=== PATIENT | male | born 1940 | race Caucasian/White ===

== ENCOUNTER 2020-07-27 09:06 | Outpatient (REF) | payer MEDICARE, OTHER, SELFPAY ==
[2020-07-27 10:44] LABS: Valproate 21.5 mcg/mL (50.0-100.0)
[2020-07-27 11:06] LABS: Vitamin B12 488 pg/mL (200-900)
[2020-07-27 11:09] LABS: Creatinine Urine 95.11 mg/dL; Microalbum/Creatinine Ratio Ur 47.3 ug/mg cr
[2020-07-27 11:12] LABS: Estimated Average Glucose 123 mg/dL; Hemoglobin A1c % 5.9 %
[2020-07-27 11:13] LABS: Alanine Aminotransferase 15 U/L (0-40); Albumin Level 4.2 g/dL (3.5-5.0); Alkaline Phosphatase 82 U/L (39-117); Anion Gap 11 (12-20); Aspartate Amino Transferase 21 U/L (5-37); Bilirubin Total 0.4 mg/dL (0.0-1.0); Blood Urea Nitrogen 28 mg/dL (9-16); Calcium 9.8 mg/dL (8.4-10.2); Carbon Dioxide 32 mmol/L (22-29); Chloride 105 mmol/L (96-108); Cholesterol 149 mg/dL; Estimated Glomerular Filt Rate 53; Glucose Fasting 89 mg/dL (60-99); HDL Cholesterol 36 mg/dL; LDL Cholesterol Calculated 91 mg/dl; Sodium 143 mmol/L (135-145); Total Protein 7.2 g/dL (6.5-8.0); Triglycerides 111 mg/dL
[2020-07-27 11:37] LABS: Thyroid Stimulating Hormone 0.53 uIU/mL (0.32-4.0)
== END 2020-07-27 09:07 | disposition home or self-care (01) ==
LOC: HO.LAB 09:06
PROVIDERS: PCP Internal Medicine; Visit Provider Internal Medicine
DX: E11.22 Type 2 diabetes mellitus with diabetic chronic kidney disease (principal); N18.9 Chronic kidney disease, unspecified; E78.2 Mixed hyperlipidemia; F03.91 Unspecified dementia, unspecified severity, with behavioral disturbance; R80.9 Proteinuria, unspecified; Z00.01 Encounter for general adult medical examination with abnormal findings
CPT/HCPCS: 80053; 80061; 80164; 82043; 82607; 83036; 84443

== ENCOUNTER 2020-08-02 20:06 | Emergency (ER) | payer MEDICARE, OTHER, SELFPAY ==
[2020-08-02 20:15] VITALS: BP 131/61; PULSE 69; RESP 18; TEMP 37.4; BMI 27.6
[2020-08-02 20:23] VITALS: BP 131/61; PULSE 69; RESP 18; TEMP 37.4
--- NOTE | 2020-08-02 20:24 | ED_ITS ---
HPI - General Adult General Chief complaint: General Medical Stated complaint: AMS Time Seen by Provider: 08/02/20 20:24 Source: EMS Mode of arrival: EMS Limitations: no limitations History of Present Illness HPI narrative: 80-year-old male with history of dementia presenting via EMS after found wandering on the street. Has history of dementia daughter apparently states he left the house 10 minutes ago without her knowing as she was in another room and her brother's post be watching the father. Patient was gone for no more than 10 minutes she arrived in the ER just as EMS pulled up anticipating that he would be here. No safety concern. No injury or fall. No recent illness. Patient did has a jacket on and is warm. Onset (ago): minute(s) Treatments prior to arrival: none Related Data Allergies Allergy/AdvReac Type Severity Reaction Status Date / Time No Known Allergies Allergy Unknown Unverified 06/01/20 15:42 Review of Systems Review of Systems: Constitutional: No Weight loss, No Fever, No Chills, No Night Sweats, No Fatigue, No Malaise ENT/Mouth: No Hearing loss, No Ear Pain,No Sinus Pain, No Hoarseness, No sore throat, No Rhinorrhea, No Swallowing Difficulty Eyes: No Eye Pain, No Swelling, No Redness, No Foreign Body, No Discharge, No Vision Changes Cardiovascular: No Chest Pain, No SOB, No Dyspnea on Exertion, No Orthopnea, No Edema, No Palpitations Respiratory: No Cough, No Sputum, No Wheezing, No Smoke Exposure, No Dyspnea Gastrointestinal: No Nausea, No Vomiting, No Diarrhea, No Constipation, No abdominal Pain, No Hematochezia, No Melena Genitourinary: no irregular bleeding, No Dysuria, No Urinary Frequency, No Hematuria, No Urinary Incontinence, No Urgency, No Flank Pain, No Urinary Flow Changes, No Hesitancy Musculoskeletal: No joint pain, No Myalgias, No Joint Swelling Skin: No Skin Lesions, No rash Neuro: No Weakness, No Numbness, No Paresthesias, No Loss of Consciousness, No Dizziness, No Headache Psych: No Anxiety/Panic, No Depression, No SI/HI/AH/VH, No Social Issues Heme/Lymph: No Bruising, No Bleeding,No Lymphadenopathy Endocrine: No Polyuria, No Polydipsia, No Temperature Intolerance Yes all other systems are reviewed and are negative FOR[facility]LY [facility], [facility] Past Medical History Attestation statement: The following information was validated with the patient. Medical History (Updated 08/02/20 @ 20:25 by Giancarlo Crain NP) Dementia Social History Social History Alcohol intake: never Smoking Status: Former smoker Smoked in Last 30 Days: Yes Use of substances other than those prescribed or required for medical reasons: No Advance Directives: No Advance Directives Information Provided: Yes Physical Exam Vital Signs: Vital Signs: Last Vital Signs Temp 99.3 F 08/02/20 20:15 Pulse 69 08/02/20 20:15 Resp 18 08/02/20 20:15 BP 131/61 08/02/20 20:15 Body Mass Index 27.6 reviewed Const: General: cooperative and healthy appearing; No acute distress or intoxicated appearing Nutritional Appearance: average body habitus Orientation/consciousness: patient oriented x3 HENMT: Head: Yes normal to inspection Ears: hearing grossly normal bilaterally Eyes: General: appearance normal, both eyes and all related structures Visual Ferrera: normal visual ferrera by confrontation Neck: Neck: Yes normal visual inspection and No tender Thyroid: Thyroid normal Chest: Chest palpation & inspection: normal inspection of the chest Resp: Effort & Inspection: normal respiratory effort Cardio: Jugular venous distension: no JVD GI: Inspection: Yes normal to inspection Percussion: Yes normal to percussion Auscultation: normal bowel sounds : General: Yes no CVA tenderness Back/Spine/Pelvis: Back: no CVA tenderness Skin: General skin exam: no rashes or lesions noted Neuro: General: patient oriented x3 Extrem: General: Yes normal to inspection Course Course Course Narrative: offers no new complaints. Is well kempt. Non ill, nontoxic appearing. Hemodynamically stable. Daughter is here. Does not offer any complaints requiring social work input. No concern for safety. Has PCP follow- up. Will be discharged under the care of daughter. Discharge Plan Discharge Clinical Impression: Dementia Patient Disposition: Home, Self-Care Instructions: Dementia (ED) Referrals: Pam Plummer MD [Primary Care Provider] - 1 week
--- NOTE | 2020-08-02 20:26 | PC.NURSE ---
pt daughter at bedside. pt hands are cool and unable to obtain a o2 sat. provider at bedside and pt will be ready for discharge.
== END 2020-08-02 20:32 | disposition home or self-care (01) ==
PROVIDERS: Emergency Provider Emergency Medicine; PCP Internal Medicine
DX: F03.90 Unspecified dementia, unspecified severity, without behavioral disturbance, psychotic disturbance, mood disturbance, and anxiety (principal); R41.82 Altered mental status, unspecified; Z79.899 Other long term (current) drug therapy
CPT/HCPCS: 99283; 99284

== ENCOUNTER 2020-08-09 14:15 | Outpatient (REF) | payer MEDICARE, MEDICAID, SELFPAY | END 2020-08-09 14:16 | disposition home or self-care (01) | LOC: HO.LAB 14:15 | PROVIDERS: Visit Provider Internal Medicine | DX: Z20.828 Contact with and (suspected) exposure to other viral communicable diseases (principal) | CPT/HCPCS: C9803; U0003 ==

== ENCOUNTER 2020-08-22 10:17 | Outpatient (REF) | payer MEDICARE, MEDICAID, SELFPAY | END 2020-08-22 10:18 | disposition home or self-care (01) | LOC: HO.LAB 10:17 | PROVIDERS: PCP Internal Medicine; Visit Provider Internal Medicine | DX: Z20.828 Contact with and (suspected) exposure to other viral communicable diseases (principal) | CPT/HCPCS: C9803; U0003 ==

== ENCOUNTER 2020-09-11 20:16 | Emergency (ER) | payer MEDICARE, OTHER, SELFPAY ==
--- NOTE | 2020-09-11 | ECG_ITS ---
Test Reason : CHEST PAIN Blood Pressure : / mmHG Vent. Rate : 068 BPM Atrial Rate : 068 BPM P-R Int : 166 ms QRS Dur : 078 ms QT Int : 386 ms P-R-T Axes : 040 014 033 degrees QTc Int : 410 ms Normal sinus rhythm Normal ECG When compared with ECG of 07-MAR-2014 13:35, No significant changes seen Referred By: Generic ED Physician Electronically Signed By:SALMA JOHNSON
--- NOTE | 2020-09-11 20:26 | PC.NURSE ---
called for an ekg
[2020-09-11 21:24] VITALS: BP 107/57; PULSE 65; RESP 18; TEMP 37; O2SAT 99; BMI 27.9
--- NOTE | 2020-09-11 21:27 | XR_ITS ---
EXAMINATION: XR CHEST CLINICAL INFORMATION: Chest pain COMPARISON: None TECHNIQUE: Frontal view of the chest was obtained. FINDINGS: Cardiac silhouette is normal in size. The lungs are well aerated. Subtle patchy bilateral airspace opacities. No lobar consolidation. No pleural effusion or pneumothorax. XR/XR chest 1V IMPRESSION: Subtle patchy bilateral airspace opacities. This is a nonspecific finding. This may represent atelectasis, viral infiltrate, or possibly chronic lung changes. Unfortunately, there are no prior images available for comparison. Clinical correlation recommended.
[2020-09-11 22:25] LABS: Basophils Absolute Auto 0.1 X10*3/uL (0.0-0.2); Basophils Percent Auto 1.3 % (0-2); Eosinophils Absolute Auto 0.3 X10*3/uL (0.0-0.4); Eosinophils Percent Auto 4.1 % (0-4); Hemoglobin 10.8 g/dl (14.0-18.0); Imm Gran Abs Auto 0.01 X10*3/uL (0.00-0.03); Imm Gran Pct Auto 0.1 % (0.0-0.4); Lymphocytes Absolute Auto 2.9 X10*3/uL (1.2-4.9); Lymphocytes Percent Auto 39.9 % (20-40); MANUAL DIFF FLAG NO; Mean Corpuscular HGB Conc 31.8 g/dl (31.0-36.0); Mean Corpuscular Hemoglobin 28.9 pg (27.0-33.0); Mean Corpuscular Volume 90.9 fL (80-98); Mean Platelet Volume 11.4 fL (9.4-12.4); Monocytes Absolute Auto 0.8 X10*3/uL (0.1-1.2); Monocytes Percent Auto 11.1 % (2-11); Neutrophils Absolute Auto 3.1 X10*3/uL (2.0-8.3); Neutrophils Percent Auto 43.5 % (45-73); Platelet Count 158 X10*3/uL (160-400); Red Blood Count 3.74 X10*6/uL (4.60-5.80); Red Cell Distribution Width 13.5 % (11.0-16.0); White Blood Count 7.1 X10*3/uL (4.8-10.8)
[2020-09-11 22:44] LABS: Anion Gap 12 (12-20); Blood Urea Nitrogen 27 mg/dL (9-16); Calcium 9.6 mg/dL (8.4-10.2); Carbon Dioxide 31 mmol/L (22-29); Chloride 105 mmol/L (96-108); Creatinine Clr Calc Pharmacy 34.8; Estimated Glomerular Filt Rate 41; Glucose Random 104 mg/dL (60-115); Potassium 4.7 mmol/l (3.3-5.1); Sodium 143 mmol/L (135-145)
[2020-09-11 22:50] LABS: Troponin-I High Sensitivity 5.6 ng/L (<3.5-35.0)
== END 2020-09-12 00:40 | disposition left against medical advice (07) ==
PROVIDERS: Emergency Provider Student in an Organized Health Care Education/Training Program; PCP Internal Medicine
DX: R07.9 Chest pain, unspecified (principal)
CPT/HCPCS: 36415; 71045; 80048; 84484; 85025; 93005; 99282; 99283

== ENCOUNTER 2021-01-01 13:51 | Outpatient (REF) | payer MEDICARE, OTHER, SELFPAY ==
--- NOTE | ~2021-01-01 | XR_ITS ---
EXAMINATION: XR KNEE, LEFT CLINICAL INFORMATION: Left knee osteoarthritis. COMPARISON: None. TECHNIQUE: 4 views of the left knee. FINDINGS: Moderate medial compartment joint space narrowing. Tricompartmental marginal osteophytes. Patellofemoral subchondral cystic change. No fracture or dislocation. Medial and lateral compartment chondrocalcinosis. Posterior unfused osteophyte versus ossified loose body measuring 0.5 cm. Atherosclerotic calcifications. XR/XR knee LT 4V IMPRESSION: [id number] medial and patellofemoral compartment as well as more moderate lateral compartment osteoarthritis. Medial and lateral compartment chondrocalcinosis.
[2021-01-01 15:39] LABS: Estimated Average Glucose 105 mg/dL; Hemoglobin A1c % 5.3 %
[2021-01-01 15:49] LABS: Alanine Aminotransferase 17 U/L (0-40); Albumin Level 4.1 g/dL (3.5-5.0); Alkaline Phosphatase 78 U/L (39-117); Anion Gap 14 (12-20); Aspartate Amino Transferase 23 U/L (5-37); Bilirubin Total 0.5 mg/dL (0.0-1.0); Blood Urea Nitrogen 30 mg/dL (9-16); Calcium 9.8 mg/dL (8.4-10.2); Carbon Dioxide 28 mmol/L (22-29); Chloride 105 mmol/L (96-108); Estimated Glomerular Filt Rate 44; Glucose Random 143 mg/dL (60-115); Potassium 4.5 mmol/L (3.3-5.1); Sodium 142 mmol/L (135-145); Total Protein 7.2 g/dL (6.5-8.0)
== END 2021-01-01 13:52 | disposition home or self-care (01) ==
LOC: HO.XRAY 13:51
PROVIDERS: PCP Internal Medicine; Visit Provider Internal Medicine
DX: E11.9 Type 2 diabetes mellitus without complications (principal); F03.91 Unspecified dementia, unspecified severity, with behavioral disturbance; I10 Essential (primary) hypertension; M17.12 Unilateral primary osteoarthritis, left knee
CPT/HCPCS: 36415; 73564; 80053; 83036

== ENCOUNTER → 2021-02-09 12:37 | Outpatient (BNVA) | payer MEDICARE, OTHER, SELFPAY | PROVIDERS: Visit Provider Orthopaedic Surgery | DX: M17.12 Unilateral primary osteoarthritis, left knee (principal) | CPT/HCPCS: 20610; 99202; J1040 ==

== ENCOUNTER 2021-05-01 09:45 | Outpatient (REF) | payer MEDICARE, MEDICAID, SELFPAY ==
[2021-05-01 10:24] LABS: MANUAL DIFF FLAG NO
[2021-05-01 10:33] LABS: Basophils Absolute Auto 0.1 X10*3/uL (0.0-0.2); Basophils Percent Auto 1.1 % (0-2); Eosinophils Absolute Auto 0.2 X10*3/uL (0.0-0.4); Eosinophils Percent Auto 3.5 % (0-4); Hematocrit 34.9 % (42-52); Hemoglobin 11.3 g/dl (14.0-18.0); Imm Gran Abs Auto 0.01 X10*3/uL (0.00-0.03); Imm Gran Pct Auto 0.2 % (0.0-0.4); Lymphocytes Absolute Auto 1.7 X10*3/uL (1.2-4.9); Lymphocytes Percent Auto 37.6 % (20-40); Mean Corpuscular HGB Conc 32.4 g/dl (31.0-36.0); Mean Corpuscular Hemoglobin 29.4 pg (27.0-33.0); Mean Corpuscular Volume 90.6 fL (80-98); Mean Platelet Volume 11.7 fL (9.4-12.4); Monocytes Absolute Auto 0.5 X10*3/uL (0.1-1.2); Monocytes Percent Auto 11.4 % (2-11); Neutrophils Absolute Auto 2.1 X10*3/uL (2.0-8.3); Neutrophils Percent Auto 46.2 % (45-73); Platelet Count 158 X10*3/uL (160-400); Red Blood Count 3.85 X10*6/uL (4.60-5.80); Red Cell Distribution Width 12.9 % (11.0-16.0); White Blood Count 4.6 X10*3/uL (4.8-10.8)
[2021-05-01 11:13] LABS: Alanine Aminotransferase 12 U/L (0-40); Albumin Level 4.1 g/dL (3.5-5.0); Alkaline Phosphatase 65 U/L (39-117); Anion Gap 12 (12-20); Aspartate Amino Transferase 17 U/L (5-37); Bilirubin Total 0.5 mg/dL (0.0-1.0); Blood Urea Nitrogen 42 mg/dL (9-16); Calcium 9.9 mg/dL (8.4-10.2); Carbon Dioxide 27 mmol/L (22-29); Chloride 107 mmol/L (96-108); Cholesterol 157 mg/dL; Estimated Glomerular Filt Rate 38; Glucose Random 118 mg/dL (60-115); HDL Cholesterol 32 mg/dL; LDL Cholesterol Calculated 97 mg/dl; Potassium 4.2 mmol/L (3.3-5.1); Sodium 142 mmol/L (135-145); Triglycerides 144 mg/dL
[2021-05-04 15:17] LABS: TS Negative Control Passed; TS Panel A 26; TS Panel B >50; TS Positive Control Passed; TSpotTB POSITIVE (SeeBelow)
== END 2021-05-01 09:46 | disposition home or self-care (01) ==
LOC: HO.LAB 09:45
PROVIDERS: PCP Internal Medicine; Visit Provider Internal Medicine
DX: F03.91 Unspecified dementia, unspecified severity, with behavioral disturbance (principal); F51.02 Adjustment insomnia; M17.12 Unilateral primary osteoarthritis, left knee; N18.32 Chronic kidney disease, stage 3b
CPT/HCPCS: 36415; 80053; 80061; 85025; 86481

== ENCOUNTER 2021-05-14 08:46 | Outpatient (REF) | payer MEDICARE, OTHER, SELFPAY ==
--- NOTE | ~2021-05-14 | XR_ITS ---
EXAMINATION: XR CHEST CLINICAL INFORMATION: Positive TB test COMPARISON: Previous chest x-ray most recent August 2020 TECHNIQUE: 2 views of the chest were obtained. FINDINGS: The cardiac and mediastinal contours are normal. The lungs are clear. There is no pleural effusion or pneumothorax. There are degenerative changes of the spine. XR/XR chest 2V IMPRESSION: No evidence for acute disease in the chest.
== END 2021-05-14 08:47 | disposition home or self-care (01) ==
LOC: HO.XRAY 08:46
PROVIDERS: PCP Internal Medicine; Visit Provider Internal Medicine
DX: R76.11 Nonspecific reaction to tuberculin skin test without active tuberculosis (principal)
CPT/HCPCS: 71046

== ENCOUNTER 2021-05-16 15:09 | Emergency (ER) | payer MEDICARE, OTHER, SELFPAY ==
--- NOTE | ~2021-05-16 | XR_ITS ---
EXAMINATION: CHEST 2 VIEWS CLINICAL INFORMATION: fall . COMPARISON: 05/14/2021. TECHNIQUE: AP frontal and lateral views of the chest obtained FINDINGS: The lungs are well expanded. No focal infiltrate, effusion, edema, or pneumothorax. Cardiac and mediastinal silhouettes are within normal limits for technique. No acute bony abnormality seen with degenerative changes in the spine and shoulders. XR/XR chest 2V IMPRESSION: No evidence of acute disease compared to 05/14/2021
--- NOTE | ~2021-05-16 | CT_ITS ---
EXAM: CT scan of the head and cervical spine. INDICATION: Reason for Exam fall, trauma TECHNIQUE: A noncontrast CT scan was performed from the skull base to the vertex. A noncontrast CT scan of the cervical spine was performed from the base of the skull through T1 at 2.5 mm and 1.25 mm collimation. Coronal and sagittal reformats were obtained at the acquisition workstation. This CT examination was performed using dose optimization techniques as appropriate, variously including the following: *Automated exposure control *Adjustment of mA and/or kV according to patient size (this includes techniques or standardized protocols for targeted exams where dose is matched to indication/reason for exam; i.e. extremities or head) *Use of iterative reconstruction technique DLP: 485 mGy-cm COMPARISON: 12/22/2017 FINDINGS: Head: There is no evidence of acute intracranial hemorrhage but there is an area of decreased attenuation within the left posterior temporal location with loss of the armas-white matter differentiation. No abnormal mass effect or midline shift. No extra-axial fluid collections. Scattered periventricular and deep white matter hypodensities consistent with microangiopathy. The ventricles and sulcal spaces are proportional without hydrocephalus. Proportional prominence of the ventricles and sulcal spaces. No acute osseous or soft tissue abnormalities. The mastoid air cells and visualized portions of the paranasal sinuses are well aerated. Cervical Spine: There is advanced spondylosis throughout the cervical spine most pronounced at C5-C7. There is no acute fracture subluxation. Multilevel posterior disc aspect complex is resulting in moderate to severe central canal encroachment especially at C3-C4. Posterior elements appear intact. Straightening of the normal cervical lordosis. Otherwise, there is anatomic alignment of the vertebral bodies and posterior elements. There is no prevertebral soft tissue swelling. The thyroid gland and remaining cervical soft tissues are normal in appearance. The lung apices demonstrate no abnormalities. CT/CT cervical spine wo con IMPRESSION: 1. Decreased attenuation within the left posterior temporal cortex. Appearance is new since the baseline 2018 exam but strictly speaking is age indeterminate. This could represent a subacute infarct and correlation with clinical symptoms indicated. Consider MRI for dating purposes. No hemorrhage. 2. No fracture subluxation cervical spine. Advanced spondylosis.
--- NOTE | ~2021-05-16 | XR_ITS ---
EXAMINATION: XR TIBIA AND FIBULA, LEFT CLINICAL INFORMATION: Fall, trauma COMPARISON: None TECHNIQUE: AP and lateral views of the left tibia and fibula were obtained. FINDINGS: No fracture or dislocation. Degenerative changes of the knee. There are vascular calcifications. XR/XR tibia fibula LT 2V IMPRESSION: No acute osseous abnormality of the left tibia and fibula.
--- NOTE | ~2021-05-16 | XR_ITS ---
EXAMINATION: XR ELBOW, LEFT CLINICAL INFORMATION: Fall COMPARISON: None TECHNIQUE: AP, lateral, and oblique views of the left elbow. FINDINGS: There is a linear ossification adjacent to the lateral radial head questionable for a fracture. Bone alignment is normal. The joint spaces are normal. There is a large joint effusion. There is soft tissue calcification or ossification adjacent to the lateral humeral epicondyles suggestive of epicondylitis. XR/XR elbow LT min 3V IMPRESSION: Large joint effusion. Linear ossification adjacent to the lateral radial head questionable for fracture. Evidence of lateral epicondylitis.
[2021-05-16 15:19] VITALS: BP 141/37; PULSE 59; RESP 16; TEMP 36.2; O2SAT 98; BMI 27.4
[2021-05-16 16:27] VITALS: BP 124/42; PULSE 58; RESP 16; O2SAT 99
--- NOTE | 2021-05-16 16:28 | ECG_ITS ---
Test Reason : FALL Blood Pressure : / mmHG Vent. Rate : 059 BPM Atrial Rate : 059 BPM P-R Int : 176 ms QRS Dur : 076 ms QT Int : 394 ms P-R-T Axes : 052 010 017 degrees QTc Int : 390 ms Sinus bradycardia Otherwise normal ECG When compared with ECG of 11-SEP-2020 20:25, No significant change was found Referred By: Denise Arora Electronically Signed By:ALMA GANN
--- NOTE | 2021-05-16 16:31 | ED_ITS ---
HPI - Fall General Chief Complaint: Fall Stated Complaint: fall Time Seen by Provider: 05/16/21 16:12 Source: patient Mode of arrival: ambulatory Limitations: altered mental status History of Present Illness HPI Narrative: 80 yo male wiith a past medical history of dementia, chronic kidney disease, high blood pressure here with left elbow pain after a fall. Per daughter the patient was found on the ground this morning when she got home from work. She thinks he may have been on the ground for several hours. He is unable to tell her what happened and why he fell due to his underlying dementia. She did notice his left elbow was painful and swollen and so she brought him in for further evaluation. She tells me he is at his mental status baseline. He is ambulatory. Related Data Home Medications Medication Instructions Recorded Confirmed aspirin 81 mg tablet,delayed 81 mg PO DAILY 02/09/21 release atorvastatin 20 mg tablet 20 mg PO DAILY 02/09/21 divalproex 250 mg tablet,extended 250 mg PO DAILY 02/09/21 release 24 hr galantamine 8 mg tablet 8 mg PO BID 02/09/21 ketorolac 0.5 % eye drops 0 drp OPHTHALMIC (EYE) 02/09/21 lisinopril 20 mg tablet 20 mg PO DAILY 02/09/21 memantine 10 mg tablet 10 mg PO BID 02/09/21 quetiapine 50 mg tablet 50 mg PO BID 02/09/21 sertraline 25 mg tablet 25 mg PO DAILY 02/09/21 Allergies Allergy/AdvReac Type Severity Reaction Status Date / Time No Known Allergies Allergy Unknown Verified 02/09/21 12:46 Review of Systems Review of Systems: Yes Unobtainable due to mental status Neurologic: Denies Abnormal speech present and Reports confusion Psychiatric: Psychiatric: Reports confusion ON LICENSE OF [facility] Past Medical History Attestation statement: The following information was validated with the patient. Source: old records reviewed and nursing notes reviewed Medical History Cataract Dementia Kidney failure Family History Family History Father Throat cancer Mother Hypertension Social History Social History Alcohol intake: never Patient Tobacco Use Status: Former Tobacco user Smoked in Last 30 Days: No Use of substances other than those prescribed or required for medical reasons: No Advance Directives: No Advance Directives Information Provided: Yes Current occupational status: retired Current occupation: right handed Physical Exam Vital Signs: Vital Signs: Last Vital Signs Temp 98.2 F 05/16/21 18:00 Pulse 65 05/16/21 18:00 Resp 16 05/16/21 18:00 BP 147/56 H 05/16/21 18:00 Pulse Ox 97 05/16/21 18:00 Body Mass Index 27.4 Const: General: cooperative, healthy appearing, comfortable, no acute distress and confusion Orientation/consciousness: confusion Limitations: altered mental status HENMT: Head: Yes normal to inspection Ears: hearing grossly normal bilaterally and TM's normal bilaterally General nose exam: Normal external nose present Face and sinus: Yes normal facial exam Mouth: Normal oral and palatal mucosa present Throat: Yes posterior oropharynx normal, Yes tonsils normal and Yes uvula midline Eyes: General: appearance normal, both eyes and all related structures Pupils: Equal, round and reactive pupils present Neck: Neck: Yes normal visual inspection, Yes full ROM and Yes no lymphadenopathy Chest: Chest palpation & inspection: normal inspection of the chest Resp: Effort & Inspection: normal respiratory effort Auscultation: clear to auscultation bilaterally Cardio: Rate: regular rate Rhythm: regular rhythm Peripheral pulses: Peripheral pulses 2+ throughout GI: Inspection: Yes normal to inspection Palpation (GI): Soft to palpation and nontender Auscultation: normal bowel sounds : General: Yes no CVA tenderness Back/Spine/Pelvis: Back: no CVA tenderness Thoracic/Lumbar Spine: thoracic and lumbar spine normal to inspection Skin: General skin exam: no rashes or lesions noted Neuro: General: moves all extremities, normal sensation to monofilament and confusion Cranial nerves: Yes Equal, round and reactive pupils present Speech: No Abnormal speech present Gait exam (Neuro): Normal gait present Motor exam (neuro): 5/5 motor strength present throughout Sensory Exam: Normal double simultaneous stimulation for sensation Extrem: Other: Tenderness and swelling noted to the left lateral elbow. Patient has limited flexion and extension of the arm due to pain. There is no warmth or redness. Distal pulses are palpated. Mild tenderness to the left anterior lower extremity with no obvious ecchymosis or swelling or deformity. Full range of motion General: Yes normal to inspection Course Course Course Narrative: 80-year-old male with underlying dementia here after an unwitnessed fall which occurred sometime throughout the night here with complaints of left elbow pain and left lower extremity pain. Unable to explain to me why he fell. Per family he is at his mental status baseline. Due to dementia and unwitnessed fall will rule out underlying cause. Will check x-ray, UA, EKG and labs. For fall that was unwitnessed will check CT head and neck. For pain of extremities will check x-rays. 1640-x-rays of the left upper extremity show a large joint effusion of the elbow and a likely radial head fracture. Will place in sugar-tong splint and give sling for comfort. 190-imaging chest and lower extremity are negative. Labs are unremarkable with an indeterminate troponin. No EKG changes or chest pain. Less likely ACS. CT head shows a decreased attenuation within the left posterior temporal cortex this is new since his previous CT scan in 2018. Age is indeterminate. I discussed this with his daughter. The patient is confused but has no other neurological deficits. This stroke not likely occurred last night during his fall and she can follow up outpatient with his primary care doctor. He is taking aspirin 81 mg daily and I recommended he continue to take this. Procedures Procedure Narrative Procedure Narrative: sugar tong splint, sling MDM - Fall Medical Records Attestation: I reviewed the patient's medical records. Lab Data Attestation: I reviewed the patient's lab results. Result diagrams: 05/16/21 17:50 05/16/21 17:50 Labs: Lab Results 05/16/21 05/16/21 05/16/21 Range/Units 17:50 17:50 17:50 WBC 8.8 (4.8-10.8) X10*3/uL RBC 3.88 L (4.60-5.80) X10*6/uL Hgb 11.6 L (14.0-18.0) g/dl Hct 34.9 L (42-52) % MCV 89.9 (80-98) fL MCH 29.9 (27.0-33.0) pg MCHC 33.2 (31.0-36.0) g/dl RDW 12.7 (11.0-16.0) % Plt Count 130 L (160-400) X10*3/uL MPV 12.3 (9.4-12.4) fL Immature Gran % (Auto) 0.3 (0.0-0.4) % Neut % (Auto) 57.0 (45-73) % Lymph % (Auto) 22.5 (20-40) % [place] % (Auto) 19.0 H (2-11) % Eos % (Auto) 0.7 (0-4) % Baso % (Auto) 0.5 (0-2) % Lymph # (Auto) 2.0 (1.2-4.9) X10*3/uL [place] # (Auto) 1.7 H (0.1-1.2) X10*3/uL Eos # (Auto) 0.1 (0.0-0.4) X10*3/uL Baso # (Auto) 0.0 (0.0-0.2) X10*3/uL Abs Immat Gran (auto) 0.03 (0.00-0.03) X10*3/uL Absolute Neuts (auto) 5.0 (2.0-8.3) X10*3/uL Absolute Nucleated RBC 0.000 (0.0-0.012) X10*3/uL Nucleated RBC % (auto) 0.0 (0.0-0.2) /100WBC Smear Tech's Comments VERIFIED Sodium 142 (135-145) mmol/L Potassium 4.2 (3.3-5.1) mmol/L Chloride 104 (96-108) mmol/L Carbon Dioxide 29 (22-29) mmol/L Anion Gap 13 (12-20) BUN 34 H (9-16) mg/dL Creatinine 1.45 H (0.5-1.4) mg/dL Estim Creat Clear Calc 39.0 Estimated GFR 47 Random Glucose 102 (60-115) mg/dL Calcium 10.4 H (8.4-10.2) mg/dL Magnesium 2.1 (1.6-2.6) mg/dL Total Bilirubin 0.6 (0.0-1.0) mg/dL Direct Bilirubin 0.2 (0.0-0.5) mg/dL AST 23 (5-37) U/L ALT 12 (0-40) U/L Alkaline Phosphatase 74 (39-117) U/L Total Creatine Kinase 439 H (38-174) U/L Troponin I High Sens 10.2 (<3.5-35.0) ng/L Total Protein 7.4 (6.5-8.0) g/dL Albumin 4.3 (3.5-5.0) g/dL Urine Color Urine Appearance Urine pH (5.0-8.0) Ur Specific [place] (1.005-1.025) Urine Protein (NEG-TRACE) MG/DL Urine Glucose (UA) (NEG) MG/DL Urine Ketones (NEG) MG/DL Urine Blood (NEG) Urine Nitrite (NEG) Ur Leukocyte Esterase (NEG) 05/16/21 Range/Units 17:59 WBC (4.8-10.8) X10*3/uL RBC (4.60-5.80) X10*6/uL Hgb (14.0-18.0) g/dl Hct (42-52) % MCV (80-98) fL MCH (27.0-33.0) pg MCHC (31.0-36.0) g/dl RDW (11.0-16.0) % Plt Count (160-400) X10*3/uL MPV (9.4-12.4) fL Immature Gran % (Auto) (0.0-0.4) % Neut % (Auto) (45-73) % Lymph % (Auto) (20-40) % [place] % (Auto) (2-11) % Eos % (Auto) (0-4) % Baso % (Auto) (0-2) % Lymph # (Auto) (1.2-4.9) X10*3/uL [place] # (Auto) (0.1-1.2) X10*3/uL Eos # (Auto) (0.0-0.4) X10*3/uL Baso # (Auto) (0.0-0.2) X10*3/uL Abs Immat Gran (auto) (0.00-0.03) X10*3/uL Absolute Neuts (auto) (2.0-8.3) X10*3/uL Absolute Nucleated RBC (0.0-0.012) X10*3/uL Nucleated RBC % (auto) (0.0-0.2) /100WBC Smear Tech's Comments Sodium (135-145) mmol/L Potassium (3.3-5.1) mmol/L Chloride (96-108) mmol/L Carbon Dioxide (22-29) mmol/L Anion Gap (12-20) BUN (9-16) mg/dL Creatinine (0.5-1.4) mg/dL Estim Creat Clear Calc Estimated GFR Random Glucose (60-115) mg/dL Calcium (8.4-10.2) mg/dL Magnesium (1.6-2.6) mg/dL Total Bilirubin (0.0-1.0) mg/dL Direct Bilirubin (0.0-0.5) mg/dL AST (5-37) U/L ALT (0-40) U/L Alkaline Phosphatase (39-117) U/L Total Creatine Kinase (38-174) U/L Troponin I High Sens (<3.5-35.0) ng/L Total Protein (6.5-8.0) g/dL Albumin (3.5-5.0) g/dL Urine Color YELLOW Urine Appearance CLEAR Urine pH 6.0 (5.0-8.0) Ur Specific [place] 1.015 (1.005-1.025) Urine Protein NEG (NEG-TRACE) MG/DL Urine Glucose (UA) NEG (NEG) MG/DL Urine Ketones NEG (NEG) MG/DL Urine Blood NEG (NEG) Urine Nitrite NEG (NEG) Ur Leukocyte Esterase NEG (NEG) Imaging Data left elbow xray: Attestation: I personally reviewed and interpreted this imaging study as follows: Radiologist's impression: MPRESSION: Large joint effusion. Linear ossification adjacent to the lateral radial head questionable for fracture. Evidence of lateral epicondylitis. Chest x-ray: Attestation: I personally reviewed and interpreted this imaging study as follows: Radiologist's impression: TECHNIQUE: AP frontal and lateral views of the chest obtained? FINDINGS: The lungs are well expanded. No focal infiltrate, effusion, edema, or pneumothorax. Cardiac and mediastinal silhouettes are within normal limits for technique. No acute bony abnormality seen with degenerative changes in the spine and shoulders. XR/XR chest 2V IMPRESSION: No evidence of acute disease compared to 05/14/2021 ? tibia/fibula left xray: Attestation: I personally reviewed and interpreted this imaging study as follows: Radiologist's impression: EXAMINATION: XR TIBIA AND FIBULA, LEFT CLINICAL INFORMATION: Fall, trauma? COMPARISON: None? TECHNIQUE: AP and lateral views of the left tibia and fibula were obtained. FINDINGS: No fracture or dislocation. Degenerative changes of the knee. There are vascular calcifications.? XR/XR tibia fibula LT 2V IMPRESSION: No acute osseous abnormality of the left tibia and fibula. ? CT head/cervical spine: Attestation: I personally reviewed and interpreted this imaging study as follows: Radiologist's impression: [id number] [place] [address] CT Scan Report Signed Patient: Curtis Paetl V MR#: [id number] : 1940 Acct:[id number] Age/Sex: 80 / M ADM Date: 05/16/21 Loc: HO.ED Attending Dr: Ordering Physician: Denise Arora NP Date of Service: 05/16/21 Procedure(s): CT cervical spine wo con Accession Number(s): [id number] cc: Denise Arora NP~ EXAM: CT scan of the head and cervical spine. INDICATION: Reason for Exam fall, trauma TECHNIQUE: A noncontrast CT scan was performed from the skull base to the vertex. A noncontrast CT scan of the cervical spine was performed from the base of the skull through T1 at 2.5 mm and 1.25 mm collimation. Coronal and sagittal reformats were obtained at the acquisition workstation. This CT examination was performed using dose optimization techniques as appropriate, variously including the following: *Automated exposure control *Adjustment of mA and/or kV according to patient size (this includes techniques or standardized protocols for targeted exams where dose is matched to indication/reason for exam; i.e. extremities or head) *Use of iterative reconstruction technique DLP: 485 ? mGy-cm COMPARISON: 12/22/2017 FINDINGS: Head: There is no evidence of acute intracranial hemorrhage but there is an area of decreased attenuation within the left posterior temporal location with loss of the armas-white matter differentiation. No abnormal mass effect or midline shift. No extra-axial fluid collections. Scattered periventricular and deep white matter hypodensities consistent with microangiopathy.? The ventricles and sulcal spaces are proportional without hydrocephalus. ?Proportional prominence of the ventricles and sulcal spaces. No acute osseous or soft tissue abnormalities. The mastoid air cells and visualized portions of the paranasal sinuses are well aerated. Cervical Spine: There is advanced spondylosis throughout the cervical spine most pronounced at C5-C7. There is no acute fracture subluxation. Multilevel posterior disc aspect complex is resulting in moderate to severe central canal encroachment especially at C3-C4. Posterior elements appear intact.? Straightening of the normal cervical lordosis. Otherwise, there is anatomic alignment of the vertebral bodies and posterior elements. There is no prevertebral soft tissue swelling. The thyroid gland and remaining cervical soft tissues are normal in appearance. The lung apices demonstrate no abnormalities. CT/CT cervical spine wo con IMPRESSION: ? 1. Decreased attenuation within the left posterior temporal cortex. Appearance is new since the baseline 2018 exam but strictly speaking is age indeterminate. This could represent a subacute infarct and correlation with clinical symptoms indicated. Consider MRI for dating purposes. No hemorrhage. 2. No fracture subluxation cervical spine. Advanced spondylosis. ? ? ECG Data Attestation: I personally reviewed and interpreted this ECG as follows: ECG interpretation date: 05/16/21 ECG interpretation time: 16:40 Interpretation: Sinus bradycardia with rate of 59, normal IN, normal QRS, normal QT Discharge Plan Discharge Clinical Impression: Closed fracture of radial head Patient Disposition: Home, Self-Care Instructions: Arm Fracture in Adults (ED) Additional Instructions: This splint must stay on at all times Do not get the splint wet. This sling is for comfort and may be removed as needed. Call orthopedics for a follow-up appointment Tylenol for pain as needed His CT scan shows an old stroke. You can follow-up with his PCP in regards to this. Prescriptions: No Action divalproex 250 mg tablet extended release 24 hr 250 mg PO DAILY RF: 0 lisinopril 20 mg tablet 20 mg PO DAILY RF: 0 atorvastatin 20 mg tablet 20 mg PO DAILY RF: 0 sertraline 25 mg tablet 25 mg PO DAILY RF: 0 memantine 10 mg tablet 10 mg PO BID RF: 0 galantamine 8 mg tablet 8 mg PO BID RF: 0 quetiapine 50 mg tablet 50 mg PO BID RF: 0 aspirin 81 mg tablet,delayed release (DR/EC) 81 mg PO DAILY RF: 0 ketorolac 0.5 % drops 0 drp ophthalmic (eye) RF: 0 Referrals: Gomez Coulter MD [Physician] - 2 days
[2021-05-16 18:00] VITALS: BP 147/56; PULSE 65; RESP 16; TEMP 36.8; O2SAT 97
[2021-05-16 18:14] LABS: Basophils Percent Auto 0.5 % (0-2); Eosinophils Absolute Auto 0.1 X10*3/uL (0.0-0.4); Eosinophils Percent Auto 0.7 % (0-4); Hematocrit 34.9 % (42-52); Hemoglobin 11.6 g/dl (14.0-18.0); Imm Gran Abs Auto 0.03 X10*3/uL (0.00-0.03); Imm Gran Pct Auto 0.3 % (0.0-0.4); Lymphocytes Percent Auto 22.5 % (20-40); MANUAL DIFF FLAG SCAN; Mean Corpuscular HGB Conc 33.2 g/dl (31.0-36.0); Mean Corpuscular Hemoglobin 29.9 pg (27.0-33.0); Mean Corpuscular Volume 89.9 fL (80-98); Mean Platelet Volume 12.3 fL (9.4-12.4); Monocytes Absolute Auto 1.7 X10*3/uL (0.1-1.2); Platelet Count 130 X10*3/uL (160-400); Red Blood Count 3.88 X10*6/uL (4.60-5.80); Red Cell Distribution Width 12.7 % (11.0-16.0); SCAN SMEAR FLAG 1; White Blood Count 8.8 X10*3/uL (4.8-10.8)
[2021-05-16 18:17] LABS: Glucose Urine UA NEG (NEG); Leukocyte Esterase Urine NEG (NEG); Nitrite Urine NEG (NEG); Specific Gravity - Urine 1.015 (1.005-1.025); Urine Blood NEG (NEG); Urine Ketones NEG (NEG); Urine Protein NEG (NEG-TRACE)
[2021-05-16 18:18] LABS: Appearance Urine CLEAR; Color Urine YELLOW
[2021-05-16 18:23] LABS: Troponin-I High Sensitivity 10.2 ng/L (<3.5-35.0)
[2021-05-16 18:24] LABS: Alanine Aminotransferase 12 U/L (0-40); Albumin Level 4.3 g/dL (3.5-5.0); Alkaline Phosphatase 74 U/L (39-117); Anion Gap 13 (12-20); Aspartate Amino Transferase 23 U/L (5-37); Bilirubin Direct 0.2 mg/dL (0.0-0.5); Bilirubin Total 0.6 mg/dL (0.0-1.0); Blood Urea Nitrogen 34 mg/dL (9-16); Carbon Dioxide 29 mmol/L (22-29); Chloride 104 mmol/L (96-108); Estimated Glomerular Filt Rate 47; Glucose Random 102 mg/dL (60-115); Magnesium 2.1 mg/dL (1.6-2.6); Potassium 4.2 mmol/L (3.3-5.1); Sodium 142 mmol/L (135-145); Total Protein 7.4 g/dL (6.5-8.0)
[2021-05-16 18:30] LABS: Calcium 10.4 mg/dL (8.4-10.2)
[2021-05-16 18:34] LABS: SLIDE REVIEW VERIFIED
--- NOTE | 2021-05-16 20:30 | PC.NURSE ---
Pateint not in room at this time.
--- NOTE | 2021-05-16 20:50 | PC.NURSE ---
Called daughter to go over discharge instructions. Left message to call back.
--- NOTE | 2021-05-16 20:56 | PC.NURSE ---
Called patient's phone. No answer. Unable to leave message.
== END 2021-05-16 20:00 | disposition home or self-care (01) ==
PROVIDERS: Nurse Practitioner Family; Emergency Provider Emergency Medicine Emergency Medical Services; PCP Internal Medicine
DX: S52.125A Nondisplaced fracture of head of left radius, initial encounter for closed fracture (principal); W19.XXXA Unspecified fall, initial encounter; I12.9 Hypertensive chronic kidney disease with stage 1 through stage 4 chronic kidney disease, or unspecified chronic kidney disease; N18.9 Chronic kidney disease, unspecified; F03.90 Unspecified dementia, unspecified severity, without behavioral disturbance, psychotic disturbance, mood disturbance, and anxiety; Z79.82 Long term (current) use of aspirin; Z79.02 Long term (current) use of antithrombotics/antiplatelets; Z79.899 Other long term (current) drug therapy; Y93.9 Activity, unspecified; Y92.019 Unspecified place in single-family (private) house as the place of occurrence of the external cause; Y99.9 Unspecified external cause status
CPT/HCPCS: 29125; 36415; 70450; 71046; 72125; 73080; 73590; 80048; 80076; 81003; 82550; 83735; 84484; 85025; 93005; 99284; 99285

== ENCOUNTER → 2021-05-29 14:12 | Outpatient (BNVA) | payer MEDICARE, OTHER, SELFPAY | PROVIDERS: PCP Internal Medicine; Visit Provider Physician Assistant | DX: S52.122A Displaced fracture of head of left radius, initial encounter for closed fracture (principal) | CPT/HCPCS: 99202 ==

== ENCOUNTER → 2021-07-23 14:34 | Outpatient (BNVA) | payer MEDICARE, OTHER, SELFPAY | PROVIDERS: Visit Provider Orthopaedic Surgery | DX: M17.0 Bilateral primary osteoarthritis of knee (principal); F03.90 Unspecified dementia, unspecified severity, without behavioral disturbance, psychotic disturbance, mood disturbance, and anxiety | CPT/HCPCS: 20610; 99212; J1100 ==

== ENCOUNTER 2021-08-17 15:46 | Emergency (ER) | payer MEDICARE, MEDICAID, SELFPAY ==
--- NOTE | ~2021-08-17 | XR_ITS ---
EXAMINATION: XR CHEST CLINICAL INFORMATION: Fever COMPARISON: Chest x-ray 05/16/2021 and chest x-ray 05/14/2021 TECHNIQUE: Frontal view of the chest was obtained. FINDINGS: Cardiac silhouette is normal in size. The lungs are adequately aerated. Mild diffuse coarsening of the interstitial markings appears to be chronic in nature. There is no lobar consolidation appreciated. No pleural effusion or pneumothorax. Degenerative changes of the spine and shoulders. XR/XR chest 1V IMPRESSION: Stable examination demonstrating no acute pulmonary pathology.
--- NOTE | ~2021-08-17 | CT_ITS ---
EXAMINATION: CT HEAD WITHOUT CONTRAST CLINICAL INFORMATION: Fall. COMPARISON: CT head dated from 05/16/2021. TECHNIQUE: Contiguous axial imaging was performed from the skull base to vertex without intravenous administration of contrast. This CT examination was performed using dose optimization techniques as appropriate, variously including the following: *Automated exposure control *Adjustment of mA and/or kV according to patient size (this includes techniques or standardized protocols for targeted exams where dose is matched to indication/reason for exam; i.e. extremities or head) *Use of iterative reconstruction technique DLP: 743 mGy-cm FINDINGS: There is no evidence of acute intracranial hemorrhage or edematous territorial infarction. 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 A few foci of hypoattenuation in the periventricular and deep white matter are consistent with mild microangiopathy. [place]-white matter differentiation is otherwise preserved. Proportional prominence of the ventricles and sulcal spaces. No evidence for obstructive hydrocephalus. No abnormal mass effect or midline shift. No extra-axial fluid collections. No acute soft tissue or osseous abnormalities. The mastoid air cells and paranasal sinuses are clear. CT/CT head/brain wo con IMPRESSION: No evidence of acute intracranial hemorrhage or edematous territorial infarction. 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 Mild chronic microangiopathy and generalized cerebral volume loss.
[2021-08-17 16:29] VITALS: BP 110/42; PULSE 84; RESP 20; TEMP 38.2; O2SAT 95; BMI 25.8
--- NOTE | 2021-08-17 19:46 | ED.FALL ---
HPI - Fall General Chief Complaint: Fall Stated Complaint: fell x2 Time Seen by Provider: 08/17/21 19:46 Source: family Mode of arrival: ambulatory Limitations: altered mental status History of Present Illness HPI Narrative: Patient with history of dementia brought by his daughter as he tripped at daycare program and fell hitting his head forward no loss of consciousness fall was witnessed by the staff. Also staff noted that patient been little bit off for last 2-3 days on arrival patient noticed to have a temperature of 100.8. No nausea no vomiting no fever at home no cough leukemia healthy at home Related Data Home Medications Medication Instructions Recorded Confirmed aspirin 81 mg tablet,delayed 81 mg PO DAILY 02/09/21 release atorvastatin 20 mg tablet 20 mg PO DAILY 02/09/21 divalproex 250 mg tablet,extended 250 mg PO DAILY 02/09/21 release 24 hr galantamine 8 mg tablet 8 mg PO BID 02/09/21 ketorolac 0.5 % eye drops 0 drp OPHTHALMIC (EYE) 02/09/21 lisinopril 20 mg tablet 20 mg PO DAILY 02/09/21 memantine 10 mg tablet 10 mg PO BID 02/09/21 quetiapine 50 mg tablet 50 mg PO BID 02/09/21 sertraline 25 mg tablet 25 mg PO DAILY 02/09/21 Allergies Allergy/AdvReac Type Severity Reaction Status Date / Time No Known Allergies Allergy Unknown Verified 07/23/21 14:37 Review of Systems Review of Systems: Yes Unobtainable due to mental status PMFSH Past Medical History Medical History (Updated 08/18/21 @ 00:02 by Baudilio Holland) Cataract Dementia Kidney failure Family History Family History Father Throat cancer Mother Hypertension Social History Social History Alcohol intake: never Patient Tobacco Use Status: Former Tobacco user Advance Directives: No Advance Directives Information Provided: No Current occupational status: retired Current occupation: right handed Physical Exam Vital Signs: Vital Signs: Last Vital Signs Temp 100.8 F H 08/17/21 16:29 Pulse 84 08/17/21 16:29 Resp 20 08/17/21 16:29 BP 110/42 L 08/17/21 16:29 Pulse Ox 95 08/17/21 16:29 BMI result Body Mass Index 25.8 Appearance: Alert. Oriented X1-2. No acute distress. Eyes: PERRLA, no pallor/icterus ENT: Pharynx normal. Oral Mucosa moist Neck: Normal inspection. Neck supple. CVS: Normal heart rate and rhythm. Pulses normal. Respiratory: No respiratory distress. Equal air entry bilateral, no wheezing/rales/rhonchi Abdomen: Soft and nontender. Bowel sounds are present, no mass palpable, no CVA tenderness Skin: Skin warm and dry. Normal skin color. Normal skin turgor. Extremities: No lower extremity edema. No calf tenderness Neuro: Oriented X 1-2. No motor deficit. MDM - Fall MDM Narrative Medical decision making narrative: Patient labs are stable workup negative for any significant signs of infection lactic acid normal patient is slightly elevated creatinine and sodium received IV fluids and p.o. fluids back to baseline according to family was ambulatory in the ER discharge patient home with family etiology of her not clear likely viral Lab Data Attestation: I reviewed the patient's lab results. Result diagrams: 08/17/21 20:27 08/17/21 20:27 Labs: Lab Results 08/17/21 08/17/21 08/17/21 Range/Units 20:26 20:27 20:27 WBC 9.1 (4.8-10.8) X10*3/uL RBC 3.79 L (4.60-5.80) X10*6/uL Hgb 11.0 L (14.0-18.0) g/dl Hct 34.9 L (42.0-52.0) % MCV 92.1 (80.0-98.0) fL MCH 29.0 (27.0-33.0) pg MCHC 31.5 (31.0-36.0) g/dl RDW 12.7 (11.0-16.0) % Plt Count 202 (160-400) X10*3/uL MPV 11.3 (9.4-12.4) fL Immature Gran % (Auto) 0.2 (0.0-0.4) % Neut % (Auto) 51.2 (45-73) % Lymph % (Auto) 29.5 (20-40) % [place] % (Auto) 17.7 H (2-11) % Eos % (Auto) 0.7 (0-4) % Baso % (Auto) 0.7 (0-2) % Lymph # (Auto) 2.7 (1.2-4.9) X10*3/uL [place] # (Auto) 1.6 H (0.1-1.2) X10*3/uL Eos # (Auto) 0.1 (0.0-0.4) X10*3/uL Baso # (Auto) 0.1 (0.0-0.2) X10*3/uL Abs Immat Gran (auto) 0.02 (0.00-0.03) X10*3/uL Absolute Neuts (auto) 4.6 (2.0-8.3) x10*3/uL Absolute Nucleated RBC 0.000 (0.0-0.012) X10*3/uL Nucleated RBC % (auto) 0.0 (0.0-0.2) /100WBC Smear Tech's Comments VERIFIED Sodium (135-145) mmol/L Potassium (3.3-5.1) mmol/L Chloride (96-108) mmol/L Carbon Dioxide (22-29) mmol/L Anion Gap (12-20) BUN (9-16) mg/dL Creatinine (0.5-1.4) mg/dL Estim Creat Clear Calc Estimated GFR Random Glucose (60-115) mg/dL Lactic Acid 0.9 (0.5-2.0) mmol/L Calcium (8.4-10.2) mg/dL Magnesium (1.6-2.6) mg/dL Total Bilirubin (0.0-1.0) mg/dL AST (5-37) U/L ALT (0-40) U/L Alkaline Phosphatase (39-117) U/L Total Protein (6.5-8.0) g/dL Albumin (3.5-5.0) g/dL Urine Color Urine Appearance Urine pH (5.0-8.0) Ur Specific [place] (1.005-1.025) Urine Protein (NEG-TRACE) MG/DL Urine Glucose (UA) (NEG) MG/DL Urine Ketones (NEG) MG/DL Urine Blood (NEG) Urine Nitrite (NEG) Ur Leukocyte Esterase (NEG) COVID-19 (NELIDA) Negative (Negative) COVID-19 Clin Com See Note 08/17/21 08/17/21 Range/Units 20:27 22:02 WBC (4.8-10.8) X10*3/uL RBC (4.60-5.80) X10*6/uL Hgb (14.0-18.0) g/dl Hct (42.0-52.0) % MCV (80.0-98.0) fL MCH (27.0-33.0) pg MCHC (31.0-36.0) g/dl RDW (11.0-16.0) % Plt Count (160-400) X10*3/uL MPV (9.4-12.4) fL Immature Gran % (Auto) (0.0-0.4) % Neut % (Auto) (45-73) % Lymph % (Auto) (20-40) % [place] % (Auto) (2-11) % Eos % (Auto) (0-4) % Baso % (Auto) (0-2) % Lymph # (Auto) (1.2-4.9) X10*3/uL [place] # (Auto) (0.1-1.2) X10*3/uL Eos # (Auto) (0.0-0.4) X10*3/uL Baso # (Auto) (0.0-0.2) X10*3/uL Abs Immat Gran (auto) (0.00-0.03) X10*3/uL Absolute Neuts (auto) (2.0-8.3) x10*3/uL Absolute Nucleated RBC (0.0-0.012) X10*3/uL Nucleated RBC % (auto) (0.0-0.2) /100WBC Smear Tech's Comments Sodium 146 H (135-145) mmol/L Potassium 4.4 (3.3-5.1) mmol/L Chloride 107 (96-108) mmol/L Carbon Dioxide 29 (22-29) mmol/L Anion Gap 14 (12-20) BUN 40 H (9-16) mg/dL Creatinine 1.75 H (0.5-1.4) mg/dL Estim Creat Clear Calc 30.3 Estimated GFR 38 Random Glucose 107 (60-115) mg/dL Lactic Acid (0.5-2.0) mmol/L Calcium 10.2 (8.4-10.2) mg/dL Magnesium 2.1 (1.6-2.6) mg/dL Total Bilirubin 0.4 (0.0-1.0) mg/dL AST 23 (5-37) U/L ALT 22 (0-40) U/L Alkaline Phosphatase 81 (39-117) U/L Total Protein 7.7 (6.5-8.0) g/dL Albumin 4.2 (3.5-5.0) g/dL Urine Color YELLOW Urine Appearance CLEAR Urine pH 5.5 (5.0-8.0) Ur Specific [place] 1.015 (1.005-1.025) Urine Protein NEG (NEG-TRACE) MG/DL Urine Glucose (UA) NEG (NEG) MG/DL Urine Ketones 5 (NEG) MG/DL Urine Blood NEG (NEG) Urine Nitrite NEG (NEG) Ur Leukocyte Esterase NEG (NEG) COVID-19 (NELIDA) (Negative) COVID-19 Clin Com Discharge Plan Discharge Clinical Impression: Fall, Weakness Patient Disposition: Home, Self-Care Instructions: Fall Prevention for Older Adults (ED) Additional Instructions: Keep patient hydrated precautions as advised Prescriptions: No Action divalproex 250 mg tablet extended release 24 hr 250 mg PO DAILY RF: 0 lisinopril 20 mg tablet 20 mg PO DAILY RF: 0 atorvastatin 20 mg tablet 20 mg PO DAILY RF: 0 sertraline 25 mg tablet 25 mg PO DAILY RF: 0 memantine 10 mg tablet 10 mg PO BID RF: 0 galantamine 8 mg tablet 8 mg PO BID RF: 0 quetiapine 50 mg tablet 50 mg PO BID RF: 0 aspirin 81 mg tablet,delayed release (DR/EC) 81 mg PO DAILY RF: 0 ketorolac 0.5 % drops 0 drp ophthalmic (eye) RF: 0 Interventions: ED Discharge Assessment Last Done: 08/17/21 23:35 Discharge Date/Time: 08/17/21 23:37 Print Language: Faroese
[2021-08-17] MEDS: Acetaminophen 325 MG TABLET 650 MG PO (20:26)
[2021-08-17] MEDS: 0.9 % Sodium Chloride 1,000 ML 999 ML IVCONT (20:26)
[2021-08-17 20:35] LABS: Basophils Absolute Auto 0.1 X10*3/uL (0.0-0.2); Basophils Percent Auto 0.7 % (0-2); Eosinophils Absolute Auto 0.1 X10*3/uL (0.0-0.4); Eosinophils Percent Auto 0.7 % (0-4); Hematocrit 34.9 % (42.0-52.0); Imm Gran Abs Auto 0.02 X10*3/uL (0.00-0.03); Imm Gran Pct Auto 0.2 % (0.0-0.4); Lymphocytes Absolute Auto 2.7 X10*3/uL (1.2-4.9); Lymphocytes Percent Auto 29.5 % (20-40); MANUAL DIFF FLAG SCAN; Mean Corpuscular HGB Conc 31.5 g/dl (31.0-36.0); Mean Corpuscular Volume 92.1 fL (80.0-98.0); Mean Platelet Volume 11.3 fL (9.4-12.4); Monocytes Absolute Auto 1.6 X10*3/uL (0.1-1.2); Monocytes Percent Auto 17.7 % (2-11); Neutrophils Absolute Auto 4.6 x10*3/uL (2.0-8.3); Neutrophils Percent Auto 51.2 % (45-73); Red Blood Count 3.79 X10*6/uL (4.60-5.80); Red Cell Distribution Width 12.7 % (11.0-16.0); SCAN SMEAR FLAG 1; White Blood Count 9.1 X10*3/uL (4.8-10.8)
[2021-08-17 20:41] LABS: Platelet Count 202 X10*3/uL (160-400)
[2021-08-17 20:45] LABS: Lactic Acid 0.9 mmol/L (0.5-2.0)
[2021-08-17 20:49] LABS: Alanine Aminotransferase 22 U/L (0-40); Albumin Level 4.2 g/dL (3.5-5.0); Alkaline Phosphatase 81 U/L (39-117); Anion Gap 14 (12-20); Aspartate Amino Transferase 23 U/L (5-37); Bilirubin Total 0.4 mg/dL (0.0-1.0); Blood Urea Nitrogen 40 mg/dL (9-16); Calcium 10.2 mg/dL (8.4-10.2); Carbon Dioxide 29 mmol/L (22-29); Chloride 107 mmol/L (96-108); Creatinine Clr Calc Pharmacy 30.3; Estimated Glomerular Filt Rate 38; Glucose Random 107 mg/dL (60-115); Magnesium 2.1 mg/dL (1.6-2.6); Potassium 4.4 mmol/L (3.3-5.1); Sodium 146 mmol/L (135-145); Total Protein 7.7 g/dL (6.5-8.0)
[2021-08-17 20:50] LABS: COVID-19 Test Negative (Negative)
[2021-08-17 21:00] LABS: SLIDE REVIEW VERIFIED
--- NOTE | 2021-08-17 21:38 | PC.NURSE ---
iv placed to LUE #20g. BC OBTAINED TO LAB..
[2021-08-17 22:10] LABS: Appearance Urine CLEAR; Color Urine YELLOW; Glucose Urine UA NEG (NEG); Leukocyte Esterase Urine NEG (NEG); Nitrite Urine NEG (NEG); PH 5.5 (5.0-8.0); Specific Gravity - Urine 1.015 (1.005-1.025); Urine Blood NEG (NEG); Urine Ketones 5 MG/DL (NEG); Urine Protein NEG (NEG-TRACE)
== END 2021-08-17 23:37 | disposition home or self-care (01) ==
PROVIDERS: Emergency Provider Internal Medicine; PCP Internal Medicine
DX: R53.1 Weakness (principal); F03.90 Unspecified dementia, unspecified severity, without behavioral disturbance, psychotic disturbance, mood disturbance, and anxiety; Z91.81 History of falling; Z20.822 Contact with and (suspected) exposure to COVID-19
CPT/HCPCS: 36415; 70450; 71045; 80053; 81003; 83605; 83735; 85025; 87040; 87635; 96360; 99283; 99284

== ENCOUNTER 2021-08-20 07:38 | Outpatient (REF) | payer MEDICARE, OTHER, SELFPAY | END 2021-08-20 07:39 | disposition home or self-care (01) | LOC: HO.HOSX 07:38 | PROVIDERS: Visit Provider Physician Assistant | DX: Z13.89 Encounter for screening for other disorder (principal) ==

== ENCOUNTER 2021-09-20 17:31 | Emergency (ER) | payer MEDICARE, MEDICAID, SELFPAY ==
--- NOTE | ~2021-09-20 | XR_ITS ---
EXAMINATION: XR FOOT, RIGHT CLINICAL INFORMATION: Injury COMPARISON: None TECHNIQUE: AP, lateral, and oblique views of the right foot. Patient had difficulty holding still for the lateral view FINDINGS: Bones are normal anatomic alignment with no acute fracture or dislocation seen. Mild degenerative changes noted. Prominent calcaneal heel spur at the attachment point of the Achilles tendon. No radiopaque foreign body or suspicious soft tissue gas. XR/XR foot RT 2V IMPRESSION: No acute bony abnormality.
[2021-09-20 17:41] VITALS: BP 102/42; PULSE 74; RESP 18; TEMP 36.6; BMI 26.7
== END 2021-09-21 01:03 | disposition left against medical advice (07) ==
PROVIDERS: Emergency Provider Emergency Medicine; PCP Internal Medicine
DX: S90.111A Contusion of right great toe without damage to nail, initial encounter (principal); X58.XXXA Exposure to other specified factors, initial encounter; Y93.9 Activity, unspecified; Y92.9 Unspecified place or not applicable; Y99.9 Unspecified external cause status
CPT/HCPCS: 73620; 99282; 99283

== ENCOUNTER 2021-10-10 09:12 | Outpatient (RCR) | payer MEDICARE, MEDICAID, SELFPAY | END 2021-11-15 09:14 | disposition home or self-care (01) | LOC: HO.WCC 09:12 | PROVIDERS: PCP Internal Medicine; Visit Provider Surgery | DX: T33.832A Superficial frostbite of left toe(s), initial encounter (principal); T33.831A Superficial frostbite of right toe(s), initial encounter; F03.91 Unspecified dementia, unspecified severity, with behavioral disturbance; Z91.83 Wandering in diseases classified elsewhere | CPT/HCPCS: 97597; 97598 ==

== ENCOUNTER 2021-10-16 11:51 | Inpatient (IN) | payer OTHER, SELFPAY ==
[2021-10-16] VITALS (10 sets, daily range): BP systolic 86–105; BP diastolic 37–62; PULSE 77–82; RESP 17–23; TEMP 36.8–37.3; O2SAT 95–100; BMI 24.0
--- NOTE | 2021-10-16 | ECG_ITS ---
Test Reason : WEAKNESS Blood Pressure : / mmHG Vent. Rate : 082 BPM Atrial Rate : 082 BPM P-R Int : 124 ms QRS Dur : 072 ms QT Int : 340 ms P-R-T Axes : 058 018 019 degrees QTc Int : 397 ms Normal sinus rhythm Nonspecific ST and T wave abnormality Abnormal ECG When compared with ECG of 16-MAY-2021 16:40, Nonspecific ST and T wave abnormality now present. Referred By: Generic ED Physician Electronically Signed By:SALMA JOHNSON
--- NOTE | ~2021-10-16 | XR_ITS ---
EXAMINATION: 1. RADIOGRAPH RIGHT SHOULDER 2. RADIOGRAPHS LEFT ELBOW CLINICAL INFORMATION: Pain after fall COMPARISON: Chest CT 10/16/2021, chest x-ray 08/17/2021 and left elbow 05/16/2021 TECHNIQUE: Frontal view of the right shoulder and 2 views of the left elbow were obtained. FINDINGS: Right shoulder: Visualized portion of the proximal right humerus demonstrate no fracture. Humeral head demonstrates grossly unremarkable articulation with the glenoid fossa on this frontal only view. The humeral head is slightly high riding in relation to the glenoid fossa possibly representing ligamentous injury. There are mild degenerative changes of the right glenohumeral and moderate degenerative changes of the right acromioclavicular joints. Visualized right-sided ribs and lung parenchyma are unremarkable. Left elbow: No fracture or dislocation. No elbow joint effusion. No focal soft tissue swelling overlying the elbow. Similar soft tissue calcification abutting the lateral epicondyles suggesting epicondylitis. XR/XR elbow LT 2V IMPRESSION: -Degenerative changes of the right shoulder without gross fracture or dislocation. -No fracture or dislocation of the left elbow.
--- NOTE | ~2021-10-16 | XR_ITS ---
EXAMINATION: XR FOOT, RIGHT CLINICAL INFORMATION: Recent frostbite. COMPARISON: Right foot 09/20/2021 TECHNIQUE: 3 views of the right foot. FINDINGS: No fracture. No dislocation. No bone destruction or abnormal periosteal reaction. Bone mineral density is maintained. Joint spaces are normal. No soft tissue abnormality. Spur at the posterior calcaneus. XR/XR foot RT min 3V IMPRESSION: Normal right foot.
--- NOTE | ~2021-10-16 | CT_ITS ---
EXAMINATION: CT BRAIN WITHOUT CONTRAST AND CT CHEST WITHOUT CONTRAST CLINICAL INFORMATION: Weakness and Worsening MS COMPARISON: CT brain 08/17/2021 TECHNIQUE: 5 mm thin axial and reformatted 2 mm thin sagittal coronal images of brain were obtained without contrast. Subsequently axial 5 mm thin and reformatted 3 mm thin sagittal and coronal images of chest were obtained. DLP 1131. FINDINGS: BRAIN: There is no acute intra-axial, extra-axial bleed, masses, collection or midline shift. No acute infarction evolution. There is no edema. The lateral ventricles are symmetrical in size but enlarged. There is diffuse perirectal hypodensity in both several hemispheres without mass effect. Bone windows reveal no calvarial abnormality. There is no scalp soft tissue abnormality. Bilateral paranasal sinuses and mastoid air cells are well-aerated. CHEST: The lungs are well-expanded with mild atelectatic changes right upper lobe posterior segment. There are no pulmonary nodules, mass or consolidation. The thyroid lobes are symmetric and normal. The central trachea and the bronchi widely patent. No abnormal size mediastinal or hilar lymph nodes seen. Heart size is normal. There are coronary artery calcifications. There is no pericardial effusion seen. There is no pleural effusion, thickening or calcified plaques. The axilla and chest wall appears unremarkable. Visualized liver, spleen, pancreas and right adrenal gland appears unremarkable. There is 1.2 cm hypodense focal nodule left adrenal gland. The gallbladder is probably contracted. CT/CT head/brain wo con IMPRESSION: No acute intracranial process seen. Mild cerebral volume loss. Right upper lobe posterior segment atelectasis. Otherwise no acute process seen on CT chest exam.
--- NOTE | ~2021-10-16 | CT_ITS ---
EXAMINATION: CT ABDOMEN AND PELVIS WITHOUT CONTRAST CLINICAL INFORMATION: Weakness. Acute renal failure. COMPARISON: Previous renal ultrasound July [address] of the abdomen and pelvis April 2015 TECHNIQUE: Multidetector volumetric imaging was performed from the superior aspect of the liver through the pubic symphysis. Sagittal and coronal reformatted images were obtained on the technologist's workstation. This CT examination was performed using dose optimization techniques as appropriate, variously including the following: *Automated exposure control *Adjustment of mA and/or kV according to patient size (this includes techniques or standardized protocols for targeted exams where dose is matched to indication/reason for exam; i.e. extremities or head) *Use of iterative reconstruction technique DLP: 736 mGy-cm FINDINGS: LUNG BASES: The visualized lung bases are unremarkable. LIVER, GALLBLADDER, AND BILIARY TREE: The liver is normal in size, shape, and attenuation. No focal hepatic lesion or biliary ductal dilatation is present. The gallbladder is unremarkable with no evidence of radiopaque gallstones, gallbladder wall thickening, or obvious pericholecystic inflammatory changes. PANCREAS: Unremarkable. SPLEEN: Unremarkable. ADRENAL GLANDS: Unremarkable. KIDNEYS AND URETERS: The kidneys are normal in size, shape, and attenuation. There is a 1.7 cm low-attenuation lesion in the lower pole of the left kidney suggestive of a cyst. No imaging follow-up needed. The kidneys are otherwise unremarkable. BLADDER: There is a Monteiro catheter in the bladder. The bladder wall is diffusely thickened. GASTROINTESTINAL TRACT: There is stool throughout the colon suggestive of constipation. Small and large bowel is otherwise unremarkable. The appendix is unremarkable. Stomach is unremarkable. ABDOMINAL WALL: No significant hernia is appreciated. LYMPH NODES: Normal. VASCULAR: Unremarkable. PELVIC VISCERA: The prostate gland is enlarged. The prostate gland measures 4.3 x 5 cm in AP and transverse dimension. OSSEOUS STRUCTURES: There are degenerative changes of the spine and hip joints. CT/CT abdomen pelvis wo con IMPRESSION: Left renal cyst. Constipation. Monteiro catheter in the bladder. Diffuse bladder wall thickening. Enlarged prostate gland. Fleischner guidelines were followed.
--- NOTE | ~2021-10-16 | XR_ITS ---
EXAMINATION: XR FEMUR, RIGHT CLINICAL INFORMATION: Pain post fall COMPARISON: None TECHNIQUE: AP and lateral views of the right femur were obtained. FINDINGS: Bone alignment is normal. No fracture or dislocation is seen. There is arthritis at the right knee joint and right hip joint. There is soft tissue arterial calcification. XR/XR femur RT 2V IMPRESSION: Degenerative changes. No fracture or dislocation.
--- NOTE | ~2021-10-16 | CT_ITS ---
EXAMINATION: CT HEAD WITHOUT CONTRAST CLINICAL INFORMATION: Right-sided weakness COMPARISON: Previous head CT most recent 10/16/2021 TECHNIQUE: Contiguous axial imaging was performed from the skull base to vertex without intravenous administration of contrast. This CT examination was performed using dose optimization techniques as appropriate, variously including the following: *Automated exposure control *Adjustment of mA and/or kV according to patient size (this includes techniques or standardized protocols for targeted exams where dose is matched to indication/reason for exam; i.e. extremities or head) *Use of iterative reconstruction technique DLP: 838 mGy-cm FINDINGS: There is no evidence of an extra-axial collection. There is no evidence of intra-axial or extra-axial hemorrhage. The ventricles and extra-axial CSF spaces are prominent suggestive of generalized atrophy. There is nonspecific periventricular white matter disease. There is low-attenuation in the left temporal lobe questionable for old infarct. This appears unchanged from prior exams going back to MayAugust 2021. No mass, mass effect or acute infarct is seen. Review at bone windows is normal. No skull fracture is seen. Visualized paranasal sinuses, mastoid air cells and middle ears are clear. CT/CT head/brain wo con IMPRESSION: No acute findings. Generalized atrophy and nonspecific periventricular white matter disease. 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 This is similar to previous exams going back to MayAugust 2021. Again, this could be further evaluated with brain MRI if clinically indicated.
--- NOTE | ~2021-10-16 | XR_ITS ---
EXAMINATION: 1. RADIOGRAPH RIGHT SHOULDER 2. RADIOGRAPHS LEFT ELBOW CLINICAL INFORMATION: Pain after fall COMPARISON: Chest CT 10/16/2021, chest x-ray 08/17/2021 and left elbow 05/16/2021 TECHNIQUE: Frontal view of the right shoulder and 2 views of the left elbow were obtained. FINDINGS: Right shoulder: Visualized portion of the proximal right humerus demonstrate no fracture. Humeral head demonstrates grossly unremarkable articulation with the glenoid fossa on this frontal only view. The humeral head is slightly high riding in relation to the glenoid fossa possibly representing ligamentous injury. There are mild degenerative changes of the right glenohumeral and moderate degenerative changes of the right acromioclavicular joints. Visualized right-sided ribs and lung parenchyma are unremarkable. Left elbow: No fracture or dislocation. No elbow joint effusion. No focal soft tissue swelling overlying the elbow. Similar soft tissue calcification abutting the lateral epicondyles suggesting epicondylitis. XR/XR shoulder RT 1V IMPRESSION: -Degenerative changes of the right shoulder without gross fracture or dislocation. -No fracture or dislocation of the left elbow.
--- NOTE | ~2021-10-16 | XR_ITS ---
EXAMINATION: XR FOOT, left CLINICAL INFORMATION: Recent frostbite. COMPARISON: None TECHNIQUE: 3 views of the left foot. FINDINGS: No fracture. No dislocation. No bone destruction or abnormal periosteal reaction. Bone mineral density is maintained. Joint spaces are normal. No soft tissue abnormality. There is a spur at the posterior calcaneus. XR/XR foot LT min 3V IMPRESSION: Normal left foot.
--- NOTE | 2021-10-16 12:23 | ED_ITS ---
HPI - Weakness General Chief complaint: Altered Mental Status Stated complaint: RECENT PONCHO LE SWELLING,AMS PER FAMILY Time Seen by Provider: 10/16/21 12:08 Source: family Mode of arrival: EMS Limitations: no limitations History of Present Illness Complaint: generalized weakness (VNA noted low BPs today, shaking, low O2 with VNA) Onset (ago): day(s) (5) Duration: progressively worsening Location: generalized Migration: none Severity: moderate Quality: aching Relieving factors: none Exacerbating factors: none Context: other (eloped from home last Friday found about 30 min to 1 hour later - frostbite on both feet, being managed at home as well as wound care center - improving last seen this friday) Associated symptoms: other (cannot help with ADLs, will not get out of bed, not eating, very weak, not taking his medications. ) Related Data Home Medications Medication Instructions Recorded Confirmed aspirin 81 mg tablet,delayed 81 mg PO DAILY 02/09/21 10/16/21 release atorvastatin 20 mg tablet 20 mg PO BEDTIME 02/09/21 10/16/21 divalproex 250 mg tablet,extended 250 mg PO DAILY 02/09/21 10/16/21 release 24 hr galantamine 8 mg tablet 8 mg PO BID 02/09/21 10/16/21 lisinopril 20 mg tablet 20 mg PO DAILY 02/09/21 10/16/21 memantine 10 mg tablet 10 mg PO BID 02/09/21 10/16/21 quetiapine 50 mg tablet 50 mg PO BID 02/09/21 10/16/21 cephalexin 500 mg capsule 1 cap PO TID 10/16/21 10/16/21 mirtazapine 15 mg tablet 1 tab PO BEDTIME 10/16/21 10/16/21 silver sulfadiazine 1 % topical 1 appl TOPICAL DAILY 10/16/21 10/16/21 cream Allergies Allergy/AdvReac Type Severity Reaction Status Date / Time No Known Allergies Allergy Unknown Verified 09/20/21 17:41 Review of Systems Verdana 4l Review of Systems: Verdana 4d ROS unable to be obtained Verdana 4d due to altered mental status Verdana 4d PMFSH Past Medical History Attestation statement: The following information was validated with the patient. Medical History Cataract Dementia Kidney failure Family History Family History Father Throat cancer Mother Hypertension Social History Social History Alcohol intake: never Patient Tobacco Use Status: Former Tobacco user Advance Directives: No Advance Directives Information Provided: Yes Current occupational status: retired Current occupation: right handed Physical Exam Verdana 4l Vital Signs: Verdana 4d Verdana 4d Vital Signs: Verdana 4d Verdana 4Bd Last Vital Signs Verdana 4d Cost Estimator New 4d Cost Estimator New 4d Temp 98.3 F 10/16/21 12:14 Cost Estimator New 4d Pulse 79 10/16/21 18:52 Cost Estimator New 4d Resp 17 10/16/21 18:52 BP 104/60 10/16/21 18:52 Pulse Ox 98 10/16/21 18:52 BMI result Body Mass Index 24.0 Appearance: Alert. Oriented X1. No acute distress. Eyes: Pupils equal, round and reactive to light. ENT: Pharynx dry MM Neck: Normal inspection. Neck supple. CVS: Normal heart rate and rhythm. Pulses normal. Respiratory: No respiratory distress. Breath sounds normal. Abdomen: Soft and non-tender. - does not grimace Skin: Skin warm and dry. Normal skin color. Extremities: No lower extremity edema. Bilateral surfaces plantar surface - skin sloughed off some darked areas no swelling no extending erythema no yellow drainage. See pictures below. Neuro: Oriented X 1. No motor deficit. No sensory deficit. Course Course Course Narrative: procalcitonin elevated - cefepime was ordered unknown source at this time could be feet - xrays for osteo ordered, frostbite has been over 7 days at this time, CT abdomen for infection ordered given Na fluids held - delay in results was hypotensive initially did receive 30cc/kg bolus call to nephrology 343pm 300 in [place], not retaining, BP 98/58 daughter states full CODE BP up to 100/62 Dr. Solomon aware of labs recommends started D5W 100ml/hr message sent to Dr. Hebert 458pm - no intervention at this time needed regarding feet other than wound care MDM - Weakness MDM Narrative Medical decision making narrative: 81 yo male from home with hx of dementia, falls eloped last Friday now suffering from frostbite on both feet it is healing and he is going to the wound care center - there is no signs of secondary cellulitis at this time but could be source, will need labs, UA for infection, CT head / chest given acute change for trauma and infection, BP 96/62 manually he is not hypoxic here 98% on RA - IVF ordered. Dispo per results and findings. Lab Data Result diagrams: 10/16/21 14:20 10/16/21 14:20 Labs: Lab Results 10/16/21 10/16/21 10/16/21 Range/Units 13:07 13:08 13:21 WBC (4.8-10.8) X10*3/uL RBC (4.60-5.80) X10*6/uL Hgb (14.0-18.0) g/dl Hct (42.0-52.0) % MCV (80.0-98.0) fL MCH (27.0-33.0) pg MCHC (31.0-36.0) g/dl RDW (11.0-16.0) % Plt Count (160-400) X10*3/uL MPV (9.4-12.4) fL Immature Gran % (Auto) (0.0-0.4) % Neut % (Auto) (45-73) % Lymph % (Auto) (20-40) % [place] % (Auto) (2-11) % Eos % (Auto) (0-4) % Baso % (Auto) (0-2) % Lymph # (Auto) (1.2-4.9) X10*3/uL [place] # (Auto) (0.1-1.2) X10*3/uL Eos # (Auto) (0.0-0.4) X10*3/uL Baso # (Auto) (0.0-0.2) X10*3/uL Abs Immat Gran (auto) (0.00-0.03) X10*3/uL Absolute Neuts (auto) (2.0-8.3) x10*3/uL Absolute Nucleated RBC (0.0-0.012) X10*3/uL Nucleated RBC % (auto) (0.0-0.2) /100WBC Smear Tech's Comments ESR (0-15) MM/HR PT (9.9-13.0) SEC INR (0.9-1.1) VBG pH (7.32-7.43) VBG pCO2 mmHg VBG pO2 mmHg VBG HCO3 (22-26) mmol/L VBG O2 Saturation % VBG Base Excess mmol/L Sodium (135-145) mmol/L Potassium (3.3-5.1) mmol/L Chloride (96-108) mmol/L Carbon Dioxide (22-29) mmol/L Anion Gap (12-20) BUN (9-16) mg/dL Creatinine (0.5-1.4) mg/dL Estim Creat Clear Calc Estimated GFR Random Glucose (60-115) mg/dL Lactic Acid 1.7 (0.5-2.0) mmol/L Calcium (8.4-10.2) mg/dL Magnesium (1.6-2.6) mg/dL Total Bilirubin (0.0-1.0) mg/dL Direct Bilirubin (0.0-0.5) mg/dL AST (5-37) U/L ALT (0-40) U/L Alkaline Phosphatase (39-117) U/L Total Creatine Kinase (38-174) U/L Troponin I High Sens (<3.5-35.0) ng/L C-Reactive Protein (< or = 0.50) mg/dL Total Protein (6.5-8.0) g/dL Albumin (3.5-5.0) g/dL Lipase (8-78) U/L Procalcitonin ng/mL TSH (0.32-4.0) uIU/mL Urine Color YELLOW Urine Appearance HAZY Urine pH 5.0 (5.0-8.0) Ur Specific [place] >= 1.030 H (1.005-1.025) Urine Protein NEG (NEG-TRACE) MG/DL Urine Glucose (UA) NEG (NEG) MG/DL Urine Ketones NEG (NEG) MG/DL Urine Blood NEG (NEG) Urine Nitrite NEG (NEG) Ur Leukocyte Esterase NEG (NEG) Valproic Acid (50.0-100.0) mcg/mL COVID-19 (NELIDA) Negative (Negative) COVID-19 Clin Com See Note 10/16/21 10/16/21 10/16/21 Range/Units 13:23 13:23 13:23 WBC (4.8-10.8) X10*3/uL RBC (4.60-5.80) X10*6/uL Hgb (14.0-18.0) g/dl Hct (42.0-52.0) % MCV (80.0-98.0) fL MCH (27.0-33.0) pg MCHC (31.0-36.0) g/dl RDW (11.0-16.0) % Plt Count (160-400) X10*3/uL MPV (9.4-12.4) fL Immature Gran % (Auto) (0.0-0.4) % Neut % (Auto) (45-73) % Lymph % (Auto) (20-40) % [place] % (Auto) (2-11) % Eos % (Auto) (0-4) % Baso % (Auto) (0-2) % Lymph # (Auto) (1.2-4.9) X10*3/uL [place] # (Auto) (0.1-1.2) X10*3/uL Eos # (Auto) (0.0-0.4) X10*3/uL Baso # (Auto) (0.0-0.2) X10*3/uL Abs Immat Gran (auto) (0.00-0.03) X10*3/uL Absolute Neuts (auto) (2.0-8.3) x10*3/uL Absolute Nucleated RBC (0.0-0.012) X10*3/uL Nucleated RBC % (auto) (0.0-0.2) /100WBC Smear Tech's Comments ESR (0-15) MM/HR PT 14.6 H (9.9-13.0) SEC INR 1.3 H (0.9-1.1) VBG pH (7.32-7.43) VBG pCO2 mmHg VBG pO2 mmHg VBG HCO3 (22-26) mmol/L VBG O2 Saturation % VBG Base Excess mmol/L Sodium (135-145) mmol/L Potassium (3.3-5.1) mmol/L Chloride (96-108) mmol/L Carbon Dioxide (22-29) mmol/L Anion Gap (12-20) BUN (9-16) mg/dL Creatinine (0.5-1.4) mg/dL Estim Creat Clear Calc Estimated GFR Random Glucose (60-115) mg/dL Lactic Acid (0.5-2.0) mmol/L Calcium (8.4-10.2) mg/dL Magnesium (1.6-2.6) mg/dL Total Bilirubin (0.0-1.0) mg/dL Direct Bilirubin (0.0-0.5) mg/dL AST (5-37) U/L ALT (0-40) U/L Alkaline Phosphatase (39-117) U/L Total Creatine Kinase (38-174) U/L Troponin I High Sens (<3.5-35.0) ng/L C-Reactive Protein (< or = 0.50) mg/dL Total Protein (6.5-8.0) g/dL Albumin (3.5-5.0) g/dL Lipase (8-78) U/L Procalcitonin 1.88 ng/mL TSH 0.85 (0.32-4.0) uIU/mL Urine Color Urine Appearance Urine pH (5.0-8.0) Ur Specific [place] (1.005-1.025) Urine Protein (NEG-TRACE) MG/DL Urine Glucose (UA) (NEG) MG/DL Urine Ketones (NEG) MG/DL Urine Blood (NEG) Urine Nitrite (NEG) Ur Leukocyte Esterase (NEG) Valproic Acid < 2.0 L (50.0-100.0) mcg/mL COVID-19 (NELIDA) (Negative) COVID-19 Clin Com 10/16/21 10/16/21 10/16/21 Range/Units 13:30 14:20 14:20 WBC 15.2 H (4.8-10.8) X10*3/uL RBC 3.80 L (4.60-5.80) X10*6/uL Hgb 10.8 L (14.0-18.0) g/dl Hct 36.3 L (42.0-52.0) % MCV 95.5 (80.0-98.0) fL MCH 28.4 (27.0-33.0) pg MCHC 29.8 L (31.0-36.0) g/dl RDW 13.6 (11.0-16.0) % Plt Count 318 D (160-400) X10*3/uL MPV 12.6 H (9.4-12.4) fL Immature Gran % (Auto) 0.5 H (0.0-0.4) % Neut % (Auto) 77.4 H (45-73) % Lymph % (Auto) 10.2 L (20-40) % [place] % (Auto) 11.8 H (2-11) % Eos % (Auto) 0.0 (0-4) % Baso % (Auto) 0.1 (0-2) % Lymph # (Auto) 1.6 (1.2-4.9) X10*3/uL [place] # (Auto) 1.8 H (0.1-1.2) X10*3/uL Eos # (Auto) 0.0 (0.0-0.4) X10*3/uL Baso # (Auto) 0.0 (0.0-0.2) X10*3/uL Abs Immat Gran (auto) 0.08 H (0.00-0.03) X10*3/uL Absolute Neuts (auto) 11.8 H (2.0-8.3) x10*3/uL Absolute Nucleated RBC 0.000 (0.0-0.012) X10*3/uL Nucleated RBC % (auto) 0.0 (0.0-0.2) /100WBC Smear Tech's Comments VERIFIED ESR (0-15) MM/HR PT (9.9-13.0) SEC INR (0.9-1.1) VBG pH 7.35 (7.32-7.43) VBG pCO2 39 mmHg VBG pO2 48 mmHg VBG HCO3 22 (22-26) mmol/L VBG O2 Saturation 70.0 % VBG Base Excess -2.8 mmol/L Sodium 157 H (135-145) mmol/L Potassium 4.6 (3.3-5.1) mmol/L Chloride 123 H (96-108) mmol/L Carbon Dioxide 23 (22-29) mmol/L Anion Gap 16 (12-20) BUN 137 H D (9-16) mg/dL Creatinine 4.24 H* (0.5-1.4) mg/dL Estim Creat Clear Calc 12.5 Estimated GFR 14 Random Glucose 157 H D (60-115) mg/dL Lactic Acid (0.5-2.0) mmol/L Calcium 9.1 D (8.4-10.2) mg/dL Magnesium 3.2 H (1.6-2.6) mg/dL Total Bilirubin 0.2 (0.0-1.0) mg/dL Direct Bilirubin < 0.2 (0.0-0.5) mg/dL AST 178 H (5-37) U/L ALT 165 H (0-40) U/L Alkaline Phosphatase 102 D (39-117) U/L Total Creatine Kinase 1077 H D (38-174) U/L Troponin I High Sens (<3.5-35.0) ng/L C-Reactive Protein 18.37 H (< or = 0.50) mg/dL Total Protein 6.4 L (6.5-8.0) g/dL Albumin 3.0 L D (3.5-5.0) g/dL Lipase 301 H (8-78) U/L Procalcitonin ng/mL TSH (0.32-4.0) uIU/mL Urine Color Urine Appearance Urine pH (5.0-8.0) Ur Specific [place] (1.005-1.025) Urine Protein (NEG-TRACE) MG/DL Urine Glucose (UA) (NEG) MG/DL Urine Ketones (NEG) MG/DL Urine Blood (NEG) Urine Nitrite (NEG) Ur Leukocyte Esterase (NEG) Valproic Acid (50.0-100.0) mcg/mL COVID-19 (NELIDA) (Negative) COVID-19 Clin Com 10/16/21 10/16/21 Range/Units 14:20 14:20 WBC (4.8-10.8) X10*3/uL RBC (4.60-5.80) X10*6/uL Hgb (14.0-18.0) g/dl Hct (42.0-52.0) % MCV (80.0-98.0) fL MCH (27.0-33.0) pg MCHC (31.0-36.0) g/dl RDW (11.0-16.0) % Plt Count (160-400) X10*3/uL MPV (9.4-12.4) fL Immature Gran % (Auto) (0.0-0.4) % Neut % (Auto) (45-73) % Lymph % (Auto) (20-40) % Campbell % (Auto) (2-11) % Eos % (Auto) (0-4) % Baso % (Auto) (0-2) % Lymph # (Auto) (1.2-4.9) X10*3/uL [place] # (Auto) (0.1-1.2) X10*3/uL Eos # (Auto) (0.0-0.4) X10*3/uL Baso # (Auto) (0.0-0.2) X10*3/uL Abs Immat Gran (auto) (0.00-0.03) X10*3/uL Absolute Neuts (auto) (2.0-8.3) x10*3/uL Absolute Nucleated RBC (0.0-0.012) X10*3/uL Nucleated RBC % (auto) (0.0-0.2) /100WBC Smear Tech's Comments ESR 105 H (0-15) MM/HR PT (9.9-13.0) SEC INR (0.9-1.1) VBG pH (7.32-7.43) VBG pCO2 mmHg VBG pO2 mmHg VBG HCO3 (22-26) mmol/L VBG O2 Saturation % VBG Base Excess mmol/L Sodium (135-145) mmol/L Potassium (3.3-5.1) mmol/L Chloride (96-108) mmol/L Carbon Dioxide (22-29) mmol/L Anion Gap (12-20) BUN (9-16) mg/dL Creatinine (0.5-1.4) mg/dL Estim Creat Clear Calc Estimated GFR Random Glucose (60-115) mg/dL Lactic Acid (0.5-2.0) mmol/L Calcium (8.4-10.2) mg/dL Magnesium (1.6-2.6) mg/dL Total Bilirubin (0.0-1.0) mg/dL Direct Bilirubin (0.0-0.5) mg/dL AST (5-37) U/L ALT (0-40) U/L Alkaline Phosphatase (39-117) U/L Total Creatine Kinase (38-174) U/L Troponin I High Sens 34.3 (<3.5-35.0) ng/L C-Reactive Protein (< or = 0.50) mg/dL Total Protein (6.5-8.0) g/dL Albumin (3.5-5.0) g/dL Lipase (8-78) U/L Procalcitonin ng/mL TSH (0.32-4.0) uIU/mL Urine Color Urine Appearance Urine pH (5.0-8.0) Ur Specific [place] (1.005-1.025) Urine Protein (NEG-TRACE) MG/DL Urine Glucose (UA) (NEG) MG/DL Urine Ketones (NEG) MG/DL Urine Blood (NEG) Urine Nitrite (NEG) Ur Leukocyte Esterase (NEG) Valproic Acid (50.0-100.0) mcg/mL COVID-19 (NELIDA) (Negative) COVID-19 Clin Com ECG Data Attestation: I personally reviewed and interpreted this ECG as follows: ECG interpretation date: 10/16/21 ECG interpretation time: 12:25 Interpretation: Rate: 82 Rhythm: NSR [place]: normal Normal P waves. Normal NADIA. Normal QRS complex. ST T wave : nonspecific inferior leads/lateral leads no MEI qTC: normal prior studies: no acute ischemia The study has been interpreted contemporaneously by me. . Critical Care Time Critical Care Time Critical Care Time: Yes Total Critical Care Time: 60 Attestation: IVF 30cc/kg bolus, IV antibiotics, medical consults x 2 I attest to this time spent taking care of the patient Discharge Plan Discharge Clinical Impression: KERI (acute kidney injury), Elevated procalcitonin, Acute hypernatremia, [place] tita BUN, Wound of foot Rhabdomyolysis Qualifiers: Rhabdomyolysis type: non-traumatic Qualified Code(s): M62.82 - Rhabdomyolysis Patient Disposition: Admitted As Inpatient
--- NOTE | 2021-10-16 12:44 | PHA.MEDREC ---
Pharmacy Consult ? Medication Reconciliation Pharmacy has completed the medication reconciliation. Confirmed medications with patient's daughter. Cephalexin was prescribed for so his louis bite does not get infected. Patient has no recieved any medications since . Mary Kay Huang, PharmD
[2021-10-16] MEDS: 0.9 % Sodium Chloride 2,022 ML 2022 ML IV (12:48)
[2021-10-16 13:23] LABS: Appearance Urine HAZY; Color Urine YELLOW; Glucose Urine UA NEG (NEG); Leukocyte Esterase Urine NEG (NEG); Nitrite Urine NEG (NEG); Specific Gravity - Urine >= 1.030 (1.005-1.025); Urine Blood NEG (NEG); Urine Ketones NEG (NEG); Urine Protein NEG (NEG-TRACE)
[2021-10-16 13:33] LABS: COVID-19 Test Negative (Negative)
[2021-10-16 13:35] LABS: Venous Blood Gas Refer to POC result
[2021-10-16 13:36] LABS: VBG Base Excess -2.8 mmol/L; VBG HCO3 22 mmol/L (22-26); VBG pCO2 39 mmHg; VBG pH 7.35 (7.32-7.43); VBG pO2 48 mmHg
[2021-10-16 13:44] LABS: INTERNATIONAL NORM RATIO 1.3 (0.9-1.1); Prothrombin Time 14.6 SEC (9.9-13.0)
[2021-10-16 13:46] LABS: Lactic Acid 1.7 mmol/L (0.5-2.0)
[2021-10-16 14:10] LABS: Procalcitonin 1.88 ng/mL; TSH reflex Free T4 0.85 uIU/mL (0.32-4.0)
[2021-10-16 14:19] LABS: Valproate < 2.0 mcg/mL (50.0-100.0)
[2021-10-16 14:35] LABS: Basophils Percent Auto 0.1 % (0-2); Hematocrit 36.3 % (42.0-52.0); Hemoglobin 10.8 g/dl (14.0-18.0); Imm Gran Abs Auto 0.08 X10*3/uL (0.00-0.03); Imm Gran Pct Auto 0.5 % (0.0-0.4); Lymphocytes Absolute Auto 1.6 X10*3/uL (1.2-4.9); Lymphocytes Percent Auto 10.2 % (20-40); MANUAL DIFF FLAG SCAN; Mean Corpuscular HGB Conc 29.8 g/dl (31.0-36.0); Mean Corpuscular Hemoglobin 28.4 pg (27.0-33.0); Mean Corpuscular Volume 95.5 fL (80.0-98.0); Mean Platelet Volume 12.6 fL (9.4-12.4); Monocytes Absolute Auto 1.8 X10*3/uL (0.1-1.2); Monocytes Percent Auto 11.8 % (2-11); Neutrophils Absolute Auto 11.8 x10*3/uL (2.0-8.3); Neutrophils Percent Auto 77.4 % (45-73); Platelet Count 318 X10*3/uL (160-400); Red Cell Distribution Width 13.6 % (11.0-16.0); SCAN SMEAR FLAG 1; White Blood Count 15.2 X10*3/uL (4.8-10.8)
[2021-10-16] MEDS: cefEPime HCl 2 GM in 0.9 % Sodium Chloride 50 ML IV (14:46)
[2021-10-16 14:51] LABS: Troponin-I High Sensitivity 34.3 ng/L (<3.5-35.0)
--- NOTE | 2021-10-16 14:53 | PC.NURSE ---
MADE MULTIPLE ATTEMPTS AT A SECOND iv LINE. A SECOND RN ATTEMPTED TO GET A SECOND LINE - PT DEHYDRATED AND STAFF UJNABLE TO OBTAIN A SECOND LINE. 18g IN PT WRIST PLACED BY ems WORKS WELL HOWEVER IS POSITIONAL SLOWING DOWN IVF INFUSION
[2021-10-16 15:11] LABS: Creatinine Clr Calc Pharmacy 12.5; Estimated Glomerular Filt Rate 14
[2021-10-16 15:20] LABS: SLIDE REVIEW VERIFIED
[2021-10-16 15:23] LABS: Erythrocyte Sedimentation Rate 105 MM/HR (0-15)
[2021-10-16 15:24] LABS: Alanine Aminotransferase 165 U/L (0-40); Alkaline Phosphatase 102 U/L (39-117); Anion Gap 16 (12-20); Aspartate Amino Transferase 178 U/L (5-37); Bilirubin Direct < 0.2 mg/dL (0.0-0.5); Bilirubin Total 0.2 mg/dL (0.0-1.0); Blood Urea Nitrogen 137 mg/dL (9-16); C Reactive Protein 18.37 mg/dL (< or = 0.50); Calcium 9.1 mg/dL (8.4-10.2); Carbon Dioxide 23 mmol/L (22-29); Chloride 123 mmol/L (96-108); Glucose Random 157 mg/dL (60-115); Lipase 301 U/L (8-78); Magnesium 3.2 mg/dL (1.6-2.6); Potassium 4.6 mmol/L (3.3-5.1); Sodium 157 mmol/L (135-145); Total Protein 6.4 g/dL (6.5-8.0)
[2021-10-16] MEDS: vancomycin HCL 750 MG in 0.9 % Sodium Chloride 250 ML 265 MG IV (15:53)
--- NOTE | 2021-10-16 17:07 | P.CONGS_ITS ---
History of Present Illness Consult details Consult date: 10/16/21 Requesting physician: Halina Lutz Narrative: 81-year-old male patient with history of dementia, now presenting with frostbite of the bilateral feet. The injury occurred approximately 10 days ago when he left the house for approximately 30 minutes. He subsequently developed the frostbite which was eventually evaluated by [facility]. His daughter has been caring for the wounds, applying Silvadene cream twice daily followed by dry sterile dressings. Over the past several days the wounds have actually improved and skin has desquamated. He has become progressively weak and nonverbal and was subsequently brought to the emergency department by ambulance for further evaluation. He was found to be in renal failure with bacterial infection. Review of Systems Verdana 4l Review of Systems: Yes Unobtainable due to mental status Verdana 4d PMFSH Past Medical History Medical History Cataract Dementia Kidney failure Family History Family History Father Throat cancer Mother Hypertension Social History Social History Alcohol intake: never Patient Tobacco Use Status: Former Tobacco user Advance Directives: No Advance Directives Information Provided: Yes Current occupational status: retired Current occupation: right handed Meds Allergies Allergy/AdvReac Type Severity Reaction Status Date / Time No Known Allergies Allergy Unknown Verified 09/20/21 17:41 Active Medications: Current Medications Dextrose (D5w) 1,000 mls @ 100 mls/hr IVCONT .Q10H [facility] Pharmacy Consult (Consult Rx Perform Med Rec) 1 each MISCELLANE ONCE PRN PRN Reason: Consult order Home Medications Medication Instructions Recorded Confirmed Last Taken Type aspirin 81 mg 81 mg PO DAILY 02/09/21 10/16/21 10/11/21 History tablet,delayed release atorvastatin 20 20 mg PO BEDTIME 02/09/21 10/16/21 10/11/21 History mg tablet divalproex 250 mg 250 mg PO DAILY 02/09/21 10/16/21 10/11/21 History tablet,extended release 24 hr galantamine 8 mg 8 mg PO BID 02/09/21 10/16/21 10/11/21 History tablet lisinopril 20 mg 20 mg PO DAILY 02/09/21 10/16/21 10/11/21 History tablet memantine 10 mg 10 mg PO BID 02/09/21 10/16/21 10/11/21 History tablet quetiapine 50 mg 50 mg PO BID 02/09/21 10/16/21 10/11/21 History tablet cephalexin 500 mg 1 cap PO TID 10/16/21 10/16/21 10/11/21 History capsule mirtazapine 15 mg 1 tab PO BEDTIME 10/16/21 10/16/21 10/11/21 History tablet silver 1 appl TOPICAL 10/16/21 10/16/21 10/11/21 History sulfadiazine 1 % DAILY topical cream Physical Exam Verdana 4l Vital Signs: Verdana 4d Verdana 4d Vital Signs: Verdana 4d Verdana 4Bd Last Vital Signs Verdana 4d [facility] Advocate New 4d [facility] Advocate New 4d Temp 98.3 F 10/16/21 12:14 [address] Advocate New 4d Pulse 78 10/16/21 16:02 [address] Advocate New 4d Resp 18 10/16/21 16:02 BP 100/62 10/16/21 16:02 Pulse Ox 98 10/16/21 16:02 BMI result Body Mass Index 24.0 Const: General: ill appearing and patient obtunded Nutritional Appearance: well nourished Orientation/consciousness: patient obtunded Limitations: altered mental status HENMT: Head: Yes normocephalic and Yes atraumatic Resp: Effort & Inspection: normal respiratory effort, no audible wheezes and no cough Skin: Other: Warm, dry, no rash, frostbite as noted below Neuro: General: patient obtunded Extrem: Other: Bilateral areas of desquamated skin involving the plantar surface of both feet, especially the toes. No erythema or drainage. No Areas of deep necrosis or underlying abscess. Unable to assess sensation or strength due to the patient's dementia. Results Labs Result diagrams: 10/16/21 14:20 10/16/21 14:20 Labs: Abnormal lab results 10/16/21 10/16/21 10/16/21 Range/Units 13:07 13:23 13:23 WBC (4.8-10.8) X10*3/uL RBC (4.60-5.80) X10*6/uL Hgb (14.0-18.0) g/dl Hct (42.0-52.0) % MCHC (31.0-36.0) g/dl MPV (9.4-12.4) fL Immature Gran % (Auto) (0.0-0.4) % Neut % (Auto) (45-73) % Lymph % (Auto) (20-40) % [place] % (Auto) (2-11) % [place] # (Auto) (0.1-1.2) X10*3/uL Abs Immat Gran (auto) (0.00-0.03) X10*3/uL Absolute Neuts (auto) (2.0-8.3) x10*3/uL ESR (0-15) MM/HR PT 14.6 H (9.9-13.0) SEC INR 1.3 H (0.9-1.1) Sodium (135-145) mmol/L Chloride (96-108) mmol/L BUN (9-16) mg/dL Creatinine (0.5-1.4) mg/dL Random Glucose (60-115) mg/dL Magnesium (1.6-2.6) mg/dL AST (5-37) U/L ALT (0-40) U/L Total Creatine Kinase (38-174) U/L C-Reactive Protein (< or = 0.50) mg/dL Total Protein (6.5-8.0) g/dL Albumin (3.5-5.0) g/dL Lipase (8-78) U/L Ur Specific [place] >= 1.030 H (1.005-1.025) Valproic Acid < 2.0 L (50.0-100.0) mcg/mL 10/16/21 10/16/21 10/16/21 Range/Units 14:20 14:20 14:20 WBC 15.2 H (4.8-10.8) X10*3/uL RBC 3.80 L (4.60-5.80) X10*6/uL Hgb 10.8 L (14.0-18.0) g/dl Hct 36.3 L (42.0-52.0) % MCHC 29.8 L (31.0-36.0) g/dl MPV 12.6 H (9.4-12.4) fL Immature Gran % (Auto) 0.5 H (0.0-0.4) % Neut % (Auto) 77.4 H (45-73) % Lymph % (Auto) 10.2 L (20-40) % [place] % (Auto) 11.8 H (2-11) % [place] # (Auto) 1.8 H (0.1-1.2) X10*3/uL Abs Immat Gran (auto) 0.08 H (0.00-0.03) X10*3/uL Absolute Neuts (auto) 11.8 H (2.0-8.3) x10*3/uL ESR 105 H (0-15) MM/HR PT (9.9-13.0) SEC INR (0.9-1.1) Sodium 157 H (135-145) mmol/L Chloride 123 H (96-108) mmol/L BUN 137 H D (9-16) mg/dL Creatinine 4.24 H* (0.5-1.4) mg/dL Random Glucose 157 H D (60-115) mg/dL Magnesium 3.2 H (1.6-2.6) mg/dL AST 178 H (5-37) U/L ALT 165 H (0-40) U/L Total Creatine Kinase 1077 H D (38-174) U/L C-Reactive Protein 18.37 H (< or = 0.50) mg/dL Total Protein 6.4 L (6.5-8.0) g/dL Albumin 3.0 L D (3.5-5.0) g/dL Lipase 301 H (8-78) U/L Ur Specific [place] (1.005-1.025) Valproic Acid (50.0-100.0) mcg/mL Short CBC 10/16/21 Range/Units 14:20 WBC 15.2 H (4.8-10.8) X10*3/uL Hgb 10.8 L (14.0-18.0) g/dl Hct 36.3 L (42.0-52.0) % Plt Count 318 D (160-400) X10*3/uL BMP 10/16/21 14:20 Sodium 157 H Potassium 4.6 Chloride 123 H Carbon Dioxide 23 BUN 137 H D Creatinine 4.24 H* Calcium 9.1 D Cardiac Enzymes 10/16/21 Range/Units 14:20 Total Creatine Kinase 1077 H D (38-174) U/L Liver Function 10/16/21 Range/Units 14:20 Total Bilirubin 0.2 (0.0-1.0) mg/dL Direct Bilirubin < 0.2 (0.0-0.5) mg/dL AST 178 H (5-37) U/L ALT 165 H (0-40) U/L Alkaline Phosphatase 102 D (39-117) U/L Albumin 3.0 L D (3.5-5.0) g/dL Urine 10/16/21 Range/Units 13:07 Urine Color YELLOW Urine Appearance HAZY Urine pH 5.0 (5.0-8.0) Ur Specific [place] >= 1.030 H (1.005-1.025) Urine Protein NEG (NEG-TRACE) MG/DL Urine Glucose (UA) NEG (NEG) MG/DL All other labs normal. Assessment and Plan (1) Frostbite of both lower extremities: Status: Acute Plan 81-year-old male patient presenting with frostbite injury occurring approximately 10 days ago. Examination today reveals improvement in the underlying skin with sloughing of the necrotic epidermis. The underlying skin is viable without evidence of underlying abscess. Feet do not appear to be the source of patient's current sepsis. Recommend continuing Silvadene cream to bilateral feet twice daily followed by dry sterile dressings. Procedures Date of Service Date of Service: 10/16/21
[2021-10-16] MEDS: Dextrose 5 % 1,000 ML 100 ML IVCONT (17:15)
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
[2021-10-16 20:17] LABS: Anion Gap 15 (12-20); Calcium 8.9 mg/dL (8.4-10.2); Carbon Dioxide 22 mmol/L (22-29); Chloride 126 mmol/L (96-108); Creatinine Clr Calc Pharmacy 14.2; Estimated Glomerular Filt Rate 16; Glucose Random 136 mg/dL (60-115); Potassium 4.7 mmol/L (3.3-5.1); Sodium 158 mmol/L (135-145)
[2021-10-16 20:21] LABS: Blood Urea Nitrogen 131 mg/dL (9-16)
--- NOTE | 2021-10-16 20:46 | PC.NURSE ---
Addendum entered by Elizabeth Rodriguez RN 10/16/21 20:48: pt will remain NPO Original Note: completed nursing swallow exam on pt - daughter at bedside intrusive in care - pt failed swallow screen reagrdless. Dr. Humphrey made aware.
--- NOTE | 2021-10-16 21:01 | PC.NURSE ---
PT DAUGHTER BAKARI GAN
--- NOTE | 2021-10-16 21:57 | PC.NURSE ---
report received from prev rn
[2021-10-16] MEDS: Heparin Sodium,Porcine 5,000 UNIT/ML VIAL 5000 UNIT SUBCUT (22:08)
[2021-10-17] VITALS (15 sets, daily range): BP systolic 70–154; BP diastolic 32–63; PULSE 63–79; RESP 15–24; TEMP 36.6–37.6; O2SAT 95–99
[2021-10-17 01:24] LABS: Anion Gap 15 (12-20); Calcium 8.8 mg/dL (8.4-10.2); Carbon Dioxide 21 mmol/L (22-29); Chloride 125 mmol/L (96-108); Creatinine Clr Calc Pharmacy 15.4; Estimated Glomerular Filt Rate 17; Glucose Random 182 mg/dL (60-115); Potassium 4.6 mmol/L (3.3-5.1); Sodium 156 mmol/L (135-145)
[2021-10-17 01:36] LABS: Blood Urea Nitrogen 123 mg/dL (9-16)
--- NOTE | 2021-10-17 01:38 | PC.NURSE ---
transfer to overflow held till bp can be reviewed.
--- NOTE | 2021-10-17 02:06 | PC.NURSE ---
pt had complete linen change, incont stool soft brown formed. pt feet elevated on a pillow, dressing dry intact girish. pt sat 97% on room air, bp stable mult times. pt is ready for transfer to overflow unit at this time. family member has left and pt was found in 5 blankets and a sheepskin winter jacket on top of him.
[2021-10-17 04:55] LABS: HBS Num1 0.66 mIU/mL (0-7.99); Hepatitis B Core Antibody Nonreactive (Nonreactive); ~HepC Num1 0.07 S/CO (0.00-0.79); ~Hepatitis B Surface Antibody NONREACTIVE (Nonreactive); ~Hepatitis C Antibody Nonreactive (Nonreactive)
[2021-10-17 05:15] LABS: HBsAGNum1 0.29 S/CO (0.00-0.99); Hepatitis A Antibody IgM 0.36 Index (0-0.79); Hepatitis B Surface Antigen Negative (Negative); ~Hepatitis A Antibody IgM Nonreactive (Nonreactive)
[2021-10-17 05:47] LABS: MANUAL DIFF FLAG NO
[2021-10-17 05:49] LABS: Basophils Percent Auto 0.2 % (0-2); Eosinophils Absolute Auto 0.1 X10*3/uL (0.0-0.4); Eosinophils Percent Auto 0.5 % (0-4); Hemoglobin 9.8 g/dl (14.0-18.0); Imm Gran Abs Auto 0.06 X10*3/uL (0.00-0.03); Imm Gran Pct Auto 0.5 % (0.0-0.4); Lymphocytes Absolute Auto 1.6 X10*3/uL (1.2-4.9); Mean Corpuscular HGB Conc 29.7 g/dl (31.0-36.0); Mean Corpuscular Hemoglobin 27.9 pg (27.0-33.0); Mean Platelet Volume 12.3 fL (9.4-12.4); Monocytes Absolute Auto 1.3 X10*3/uL (0.1-1.2); Monocytes Percent Auto 11.4 % (2-11); Neutrophils Absolute Auto 8.6 x10*3/uL (2.0-8.3); Neutrophils Percent Auto 73.4 % (45-73); Platelet Count 260 X10*3/uL (160-400); Red Blood Count 3.51 X10*6/uL (4.60-5.80); Red Cell Distribution Width 13.6 % (11.0-16.0); White Blood Count 11.7 X10*3/uL (4.8-10.8)
[2021-10-17 06:16] LABS: Alanine Aminotransferase 173 U/L (0-40); Albumin Level 2.8 g/dL (3.5-5.0); Alkaline Phosphatase 95 U/L (39-117); Anion Gap 13 (12-20); Aspartate Amino Transferase 137 U/L (5-37); Bilirubin Direct 0.2 mg/dL (0.0-0.5); Bilirubin Total 0.3 mg/dL (0.0-1.0); Calcium 9.1 mg/dL (8.4-10.2); Carbon Dioxide 23 mmol/L (22-29); Chloride 124 mmol/L (96-108); Creatinine Clr Calc Pharmacy 16.4; Estimated Glomerular Filt Rate 19; Glucose Random 161 mg/dL (60-115); Potassium 4.7 mmol/L (3.3-5.1); Sodium 155 mmol/L (135-145); Total Protein 5.8 g/dL (6.5-8.0)
[2021-10-17 06:17] LABS: Vancomycin Random 8.1 mcg/mL (15-20)
[2021-10-17 06:26] LABS: Blood Urea Nitrogen 119 mg/dL (9-16)
[2021-10-17] MEDS: Dextrose 5 % 1,000 ML 100 ML IVCONT ×3 (06:39→16:45)
[2021-10-17] MEDS: Piperacillin Sodium/Tazobactam 2.25 GM in 0.9 % Sodium Chloride 50 ML IV ×3 (07:38→21:23)
--- NOTE | 2021-10-17 08:13 | PHA.PROG ---
Admission Date/Time: October 16, 2021 19:15 Indication: Bilateral Foot Wounds, Sepsis Weight in k.4 kg Adjusted body weight in K.24 kg Stowell body weight in K.8 kg Obesity Dosing Indication % IBW: 105% Serum Creatinine - Last 168 Hours 10/16/21 10/16/21 10/17/21 14:20 19:46 00:53 Creatinine 4.24 H* 3.72 H 3.45 H 10/17/21 05:42 Creatinine 3.24 H Estimated CrCl and GFR - Last 168 Hours 10/16/21 10/16/21 10/17/21 14:20 19:46 00:53 Estim Creat Clear Calc 12.5 14.2 15.4 Estimated GFR 14 16 17 10/17/21 05:42 Estim Creat Clear Calc 16.4 Estimated GFR 19 Vancomycin Loading Dose: 750 mg on 10/16 @ 1400 Current Vancomycin Dosing Regimen: 750 mg Q24H Date and Time for next Vancomycin Level to be drawn: 10/19 @ 1200 Pharmacist Comments on Vancomycin Plan: Patient did not receive an adequate loading dose for weight. Due to renal function, should have received 1250 mg once. Random vancomycin was drawn 15 hours after first dose. Level is 8.1 Renal function has improved overnight. SCr decrease from 4.24 to 3.24. Will decrease vancomycin dose to 500 mg Q24H. Predicted AUC is 495 with a trough of 17.7. Will draw a random level tomorrow with morning labs. If patient is in therapeutic levels and renal function does not improve, may qualify for 1000 mg Q48H. Pharmacy will monitor renal function daily Mary Kay Huang PharmD Vancomycin dosing will take advantage of [employer] as a clinical decision support tool that uses Bayesian modeling to calculate individual patient's pharmacokinetic parameters and forecast the patient's drug concentration time course with the target goal AUC 24 range of 400 - 600 mg/L/hr.
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
[2021-10-17] MEDS: Divalproex Sodium ER 250 MG TAB.ER.24H PO (09:31)
[2021-10-17] MEDS: Aspirin Enteric Coated 81 MG TABLET.DR PO (09:31)
[2021-10-17] MEDS: Silver Sulfadiazine 1 % Cream 20 GM TUBE 1 APPL TOPICAL (09:32)
[2021-10-17] MEDS: Memantine HCl 10 MG TABLET PO ×2 (09:32→21:22)
[2021-10-17] MEDS: QUEtiapine Fumarate 50 MG TABLET PO ×2 (09:32→21:22)
[2021-10-17] MEDS: Heparin Sodium,Porcine 5,000 UNIT/ML VIAL 5000 UNIT SUBCUT ×2 (09:32→21:23)
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
[2021-10-17 10:53] LABS: Anion Gap 12 (12-20); Blood Urea Nitrogen 115 mg/dL (9-16); Carbon Dioxide 23 mmol/L (22-29); Chloride 124 mmol/L (96-108); Creatinine Clr Calc Pharmacy 17.4; Estimated Glomerular Filt Rate 20; Glucose Random 182 mg/dL (60-115); Potassium 4.8 mmol/L (3.3-5.1); Sodium 155 mmol/L (135-145)
--- NOTE | 2021-10-17 11:30 | MHC.CM.PN ---
VM MESSAGE LEFT FOR PTS DAUGHTER, BAKARI GAN ([phone]) REQUESTING A RETURN CALL TO COMPLETE SENIOR JAVA PROGRAMMER ANALYST.
[2021-10-17 13:04] LABS: Anion Gap 11 (12-20); Blood Urea Nitrogen 116 mg/dL (9-16); Carbon Dioxide 26 mmol/L (22-29); Chloride 122 mmol/L (96-108); Creatinine Clr Calc Pharmacy 17.9; Estimated Glomerular Filt Rate 20; Glucose Random 141 mg/dL (60-115); Potassium 4.8 mmol/L (3.3-5.1); Sodium 154 mmol/L (135-145)
--- NOTE | 2021-10-17 13:39 | MHC.SL.SWA ---
Speech Pathologist Impression: Oral Phase Dysphagia Risk of Aspiration Due to: Poor PO Intake Reduced Cognition Dysphasia Diet Status: Liquid Consistency and Strategies for Safe Swallow: Liquid Intake Recommendation: Thin Liquid Intake Strategies: Small Sips Solid Food Consistency: Dietary Recommendations: Pureed (NDD1) Additional Modifications to Solid Foods: This diet suggestion is due to patient toleration and diminished HEATHER, may upgrade as condition improves Oral Medication Intake: Crushed with Puree Compensatory Strategies and Precautions to be Taken for Safe Swallow: Sitting Upright (90 deg) Liquids from Straw Rate of Ingestion Change Supervision While Eating and Drinking for Safe Swallow: Total Assistance Foods to Avoid: Swallowing Recommended Treatments: Recommendation for Speech: PSYCHOLOGICAL ASSISTANT to follow-up as pt tolerates for upgrade and diet safety Servomechanism Designer Clinican/Clinical Fellow: No Supervisory Statement: I have reviewed and agree with the student/clinical fellow's documentation: N/A Speech Language Pathologist: Elizabeth Waterman M.A., CCC-PSYCHOLOGICAL ASSISTANT
[2021-10-17] MEDS: vancomycin HCL 500 MG in 0.9 % Sodium Chloride 100 ML 110 MG IV (15:46)
--- NOTE | 2021-10-17 18:32 | PC.NURSE ---
Most recent BP noted to be 73/34 HR 78. PATIENT CONSUMER MARKETER Winston made aware and orders received for 500Ml bolus of D5- orders carried out. Repeat BP 112/46 HR 71. RN will continue to monitor.
[2021-10-17 20:51] LABS: Anion Gap 13 (12-20); Blood Urea Nitrogen 104 mg/dL (9-16); Calcium 8.7 mg/dL (8.4-10.2); Carbon Dioxide 20 mmol/L (22-29); Chloride 123 mmol/L (96-108); Creatinine Clr Calc Pharmacy 20.2; Estimated Glomerular Filt Rate 24; Glucose Random 238 mg/dL (60-115); Potassium 4.9 mmol/L (3.3-5.1); Sodium 151 mmol/L (135-145)
[2021-10-17] MEDS: Acetaminophen 325 MG TABLET 650 MG PO (21:22)
[2021-10-17] MEDS: Mirtazapine 15 MG TABLET PO (21:22)
[2021-10-17] MEDS: Atorvastatin Calcium 20 MG TABLET PO (21:23)
[2021-10-17] MEDS: Melatonin 3 MG TABLET 6 MG PO (21:23)
[2021-10-17] MEDS: 0.9 % Sodium Chloride Flush 3 ML SYRINGE IVFLUSH (21:24)
[2021-10-17 21:52] LABS: Anion Gap 14 (12-20); Blood Urea Nitrogen 104 mg/dL (9-16); Calcium 8.6 mg/dL (8.4-10.2); Carbon Dioxide 19 mmol/L (22-29); Chloride 123 mmol/L (96-108); Creatinine Clr Calc Pharmacy 20.5; Estimated Glomerular Filt Rate 24; Glucose Random 212 mg/dL (60-115); Potassium 5.2 mmol/L (3.3-5.1); Sodium 151 mmol/L (135-145)
[2021-10-18] MEDS: Dextrose 5 % 1,000 ML 200 ML IVCONT ×2 (01:04→05:21)
[2021-10-18 03:40] VITALS: BP 128/56; PULSE 66; RESP 18; TEMP 36.9; O2SAT 98
[2021-10-18] MEDS: Piperacillin Sodium/Tazobactam 2.25 GM in 0.9 % Sodium Chloride 50 ML IV ×3 (05:21→21:19)
[2021-10-18 06:20] LABS: Vancomycin Random 9.2 mcg/mL (15-20)
[2021-10-18 06:26] LABS: Anion Gap 13 (12-20); Blood Urea Nitrogen 96 mg/dL (9-16); Calcium 8.7 mg/dL (8.4-10.2); Carbon Dioxide 23 mmol/L (22-29); Chloride 116 mmol/L (96-108); Creatinine Clr Calc Pharmacy 21.7; Estimated Glomerular Filt Rate 26; Glucose Random 221 mg/dL (60-115); Potassium 4.6 mmol/L (3.3-5.1); Sodium 147 mmol/L (135-145)
--- NOTE | 2021-10-18 06:44 | HE.PHANOTE ---
Vancomycin Dosing Addendum Vancomycin random level 9.2 approximately 16 hours after last dose. Changing regimen to 750 mg q24h and will monitor levels/Scr daily. Scr trending down. Next level 10/19/21 @0600.
[2021-10-18] MEDS: vancomycin HCL 750 MG in 0.9 % Sodium Chloride 250 ML 265 MG IV (07:06)
[2021-10-18] MEDS: QUEtiapine Fumarate 50 MG TABLET PO ×2 (07:11→20:37)
[2021-10-18] MEDS: Memantine HCl 10 MG TABLET PO ×2 (07:11→20:36)
[2021-10-18] MEDS: Divalproex Sodium ER 250 MG TAB.ER.24H PO (07:11)
[2021-10-18] MEDS: Aspirin Enteric Coated 81 MG TABLET.DR PO (07:11)
[2021-10-18 08:00] VITALS: BP 113/53; PULSE 72; RESP 18; TEMP 36.8; O2SAT 96
[2021-10-18 10:04] LABS: Hematocrit 28.4 % (42.0-52.0); Hemoglobin 8.5 g/dl (14.0-18.0); Mean Corpuscular HGB Conc 29.9 g/dl (31.0-36.0); Mean Corpuscular Hemoglobin 27.7 pg (27.0-33.0); Mean Corpuscular Volume 92.5 fL (80.0-98.0); Mean Platelet Volume 12.4 fL (9.4-12.4); Platelet Count 191 X10*3/uL (160-400); Red Blood Count 3.07 X10*6/uL (4.60-5.80); Red Cell Distribution Width 13.2 % (11.0-16.0); White Blood Count 7.7 X10*3/uL (4.8-10.8)
[2021-10-18] MEDS: Sodium Chloride 0.45 % 1,000 ML 100 ML IVCONT ×2 (10:13→20:42)
[2021-10-18] MEDS: Heparin Sodium,Porcine 5,000 UNIT/ML VIAL 5000 UNIT SUBCUT ×2 (10:13→21:19)
[2021-10-18 10:18] LABS: Anion Gap 11 (12-20); Blood Urea Nitrogen 81 mg/dL (9-16); Calcium 8.4 mg/dL (8.4-10.2); Carbon Dioxide 22 mmol/L (22-29); Chloride 118 mmol/L (96-108); Creatinine Clr Calc Pharmacy 24.5; Estimated Glomerular Filt Rate 29; Glucose Random 210 mg/dL (60-115); Potassium 4.7 mmol/L (3.3-5.1); Sodium 146 mmol/L (135-145)
--- NOTE | 2021-10-18 10:31 | P.PNNP_ITS ---
Subjective Subjective Date of Service: 10/18/21 Interval history: Events noted. All recent data reviewed Physical Exam Verdana 4l Vital Signs: Verdana 4d Verdana 4d Vital Signs: Verdana 4d Verdana 4Bd Last Vital Signs Verdana 4d Kunal New 4d Kunal Burnett 4d Temp 98.3 F 10/18/21 08:00 Kunal New 4d Pulse 72 10/18/21 08:00 Applications Instructor New 4d Resp 18 10/18/21 08:00 BP 113/53 L 10/18/21 08:00 Pulse Ox 96 10/18/21 08:00 BMI result Body Mass Index 24.0 Const: General: no acute distress Neck: Neck: Yes supple Resp: Auscultation: diminished lung sounds Cardio: Rate: regular rate GI: Palpation (GI): Soft to palpation Neuro: General: moves all extremities Objective Data Labs CBC & Chem 7: 10/18/21 09:51 10/18/21 09:51 Labs: Laboratory Results - last 24 hr 10/17/21 10/17/21 10/17/21 09:51 12:22 20:21 WBC RBC Hgb Hct MCV MCH MCHC RDW Plt Count MPV Absolute Nucleated RBC Nucleated RBC % (auto) Sodium 155 H 154 H 151 H Potassium 4.8 4.8 4.9 Chloride 124 H 122 H 123 H Carbon Dioxide 23 26 20 L Anion Gap 12 11 L 13 BUN 115 H 116 H 104 H Creatinine 3.05 H 2.97 H 2.63 H Estim Creat Clear Calc 17.4 17.9 20.2 Estimated GFR 20 20 24 Random Glucose 182 H 141 H 238 H D Calcium 9.0 9.0 8.7 Random Vancomycin 10/17/21 10/18/21 10/18/21 21:28 05:28 05:28 WBC RBC Hgb Hct MCV MCH MCHC RDW Plt Count MPV Absolute Nucleated RBC Nucleated RBC % (auto) Sodium 151 H 147 H Potassium 5.2 H 4.6 Chloride 123 H 116 H Carbon Dioxide 19 L 23 Anion Gap 14 13 BUN 104 H 96 H Creatinine 2.59 H 2.45 H Estim Creat Clear Calc 20.5 21.7 Estimated GFR 24 26 Random Glucose 212 H 221 H Calcium 8.6 8.7 Random Vancomycin 9.2 L 10/18/21 10/18/21 09:51 09:51 WBC 7.7 RBC 3.07 L Hgb 8.5 L Hct 28.4 L MCV 92.5 MCH 27.7 MCHC 29.9 L RDW 13.2 Plt Count 191 D MPV 12.4 Absolute Nucleated RBC 0.000 Nucleated RBC % (auto) 0.0 Sodium 146 H Potassium 4.7 Chloride 118 H Carbon Dioxide 22 Anion Gap 11 L BUN 81 H Creatinine 2.17 H Estim Creat Clear Calc 24.5 Estimated GFR 29 Random Glucose 210 H Calcium 8.4 Random Vancomycin Microbiology Microbiology Results: Microbiology 10/16/21 14:20 Blood - Venous Blood Culture - Preliminary No growth after 24 hours. 10/16/21 13:22 Blood - Venous Blood Culture - Preliminary No growth after 24 hours. Procedures Date of Service Date of Service: 10/18/21 Assessment & Plan Assessment and plan (1) KERI (acute kidney injury): Status: Acute Assessment and Plan: Acute Kidney Injury due to tubular injury Hypernatremia with significant free water deficit(improved) Chronic Kidney Disease 3 at baseline Had altered autoregulation in the kidney with tubular injury Obstruction ruled out by imaging; Got free water; On IV fluids No indication for renal replacement. Monitor vancomycin levels Continue to hold ACEI; All medications need to be dosed for GFR Concur with rest of current clinical support/management; Shall F/U Time Spent With Patient Time: Total time spent is greater than 50% in coordination of care (as documented) at patient's floor/unit and/or counseling patient: Progress Note: Quality Stroke Does the patient have a stroke diagnosis?: No
[2021-10-18] MEDS: Silver Sulfadiazine 1 % Cream 20 GM TUBE 1 APPL TOPICAL (10:36)
--- NOTE | 2021-10-18 10:41 | PC.NURSE ---
Skin/Wound assessment completed today. Patient has an abrasion to right hip covered with a foam dressing. Patient also has frostbite to bilateral feet with necrotic tissue on plantar toes, red and yellow areas on plantar foot with peeling skin- Silvadene applied to all areas on feet covered with non woven gauze and roll gauze. No other skin issues noted at this time.
--- NOTE | 2021-10-18 10:59 | HO.PM.IMPN ---
Subjective Subjective Date of Service: 10/18/21 Interval History: seen and examined this AM not talking much, having blood drawn and has his eyes closed Review of Systems unable to ROS Physical Exam Vital Signs: Vital Signs: Last Vital Signs Temp 98.3 F 10/18/21 08:00 Pulse 72 10/18/21 08:00 Resp 18 10/18/21 08:00 BP 113/53 L 10/18/21 08:00 Pulse Ox 96 10/18/21 08:00 BMI result Body Mass Index 24.0 Const: Other: General - no acute distress,eyes closed, not opening them Cardiovascular - regular rate and rhythm, S1-S2 Lungs - normal respiratory effort, clear to auscultation bilaterally, no wheezing Abdomen - soft, nontender, no rebound or guarding Extremities - no edema bilaterally Neuro - awake and alert, no focal deficits skin - b/l feet in dressings Objective Data Active Medications Acetaminophen (Acetaminophen 325 Mg Tablet) 650 mg PO Q6H PRN PRN Reason: Pain, Mild (Pain Scale 1-3) Last Admin: 10/17/21 21:22 Dose: 650 mg Documented by: SHANTAL Aspirin (Aspirin Enteric Coated 81 Mg Tablet.Dr) 81 mg PO DAILY [facility] Last Admin: 10/18/21 07:11 Dose: 81 mg Documented by: MALU Atorvastatin Calcium (Atorvastatin Calcium 20 Mg Tablet) 20 mg PO BEDTIME [facility] Last Admin: 10/17/21 21:23 Dose: 20 mg Documented by: SHANTAL Divalproex Sodium (Divalproex Sodium Er 250 Mg Tab.Er.24h) 250 mg PO DAILY [facility] Last Admin: 10/18/21 07:11 Dose: 250 mg Documented by: MALU Heparin Sodium (Porcine) (Heparin Sodium,Porcine 5,000 Unit/Ml Vial) 5,000 unit SUBCUT Q12H [facility] Last Admin: 10/18/21 10:13 Dose: 5,000 unit Documented by: MALU Piperacillin Sod/Tazobactam (Sod 2.25 gm/ Sodium Chloride) 50 mls @ 100 mls/hr IV Q8H [facility] Last Infusion: 10/18/21 06:01 Dose: 0 mls/hr Documented by: SHANTAL Vancomycin HCl 750 mg/ Sodium (Chloride) 265 mls @ 265 mls/hr IV Q24H [facility] Last Infusion: 10/18/21 08:14 Dose: 0 mls/hr Documented by: MALU Sodium Chloride () 1,000 mls @ 100 mls/hr IVCONT .Q10H [facility] Last Admin: 10/18/21 10:13 Dose: 100 mls/hr Documented by: MALU Melatonin (Melatonin 3 Mg Tablet) 6 mg PO BEDTIME PRN PRN Reason: Insomnia Last Admin: 10/17/21 21:23 Dose: 6 mg Documented by: SHANTAL Memantine (Memantine Hcl 10 Mg Tablet) 10 mg PO BID [facility] Last Admin: 10/18/21 07:11 Dose: 10 mg Documented by: MALU Mirtazapine (Mirtazapine 15 Mg Tablet) 15 mg PO BEDTIME [facility] Last Admin: 10/17/21 21:22 Dose: 15 mg Documented by: SHANTAL Patient Own Medication ( Galantamine 8 Mg Tablet) 1 each PO BIDWM [facility] Last Admin: 10/18/21 07:11 Dose: Not Given Documented by: MALU Non-Admin Reason: Med Not Available Pharmacy Consult (Consult Rx Perform Med Rec) 1 each MISCELLANE ONCE PRN PRN Reason: Consult order Pharmacy Consult (Consult Rx Vancomycin Dosing) 1 each MISCELLANE DAILY PRN PRN Reason: Consult order Quetiapine Fumarate (Quetiapine Fumarate 50 Mg Tablet) 50 mg PO BID [facility] Last Admin: 10/18/21 07:11 Dose: 50 mg Documented by: MALU Senna (Sennosides 8.6 Mg Tablet) 17.2 mg PO BEDTIME PRN PRN Reason: Constipation Silver Sulfadiazine (Silver Sulfadiazine 1 % Cream 20 Gm Tube) 1 appl TOPICAL DAILY [facility] Last Admin: 10/18/21 10:36 Dose: 1 appl Documented by: MALU Sodium Chloride (0.9 % Sodium Chloride Flush 3 Ml Syringe) 3 ml IVFLUSH QSHIFT [facility] Last Admin: 10/18/21 07:08 Dose: Not Given Documented by: MALU Non-Admin Reason: IV Running Labs CBC & Chem 7: 10/18/21 09:51 10/18/21 09:51 Labs: Laboratory Results - last 24 hr 10/17/21 10/17/21 10/17/21 12:22 20:21 21:28 MCV MCH MCHC RDW Plt Count MPV Absolute Nucleated RBC Nucleated RBC % (auto) Anion Gap 11 L 13 14 Estim Creat Clear Calc 17.9 20.2 20.5 Estimated GFR 20 24 24 Random Glucose 141 H 238 H D 212 H Calcium 9.0 8.7 8.6 Random Vancomycin 10/18/21 10/18/21 10/18/21 05:28 05:28 09:51 MCV 92.5 MCH 27.7 MCHC 29.9 L RDW 13.2 Plt Count 191 D MPV 12.4 Absolute Nucleated RBC 0.000 Nucleated RBC % (auto) 0.0 Anion Gap 13 Estim Creat Clear Calc 21.7 Estimated GFR 26 Random Glucose 221 H Calcium 8.7 Random Vancomycin 9.2 L 10/18/21 09:51 MCV MCH MCHC RDW Plt Count MPV Absolute Nucleated RBC Nucleated RBC % (auto) Anion Gap 11 L Estim Creat Clear Calc 24.5 Estimated GFR 29 Random Glucose 210 H Calcium 8.4 Random Vancomycin Microbiology Microbiology Results: Microbiology 10/16/21 14:20 Blood Culture - Preliminary Blood - Venous No growth after 24 hours. 10/16/21 13:22 Blood Culture - Preliminary Blood - Venous No growth after 24 hours. Assessment and Plan (1) KERI (acute kidney injury): Status: Acute (2) Dementia: Status: Acute Plan This is an 81 yo M with a PMH of dementia, CKD3, recent frostbite injury - being managed at the wound care center, who was brought in by family due to worsening mental status, decreased PO intake, generalized weakness and the frostbite injury. He is admitted for further work up. 1. KERI on CKD due to ATN 1a. HyperNa, hypovoluemic multifactorial improving with D5W; SNa 146 now, will change to 1/2 NS SCr improving towards baseline trend renally dose meds 2. Toxic/metabolic encephalopathy due to above improving 3. Possible Sepsis - to be ruled out Initially the patient was hypotensive with leukocytosis and tachypnea with an elevated procalcitonin levels In light of his frostbite injury -- these were felt to be the source; however he has been evaluated by Gen Surg and these have been deemed unlike to be the source of infection. UA negative for UTI, although he was on antibiotics as an outpatient; Chest imaging without any evidence of pneumonia Empiric antibiotics for now; if blood cx negative at 48 hours, will observe off antibiotics 4. Bilateral foot frostbite injury Gen surg input appreciated -- local wound care has been recommended Silvadene cream to b/l feet twice daily followed by dry sterile dressings. 5. Rhabdomyolysis mild, possibly from the frostbite downtrending, check CPK tomorrow 6. Transminitis likely due to #5 acute hep panel neg check with AM labs tomorrow 7. Dementia, unspecified no behavioral disturbances thus far continue baseline meds Full Code DVT pptx, subcut. heparin Quality Stroke Does the patient have a stroke diagnosis?: No VTE Prior VTE?: No VTE Risk Level:: Medical - moderate - high VTE Device Contraindication: Treatment Not Indicated VTE Drug Contraindication: N/A - Med Ordered
[2021-10-18 11:03] LABS: Procalcitonin 0.54 ng/mL
--- NOTE | 2021-10-18 11:42 | MHC.SLORD ---
Speech Language Pathology Order Status: Attempted to see Pt X2, pt sleeping, did not wake to sternal rub. Will re-attempt tomorrow.
--- NOTE | 2021-10-18 11:54 | MHC.CM.PN ---
PATIENT LIVES WITH HIS DAUGHTER/LENS MOLD SETTER BAKARI ([phone]). HE VIS[facility]ST WEEK FOR 3 HOUR INTAKE. PATIENT RELIES ON WALKERS AND CANES HE HAS A SHOWER CHAIR AND SHOWER HOSE FOR PEOPLE TO ASSIST WITH BATHING. THERE IS NO HCP ON FILE AND FAMILY DOES NOT HAVE ONE. CASE MANAGEMENT TO ATTEMPT WITH USE OF PRIVACY COMPLIANCE MANAGER IF PATIENT BECOMES MORE CLEAR. FAMILY IS OPEN TO SNF STAY BUT ALSO AWARE THAT HOME WITH [facility] SERVICES MAY BE ONLY OPTION. PATIENT IS COVID VACCINATED J&J 12/23/20 MODERNA 08/17/21 INFO UPLOADED INTO [employer] 10/18 IN CHART
[2021-10-18 11:58] VITALS: BP 119/50; PULSE 72; RESP 18; TEMP 36.6; O2SAT 96
[2021-10-18 16:00] VITALS: BP 120/60; PULSE 72; RESP 18; TEMP 36.8; O2SAT 96
[2021-10-18 19:19] VITALS: BP 140/60; PULSE 78; RESP 18; TEMP 37; O2SAT 98
[2021-10-18] MEDS: Mirtazapine 15 MG TABLET PO (20:36)
[2021-10-18] MEDS: Atorvastatin Calcium 20 MG TABLET PO (20:36)
[2021-10-18] MEDS: Melatonin 3 MG TABLET 6 MG PO (20:37)
[2021-10-18] MEDS: 0.9 % Sodium Chloride Flush 3 ML SYRINGE IVFLUSH (21:20)
[2021-10-18 23:46] VITALS: BP 122/58; PULSE 81; RESP 16; TEMP 37.6; O2SAT 97
[2021-10-19 04:00] VITALS: BP 116/58; PULSE 77; RESP 14; TEMP 36.8; O2SAT 96
[2021-10-19] MEDS: Piperacillin Sodium/Tazobactam 2.25 GM in 0.9 % Sodium Chloride 50 ML IV (05:31)
[2021-10-19] MEDS: Sodium Chloride 0.45 % 1,000 ML 100 ML IVCONT (06:04)
[2021-10-19 06:15] LABS: Vancomycin Random 11.2 mcg/mL (15-20)
[2021-10-19 06:24] LABS: Anion Gap 12 (12-20); Blood Urea Nitrogen 65 mg/dL (9-16); Calcium 8.6 mg/dL (8.4-10.2); Carbon Dioxide 23 mmol/L (22-29); Chloride 118 mmol/L (96-108); Creatinine Clr Calc Pharmacy 28.4; Estimated Glomerular Filt Rate 35; Glucose Random 139 mg/dL (60-115); Sodium 148 mmol/L (135-145)
--- NOTE | 2021-10-19 06:47 | HE.PHANOTE ---
Vancomycin Dosing Addendum Pt random level 11.2 this morning. Cr imroving. Will continue with 750 mg q24h with predicted AUC of 461. Next trough 10/21/21 @0600.
--- NOTE | 2021-10-19 07:19 | PM.PNGS ---
Subjective Subjective Date of Service: 10/19/21 Interval history: Patient non-verbal; eyes open Physical Exam Vital Signs: Vital Signs: Last Vital Signs Temp 98.2 F 10/19/21 04:00 Pulse 77 10/19/21 04:00 Resp 14 10/19/21 04:00 BP 116/58 L 10/19/21 04:00 Pulse Ox 96 10/19/21 04:00 BMI result Body Mass Index 24.0 Const: General: patient obtunded Nutritional Appearance: well nourished Orientation/consciousness: patient obtunded Resp: Effort & Inspection: normal respiratory effort and no respiratory distress GI: Inspection: Yes normal to inspection Neuro: General: patient obtunded Extrem: Other: rivera-bite skin at plantar surface improving with mild blue skin changes; no necrosis of toes. Silvadine cream applied Objective Data Active Medications Acetaminophen (Acetaminophen 325 Mg Tablet) 650 mg PO Q6H PRN PRN Reason: Pain, Mild (Pain Scale 1-3) Last Admin: 10/17/21 21:22 Dose: 650 mg Documented by: SHANTAL Aspirin (Aspirin Enteric Coated 81 Mg Tablet.Dr) 81 mg PO DAILY [facility] Last Admin: 10/18/21 07:11 Dose: 81 mg Documented by: MALU Atorvastatin Calcium (Atorvastatin Calcium 20 Mg Tablet) 20 mg PO BEDTIME [facility] Last Admin: 10/18/21 20:36 Dose: 20 mg Documented by: SHANTAL Divalproex Sodium (Divalproex Sodium Er 250 Mg Tab.Er.24h) 250 mg PO DAILY [facility] Last Admin: 10/18/21 07:11 Dose: 250 mg Documented by: MALU Heparin Sodium (Porcine) (Heparin Sodium,Porcine 5,000 Unit/Ml Vial) 5,000 unit SUBCUT Q12H [facility] Last Admin: 10/18/21 21:19 Dose: 5,000 unit Documented by: SHANTAL Piperacillin Sod/Tazobactam (Sod 2.25 gm/ Sodium Chloride) 50 mls @ 100 mls/hr IV Q8H [facility] Last Infusion: 10/19/21 06:06 Dose: 0 mls/hr Documented by: SHANTAL Vancomycin HCl 750 mg/ Sodium (Chloride) 265 mls @ 265 mls/hr IV Q24H [facility] Last Infusion: 10/18/21 08:14 Dose: 0 mls/hr Documented by: MALU Sodium Chloride () 1,000 mls @ 100 mls/hr IVCONT .Q10H [facility] Last Admin: 10/19/21 06:04 Dose: 100 mls/hr Documented by: SHANTAL Melatonin (Melatonin 3 Mg Tablet) 6 mg PO BEDTIME PRN PRN Reason: Insomnia Last Admin: 10/18/21 20:37 Dose: 6 mg Documented by: SHANTAL Memantine (Memantine Hcl 10 Mg Tablet) 10 mg PO BID [facility] Last Admin: 10/18/21 20:36 Dose: 10 mg Documented by: SHANTAL Mirtazapine (Mirtazapine 15 Mg Tablet) 15 mg PO BEDTIME [facility] Last Admin: 10/18/21 20:36 Dose: 15 mg Documented by: SHANTAL Patient Own Medication ( Galantamine 8 Mg Tablet) 1 each PO BIDWM [facility] Last Admin: 10/18/21 17:32 Dose: Not Given Documented by: MALU Non-Admin Reason: Med Not Available Pharmacy Consult (Consult Rx Perform Med Rec) 1 each MISCELLANE ONCE PRN PRN Reason: Consult order Pharmacy Consult (Consult Rx Vancomycin Dosing) 1 each MISCELLANE DAILY PRN PRN Reason: Consult order Quetiapine Fumarate (Quetiapine Fumarate 50 Mg Tablet) 50 mg PO BID [facility] Last Admin: 10/18/21 20:37 Dose: 50 mg Documented by: SHANTAL Senna (Sennosides 8.6 Mg Tablet) 17.2 mg PO BEDTIME PRN PRN Reason: Constipation Silver Sulfadiazine (Silver Sulfadiazine 1 % Cream 20 Gm Tube) 1 appl TOPICAL DAILY [facility] Last Admin: 10/18/21 10:36 Dose: 1 appl Documented by: MALU Sodium Chloride (0.9 % Sodium Chloride Flush 3 Ml Syringe) 3 ml IVFLUSH QSHIFT [facility] Last Admin: 10/18/21 21:20 Dose: 3 ml Documented by: SHANTAL Labs CBC & Chem 7: 10/18/21 09:51 10/19/21 05:21 Labs: Laboratory Results - last 24 hr 10/18/21 10/18/21 10/18/21 09:51 09:51 09:51 MCV 92.5 MCH 27.7 MCHC 29.9 L RDW 13.2 Plt Count 191 D MPV 12.4 Absolute Nucleated RBC 0.000 Nucleated RBC % (auto) 0.0 Anion Gap 11 L Estim Creat Clear Calc 24.5 Estimated GFR 29 Random Glucose 210 H Calcium 8.4 Procalcitonin 0.54 Random Vancomycin 10/19/21 10/19/21 05:21 05:21 MCV MCH MCHC RDW Plt Count MPV Absolute Nucleated RBC Nucleated RBC % (auto) Anion Gap 12 Estim Creat Clear Calc 28.4 Estimated GFR 35 Random Glucose 139 H Calcium 8.6 Procalcitonin Random Vancomycin 11.2 L Microbiology Microbiology Results: Microbiology 10/16/21 14:20 Blood Culture - Preliminary Blood - Venous No growth after 48 hours. 10/16/21 13:22 Blood Culture - Preliminary Blood - Venous No growth after 48 hours. Procedures Date of Service Date of Service: 10/19/21 Progress Note: A&P Assessment and plan (1) Frostbite of both lower extremities: Status: Acute Plan Rivera bite wounds are stable without evidence of skin abscess/necrosis. WBC normal. Continue local care with Silvadine and DSD. Fall Risk Details Current Medications: Current Medications Acetaminophen (Acetaminophen 325 Mg Tablet) 650 mg PO Q6H PRN PRN Reason: Pain, Mild (Pain Scale 1-3) Last Admin: 10/17/21 21:22 Dose: 650 mg Documented by: Aspirin (Aspirin Enteric Coated 81 Mg Tablet.) 81 mg PO DAILY [facility] Last Admin: 10/18/21 07:11 Dose: 81 mg Documented by: Atorvastatin Calcium (Atorvastatin Calcium 20 Mg Tablet) 20 mg PO BEDTIME [facility] Last Admin: 10/18/21 20:36 Dose: 20 mg Documented by: Divalproex Sodium (Divalproex Sodium Er 250 Mg Tab.Er.24h) 250 mg PO DAILY [facility] Last Admin: 10/18/21 07:11 Dose: 250 mg Documented by: Heparin Sodium (Porcine) (Heparin Sodium,Porcine 5,000 Unit/Ml Vial) 5,000 unit SUBCUT Q12H [facility] Last Admin: 10/18/21 21:19 Dose: 5,000 unit Documented by: Piperacillin Sod/Tazobactam (Sod 2.25 gm/ Sodium Chloride) 50 mls @ 100 mls/hr IV Q8H [facility] Last Infusion: 10/19/21 06:06 Dose: Infused Documented by: Vancomycin HCl 750 mg/ Sodium (Chloride) 265 mls @ 265 mls/hr IV Q24H [facility] Last Infusion: 10/18/21 08:14 Dose: Infused Documented by: Sodium Chloride () 1,000 mls @ 100 mls/hr IVCONT .Q10H [facility] Last Admin: 10/19/21 06:04 Dose: 100 mls/hr Documented by: Melatonin (Melatonin 3 Mg Tablet) 6 mg PO BEDTIME PRN PRN Reason: Insomnia Last Admin: 10/18/21 20:37 Dose: 6 mg Documented by: Memantine (Memantine Hcl 10 Mg Tablet) 10 mg PO BID [facility] Last Admin: 10/18/21 20:36 Dose: 10 mg Documented by: Mirtazapine (Mirtazapine 15 Mg Tablet) 15 mg PO BEDTIME [facility] Last Admin: 10/18/21 20:36 Dose: 15 mg Documented by: Patient Own Medication ( Galantamine 8 Mg Tablet) 1 each PO BIDWM [facility] Last Admin: 10/18/21 17:32 Dose: Not Given Documented by: Pharmacy Consult (Consult Rx Perform Med Rec) 1 each MISCELLANE ONCE PRN PRN Reason: Consult order Pharmacy Consult (Consult Rx Vancomycin Dosing) 1 each MISCELLANE DAILY PRN PRN Reason: Consult order Quetiapine Fumarate (Quetiapine Fumarate 50 Mg Tablet) 50 mg PO BID [facility] Last Admin: 10/18/21 20:37 Dose: 50 mg Documented by: Senna (Sennosides 8.6 Mg Tablet) 17.2 mg PO BEDTIME PRN PRN Reason: Constipation Silver Sulfadiazine (Silver Sulfadiazine 1 % Cream 20 Gm Tube) 1 appl TOPICAL DAILY [facility] Last Admin: 10/18/21 10:36 Dose: 1 appl Documented by: Sodium Chloride (0.9 % Sodium Chloride Flush 3 Ml Syringe) 3 ml IVFLUSH QSHIFT [facility] Last Admin: 10/18/21 21:20 Dose: 3 ml Documented by: Time Spent With Patient Time: Total time spent is greater than 50% in coordination of care (as documented) at patient's floor/unit and/or counseling patient: Time with patient: 15 - 24 minutes Quality Stroke Does the patient have a stroke diagnosis?: No VTE Prior VTE?: No VTE Risk Level:: Medical - moderate - high VTE Device Contraindication: Treatment Not Indicated VTE Drug Contraindication: N/A - Med Ordered
[2021-10-19 07:31] VITALS: BP 102/51; PULSE 74; RESP 18; TEMP 37.1; O2SAT 95
[2021-10-19] MEDS: 0.9 % Sodium Chloride Flush 3 ML SYRINGE IVFLUSH ×2 (09:03→20:00)
[2021-10-19] MEDS: vancomycin HCL 750 MG in 0.9 % Sodium Chloride 250 ML 265 MG IV (09:05)
[2021-10-19] MEDS: Dextrose 5 % 1,000 ML 100 ML IVCONT (09:13)
[2021-10-19] MEDS: Heparin Sodium,Porcine 5,000 UNIT/ML VIAL 5000 UNIT SUBCUT ×2 (09:27→21:24)
[2021-10-19] MEDS: Memantine HCl 10 MG TABLET PO ×2 (09:28→20:37)
[2021-10-19] MEDS: Divalproex Sodium ER 250 MG TAB.ER.24H PO (09:28)
[2021-10-19] MEDS: Aspirin Enteric Coated 81 MG TABLET.DR PO (09:28)
[2021-10-19] MEDS: QUEtiapine Fumarate 50 MG TABLET PO ×2 (09:29→20:37)
[2021-10-19] MEDS: Silver Sulfadiazine 1 % Cream 20 GM TUBE 1 APPL TOPICAL (09:33)
--- NOTE | 2021-10-19 10:03 | P.PNIM_ITS ---
Subjective Subjective Date of Service: 10/19/21 Interval History: seen and examined this AM whispering a few words despite using occitan speaking aide on floor winces in pain when RUE moved Review of Systems unable to ROS Physical Exam Verdana 4l Vital Signs: Verdana 4d Verdana 4d Vital Signs: Verdana 4d Verdana 4Bd Last Vital Signs Verdana 4d Business Functional Analyst New 4d Business Functional Analyst New 4d Temp 98.7 F 10/19/21 07:31 Business Functional Analyst New 4d Pulse 74 10/19/21 07:31 Business Functional Analyst New 4d Resp 18 10/19/21 07:31 BP 102/51 L 10/19/21 07:31 Pulse Ox 95 10/19/21 07:31 BMI result Body Mass Index 24.0 Const: Other: General - no acute distress,eyes closed, not opening them Cardiovascular - regular rate and rhythm, S1-S2 Lungs - normal respiratory effort, clear to auscultation bilaterally, no wheezing Abdomen - soft, nontender, no rebound or guarding Extremities - no edema bilaterally, RUE pain with movement, particularly at elbow joint Neuro - awake and alert,does not follow commands skin - b/l feet in dressings Objective Data Active Medications Acetaminophen (Acetaminophen 325 Mg Tablet) 650 mg PO Q6H PRN PRN Reason: Pain, Mild (Pain Scale 1-3) Last Admin: 10/17/21 21:22 Dose: 650 mg Documented by: SHANTAL Aspirin (Aspirin Enteric Coated 81 Mg Tablet.) 81 mg PO DAILY [facility] Last Admin: 10/19/21 09:28 Dose: 81 mg Documented by: SHANTELLE Atorvastatin Calcium (Atorvastatin Calcium 20 Mg Tablet) 20 mg PO BEDTIME [facility] Last Admin: 10/18/21 20:36 Dose: 20 mg Documented by: SHANTAL Divalproex Sodium (Divalproex Sodium Er 250 Mg Tab.Er.24h) 250 mg PO DAILY [facility] Last Admin: 10/19/21 09:28 Dose: 250 mg Documented by: SHANTELLE Heparin Sodium (Porcine) (Heparin Sodium,Porcine 5,000 Unit/Ml Vial) 5,000 unit SUBCUT Q12H [facility] Last Admin: 10/19/21 09:27 Dose: 5,000 unit Documented by: SHANTELLE Piperacillin Sod/Tazobactam (Sod 2.25 gm/ Sodium Chloride) 50 mls @ 100 mls/hr IV Q8H [facility] Last Infusion: 10/19/21 06:06 Dose: 0 mls/hr Documented by: SHANTAL Vancomycin HCl 750 mg/ Sodium (Chloride) 265 mls @ 265 mls/hr IV Q24H [facility] Last Admin: 10/19/21 09:05 Dose: 265 mls/hr Documented by: SHANTELLE Dextrose (D5w) 1,000 mls @ 100 mls/hr IVCONT .Q10H [facility] Stop: 10/19/21 18:29 Last Admin: 10/19/21 09:13 Dose: 100 mls/hr Documented by: SHANTELLE Melatonin (Melatonin 3 Mg Tablet) 6 mg PO BEDTIME PRN PRN Reason: Insomnia Last Admin: 10/18/21 20:37 Dose: 6 mg Documented by: SHANTAL Memantine (Memantine Hcl 10 Mg Tablet) 10 mg PO BID [facility] Last Admin: 10/19/21 09:28 Dose: 10 mg Documented by: SHANTELLE Mirtazapine (Mirtazapine 15 Mg Tablet) 15 mg PO BEDTIME [facility] Last Admin: 10/18/21 20:36 Dose: 15 mg Documented by: SHANTAL Patient Own Medication ( Galantamine 8 Mg Tablet) 1 each PO BIDWM [facility] Last Admin: 10/19/21 09:34 Dose: Not Given Documented by: SHANTELLE Non-Admin Reason: not available, MD aware Pharmacy Consult (Consult Rx Perform Med Rec) 1 each MISCELLANE ONCE PRN PRN Reason: Consult order Pharmacy Consult (Consult Rx Vancomycin Dosing) 1 each MISCELLANE DAILY PRN PRN Reason: Consult order Quetiapine Fumarate (Quetiapine Fumarate 50 Mg Tablet) 50 mg PO BID [facility] Last Admin: 10/19/21 09:29 Dose: 50 mg Documented by: SHANTELLE Senna (Sennosides 8.6 Mg Tablet) 17.2 mg PO BEDTIME PRN PRN Reason: Constipation Silver Sulfadiazine (Silver Sulfadiazine 1 % Cream 20 Gm Tube) 1 appl TOPICAL DAILY [facility] Last Admin: 10/19/21 09:33 Dose: 1 appl Documented by: SHANTELLE Sodium Chloride (0.9 % Sodium Chloride Flush 3 Ml Syringe) 3 ml IVFLUSH QSHIFT [facility] Last Admin: 10/19/21 09:03 Dose: 3 ml Documented by: SHANTELLE Labs CBC & Chem 7: 10/18/21 09:51 10/19/21 05:21 Labs: Laboratory Results - last 24 hr 10/18/21 10/18/21 10/18/21 09:51 09:51 09:51 MCV 92.5 MCH 27.7 MCHC 29.9 L RDW 13.2 Plt Count 191 D MPV 12.4 Absolute Nucleated RBC 0.000 Nucleated RBC % (auto) 0.0 Anion Gap 11 L Estim Creat Clear Calc 24.5 Estimated GFR 29 Random Glucose 210 H Calcium 8.4 Procalcitonin 0.54 Random Vancomycin 10/19/21 10/19/21 05:21 05:21 MCV MCH MCHC RDW Plt Count MPV Absolute Nucleated RBC Nucleated RBC % (auto) Anion Gap 12 Estim Creat Clear Calc 28.4 Estimated GFR 35 Random Glucose 139 H Calcium 8.6 Procalcitonin Random Vancomycin 11.2 L Microbiology Microbiology Results: Microbiology 10/16/21 14:20 Blood Culture - Preliminary Blood - Venous No growth after 48 hours. 10/16/21 13:22 Blood Culture - Preliminary Blood - Venous No growth after 48 hours. Assessment and Plan (1) KERI (acute kidney injury): Status: Acute (2) Dementia: Status: Acute Plan This is an 81 yo M with a PMH of dementia, CKD3, recent frostbite injury - being managed at the wound care center, who was brought in by family due to worsening mental status, decreased PO intake, generalized weakness and the frostbite injury. He is admitted for further work up. 1. KERI on CKD due to ATN 1a. HyperNa, hypovoluemic multifactorial SNa increased slightly with 1/2 normal saline; will give 1L of D5W SCr continues to improve with IVF -- down from 4.24 upon admission to 1.87 this AM trend renally dose meds 2. Toxic/metabolic encephalopathy due to above improving 3. SIRS on admission -- sepsis ruled out Initially the patient was hypotensive with leukocytosis and tachypnea with an elevated procalcitonin levels In light of his frostbite injury -- these were felt to be the source; however he has been evaluated by Gen Surg and these have been deemed unlike to be the source of infection. UA negative for UTI, although he was on antibiotics as an outpatient; Chest imaging without any evidence of pneumonia Blood cx negative @ 48 hours without any definitive source -- will d/c a ntibiotics and observe 4. Bilateral foot frostbite injury Gen surg input appreciated -- local wound care has been recommended Silvadene cream to b/l feet twice daily followed by dry sterile dressings. 5. Rhabdomyolysis mild, possibly from the frostbite CPK pending 6. Transminitis likely due to #5 acute hep panel neg CPK pending 7. Dementia, unspecified no behavioral disturbances thus far continue baseline meds Full Code DVT pptx, subcut. heparin Quality Stroke Does the patient have a stroke diagnosis?: No VTE Prior VTE?: No VTE Risk Level:: Medical - moderate - high VTE Device Contraindication: Treatment Not Indicated VTE Drug Contraindication: N/A - Med Ordered
[2021-10-19 10:45] LABS: Alanine Aminotransferase 90 U/L (0-40); Albumin Level 2.6 g/dL (3.5-5.0); Alkaline Phosphatase 91 U/L (39-117); Aspartate Amino Transferase 46 U/L (5-37); Bilirubin Direct 0.2 mg/dL (0.0-0.5); Bilirubin Total 0.3 mg/dL (0.0-1.0); Total Protein 5.4 g/dL (6.5-8.0)
[2021-10-19 11:20] LABS: Glucose, Whole Blood 142 mg/dL (60-115)
[2021-10-19 11:23] LABS: Glucose, Whole Blood 218 mg/dL (60-115)
[2021-10-19 12:00] VITALS: BP 109/52; PULSE 71; RESP 18; TEMP 37.1; O2SAT 96
--- NOTE | 2021-10-19 12:37 | MHC.SL.SWA ---
Speech Pathologist Impression: Oral Phase Dysphagia Risk of Aspiration Due to: Poor PO Intake Reduced Cognition Dysphasia Diet Status: Liquid Consistency and Strategies for Safe Swallow: Liquid Intake Recommendation: Thin Liquid Intake Strategies: Small Sips Solid Food Consistency: Dietary Recommendations: Pureed (NDD1) Additional Modifications to Solid Foods: This diet suggestion is due to patient toleration and diminished HEATHER, may upgrade as condition improves Oral Medication Intake: Crushed with Puree Compensatory Strategies and Precautions to be Taken for Safe Swallow: Sitting Upright (90 deg) Supervision While Eating and Drinking for Safe Swallow: Total Assistance Foods to Avoid: Swallowing Recommended Treatments: Recommendation for Speech: Continue to follow for diet safety and possible upgrade Paper Bags Sewing Machine Operator Clinican/Clinical Fellow: No Supervisory Statement: I have reviewed and agree with the student/clinical fellow's documentation: N/A Speech Language Pathologist: Elizabeth Waterman M.A., CCC-CANDLES POURER
--- NOTE | 2021-10-19 14:26 | P.PNNP_ITS ---
Subjective Subjective Date of Service: 10/19/21 Interval history: seen and examined this AM Lethargic Physical Exam Verdana 4l Vital Signs: Verdana 4d Verdana 4d Vital Signs: Verdana 4d Verdana 4Bd Last Vital Signs Verdana 4d Facility Assistant New 4d Kunal Burnett 4d Temp 98.8 F 10/19/21 12:00 Kunal New 4d Pulse 71 10/19/21 12:00 Kunal New 4d Resp 18 10/19/21 12:00 BP 109/52 L 10/19/21 12:00 Pulse Ox 96 10/19/21 12:00 BMI result Body Mass Index 24.0 General - no acute distress,eyes closed, not opening them Cardiovascular - regular rate and rhythm, S1-S2 Lungs - normal respiratory effort, clear to auscultation bilaterally, no wheezing Abdomen - soft, nontender, no rebound or guarding Extremities - no edema bilaterally, RUE pain with movement, particularly at elbow joint Neuro - awake and alert,does not follow commands skin - b/l feet in dressings Objective Data Labs CBC & Chem 7: 10/18/21 09:51 10/19/21 05:21 Labs: Laboratory Results - last 24 hr 10/19/21 10/19/21 10/19/21 05:21 05:21 07:42 Sodium 148 H Potassium 5.0 Chloride 118 H Carbon Dioxide 23 Anion Gap 12 BUN 65 H Creatinine 1.87 H Estim Creat Clear Calc 28.4 Estimated GFR 35 POC Glucose 142 H Random Glucose 139 H Calcium 8.6 Total Bilirubin 0.3 Direct Bilirubin 0.2 AST 46 H D ALT 90 H Alkaline Phosphatase 91 Total Creatine Kinase 235 H D Total Protein 5.4 L Albumin 2.6 L Random Vancomycin 11.2 L 10/19/21 11:20 Sodium Potassium Chloride Carbon Dioxide Anion Gap BUN Creatinine Estim Creat Clear Calc Estimated GFR POC Glucose 218 H Random Glucose Calcium Total Bilirubin Direct Bilirubin AST ALT Alkaline Phosphatase Total Creatine Kinase Total Protein Albumin Random Vancomycin Microbiology Microbiology Results: Microbiology 10/16/21 14:20 Blood - Venous Blood Culture - Preliminary No growth after 48 hours. 10/16/21 13:22 Blood - Venous Blood Culture - Preliminary No growth after 48 hours. Procedures Date of Service Date of Service: 10/19/21 Assessment & Plan Assessment and plan (1) KERI (acute kidney injury): Status: Acute Assessment and Plan: Acute Kidney Injury due to tubular injury Hypernatremia with significant free water deficit(improved) Chronic Kidney Disease 3 at baseline Had altered autoregulation in the kidney with tubular injury Obstruction ruled out by imaging; Continue On IV fluids- D5W No indication for renal replacement. Monitor vancomycin levels Continue to hold ACEI; All medications need to be dosed for GFR Will F/U (2) Rhabdomyolysis: Status: Acute Time Spent With Patient Time: Total time spent is greater than 50% in coordination of care (as documented) at patient's floor/unit and/or counseling patient: Progress Note: Quality Stroke Does the patient have a stroke diagnosis?: No
[2021-10-19 15:36] VITALS: BP 133/80; PULSE 73; RESP 18; TEMP 36.8; O2SAT 98
[2021-10-19 18:40] LABS: Glucose, Whole Blood 155 mg/dL (60-115)
[2021-10-19 19:03] VITALS: BP 130/75; PULSE 80; RESP 18; TEMP 36.8; O2SAT 98
[2021-10-19] MEDS: Mirtazapine 15 MG TABLET PO (20:37)
[2021-10-19] MEDS: Atorvastatin Calcium 20 MG TABLET PO (20:37)
[2021-10-20] VITALS: BP 127/56; PULSE 78; RESP 16; TEMP 36.7; O2SAT 98
[2021-10-20 04:00] VITALS: BP 149/56; PULSE 77; RESP 16; TEMP 36.9; O2SAT 98
[2021-10-20 06:28] LABS: Hematocrit 30.8 % (42.0-52.0); Hemoglobin 9.3 g/dl (14.0-18.0); Mean Corpuscular HGB Conc 30.2 g/dl (31.0-36.0); Mean Corpuscular Hemoglobin 27.6 pg (27.0-33.0); Mean Corpuscular Volume 91.4 fL (80.0-98.0); Mean Platelet Volume 12.3 fL (9.4-12.4); Platelet Count 249 X10*3/uL (160-400); Red Blood Count 3.37 X10*6/uL (4.60-5.80); Red Cell Distribution Width 13.1 % (11.0-16.0); White Blood Count 11.2 X10*3/uL (4.8-10.8)
[2021-10-20 06:40] LABS: Anion Gap 13 (12-20); Blood Urea Nitrogen 53 mg/dL (9-16); Calcium 8.8 mg/dL (8.4-10.2); Carbon Dioxide 22 mmol/L (22-29); Chloride 117 mmol/L (96-108); Estimated Glomerular Filt Rate 39; Glucose Random 143 mg/dL (60-115); Potassium 4.8 mmol/L (3.3-5.1); Sodium 147 mmol/L (135-145)
[2021-10-20 06:43] LABS: Anion Gap 13 (12-20); Blood Urea Nitrogen 54 mg/dL (9-16); Calcium 8.9 mg/dL (8.4-10.2); Carbon Dioxide 22 mmol/L (22-29); Chloride 116 mmol/L (96-108); Creatinine Clr Calc Pharmacy 30.2; Estimated Glomerular Filt Rate 37; Glucose Random 143 mg/dL (60-115); Potassium 4.8 mmol/L (3.3-5.1); Sodium 146 mmol/L (135-145)
[2021-10-20 08:00] VITALS: BP 115/53; PULSE 72; RESP 18; TEMP 36.9; O2SAT 96
[2021-10-20] MEDS: 0.9 % Sodium Chloride Flush 3 ML SYRINGE IVFLUSH ×3 (09:02→20:30)
[2021-10-20] MEDS: Acetaminophen 325 MG TABLET 650 MG PO (09:03)
[2021-10-20] MEDS: Aspirin Enteric Coated 81 MG TABLET.DR PO (09:03)
[2021-10-20] MEDS: QUEtiapine Fumarate 50 MG TABLET PO ×2 (09:03→20:30)
[2021-10-20] MEDS: Memantine HCl 10 MG TABLET PO ×2 (09:03→20:30)
[2021-10-20] MEDS: Divalproex Sodium ER 250 MG TAB.ER.24H PO (09:03)
[2021-10-20] MEDS: Heparin Sodium,Porcine 5,000 UNIT/ML VIAL 5000 UNIT SUBCUT ×2 (09:03→21:44)
[2021-10-20] MEDS: Silver Sulfadiazine 1 % Cream 20 GM TUBE 1 APPL TOPICAL (09:04)
[2021-10-20 11:17] VITALS: BP 110/53; PULSE 79; RESP 17; TEMP 36.7; O2SAT 97
--- NOTE | 2021-10-20 12:01 | P.PNIM_ITS ---
Subjective Subjective Date of Service: 10/21/21 Review of Systems seen and examined this AM whispering a few words but confused winces in pain when RUE moved, especially for foot wound dressings Physical Exam Verdana 4l Vital Signs: Verdana 4d Verdana 4d Vital Signs: Verdana 4d Verdana 4Bd Last Vital Signs Verdana 4d Communication And Outreach Manager New 4d Communication And Outreach Manager New 4d Temp 98.1 F 10/20/21 11:17 Communication And Outreach Manager New 4d Pulse 79 10/20/21 11:17 Communication And Outreach Manager New 4d Resp 17 10/20/21 11:17 BP 110/53 L 10/20/21 11:17 Pulse Ox 97 10/20/21 11:17 BMI result Body Mass Index 24.0 Appearing in no acute distress lung sounds are clear to auscultation heart regular rate rhythm, clear S1, S2 positive bowel sounds, abdomen is soft, nontender neuro patient is alert, dementia bilateral feet wounds from frostbite Objective Data Active Medications Acetaminophen (Acetaminophen 325 Mg Tablet) 650 mg PO Q6H PRN PRN Reason: Pain, Mild (Pain Scale 1-3) Last Admin: 10/20/21 09:03 Dose: 650 mg Documented by: MARLO Aspirin (Aspirin Enteric Coated 81 Mg Tablet.Dr) 81 mg PO DAILY [facility] Last Admin: 10/20/21 09:03 Dose: 81 mg Documented by: MARLO Atorvastatin Calcium (Atorvastatin Calcium 20 Mg Tablet) 20 mg PO BEDTIME [facility] Last Admin: 10/19/21 20:37 Dose: 20 mg Documented by: BAILEERISBen Divalproex Sodium (Divalproex Sodium Er 250 Mg Tab.Er.24h) 250 mg PO DAILY [facility] Last Admin: 10/20/21 09:03 Dose: 250 mg Documented by: MARLO Heparin Sodium (Porcine) (Heparin Sodium,Porcine 5,000 Unit/Ml Vial) 5,000 unit SUBCUT Q12H [facility] Last Admin: 10/20/21 09:03 Dose: 5,000 unit Documented by: MARLO Melatonin (Melatonin 3 Mg Tablet) 6 mg PO BEDTIME PRN PRN Reason: Insomnia Last Admin: 10/18/21 20:37 Dose: 6 mg Documented by: SHANTAL Memantine (Memantine Hcl 10 Mg Tablet) 10 mg PO BID [facility] Last Admin: 10/20/21 09:03 Dose: 10 mg Documented by: MARLO Mirtazapine (Mirtazapine 15 Mg Tablet) 15 mg PO BEDTIME [facility] Last Admin: 10/19/21 20:37 Dose: 15 mg Documented by: MARC Patient Own Medication ( Galantamine 8 Mg Tablet) 1 each PO BIDWM [facility] Last Admin: 10/20/21 09:08 Dose: Not Given Documented by: MARLO Non-Admin Reason: Med Not Available Pharmacy Consult (Consult Rx Perform Med Rec) 1 each MISCELLANE ONCE PRN PRN Reason: Consult order Pharmacy Consult (Consult Rx Vancomycin Dosing) 1 each MISCELLANE DAILY PRN PRN Reason: Consult order Quetiapine Fumarate (Quetiapine Fumarate 50 Mg Tablet) 50 mg PO BID [facility] Last Admin: 10/20/21 09:03 Dose: 50 mg Documented by: MARLO Senna (Sennosides 8.6 Mg Tablet) 17.2 mg PO BEDTIME PRN PRN Reason: Constipation Silver Sulfadiazine (Silver Sulfadiazine 1 % Cream 20 Gm Tube) 1 appl TOPICAL DAILY [facility] Last Admin: 10/20/21 09:04 Dose: 1 appl Documented by: MARLO Sodium Chloride (0.9 % Sodium Chloride Flush 3 Ml Syringe) 3 ml IVFLUSH QSHIFT [facility] Last Admin: 10/20/21 09:02 Dose: 3 ml Documented by: MARLO Labs CBC & Chem 7: 10/20/21 05:45 10/21/21 05:45 Labs: Laboratory Results - last 24 hr 10/19/21 10/20/21 10/20/21 18:37 05:45 05:45 MCV 91.4 MCH 27.6 MCHC 30.2 L RDW 13.1 Plt Count 249 D MPV 12.3 Absolute Nucleated RBC 0.000 Nucleated RBC % (auto) 0.0 Anion Gap 13 Estim Creat Clear Calc 31.0 Estimated GFR 39 POC Glucose 155 H Random Glucose 143 H Calcium 8.8 10/20/21 05:45 MCV MCH MCHC RDW Plt Count MPV Absolute Nucleated RBC Nucleated RBC % (auto) Anion Gap 13 Estim Creat Clear Calc 30.2 Estimated GFR 37 POC Glucose Random Glucose 143 H Calcium 8.9 Assessment and Plan (1) KERI (acute kidney injury): Status: Acute (2) Dementia: Status: Acute Plan This is an 81 yo M with a PMH of dementia, CKD3, recent frostbite injury - being managed at the wound care center, who was brought in by family due to worsening mental status, decreased PO intake, generalized weakness and the frostbite injury. He is admitted for further work up. KERI on CKD due to ATN 1a. HyperNa, hypovoluemic multifactorial SNa increased slightly with 1/2 normal saline; will give 1L of D5W SCr continues to improve with IVF trend renally dose meds Toxic/metabolic encephalopathy due to above improving SIRS on admission sepsis ruled out Initially the patient was hypotensive with leukocytosis and tachypnea with an elevated procalcitonin In light of his frostbite injury -- these were felt to be the source; however he has been evaluated by Gen Surg and these have been deemed unlike to be the source of infection. UA negative for UTI, although he was on antibiotics as an outpatient Chest imaging without any evidence of pneumonia Blood cx negative @ 48 hours without any definitive source d/c antibiotics and observe Bilateral foot frostbite injury Gen surg input appreciated local wound care has been recommended Silvadene cream to b/l feet twice daily followed by dry sterile dressings. Rhabdomyolysis mild, possibly from the frostbite Transminitis likely due to rhabdo acute hep panel neg Dementia, unspecified no behavioral disturbances thus far continue baseline meds Full Code DVT pptx, subcut. heparin Attending Dr. Martinez Quality Stroke Does the patient have a stroke diagnosis?: No VTE Prior VTE?: No VTE Risk Level:: Medical - moderate - high VTE Device Contraindication: Treatment Not Indicated VTE Drug Contraindication: N/A - Med Ordered
--- NOTE | 2021-10-20 14:47 | P.PNNP_ITS ---
Subjective Subjective Date of Service: 10/20/21 Interval history: seen and examined this AM Lethargic Physical Exam Verdana 4l Vital Signs: Verdana 4d Verdana 4d Vital Signs: Verdana 4d Verdana 4Bd Last Vital Signs Verdana 4d Trial Paralegal New 4d Trial Paralegal New 4d Temp 98.1 F 10/20/21 11:17 Trial Paralegal New 4d Pulse 79 10/20/21 11:17 Trial Paralegal New 4d Resp 17 10/20/21 11:17 BP 110/53 L 10/20/21 11:17 Pulse Ox 97 10/20/21 11:17 BMI result Body Mass Index 24.0 Appearing in no acute distress ?lung sounds are clear to auscultation ?heart regular rate rhythm, clear? S1, S2 ?positive bowel sounds, abdomen is soft, nontender ?neuro patient is alert, dementia ?bilateral feet wounds from frostbite Objective Data Labs CBC & Chem 7: 10/20/21 05:45 10/20/21 05:45 Labs: Laboratory Results - last 24 hr 10/19/21 10/20/21 10/20/21 18:37 05:45 05:45 WBC 11.2 H RBC 3.37 L Hgb 9.3 L Hct 30.8 L MCV 91.4 MCH 27.6 MCHC 30.2 L RDW 13.1 Plt Count 249 D MPV 12.3 Absolute Nucleated RBC 0.000 Nucleated RBC % (auto) 0.0 Sodium 147 H Potassium 4.8 Chloride 117 H Carbon Dioxide 22 Anion Gap 13 BUN 53 H Creatinine 1.71 H Estim Creat Clear Calc 31.0 Estimated GFR 39 POC Glucose 155 H Random Glucose 143 H Calcium 8.8 10/20/21 05:45 WBC RBC Hgb Hct MCV MCH MCHC RDW Plt Count MPV Absolute Nucleated RBC Nucleated RBC % (auto) Sodium 146 H Potassium 4.8 Chloride 116 H Carbon Dioxide 22 Anion Gap 13 BUN 54 H Creatinine 1.76 H Estim Creat Clear Calc 30.2 Estimated GFR 37 POC Glucose Random Glucose 143 H Calcium 8.9 Microbiology Microbiology Results: Microbiology 10/16/21 14:20 Blood - Venous Blood Culture - Preliminary No growth after 48 hours. 10/16/21 13:22 Blood - Venous Blood Culture - Preliminary No growth after 48 hours. Procedures Date of Service Date of Service: 10/20/21 Assessment & Plan Assessment and plan (1) KERI (acute kidney injury): Status: Acute Plan Acute Kidney Injury due to tubular injury Hypernatremia with significant free water deficit(improved to 146) Chronic Kidney Disease 3 at baseline Had altered autoregulation in the kidney with tubular injury Obstruction ruled out by imaging; Continue? On IV fluids- D5Wat the same rate x 24 hrs Continue to hold ACEI; All medications need to be dosed for GFR Will? F/U (2) Rhabdomyolysis:resolved Time Spent With Patient Time: Total time spent is greater than 50% in coordination of care (as documented) at patient's floor/unit and/or counseling patient: Progress Note: Quality Stroke Does the patient have a stroke diagnosis?: No
--- NOTE | 2021-10-20 15:55 | MHC.CM.PN ---
REFERRAL PLACED TO [facility] IN THE EVENT PLAN IS HOME WITH SERVICES. DAUGHTER BAKARI IS AGREEABLE TO THIS PLAN VERSUS STR (IF HCP CAN BE OBTAINED) PER PREVIOUS CONVERSATION
[2021-10-20 16:00] VITALS: BP 112/54; PULSE 71; RESP 15; TEMP 36.5; O2SAT 99
--- NOTE | 2021-10-20 17:48 | PC.NURSE ---
Pt is alert to self but otherwise is confused. Pt continues on Aspiration precautions- Pureed diet and thickened liquids. Bilateral foot wounds cleansed with soap and water, Silvadene applied and covered with DCD.
[2021-10-20 19:56] VITALS: BP 124/58; PULSE 83; RESP 16; TEMP 36.8; O2SAT 96
[2021-10-20] MEDS: Mirtazapine 15 MG TABLET PO (20:30)
[2021-10-20] MEDS: Atorvastatin Calcium 20 MG TABLET PO (20:30)
[2021-10-21] VITALS (7 sets, daily range): BP systolic 111–141; BP diastolic 56–73; PULSE 73–83; RESP 17–18; TEMP 36.4–37.1; O2SAT 95–100; BMI 27.0
[2021-10-21 06:32] LABS: Vancomycin Trough 7.6 mcg/mL (10.0-20.0)
[2021-10-21 06:38] LABS: Creatinine Clr Calc Pharmacy 31.2; Estimated Glomerular Filt Rate 39
[2021-10-21] MEDS: 0.9 % Sodium Chloride Flush 3 ML SYRINGE IVFLUSH ×3 (08:56→20:19)
[2021-10-21] MEDS: Memantine HCl 10 MG TABLET PO ×2 (08:57→20:17)
[2021-10-21] MEDS: Aspirin Enteric Coated 81 MG TABLET.DR PO (08:57)
[2021-10-21] MEDS: QUEtiapine Fumarate 50 MG TABLET PO ×2 (08:57→20:17)
[2021-10-21] MEDS: Divalproex Sodium ER 250 MG TAB.ER.24H PO (08:57)
[2021-10-21] MEDS: Heparin Sodium,Porcine 5,000 UNIT/ML VIAL 5000 UNIT SUBCUT ×2 (08:57→20:19)
[2021-10-21] MEDS: Silver Sulfadiazine 1 % Cream 20 GM TUBE 1 APPL TOPICAL (09:05)
--- NOTE | 2021-10-21 09:30 | P.PNIM_ITS ---
Subjective Subjective Date of Service: 10/21/21 Review of Systems seen and examined this AM whispering a few words but confused winces in pain when RUE moved, especially for foot wound dressings Physical Exam Verdana 4l Vital Signs: Verdana 4d Verdana 4d Vital Signs: Verdana 4d Verdana 4Bd Last Vital Signs Verdana 4d Metal Stamping Machine Operator New 4d Metal Stamping Machine Operator New 4d Temp 98.0 F 10/21/21 08:00 Metal Stamping Machine Operator New 4d Pulse 73 10/21/21 08:00 Metal Stamping Machine Operator New 4d Resp 17 10/21/21 08:00 BP 111/56 L 10/21/21 08:00 Pulse Ox 98 10/21/21 08:00 BMI result Body Mass Index 24.0 Appearing in no acute distress lung sounds are clear to auscultation heart regular rate rhythm, clear S1, S2 positive bowel sounds, abdomen is soft, nontender neuro patient is alert x3, no focal deficits Bilateral feet soler Objective Data Active Medications Acetaminophen (Acetaminophen 325 Mg Tablet) 650 mg PO Q6H PRN PRN Reason: Pain, Mild (Pain Scale 1-3) Last Admin: 10/20/21 09:03 Dose: 650 mg Documented by: MARLO Aspirin (Aspirin Enteric Coated 81 Mg Tablet.Dr) 81 mg PO DAILY [facility] Last Admin: 10/21/21 08:57 Dose: 81 mg Documented by: MARLO Atorvastatin Calcium (Atorvastatin Calcium 20 Mg Tablet) 20 mg PO BEDTIME [facility] Last Admin: 10/20/21 20:30 Dose: 20 mg Documented by: BAILEERISBen Divalproex Sodium (Divalproex Sodium Er 250 Mg Tab.Er.24h) 250 mg PO DAILY [facility] Last Admin: 10/21/21 08:57 Dose: 250 mg Documented by: MARLO Heparin Sodium (Porcine) (Heparin Sodium,Porcine 5,000 Unit/Ml Vial) 5,000 unit SUBCUT Q12H [facility] Last Admin: 10/21/21 08:57 Dose: 5,000 unit Documented by: MARLO Melatonin (Melatonin 3 Mg Tablet) 6 mg PO BEDTIME PRN PRN Reason: Insomnia Last Admin: 10/18/21 20:37 Dose: 6 mg Documented by: SHANTAL Memantine (Memantine Hcl 10 Mg Tablet) 10 mg PO BID [facility] Last Admin: 10/21/21 08:57 Dose: 10 mg Documented by: MARLO Mirtazapine (Mirtazapine 15 Mg Tablet) 15 mg PO BEDTIME [facility] Last Admin: 10/20/21 20:30 Dose: 15 mg Documented by: MARC Patient Own Medication ( Galantamine 8 Mg Tablet) 1 each PO BIDWM [facility] Last Admin: 10/21/21 08:57 Dose: Not Given Documented by: MARLO Non-Admin Reason: Med Not Available Pharmacy Consult (Consult Rx Perform Med Rec) 1 each MISCELLANE ONCE PRN PRN Reason: Consult order Pharmacy Consult (Consult Rx Vancomycin Dosing) 1 each MISCELLANE DAILY PRN PRN Reason: Consult order Quetiapine Fumarate (Quetiapine Fumarate 50 Mg Tablet) 50 mg PO BID [facility] Last Admin: 10/21/21 08:57 Dose: 50 mg Documented by: MARLO Senna (Sennosides 8.6 Mg Tablet) 17.2 mg PO BEDTIME PRN PRN Reason: Constipation Silver Sulfadiazine (Silver Sulfadiazine 1 % Cream 20 Gm Tube) 1 appl TOPICAL DAILY [facility] Last Admin: 10/21/21 09:05 Dose: 1 appl Documented by: MARLO Sodium Chloride (0.9 % Sodium Chloride Flush 3 Ml Syringe) 3 ml IVFLUSH QSHIFT [facility] Last Admin: 10/21/21 08:56 Dose: 3 ml Documented by: MARLO Labs CBC & Chem 7: 10/20/21 05:45 10/21/21 05:45 Labs: Laboratory Results - last 24 hr 10/21/21 10/21/21 05:45 05:45 Estim Creat Clear Calc 31.2 Estimated GFR 39 Vancomycin Trough 7.6 L Assessment and Plan (1) KERI (acute kidney injury): Status: Acute (2) Dementia: Status: Acute Plan This is an 81 yo M with a PMH of dementia, CKD3, recent frostbite injury - being managed at the wound care center, who was brought in by family due to worsening mental status, decreased PO intake, generalized weakness and the frostbite injury. He is admitted for further work up. KERI on CKD due to ATN HyperNa, hypovoluemic multifactorial SNa increased slightly with 1/2 normal saline; 1L of D5W, fluids stopped SCr continues to improve with trend renally dose meds Toxic/metabolic encephalopathy due to above improving SIRS on admission sepsis ruled out Initially the patient was hypotensive with leukocytosis and tachypnea with an elevated procalcitonin In light of his frostbite injury -- these were felt to be the source; however he has been evaluated by Gen Surg and these have been deemed unlike to be the source of infection. UA negative for UTI, although he was on antibiotics as an outpatient Chest imaging without any evidence of pneumonia Blood cx negative @ 48 hours without any definitive source d/c antibiotics and observe Bilateral foot frostbite injury Gen surg input appreciated local wound care has been recommended Silvadene cream to b/l feet twice daily followed by dry sterile dressings. Rhabdomyolysis. Naren ding down mild, possibly from the frostbite Transminitis likely due to rhabdo acute hep panel neg Dementia, unspecified no behavioral disturbances thus far continue baseline meds DIPSO PT consult for discharge planning Full Code DVT pptx, subcut. heparin Attending Dr. Garcia Quality Stroke Does the patient have a stroke diagnosis?: No VTE Prior VTE?: No VTE Risk Level:: Medical - moderate - high VTE Device Contraindication: Treatment Not Indicated VTE Drug Contraindication: N/A - Med Ordered
[2021-10-21] MEDS: Mirtazapine 15 MG TABLET PO (20:17)
[2021-10-21] MEDS: Atorvastatin Calcium 20 MG TABLET PO (20:17)
[2021-10-22] VITALS (8 sets, daily range): BP systolic 114–138; BP diastolic 45–65; PULSE 74–116; RESP 16–18; TEMP 36.3–37.4; O2SAT 94–100
[2021-10-22 06:20] LABS: Anion Gap 13 (12-20); Blood Urea Nitrogen 52 mg/dL (9-16); Calcium 9.2 mg/dL (8.4-10.2); Carbon Dioxide 25 mmol/L (22-29); Chloride 116 mmol/L (96-108); Creatinine Clr Calc Pharmacy 35.2; Estimated Glomerular Filt Rate 45; Glucose Random 166 mg/dL (60-115); Potassium 4.9 mmol/L (3.3-5.1); Sodium 149 mmol/L (135-145)
[2021-10-22] MEDS: QUEtiapine Fumarate 50 MG TABLET PO ×2 (07:47→21:19)
[2021-10-22] MEDS: Memantine HCl 10 MG TABLET PO ×2 (07:47→21:19)
[2021-10-22] MEDS: Divalproex Sodium ER 250 MG TAB.ER.24H PO (07:48)
[2021-10-22] MEDS: Aspirin Enteric Coated 81 MG TABLET.DR PO (07:48)
[2021-10-22] MEDS: Silver Sulfadiazine 1 % Cream 20 GM TUBE 1 APPL TOPICAL (07:50)
[2021-10-22] MEDS: 0.9 % Sodium Chloride Flush 3 ML SYRINGE IVFLUSH ×2 (07:51→21:20)
--- NOTE | 2021-10-22 09:55 | P.PNIM_ITS ---
Subjective Subjective Date of Service: 10/22/21 Review of Systems seen and examined this AM whispering a few words but confused winces in pain when RUE moved, especially for foot wound dressings Physical Exam Verdana 4l Vital Signs: Verdana 4d Verdana 4d Vital Signs: Verdana 4d Verdana 4Bd Last Vital Signs Verdana 4d Chief Writer New 4d Chief Writer New 4d Temp 97.3 F 10/22/21 08:00 Chief Writer New 4d Pulse 116 H 10/22/21 08:00 Chief Writer New 4d Resp 18 10/22/21 08:00 BP 133/59 L 10/22/21 08:00 Pulse Ox 96 10/22/21 03:25 BMI result Body Mass Index 27.0 Appearing in no acute distress lung sounds are clear to auscultation heart regular rate rhythm, clear S1, S2 positive bowel sounds, abdomen is soft, nontender neuro patient is alert, confused Objective Data Active Medications Acetaminophen (Acetaminophen 325 Mg Tablet) 650 mg PO Q6H PRN PRN Reason: Pain, Mild (Pain Scale 1-3) Last Admin: 10/20/21 09:03 Dose: 650 mg Documented by: MARLO Aspirin (Aspirin Enteric Coated 81 Mg Tablet.Dr) 81 mg PO DAILY [facility] Last Admin: 10/22/21 07:48 Dose: 81 mg Documented by: SHANTELLE Atorvastatin Calcium (Atorvastatin Calcium 20 Mg Tablet) 20 mg PO BEDTIME [facility] Last Admin: 10/21/21 20:17 Dose: 20 mg Documented by: ROXANA Divalproex Sodium (Divalproex Sodium Er 250 Mg Tab.Er.24h) 250 mg PO DAILY [facility] Last Admin: 10/22/21 07:48 Dose: 250 mg Documented by: SHANTELLE Heparin Sodium (Porcine) (Heparin Sodium,Porcine 5,000 Unit/Ml Vial) 5,000 unit SUBCUT Q12H [facility] Last Admin: 10/21/21 20:19 Dose: 5,000 unit Documented by: ROXANA Dextrose (D5w) 1,000 mls @ 100 mls/hr IVCONT .Q10H [facility] Melatonin (Melatonin 3 Mg Tablet) 6 mg PO BEDTIME PRN PRN Reason: Insomnia Last Admin: 10/18/21 20:37 Dose: 6 mg Documented by: SHANTAL Memantine (Memantine Hcl 10 Mg Tablet) 10 mg PO BID [facility] Last Admin: 10/22/21 07:47 Dose: 10 mg Documented by: SHANTELLE Mirtazapine (Mirtazapine 15 Mg Tablet) 15 mg PO BEDTIME [facility] Last Admin: 10/21/21 20:17 Dose: 15 mg Documented by: ROXANA Patient Own Medication ( Galantamine 8 Mg Tablet) 1 each PO BIDWM [facility] Last Admin: 10/22/21 07:51 Dose: Not Given Documented by: SHANTELLE Non-Admin Reason: med not available Pharmacy Consult (Consult Rx Perform Med Rec) 1 each MISCELLANE ONCE PRN PRN Reason: Consult order Pharmacy Consult (Consult Rx Vancomycin Dosing) 1 each MISCELLANE DAILY PRN PRN Reason: Consult order Quetiapine Fumarate (Quetiapine Fumarate 50 Mg Tablet) 50 mg PO BID [facility] Last Admin: 10/22/21 07:47 Dose: 50 mg Documented by: SHANTELLE Senna (Sennosides 8.6 Mg Tablet) 17.2 mg PO BEDTIME PRN PRN Reason: Constipation Silver Sulfadiazine (Silver Sulfadiazine 1 % Cream 20 Gm Tube) 1 appl TOPICAL DAILY [facility] Last Admin: 10/22/21 07:50 Dose: 1 appl Documented by: SHANTELLE Sodium Chloride (0.9 % Sodium Chloride Flush 3 Ml Syringe) 3 ml IVFLUSH QSHIFT [facility] Last Admin: 10/22/21 07:51 Dose: 3 ml Documented by: SHANTELLE Labs CBC & Chem 7: 10/20/21 05:45 10/22/21 05:19 Labs: Laboratory Results - last 24 hr 10/22/21 05:19 Anion Gap 13 Estim Creat Clear Calc 35.2 Estimated GFR 45 Random Glucose 166 H Calcium 9.2 Microbiology Microbiology Results: Microbiology 10/16/21 14:20 Blood Culture - Final Blood - Venous No growth after 5 days. 10/16/21 13:22 Blood Culture - Final Blood - Venous No growth after 5 days. Assessment and Plan (1) KERI (acute kidney injury): Status: Acute (2) Dementia: Status: Acute Plan This is an 81 yo M with a PMH of dementia, CKD3, recent frostbite injury - being managed at the wound care center, who was brought in by family due to worsening mental status, decreased PO intake, generalized weakness and the frostbite injury. He is admitted for further work up. Hyperkalemia still holding in high 140's continue D5W for 24 hours as per nephrology KERI on CKD due to ATN HyperNa, hypovoluemic multifactorial SCr continues to improve trend renally dose meds Toxic/metabolic encephalopathy due to above improving SIRS on admission sepsis ruled out Initially the patient was hypotensive with leukocytosis and tachypnea with an elevated procalcitonin In light of his frostbite injury -- these were felt to be the source; however he has been evaluated by Gen Surg and these have been deemed unlike to be the source of infection. UA negative for UTI, although he was on antibiotics as an outpatient Chest imaging without any evidence of pneumonia Blood cx negative @ 48 hours without any definitive source d/c antibiotics and observe Bilateral foot frostbite injury Gen surg input appreciated local wound care has been recommended Silvadene cream to b/l feet twice daily followed by dry sterile dressings. Rhabdomyolysis. Naren ding down mild, possibly from the frostbite Transminitis likely due to rhabdo acute hep panel neg Dementia, unspecified no behavioral disturbances thus far continue baseline meds DIPSO PT consult for discharge planning Full Code DVT pptx, subcut. heparin Attending Dr. Martinez Quality Stroke Does the patient have a stroke diagnosis?: No VTE Prior VTE?: No VTE Risk Level:: Medical - moderate - high VTE Device Contraindication: Treatment Not Indicated VTE Drug Contraindication: N/A - Med Ordered
[2021-10-22] MEDS: Dextrose 5 % 1,000 ML 100 ML IVCONT ×2 (10:24→21:30)
--- NOTE | 2021-10-22 10:29 | P.PNIM_ITS ---
Subjective Subjective Date of Service: 10/22/21 Review of Systems seen and examined this AM confused due to dementia, unable to give history Physical Exam Vital Signs: Vital Signs: Last Vital Signs Temp 97.3 F 10/22/21 08:00 Pulse 116 H 10/22/21 10:00 Resp 18 10/22/21 08:00 BP 133/59 L 10/22/21 10:00 Pulse Ox 96 10/22/21 03:25 BMI result Body Mass Index 27.0 Appearing in no acute distress lung sounds are clear to auscultation heart regular rate rhythm, clear S1, S2 positive bowel sounds, abdomen is soft, nontender neuro patient is alert, confused Objective Data Active Medications Acetaminophen (Acetaminophen 325 Mg Tablet) 650 mg PO Q6H PRN PRN Reason: Pain, Mild (Pain Scale 1-3) Last Admin: 10/20/21 09:03 Dose: 650 mg Documented by: MARLO Aspirin (Aspirin Enteric Coated 81 Mg Tablet.Dr) 81 mg PO DAILY [facility] Last Admin: 10/22/21 07:48 Dose: 81 mg Documented by: SHANTELLE Atorvastatin Calcium (Atorvastatin Calcium 20 Mg Tablet) 20 mg PO BEDTIME [facility] Last Admin: 10/21/21 20:17 Dose: 20 mg Documented by: ROXANA Divalproex Sodium (Divalproex Sodium Er 250 Mg Tab.Er.24h) 250 mg PO DAILY [facility] Last Admin: 10/22/21 07:48 Dose: 250 mg Documented by: SHANTELLE Heparin Sodium (Porcine) (Heparin Sodium,Porcine 5,000 Unit/Ml Vial) 5,000 unit SUBCUT Q12H [facility] Last Admin: 10/21/21 20:19 Dose: 5,000 unit Documented by: ROXANA Dextrose (D5w) 1,000 mls @ 100 mls/hr IVCONT .Q10H [facility] Last Admin: 10/22/21 10:24 Dose: 100 mls/hr Documented by: SHANTELLE Melatonin (Melatonin 3 Mg Tablet) 6 mg PO BEDTIME PRN PRN Reason: Insomnia Last Admin: 10/18/21 20:37 Dose: 6 mg Documented by: SHANTAL Memantine (Memantine Hcl 10 Mg Tablet) 10 mg PO BID [facility] Last Admin: 10/22/21 07:47 Dose: 10 mg Documented by: SHANTELLE Mirtazapine (Mirtazapine 15 Mg Tablet) 15 mg PO BEDTIME [facility] Last Admin: 10/21/21 20:17 Dose: 15 mg Documented by: ROXANA Patient Own Medication ( Galantamine 8 Mg Tablet) 1 each PO BIDWM [facility] Last Admin: 10/22/21 07:51 Dose: Not Given Documented by: SHANTELLE Non-Admin Reason: med not available Pharmacy Consult (Consult Rx Perform Med Rec) 1 each MISCELLANE ONCE PRN PRN Reason: Consult order Pharmacy Consult (Consult Rx Vancomycin Dosing) 1 each MISCELLANE DAILY PRN PRN Reason: Consult order Quetiapine Fumarate (Quetiapine Fumarate 50 Mg Tablet) 50 mg PO BID [facility] Last Admin: 10/22/21 07:47 Dose: 50 mg Documented by: SHANTELLE Senna (Sennosides 8.6 Mg Tablet) 17.2 mg PO BEDTIME PRN PRN Reason: Constipation Silver Sulfadiazine (Silver Sulfadiazine 1 % Cream 20 Gm Tube) 1 appl TOPICAL DAILY [facility] Last Admin: 10/22/21 07:50 Dose: 1 appl Documented by: SHANTELLE Sodium Chloride (0.9 % Sodium Chloride Flush 3 Ml Syringe) 3 ml IVFLUSH QSHIFT [facility] Last Admin: 10/22/21 07:51 Dose: 3 ml Documented by: SHANTELLE Labs CBC & Chem 7: 10/20/21 05:45 10/22/21 05:19 Labs: Laboratory Results - last 24 hr 10/16/21 10/16/21 10/17/21 14:20 19:46 00:53 Anion Gap Creatinine 4.24 H* 3.72 H 3.45 H Estim Creat Clear Calc Estimated GFR Random Glucose Calcium 10/17/21 10/17/21 10/17/21 05:42 09:51 12:22 Anion Gap Creatinine 3.24 H 3.05 H 2.97 H Estim Creat Clear Calc Estimated GFR Random Glucose Calcium 10/17/21 10/17/21 10/18/21 20:21 21:28 05:28 Anion Gap Creatinine 2.63 H 2.59 H 2.45 H Estim Creat Clear Calc Estimated GFR Random Glucose Calcium 10/18/21 10/19/21 10/20/21 09:51 05:21 05:45 Anion Gap Creatinine 2.17 H 1.87 H 1.71 H Estim Creat Clear Calc Estimated GFR Random Glucose Calcium 10/20/21 10/21/21 10/22/21 05:45 05:45 05:19 Anion Gap 13 Creatinine 1.76 H 1.70 H 1.51 H Estim Creat Clear Calc 35.2 Estimated GFR 45 Random Glucose 166 H Calcium 9.2 Microbiology Microbiology Results: Microbiology 10/16/21 14:20 Blood Culture - Final Blood - Venous No growth after 5 days. 10/16/21 13:22 Blood Culture - Final Blood - Venous No growth after 5 days. Assessment and Plan (1) KERI (acute kidney injury): Status: Acute (2) Dementia: Status: Acute Plan This is an 81 yo M with a PMH of dementia, CKD3, recent frostbite injury - being managed at the wound care center, who was brought in by family due to worsening mental status, decreased PO intake, generalized weakness and the frostbite injury. He is admitted for further work up. Hyperkalemia still holding in high 140's continue D5W for 24 hours as per nephrology KERI on CKD due to ATN HyperNa, hypovoluemic multifactorial SCr continues to improve trend renally dose meds Toxic/metabolic encephalopathy due to above improving SIRS on admission sepsis ruled out Initially the patient was hypotensive with leukocytosis and tachypnea with an elevated procalcitonin In light of his frostbite injury -- these were felt to be the source; however he has been evaluated by Gen Surg and these have been deemed unlike to be the source of infection. UA negative for UTI, although he was on antibiotics as an outpatient Chest imaging without any evidence of pneumonia Blood cx negative @ 48 hours without any definitive source d/c antibiotics and observe Bilateral foot frostbite injury Gen surg input appreciated local wound care has been recommended Silvadene cream to b/l feet twice daily followed by dry sterile dressings. Rhabdomyolysis. Trending down mild, possibly from the frostbite Transminitis likely due to rhabdo acute hep panel neg Dementia, unspecified no behavioral disturbances thus far continue baseline meds DIPSO PT consult for discharge planning Full Code DVT pptx, subcut. heparin Attending Dr. Erickson Quality Stroke Does the patient have a stroke diagnosis?: No VTE Prior VTE?: No VTE Risk Level:: Medical - moderate - high VTE Device Contraindication: Treatment Not Indicated VTE Drug Contraindication: N/A - Med Ordered
[2021-10-22] MEDS: Heparin Sodium,Porcine 5,000 UNIT/ML VIAL 5000 UNIT SUBCUT ×2 (10:33→21:20)
--- NOTE | 2021-10-22 11:24 | P.PNNP_ITS ---
Subjective Subjective Date of Service: 10/22/21 Interval history: seen and examined this AM Lethargic events noted Physical Exam Verdana 4l Vital Signs: Verdana 4d Verdana 4d Vital Signs: Verdana 4d Verdana 4Bd Last Vital Signs Verdana 4d Electrical Design Engineer New 4d Electrical Design Engineer New 4d Temp 97.3 F 10/22/21 08:00 Electrical Design Engineer New 4d Pulse 116 H 10/22/21 10:00 Electrical Design Engineer New 4d Resp 18 10/22/21 08:00 BP 133/59 L 10/22/21 10:00 Pulse Ox 96 10/22/21 03:25 BMI result Body Mass Index 27.0 Const: General: no acute distress Neck: Neck: Yes supple Resp: Auscultation: diminished lung sounds Cardio: Rate: regular rate GI: Palpation (GI): Soft to palpation Neuro: General: moves all extremities Objective Data Labs CBC & Chem 7: 10/20/21 05:45 10/22/21 05:19 Labs: Laboratory Results - last 24 hr 10/22/21 05:19 Sodium 149 H Potassium 4.9 Chloride 116 H Carbon Dioxide 25 Anion Gap 13 BUN 52 H Creatinine 1.51 H Estim Creat Clear Calc 35.2 Estimated GFR 45 Random Glucose 166 H Calcium 9.2 Microbiology Microbiology Results: Microbiology 10/16/21 14:20 Blood - Venous Blood Culture - Final No growth after 5 days. 10/16/21 13:22 Blood - Venous Blood Culture - Final No growth after 5 days. Procedures Date of Service Date of Service: 10/22/21 Assessment & Plan Assessment and plan (1) KERI (acute kidney injury): Status: Acute Plan 1. KERI: pSCr 4.2 and now resolved with SCr back to BSL range 2. CKD 3: Scr 1.5-2.0 range 3. HyperNa: getting FWater replacement REC: cont to replace FWater; avoid Ntoxins Time Spent With Patient Time: Total time spent is greater than 50% in coordination of care (as documented) at patient's floor/unit and/or counseling patient: Progress Note: Quality Stroke Does the patient have a stroke diagnosis?: No
--- NOTE | 2021-10-22 12:52 | MHC.SLORD ---
Speech Language Pathology Order Status: SILK SPOTTER attempted to see patient for dysphagia treatment this morning- Patient did not wake to sternal rub and verbal stimuli. He is on PUREED (NDD1)/THIN. SILK SPOTTER will continue to follow to monitor tolerance and re-assess potential for upgrade.
[2021-10-22 13:20] LABS: Sodium 148 mmol/L (135-145)
--- NOTE | 2021-10-22 13:22 | PC.NURSE ---
Patient seen today for wound assessment. Patients' frostbitten feet are improving. Silvadene being applied covered with non woven gauze and roll gauze.
--- NOTE | 2021-10-22 14:03 | MHC.CM.PN ---
PER CONVERSATION WITH COLE ([phone]) OF [facility], PATIENT DOES NOT YET HAVE A CAP COVERER COLE SUGGESTS THAT THE DAUGHTER CALL DIRECTOR [employer]ENCY [employer] STRATE[employer]IC [employer] CIERA NADYACHANDRAKANT @ [phone] TO DISCUSS NEEDS IN THE HOME. PATIENT IS BEING ONBOARDED' FOR SERVICES, INCLUDING M-F ADULT DAY CARE AND TRANSPORTATION TO AND FROM. COLE SUGGESTS THAT BAKARI REQUEST HOT BRAIDER OR ORGANIZATIONAL EFFECTIVENESS DIRECTOR HOURS CASE MANAGEMENT FOLLOWING NO PLAN FOR DC UNTIL FRIDAY OR FRIDAY
--- NOTE | 2021-10-22 14:37 | PC.NURSE ---
Pt out of bed to chair, total assist with two staff members. Pt did not bear any weight. Up to chair now watching TV.
[2021-10-22] MEDS: Mirtazapine 15 MG TABLET PO (21:19)
[2021-10-22] MEDS: Atorvastatin Calcium 20 MG TABLET PO (21:19)
[2021-10-22] MEDS: Acetaminophen 325 MG TABLET 650 MG PO (21:19)
[2021-10-23 03:54] VITALS: BP 127/70; PULSE 73; RESP 18; TEMP 36.3; O2SAT 97
[2021-10-23] MEDS: Dextrose 5 % 1,000 ML 100 ML IVCONT ×2 (05:49→15:54)
[2021-10-23 06:00] LABS: Estimated Glomerular Filt Rate 50
[2021-10-23 08:00] VITALS: BP 168/67; PULSE 69; RESP 18; TEMP 36.6
[2021-10-23] MEDS: Memantine HCl 10 MG TABLET PO ×2 (08:59→20:51)
[2021-10-23] MEDS: Aspirin Enteric Coated 81 MG TABLET.DR PO (08:59)
[2021-10-23] MEDS: QUEtiapine Fumarate 50 MG TABLET PO ×2 (09:00→20:51)
[2021-10-23] MEDS: Heparin Sodium,Porcine 5,000 UNIT/ML VIAL 5000 UNIT SUBCUT ×2 (09:00→21:01)
[2021-10-23] MEDS: Divalproex Sodium ER 250 MG TAB.ER.24H PO (09:00)
[2021-10-23] MEDS: 0.9 % Sodium Chloride Flush 3 ML SYRINGE IVFLUSH ×2 (09:01→21:03)
[2021-10-23 09:13] LABS: Sodium 145 mmol/L (135-145)
[2021-10-23 10:59] VITALS: BP 119/58; PULSE 75; RESP 18; TEMP 36.5; O2SAT 98
--- NOTE | 2021-10-23 11:04 | HO.PM.IMPN ---
Subjective Subjective Date of Service: 10/23/21 Review of Systems seen and examined this AM confused due to dementia, unable to give history Sitting up in bed eating breakfast with assist Physical Exam Vital Signs: Vital Signs: Last Vital Signs Temp 97.7 F 10/23/21 10:59 Pulse 75 10/23/21 10:59 Resp 18 10/23/21 10:59 BP 119/58 L 10/23/21 10:59 Pulse Ox 98 10/23/21 10:59 BMI result Body Mass Index 27.0 Appearing in no acute distress lung sounds are clear to auscultation heart regular rate rhythm, clear S1, S2 positive bowel sounds, abdomen is soft, nontender neuro patient is alert, confused Objective Data Active Medications Acetaminophen (Acetaminophen 325 Mg Tablet) 650 mg PO Q6H PRN PRN Reason: Pain, Mild (Pain Scale 1-3) Last Admin: 10/22/21 21:19 Dose: 650 mg Documented by: SUMI Aspirin (Aspirin Enteric Coated 81 Mg Tablet.Dr) 81 mg PO DAILY [facility] Last Admin: 10/23/21 08:59 Dose: 81 mg Documented by: JANA Atorvastatin Calcium (Atorvastatin Calcium 20 Mg Tablet) 20 mg PO BEDTIME [facility] Last Admin: 10/22/21 21:19 Dose: 20 mg Documented by: SUMI Divalproex Sodium (Divalproex Sodium Er 250 Mg Tab.Er.24h) 250 mg PO DAILY [facility] Last Admin: 10/23/21 09:00 Dose: 250 mg Documented by: JANA Heparin Sodium (Porcine) (Heparin Sodium,Porcine 5,000 Unit/Ml Vial) 5,000 unit SUBCUT Q12H [facility] Last Admin: 10/23/21 09:00 Dose: 5,000 unit Documented by: JANA Dextrose (D5w) 1,000 mls @ 100 mls/hr IVCONT .Q10H [facility] Last Admin: 10/23/21 05:49 Dose: 100 mls/hr Documented by: SUMI Melatonin (Melatonin 3 Mg Tablet) 6 mg PO BEDTIME PRN PRN Reason: Insomnia Last Admin: 10/18/21 20:37 Dose: 6 mg Documented by: SHANTAL Memantine (Memantine Hcl 10 Mg Tablet) 10 mg PO BID [facility] Last Admin: 10/23/21 08:59 Dose: 10 mg Documented by: JANA Mirtazapine (Mirtazapine 15 Mg Tablet) 15 mg PO BEDTIME [facility] Last Admin: 10/22/21 21:19 Dose: 15 mg Documented by: SUMI Patient Own Medication ( Galantamine 8 Mg Tablet) 1 each PO BIDWM [facility] Last Admin: 10/23/21 09:02 Dose: Not Given Documented by: JANA Non-Admin Reason: unavailable Pharmacy Consult (Consult Rx Perform Med Rec) 1 each MISCELLANE ONCE PRN PRN Reason: Consult order Pharmacy Consult (Consult Rx Vancomycin Dosing) 1 each MISCELLANE DAILY PRN PRN Reason: Consult order Quetiapine Fumarate (Quetiapine Fumarate 50 Mg Tablet) 50 mg PO BID [facility] Last Admin: 10/23/21 09:00 Dose: 50 mg Documented by: JANA Senna (Sennosides 8.6 Mg Tablet) 17.2 mg PO BEDTIME PRN PRN Reason: Constipation Silver Sulfadiazine (Silver Sulfadiazine 1 % Cream 20 Gm Tube) 1 appl TOPICAL DAILY [facility] Last Admin: 10/22/21 07:50 Dose: 1 appl Documented by: SHANTELLE Sodium Chloride (0.9 % Sodium Chloride Flush 3 Ml Syringe) 3 ml IVFLUSH QSHIFT [facility] Last Admin: 10/23/21 09:01 Dose: 3 ml Documented by: JANA Labs CBC & Chem 7: 10/20/21 05:45 10/23/21 08:41 Labs: Laboratory Results - last 24 hr 10/23/21 05:13 Estim Creat Clear Calc 39.0 Estimated GFR 50 Assessment and Plan (1) KERI (acute kidney injury): Status: Acute (2) Dementia: Status: Acute Plan This is an 81 yo M with a PMH of dementia, CKD3, recent frostbite injury - being managed at the wound care center, who was brought in by family due to worsening mental status, decreased PO intake, generalized weakness and the frostbite injury. He is admitted for further work up. Hyperkalemia. Resolved recheck sodium at 3pm if wnl will stop D5W KERI on CKD due to ATN HyperNa, hypovolemic multifactorial SCr continues to improve trend renally dose meds Toxic/metabolic encephalopathy, also chronic dementia due to above improving SIRS on admission sepsis ruled out Initially the patient was hypotensive with leukocytosis and tachypnea with an elevated procalcitonin In light of his frostbite injury -- these were felt to be the source; however he has been evaluated by Gen Surg and these have been deemed unlike to be the source of infection. UA negative for UTI, although he was on antibiotics as an outpatient Chest imaging without any evidence of pneumonia Blood cx negative @ 48 hours without any definitive source d/c antibiotics and observe Bilateral foot frostbite injury Gen surg input appreciated local wound care has been recommended Silvadene cream to b/l feet twice daily followed by dry sterile dressings. Rhabdomyolysis. Trending down mild, possibly from the frostbite Transminitis likely due to rhabdo acute hep panel neg Dementia, unspecified no behavioral disturbances thus far continue baseline meds DIPSO talked with daughter, she returns from [place] on and is requesting more help at home. CM reached out to [facility]. Full Code DVT pptx, subcut. heparin Attending Dr. Erickson Quality Stroke Does the patient have a stroke diagnosis?: No VTE Prior VTE?: No VTE Risk Level:: Medical - moderate - high VTE Device Contraindication: Treatment Not Indicated VTE Drug Contraindication: N/A - Med Ordered
--- NOTE | 2021-10-23 13:59 | MHC.SL.SWA ---
Speech Pathologist Impression: Oral Phase Dysphagia Risk of Aspiration Due to: Poor PO Intake Reduced Cognition Dysphasia Diet Status: Liquid Consistency and Strategies for Safe Swallow: Liquid Intake Recommendation: Thin Liquid Intake Strategies: Small Sips Solid Food Consistency: Dietary Recommendations: Pureed (NDD1) Additional Modifications to Solid Foods: This diet suggestion is due to patient toleration and diminished HEATHER, may upgrade as condition improves Oral Medication Intake: Crushed with Puree Compensatory Strategies and Precautions to be Taken for Safe Swallow: Sitting Upright (90 deg) No Straw Liquids from Spoon Alternate Liquids/Solids Supervision While Eating and Drinking for Safe Swallow: Total Supervision (1:1) Foods to Avoid: Swallowing Recommended Treatments: Compens. Strategy Educat. Recommendation for Speech: Comment: Pt seen for re-assessment this a.m. Pt was awake, but kept eyes closed throughout the session. Pt is Urdu speaking, presents as confused, verbalizing but not contingent to the communication circumstance. Pt accepted sips of cold water from tsp, w/some escaping from mouth anteriorly. Oral transit of remaining bolus was mildly delayed, Pt initiated swallow after mild delay, w/ no clinical signs of aspiration noted. Pt took two tsps of puree consistency. Mild delay of oral transit of bolus and mild delay initiating swallow. Pt declined any further presentations of food/liquid. Recommend continue on current diet of PUREE (NDD1) w/ THIN liquids. Pt will continue to need direct 1-1 supervision during meals, w/ encouragement to eat, and close monitor for signs of aspiration. Frequency/Duration: while in hospital Date Range for Service Req: Timeline to reassess: Rotor Balancer Clinican/Clinical Fellow: No Supervisory Statement: I have reviewed and agree with the student/clinical fellow's documentation: N/A Speech Language Pathologist: Elizabeth Chaidez M.A., CCC-[employer]
[2021-10-23] MEDS: Silver Sulfadiazine 1 % Cream 20 GM TUBE 1 APPL TOPICAL (14:19)
[2021-10-23 15:37] VITALS: BP 124/57; PULSE 71; RESP 18; TEMP 36.8; O2SAT 98
[2021-10-23 17:12] LABS: Sodium 144 mmol/L (135-145)
[2021-10-23 20:00] VITALS: BP 112/51; PULSE 68; RESP 18; TEMP 36.8; O2SAT 94
[2021-10-23] MEDS: Mirtazapine 15 MG TABLET PO (20:51)
[2021-10-23] MEDS: Atorvastatin Calcium 20 MG TABLET PO (20:51)
[2021-10-23 23:29] VITALS: BP 142/62; PULSE 81; RESP 18; TEMP 36.8; O2SAT 96
[2021-10-24 03:31] VITALS: BP 136/60; PULSE 72; RESP 18; TEMP 36.5; O2SAT 96
[2021-10-24 06:51] LABS: Creatinine Clr Calc Pharmacy 42.1; Estimated Glomerular Filt Rate 55
[2021-10-24 06:55] LABS: Anion Gap 14 (12-20); Blood Urea Nitrogen 40 mg/dL (9-16); Calcium 9.2 mg/dL (8.4-10.2); Carbon Dioxide 24 mmol/L (22-29); Chloride 109 mmol/L (96-108); Creatinine Clr Calc Pharmacy 40.5; Estimated Glomerular Filt Rate 53; Glucose Random 144 mg/dL (60-115); Potassium 4.9 mmol/L (3.3-5.1); Sodium 142 mmol/L (135-145)
[2021-10-24 07:40] VITALS: BP 122/66; PULSE 73; RESP 18; TEMP 37.1; O2SAT 100
[2021-10-24] MEDS: Heparin Sodium,Porcine 5,000 UNIT/ML VIAL 5000 UNIT SUBCUT ×2 (08:46→21:57)
[2021-10-24] MEDS: 0.9 % Sodium Chloride Flush 3 ML SYRINGE IVFLUSH ×3 (08:46→20:24)
[2021-10-24] MEDS: Aspirin Enteric Coated 81 MG TABLET.DR PO (08:47)
[2021-10-24] MEDS: Divalproex Sodium ER 250 MG TAB.ER.24H PO (08:47)
[2021-10-24] MEDS: Memantine HCl 10 MG TABLET PO ×2 (08:47→20:16)
[2021-10-24] MEDS: QUEtiapine Fumarate 50 MG TABLET PO ×2 (08:47→20:16)
[2021-10-24 11:06] VITALS: BP 111/54; PULSE 67; RESP 18; TEMP 36.3; O2SAT 96
[2021-10-24 11:48] VITALS: BMI 27.0
--- NOTE | 2021-10-24 12:22 | P.PNIM_ITS ---
Subjective Subjective Date of Service: 10/24/21 Interval History: seen and examined this AM french speaking aide bedside and helps interpret, but patient still not talking much per staff who has taken care of him during this admission, today is the best theyve seen him patient was previously complaining of RUE pain which seems to have resolved, but now with L knee pain he was moved from chair to bed several days ago, but per nursing documentation he was unable to bear weight Physical Exam Vital Signs: Vital Signs: Last Vital Signs Temp 97.4 F 10/24/21 11:06 Pulse 67 10/24/21 11:06 Resp 18 10/24/21 11:06 BP 111/54 L 10/24/21 11:06 Pulse Ox 96 10/24/21 11:06 BMI result Body Mass Index 27.0 Const: Other: General - no acute distress, appears comfortable Cardiovascular - regular rate and rhythm, S1-S2 Lungs - normal respiratory effort, clear to auscultation bilaterally, no wheezing Abdomen - soft, nontender, no rebound or guarding Extremities - no edema bilaterally Neuro - awake and alert, disoriented; does not move RLE despite speaking in [place] Citizen; spontaneous moves RUE but not with command Objective Data Active Medications Acetaminophen (Acetaminophen 325 Mg Tablet) 650 mg PO Q6H PRN PRN Reason: Pain, Mild (Pain Scale 1-3) Last Admin: 10/22/21 21:19 Dose: 650 mg Documented by: SUMI Aspirin (Aspirin Enteric Coated 81 Mg Tablet.) [address] [facility] Last Admin: 10/24/21 08:47 Dose: 81 mg Documented by: JANA Atorvastatin Calcium (Atorvastatin Calcium 20 Mg Tablet) [address] [facility] Last Admin: 10/23/21 20:51 Dose: 20 mg Documented by: LLOYD Divalproex Sodium (Divalproex Sodium Er 250 Mg Tab.Er.24h) [address] [facility] Last Admin: 10/24/21 08:47 Dose: 250 mg Documented by: JANA Heparin Sodium (Porcine) (Heparin Sodium,Porcine 5,000 Unit/Ml Vial) 5,[address] [facility] Last Admin: 10/24/21 08:46 Dose: 5,000 unit Documented by: JANA Melatonin (Melatonin 3 Mg Tablet) 6 mg PO BEDTIME PRN PRN Reason: Insomnia Last Admin: 10/18/21 20:37 Dose: 6 mg Documented by: SHANTAL Memantine (Memantine Hcl 10 Mg Tablet) [address] [facility] Last Admin: 10/24/21 08:47 Dose: 10 mg Documented by: JANA Mirtazapine (Mirtazapine 15 Mg Tablet) [address] [facility] Last Admin: 10/23/21 20:51 Dose: 15 mg Documented by: LLOYD Patient Own Medication ( Galantamine 8 Mg Tablet) [address] [facility] Last Admin: 10/24/21 08:21 Dose: Not Given Documented by: JANA Non-Admin Reason: not available Pharmacy Consult (Consult Rx Perform Med Rec) 1 each MISCELLANE ONCE PRN PRN Reason: Consult order Quetiapine Fumarate (Quetiapine Fumarate 50 Mg Tablet) [address] [facility] Last Admin: 10/24/21 08:47 Dose: 50 mg Documented by: JANA Senna (Sennosides 8.6 Mg Tablet) 17.2 mg PO BEDTIME PRN PRN Reason: Constipation Silver Sulfadiazine (Silver Sulfadiazine 1 % Cream 20 Gm Tube) [address] [facility] Last Admin: 10/23/21 14:19 Dose: 1 appl Documented by: JANA Sodium Chloride (0.9 % Sodium Chloride Flush 3 Ml Syringe) [address] [facility] Last Admin: 10/24/21 08:46 Dose: 3 ml Documented by: JANA Labs CBC & Chem 7: 10/20/21 05:45 10/24/21 05:48 Labs: Laboratory Results - last 24 hr 10/24/21 10/24/21 05:48 05:48 Anion Gap 14 Estim Creat Clear Calc 42.1 40.5 Estimated GFR 55 53 Random Glucose 144 H Calcium 9.2 Assessment and Plan (1) KERI (acute kidney injury): Status: Acute (2) Dementia: Status: Acute Plan This is an 81 yo M with a PMH of dementia, CKD3, recent frostbite injury - being [facility], who was brought in by family due to worsening mental status, decreased PO intake, generalized weakness and the frostbite injury. He is admitted for further work up. KERI on CKD due to ATN HyperNa, hypovolemic HyperK -- resolved multifactorial SCr continues to improve trend renally dose meds R-sided weakness unclear if this is secondary to pain from recent fall given his advanced dementia, unable to fully evaluate him clinically doubt acute CVA -- will check CT of the head check Knee/Hip XR Toxic/metabolic encephalopathy due to above improving, suspect he is at baseline SIRS on admission sepsis ruled out Initially the patient was hypotensive with leukocytosis and tachypnea with an elevated procalcitonin In light of his frostbite injury -- these were felt to be the source; however he has been evaluated by Gen Surg and these have been deemed unlike to be the source of infection. UA negative for UTI, although he was on antibiotics as an outpatient Chest imaging without any evidence of pneumonia; blood cx neg at 5 days off antibiotics x 5 days without any issues Bilateral foot frostbite injury Gen surg input appreciated local wound care has been recommended Silvadene cream to b/l feet twice daily followed by dry sterile dressings. Rhabdomyolysis. Trending down resolved Transminitis likely due to rhabdo acute hep panel neg Dementia, unspecified no behavioral disturbances thus far continue baseline meds Dispo -- likely home in the next 24 to 48 hours Full Code DVT pptx, subcut. heparin Quality Stroke Does the patient have a stroke diagnosis?: No VTE Prior VTE?: No VTE Risk Level:: Medical - moderate - high VTE Device Contraindication: Treatment Not Indicated VTE Drug Contraindication: N/A - Med Ordered
--- NOTE | 2021-10-24 13:34 | MHC.SL.SWA ---
Speech Pathologist Impression: Oral Phase Dysphagia Risk of Aspiration Due to: Poor PO Intake Reduced Cognition Dysphasia Diet Status: Upgrade Liquid Consistency and Strategies for Safe Swallow: Liquid Intake Recommendation: Thin Liquid Intake Strategies: Small Sips Solid Food Consistency: Dietary Recommendations: Grnd/Mech Altered (NDD2) Additional Modifications to Solid Foods: Recommend UPGRADE to GROUND/MECH ALTERED (NDD2) solids and maintain THIN liquids, pills CRUSHED in PUREE. Food to be served with sauce/gravy. Avoid sticky foods and mixed consistencies. Follow each bite of food with sip of liquid to promote oral clearance, check oral cavity as needed. Continue aspiration precautions. Pt will continue to need 1:1 assistance during meals, w/ encouragement to eat, and close monitor for signs of aspiration. [employer]POINT WE[employer] DEVELOPER updated diet order in [facility]. Will continue to follow. Oral Medication Intake: Crushed with Puree Compensatory Strategies and Precautions to be Taken for Safe Swallow: Sitting Upright (90 deg) No Straw Liquids from Spoon Small Bites and Sips Alternate Liquids/Solids Rate of Ingestion Change Oral Check Avoid Specific Foods Supervision While Eating and Drinking for Safe Swallow: Total Assistance Foods to Avoid: sticky foods, mixed consistencies Swallowing Recommended Treatments: Compens. Strategy Educat. Recommendation for Speech: Comment: Frequency/Duration: while in hospital Date Range for Service Req: Timeline to reassess: Workers Compensation Paralegal Clinican/Clinical Fellow: No Supervisory Statement: I have reviewed and agree with the student/clinical fellow's documentation: N/A Speech Language Pathologist: Deborah Lopez M.A., CCC-[employer] DEVELOPER
[2021-10-24] MEDS: Silver Sulfadiazine 1 % Cream 20 GM TUBE 1 APPL TOPICAL (15:44)
[2021-10-24 16:00] VITALS: BP 137/60; PULSE 74; RESP 16; TEMP 36.6; O2SAT 97
[2021-10-24 19:59] VITALS: BP 125/65; PULSE 74; RESP 15; TEMP 36.7; O2SAT 98
[2021-10-24] MEDS: Mirtazapine 15 MG TABLET PO (20:16)
[2021-10-24] MEDS: Atorvastatin Calcium 20 MG TABLET PO (20:16)
[2021-10-24 23:32] VITALS: BP 101/43; PULSE 70; RESP 18; TEMP 36.3; O2SAT 98
[2021-10-25 03:41] VITALS: BP 109/44; PULSE 58; RESP 18; TEMP 36.5; O2SAT 95
[2021-10-25 07:29] VITALS: BP 97/62; PULSE 72; RESP 22; TEMP 36.7; O2SAT 98
--- NOTE | 2021-10-25 09:02 | MHC.CM.PN ---
PATIENT IS SPEAKING WITH DAUGHTER AND IS MORE ALERT THAN PREVIOUS VISITS WITH CASE MANAGEMENT. DAUGHTER ASKS IF PATIENT TRUSTS HER TO MAKE MEDICAL DECISIONS FOR HIM. HE AGREES. WHEN DAUGHTER ASKS IF PATIENT TRUSTS DAUGHTER TO TAKE CARE OF HIM AT HOME, HE AGREES. WHEN ASKED IF PATIENT WANTS DAUGHTER TO SIGN NECESSARY HOSPITAL OR REHAB FORMS ON HIS BEHALF, PATIENT AGREES. CONVERSATION WITNESSED BY TWO CLEANING MATRON. HCP COMPLETED. PATIENT DOES HAVE DIFFICULTY SIGNING HIS NAME BUT WAS ABLE TO STATE THE LETTERS WHILE SIGNING. HCP UPLOADED INTO [employer]
[2021-10-25] MEDS: Aspirin Enteric Coated 81 MG TABLET.DR PO (09:25)
[2021-10-25] MEDS: Memantine HCl 10 MG TABLET PO (09:25)
[2021-10-25] MEDS: Divalproex Sodium ER 250 MG TAB.ER.24H PO (09:25)
[2021-10-25] MEDS: QUEtiapine Fumarate 50 MG TABLET PO (09:26)
[2021-10-25] MEDS: Heparin Sodium,Porcine 5,000 UNIT/ML VIAL 5000 UNIT SUBCUT (09:27)
[2021-10-25 10:08] VITALS: BP 97/62; PULSE 72; O2SAT 98
[2021-10-25] MEDS: 0.9 % Sodium Chloride Flush 3 ML SYRINGE IVFLUSH (10:27)
[2021-10-25] MEDS: Silver Sulfadiazine 1 % Cream 20 GM TUBE 1 APPL TOPICAL (10:28)
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
[2021-10-25 11:42] VITALS: BP 108/75; PULSE 82; RESP 22; TEMP 37.2; O2SAT 95
[2021-10-25 14:34] LABS: COVID-19 Test Negative (Negative)
--- NOTE | 2021-10-25 14:38 | MHC.CM.PN ---
PATIENT IS DC TO [facility] FOR 1800 VIA [facility] DAUGHTER, BAKARI ([phone]) AWARE OF PLANS. IT WAS EXPLAINED TO DAUGHTER THAT FMLA PAPERS NEED COMPLETION FROM PATIENT'S PCP. IMM 10/24/2021 IN CHART
[2021-10-25 16:00] VITALS: BP 125/58; PULSE 86; RESP 16; TEMP 36.9; O2SAT 97
--- NOTE | 2021-10-25 17:58 | PC.NURSE ---
1700 own med with belongings per family request.
== END 2021-10-25 18:12 | disposition skilled nursing facility (03) | DRG 682 ==
LOC: HO.ED 15:14 → HO.EDOVER 19:34 → HO.S3 10-17 19:29
PROVIDERS: Family Medicine; Nurse Practitioner Acute Care; Admitting Provider Hospitalist; Emergency Provider Emergency Medicine; PCP Internal Medicine; Visit Provider Physician Assistant Medical
DX: N17.0 Acute kidney failure with tubular necrosis (principal); G92.8 Other toxic encephalopathy; M62.82 Rhabdomyolysis; T34.822A Frostbite with tissue necrosis of left foot, initial encounter; T34.821A Frostbite with tissue necrosis of right foot, initial encounter; E87.0 Hyperosmolality and hypernatremia; R65.10 Systemic inflammatory response syndrome (SIRS) of non-infectious origin without acute organ dysfunction; G81.91 Hemiplegia, unspecified affecting right dominant side; F03.90 Unspecified dementia, unspecified severity, without behavioral disturbance, psychotic disturbance, mood disturbance, and anxiety; X31.XXXA Exposure to excessive natural cold, initial encounter; I95.9 Hypotension, unspecified; Y93.9 Activity, unspecified; N18.30 Chronic kidney disease, stage 3 unspecified; Z20.822 Contact with and (suspected) exposure to COVID-19; Z87.891 Personal history of nicotine dependence; Z79.82 Long term (current) use of aspirin; Z79.899 Other long term (current) drug therapy
CPT/HCPCS: 36415; 70450; 71250; 73020; 73070; 73552; 73630; 74176; 80048; 80076; 80164; 80202; 81003; 82550; 82565; 82803; 82947; 83605; 83690; 83735; 84145; 84295; 84443; 84484; 85025; 85027; 85610; 85652; 86140; 86704; 86706; 86709; 86803; 87040; 87340; 87635; 92526; 92610; 93005; 96361; 96365; 96375; 97162; 99285; C1758; J0692; J2543; J3370

== ENCOUNTER 2021-10-26 14:12 | Emergency (ER) | payer OTHER, SELFPAY ==
--- NOTE | ~2021-10-26 | XR_ITS ---
EXAMINATION: XR CHEST CLINICAL INFORMATION: Fever COMPARISON: Previous chest x-ray most recent August [address] October 2021 TECHNIQUE: Frontal view of the chest was obtained. FINDINGS: The cardiac and mediastinal contours are stable. The lungs are clear. There is no pleural effusion or pneumothorax. There are degenerative changes of the thoracic spine. XR/XR chest 1V IMPRESSION: No evidence of pneumonia.
--- NOTE | ~2021-10-26 | CT_ITS ---
EXAM: NONCONTRAST CT OF THE CHEST; NONCONTRAST CT OF THE ABDOMEN AND PELVIS INDICATION: Fever, altered mental status COMPARISON: 10/16/2021 TECHNIQUE: No IV contrast was utilized. Multidetector helical imaging was performed through the chest, abdomen, and pelvis. Coronal and sagittal reformatted images were created at the technologist workstation. DOSE LOWERING TECHNIQUES: This CT examination was performed using dose optimization techniques as appropriate, variously including the following: - Automated exposure control - Adjustment of mA and/or kV according to patient size (this includes techniques or standardized protocols for targeted exams were dose is matched to indication/reason for exam; i.e. extremities or head) - Use of iterative reconstruction technique DLP: 1194 mGy-cm FINDINGS: Chest: There is limited detailed assessment of the lung parenchyma due to respiratory motion artifact. Minimal subsegmental atelectasis is noted bilaterally. No pneumothorax or pleural effusion. Visualized thyroid gland is grossly unremarkable. There are subcentimeter mediastinal lymph nodes within the range of normal variation. Cardiac size is within normal limits; no pericardial effusion. Coronary artery calcifications are present. No axillary lymphadenopathy is present. Degenerative changes are noted in the spine. Abdomen/Pelvis: The liver is homogeneous in attenuation without intrahepatic biliary ductal dilatation. The gallbladder is unremarkable. The unenhanced spleen, pancreas, and adrenal glands are within normal limits. No hydronephrosis. No obstructing renal or ureteral calculi are present. Few calcifications in the bilateral renal josephine may be vascular. Left lower pole renal cyst is noted; no imaging follow-up recommended. The urinary bladder demonstrates a somewhat thick-walled appearance, which could be due to underdistention. There is a tiny calcification in the bladder near the ureterovesicular junction. The prostate gland is enlarged, measuring 5.2 cm in transverse diameter. No evidence of bowel obstruction. No significant bowel wall thickening is seen. Moderate to large amount of stool is present. The appendix is unremarkable. No free fluid or free air is present. There is atherosclerotic calcification along the aorta and iliac arteries. No retroperitoneal or pelvic lymphadenopathy is seen. Degenerative changes are noted in the spine. CT/CT abdomen pelvis wo con IMPRESSION: 1. Somewhat thick-walled appearance of the urinary bladder, which could be due to underdistention; correlation with urinalysis is recommended. Tiny calcification is noted near the left ureterovesicular junction, which could reflect a recently passed stone; no hydronephrosis. 2. No additional acute findings identified in the chest, abdomen, or pelvis. 3. Moderate to large volume of stool. 4. Additional chronic findings as noted above.
--- NOTE | ~2021-10-26 | CT_ITS ---
EXAMINATION: CT head/brain wo con CLINICAL INFORMATION: Reason for Exam AMS COMPARISON: 10/24/2021 and 05/16/2021 CT brain TECHNIQUE: Contiguous axial imaging was performed from the skull base to vertex without intravenous contrast. Sagittal and coronal reformatted images were obtained. This CT examination was performed using dose optimization techniques as appropriate, variously including the following: * Automated exposure control * Adjustment of mA and/or kV according to patient size (this includes techniques or standardized protocols for targeted exams where dose is matched to indication/reason for exam; i.e. extremities or head) Use of iterative reconstruction technique DLP: 756 mGy-cm FINDINGS: No acute osseous or soft tissue abnormality. The mastoid air cells and visualized portions of the paranasal sinuses are well aerated. There is no evidence of acute intracranial hemorrhage or territorial infarction. No abnormal mass effect or midline shift is seen. Redemonstration of hypoattenuation in the left temporal lobe with loss of armas-white matter differentiation unchanged from 05/16/2021, however without significant associated encephalomalacia. No extra-axial fluid collections are identified. No hydrocephalus. Mild global parenchymal volume loss. Patchy periventricular and deep white matter hypoattenuation is consistent with mild small vessel ischemic changes. CT/CT head/brain wo con IMPRESSION: 1. No acute intracranial abnormality. 2. Redemonstration of hypoattenuation in the left temporal lobe with loss of armas-white matter differentiation unchanged from 05/16/2021, however without significant associated encephalomalacia. While this may reflect sequelae of prior infarct, the lack of encephalomalacia somewhat unusual. This could be definitively characterized with MRI brain if clinically warranted.
[2021-10-26 14:25] VITALS: BP 107/63; PULSE 73; O2SAT 96
[2021-10-26 14:32] VITALS: BP 101/46; PULSE 69; RESP 22; TEMP 37.2; O2SAT 96; BMI 22.1
--- NOTE | 2021-10-26 14:54 | ED.AMS ---
HPI - Altered Mental Status General Chief Complaint: Altered Mental Status Stated Complaint: ams Time Seen by Provider: 10/26/21 14:44 Source: patient Mode of arrival: ambulatory Limitations: no limitations History of Present Illness HPI narrative: Patient comes to the emergency room via ambulance from a intermediate facility. According to the staff, patient was found unresponsive this morning, they were unable to wake the patient with sternal rub. The staff reports that they do not know much about the patient, or his baseline. Of note, patient was discharged from the hospital yesterday, he was initially admitted for frostbite in bilateral lower extremities, SIRS, Mo on CKD, hypernatremia, hyperkalemi, toxic metabolic encephalopathy, rhabdomyolysis. Related Data Home Medications Medication Instructions Recorded Confirmed aspirin 81 mg tablet,delayed 81 mg PO DAILY 02/09/21 10/16/21 release atorvastatin 20 mg tablet 20 mg PO BEDTIME 02/09/21 10/16/21 divalproex 250 mg tablet,extended 250 mg PO DAILY 02/09/21 10/16/21 release 24 hr galantamine 8 mg tablet 8 mg PO BID 02/09/21 10/16/21 memantine 10 mg tablet 10 mg PO BID 02/09/21 10/16/21 quetiapine 50 mg tablet 50 mg PO BID 02/09/21 10/16/21 mirtazapine 15 mg tablet 1 tab PO BEDTIME 10/16/21 10/16/21 silver sulfadiazine 1 % topical 1 appl TOPICAL DAILY 10/16/21 10/16/21 cream Allergies Allergy/AdvReac Type Severity Reaction Status Date / Time No Known Allergies Allergy Unknown Verified 09/20/21 17:41 Review of Systems Review of Systems: Yes Unobtainable due to mental condition and Unobtainable due to mental status FOR[facility]LY [facility] Past Medical History Medical History Cataract Dementia Kidney failure Family History Family History Father Throat cancer Mother Hypertension Social History Social History Household Members: Family Housing: Unknown / Unable to assess Unable to assess alcohol history related to: Unknown Alcohol intake: never Patient Tobacco Use Status: Former Tobacco user Advance Directives: No Advance Directives Information Provided: No service: No Current occupational status: retired Current occupation: right handed Physical Exam Vital Signs: Vital Signs: Last Vital Signs Temp 99.5 F 10/26/21 16:03 Pulse 78 10/26/21 20:08 Resp 16 10/26/21 20:08 BP 116/84 10/26/21 20:08 Pulse Ox 96 10/26/21 20:08 BMI result Body Mass Index 22.1 Const: Other: Appearance: Somnolent, minimally arousable to sternal rub, opens eyes and then goes back to sleep Eyes: Pupils equal, round and reactive to light. ENT: Pharynx normal. Neck: Normal inspection. Neck supple. No lymph nodes noted. No crepitus CVS: Normal heart rate and rhythm. Pulses normal. Normal S1 and S2 Respiratory: No respiratory distress. Breath sounds normal. No Wheezing. No rales Abdomen: Soft , No rigidity. No distention. Skin: Skin warm and dry. C extremities below Extremities: No lower extremity edema. See images below Neuro: Patient somnolent, opens eyes with sternal rub, comes back to sleep Course Course Course Narrative: Patient has remained sleeping, occasionally wakes up and opens his eyes and goes back to sleep. According to the family he has done this before, when he sleeps over 24 hours and then wakes up back to his baseline. Patient's white blood cell count is at baseline, lactic acid 1.2, no fever, vital stable. Sepsis not suspected. Urinalysis is clean, chest x-ray does not show pneumonia. Head CT pending CT shows no acute findings. Patient remains somnolent 21:45, patient is awake, has been eating soup that his family's feeding him in his room, patient is ready for discharge MDM - Altered Mental Status Lab Data Result diagrams: 10/26/21 17:39 10/26/21 17:39 Labs: Lab Results 10/26/21 10/26/21 10/26/21 Range/Units 17:39 17:39 17:39 WBC 12.9 H (4.8-10.8) X10*3/uL RBC 3.37 L (4.60-5.80) X10*6/uL Hgb 9.4 L (14.0-18.0) g/dl Hct 30.1 L (42.0-52.0) % MCV 89.3 (80.0-98.0) fL MCH 27.9 (27.0-33.0) pg MCHC 31.2 (31.0-36.0) g/dl RDW 13.1 (11.0-16.0) % Plt Count 339 D (160-400) X10*3/uL MPV 11.5 (9.4-12.4) fL Immature Gran % (Auto) 1.0 H (0.0-0.4) % Neut % (Auto) 67.1 (45-73) % Lymph % (Auto) 18.8 L (20-40) % [place] % (Auto) 11.8 H (2-11) % Eos % (Auto) 0.9 (0-4) % Baso % (Auto) 0.4 (0-2) % Lymph # (Auto) 2.4 (1.2-4.9) X10*3/uL [place] # (Auto) 1.5 H (0.1-1.2) X10*3/uL Eos # (Auto) 0.1 (0.0-0.4) X10*3/uL Baso # (Auto) 0.1 (0.0-0.2) X10*3/uL Abs Immat Gran (auto) 0.13 H (0.00-0.03) X10*3/uL Absolute Neuts (auto) 8.6 H (2.0-8.3) x10*3/uL Absolute Nucleated RBC 0.000 (0.0-0.012) X10*3/uL Nucleated RBC % (auto) 0.0 (0.0-0.2) /100WBC Smear Tech's Comments VERIFIED Sodium 142 (135-145) mmol/L Potassium 4.9 (3.3-5.1) mmol/L Chloride 107 (96-108) mmol/L Carbon Dioxide 25 (22-29) mmol/L Anion Gap 15 (12-20) BUN 37 H (9-16) mg/dL Creatinine 1.38 (0.5-1.4) mg/dL Estim Creat Clear Calc 42.2 Estimated GFR 50 Random Glucose 128 H (60-115) mg/dL Lactic Acid (0.5-2.0) mmol/L Calcium 9.4 (8.4-10.2) mg/dL Magnesium 1.8 (1.6-2.6) mg/dL Total Bilirubin < 0.2 (0.0-1.0) mg/dL Direct Bilirubin < 0.2 (0.0-0.5) mg/dL AST 34 (5-37) U/L ALT 62 H (0-40) U/L Alkaline Phosphatase 94 (39-117) U/L Ammonia (13-55) umol/L Total Creatine Kinase 48 D (38-174) U/L Troponin I High Sens 9.3 D (<3.5-35.0) ng/L B-Natriuretic Peptide (<100) pg/mL Total Protein 6.1 L (6.5-8.0) g/dL Albumin 2.9 L (3.5-5.0) g/dL TSH 1.04 (0.32-4.0) uIU/mL Urine Color Urine Appearance Urine pH (5.0-8.0) Ur Specific [place] (1.005-1.025) Urine Protein (NEG-TRACE) MG/DL Urine Glucose (UA) (NEG) MG/DL Urine Ketones (NEG) MG/DL Urine Blood (NEG) Urine Nitrite (NEG) Ur Leukocyte Esterase (NEG) 10/26/21 10/26/21 10/26/21 Range/Units 17:39 17:39 17:39 WBC (4.8-10.8) X10*3/uL RBC (4.60-5.80) X10*6/uL Hgb (14.0-18.0) g/dl Hct (42.0-52.0) % MCV (80.0-98.0) fL MCH (27.0-33.0) pg MCHC (31.0-36.0) g/dl RDW (11.0-16.0) % Plt Count (160-400) X10*3/uL MPV (9.4-12.4) fL Immature Gran % (Auto) (0.0-0.4) % Neut % (Auto) (45-73) % Lymph % (Auto) (20-40) % [place] % (Auto) (2-11) % Eos % (Auto) (0-4) % Baso % (Auto) (0-2) % Lymph # (Auto) (1.2-4.9) X10*3/uL [place] # (Auto) (0.1-1.2) X10*3/uL Eos # (Auto) (0.0-0.4) X10*3/uL Baso # (Auto) (0.0-0.2) X10*3/uL Abs Immat Gran (auto) (0.00-0.03) X10*3/uL Absolute Neuts (auto) (2.0-8.3) x10*3/uL Absolute Nucleated RBC (0.0-0.012) X10*3/uL Nucleated RBC % (auto) (0.0-0.2) /100WBC Smear Tech's Comments Sodium (135-145) mmol/L Potassium (3.3-5.1) mmol/L Chloride (96-108) mmol/L Carbon Dioxide (22-29) mmol/L Anion Gap (12-20) BUN (9-16) mg/dL Creatinine (0.5-1.4) mg/dL Estim Creat Clear Calc Estimated GFR Random Glucose (60-115) mg/dL Lactic Acid 1.2 (0.5-2.0) mmol/L Calcium (8.4-10.2) mg/dL Magnesium (1.6-2.6) mg/dL Total Bilirubin (0.0-1.0) mg/dL Direct Bilirubin (0.0-0.5) mg/dL AST (5-37) U/L ALT (0-40) U/L Alkaline Phosphatase (39-117) U/L Ammonia 15 (13-55) umol/L Total Creatine Kinase (38-174) U/L Troponin I High Sens (<3.5-35.0) ng/L B-Natriuretic Peptide 43 (<100) pg/mL Total Protein (6.5-8.0) g/dL Albumin (3.5-5.0) g/dL TSH (0.32-4.0) uIU/mL Urine Color Urine Appearance Urine pH (5.0-8.0) Ur Specific [place] (1.005-1.025) Urine Protein (NEG-TRACE) MG/DL Urine Glucose (UA) (NEG) MG/DL Urine Ketones (NEG) MG/DL Urine Blood (NEG) Urine Nitrite (NEG) Ur Leukocyte Esterase (NEG) 10/26/21 Range/Units Unknown WBC (4.8-10.8) X10*3/uL RBC (4.60-5.80) X10*6/uL Hgb (14.0-18.0) g/dl Hct (42.0-52.0) % MCV (80.0-98.0) fL MCH (27.0-33.0) pg MCHC (31.0-36.0) g/dl RDW (11.0-16.0) % Plt Count (160-400) X10*3/uL MPV (9.4-12.4) fL Immature Gran % (Auto) (0.0-0.4) % Neut % (Auto) (45-73) % Lymph % (Auto) (20-40) % [place] % (Auto) (2-11) % Eos % (Auto) (0-4) % Baso % (Auto) (0-2) % Lymph # (Auto) (1.2-4.9) X10*3/uL [place] # (Auto) (0.1-1.2) X10*3/uL Eos # (Auto) (0.0-0.4) X10*3/uL Baso # (Auto) (0.0-0.2) X10*3/uL Abs Immat Gran (auto) (0.00-0.03) X10*3/uL Absolute Neuts (auto) (2.0-8.3) x10*3/uL Absolute Nucleated RBC (0.0-0.012) X10*3/uL Nucleated RBC % (auto) (0.0-0.2) /100WBC Smear Tech's Comments Sodium (135-145) mmol/L Potassium (3.3-5.1) mmol/L Chloride (96-108) mmol/L Carbon Dioxide (22-29) mmol/L Anion Gap (12-20) BUN (9-16) mg/dL Creatinine (0.5-1.4) mg/dL Estim Creat Clear Calc Estimated GFR Random Glucose (60-115) mg/dL Lactic Acid (0.5-2.0) mmol/L Calcium (8.4-10.2) mg/dL Magnesium (1.6-2.6) mg/dL Total Bilirubin (0.0-1.0) mg/dL Direct Bilirubin (0.0-0.5) mg/dL AST (5-37) U/L ALT (0-40) U/L Alkaline Phosphatase (39-117) U/L Ammonia (13-55) umol/L Total Creatine Kinase (38-174) U/L Troponin I High Sens (<3.5-35.0) ng/L B-Natriuretic Peptide (<100) pg/mL Total Protein (6.5-8.0) g/dL Albumin (3.5-5.0) g/dL TSH (0.32-4.0) uIU/mL Urine Color YELLOW Urine Appearance CLEAR Urine pH 5.5 (5.0-8.0) Ur Specific [place] 1.020 (1.005-1.025) Urine Protein NEG (NEG-TRACE) MG/DL Urine Glucose (UA) NEG (NEG) MG/DL Urine Ketones NEG (NEG) MG/DL Urine Blood NEG (NEG) Urine Nitrite NEG (NEG) Ur Leukocyte Esterase NEG (NEG) Discharge Plan Discharge Clinical Impression: Altered mental status Patient Disposition: Home, Self-Care Instructions: Altered Mental Status (ED) Additional Instructions: Please follow-up with your primary care physician tomorrow. If you have any worsening or new symptoms, please return to the emergency room or call 911 Prescriptions: No Action silver sulfadiazine 1 % cream 1 appl topical DAILY 0RF mirtazapine 15 mg tablet 1 tab PO BEDTIME 0RF divalproex 250 mg tablet extended release 24 hr 250 mg PO DAILY 0RF atorvastatin 20 mg tablet 20 mg PO BEDTIME 0RF memantine 10 mg tablet 10 mg PO BID 0RF galantamine 8 mg tablet 8 mg PO BID 0RF quetiapine 50 mg tablet 50 mg PO BID 0RF aspirin 81 mg tablet,delayed release (DR/EC) 81 mg PO DAILY 0RF
--- NOTE | 2021-10-26 14:56 | ECG_ITS ---
Test Reason : SEPSIS Blood Pressure : / mmHG Vent. Rate : 070 BPM Atrial Rate : 070 BPM P-R Int : 152 ms QRS Dur : 072 ms QT Int : 368 ms P-R-T Axes : 077 019 028 degrees QTc Int : 397 ms Normal sinus rhythm Normal ECG When compared with ECG of 16-OCT-2021 12:06, Nonspecific T wave abnormality has replaced inverted T waves in Inferior leads Nonspecific T wave abnormality no longer evident in Anterolateral leads Referred By: Adelina Harris Electronically Signed By:Gerard Reynolds
[2021-10-26] MEDS: 0.9 % Sodium Chloride 1,000 ML 999 ML IVCONT (16:02)
[2021-10-26 16:03] VITALS: PULSE 74; RESP 18; TEMP 37.5; O2SAT 96
[2021-10-26 16:03] LABS: Appearance Urine CLEAR; Color Urine YELLOW; Glucose Urine UA NEG (NEG); Leukocyte Esterase Urine NEG (NEG); Nitrite Urine NEG (NEG); PH 5.5 (5.0-8.0); Urine Blood NEG (NEG); Urine Ketones NEG (NEG); Urine Protein NEG (NEG-TRACE)
[2021-10-26 17:51] LABS: Basophils Absolute Auto 0.1 X10*3/uL (0.0-0.2); Basophils Percent Auto 0.4 % (0-2); Eosinophils Absolute Auto 0.1 X10*3/uL (0.0-0.4); Eosinophils Percent Auto 0.9 % (0-4); Hematocrit 30.1 % (42.0-52.0); Hemoglobin 9.4 g/dl (14.0-18.0); Imm Gran Abs Auto 0.13 X10*3/uL (0.00-0.03); Lymphocytes Absolute Auto 2.4 X10*3/uL (1.2-4.9); Lymphocytes Percent Auto 18.8 % (20-40); MANUAL DIFF FLAG SCAN; Mean Corpuscular HGB Conc 31.2 g/dl (31.0-36.0); Mean Corpuscular Hemoglobin 27.9 pg (27.0-33.0); Mean Corpuscular Volume 89.3 fL (80.0-98.0); Mean Platelet Volume 11.5 fL (9.4-12.4); Monocytes Absolute Auto 1.5 X10*3/uL (0.1-1.2); Monocytes Percent Auto 11.8 % (2-11); Neutrophils Absolute Auto 8.6 x10*3/uL (2.0-8.3); Neutrophils Percent Auto 67.1 % (45-73); Platelet Count 339 X10*3/uL (160-400); Red Blood Count 3.37 X10*6/uL (4.60-5.80); Red Cell Distribution Width 13.1 % (11.0-16.0); SCAN SMEAR FLAG 1; White Blood Count 12.9 X10*3/uL (4.8-10.8)
[2021-10-26 17:57] LABS: Ammonia 15 umol/L (13-55)
[2021-10-26 18:06] LABS: Lactic Acid 1.2 mmol/L (0.5-2.0)
[2021-10-26 18:08] LABS: SLIDE REVIEW VERIFIED
[2021-10-26 18:10] LABS: B Type Natriuretic Peptide 43 pg/mL (<100); Troponin-I High Sensitivity 9.3 ng/L (<3.5-35.0)
[2021-10-26 18:14] VITALS: BP 120/69; PULSE 76; RESP 18; O2SAT 97
[2021-10-26 18:24] LABS: Alanine Aminotransferase 62 U/L (0-40); Albumin Level 2.9 g/dL (3.5-5.0); Alkaline Phosphatase 94 U/L (39-117); Anion Gap 15 (12-20); Aspartate Amino Transferase 34 U/L (5-37); Bilirubin Direct < 0.2 mg/dL (0.0-0.5); Bilirubin Total < 0.2 mg/dL (0.0-1.0); Blood Urea Nitrogen 37 mg/dL (9-16); Calcium 9.4 mg/dL (8.4-10.2); Carbon Dioxide 25 mmol/L (22-29); Chloride 107 mmol/L (96-108); Creatinine Clr Calc Pharmacy 42.2; Estimated Glomerular Filt Rate 50; Glucose Random 128 mg/dL (60-115); Magnesium 1.8 mg/dL (1.6-2.6); Potassium 4.9 mmol/L (3.3-5.1); Sodium 142 mmol/L (135-145); Total Protein 6.1 g/dL (6.5-8.0)
[2021-10-26 19:10] LABS: TSH reflex Free T4 1.04 uIU/mL (0.32-4.0)
[2021-10-26 20:08] VITALS: BP 116/84; PULSE 78; RESP 16; O2SAT 96
[2021-10-26 22:27] VITALS: BP 116/53; PULSE 76; RESP 18; TEMP 38.3; O2SAT 96
[2021-10-26] MEDS: Acetaminophen 325 MG TABLET 650 MG PO (22:49)
[2021-10-26 23:20] LABS: COVID-19 Test Negative (Negative); IDNOW Serial# 9DD0AD1C
[2021-10-26 23:21] LABS: Influenza A Negative (Negative); Influenza B2 Negative (Negative)
[2021-10-26 23:46] LABS: Procalcitonin 0.26 ng/mL
[2021-10-27] MEDS: cefEPime HCl 2 GM in 0.9 % Sodium Chloride 50 ML IV (01:08)
[2021-10-27 02:00] VITALS: BP 130/60; PULSE 80; RESP 16; TEMP 36.5; O2SAT 97
--- NOTE | 2021-10-27 03:20 | PC.NURSE ---
nurse to nurse given to Princess RODRIGUES at [facility]
== END 2021-10-27 03:23 | disposition home or self-care (01) ==
PROVIDERS: Emergency Medicine; Emergency Provider Emergency Medicine; PCP Internal Medicine
DX: R41.82 Altered mental status, unspecified (principal); Z20.822 Contact with and (suspected) exposure to COVID-19; Z87.891 Personal history of nicotine dependence
CPT/HCPCS: 36415; 70450; 71045; 71250; 74176; 80048; 80076; 81003; 82140; 82550; 83605; 83735; 83880; 84145; 84443; 84484; 85025; 87040; 87502; 87635; 93005; 96361; 96374; 99285; J0692

== ENCOUNTER 2021-11-12 12:58 | Emergency (ER) | payer OTHER, SELFPAY ==
--- NOTE | ~2021-11-12 | CT_ITS ---
EXAMINATION: CT HEAD WITHOUT CONTRAST (STROKE PROTOCOL) CLINICAL INFORMATION: Stroke protocol. Left facial droop COMPARISON: Prior CT heads, including CT head 10/26/2021, CT head 05/16/2021 TECHNIQUE: Contiguous axial imaging was performed from the skull base to vertex without intravenous administration of contrast. This CT examination was performed using dose optimization techniques as appropriate, variously including the following: *Automated exposure control *Adjustment of mA and/or kV according to patient size (this includes techniques or standardized protocols for targeted exams where dose is matched to indication/reason for exam; i.e. extremities or head) *Use of iterative reconstruction technique DLP: 767 mGy-cm FINDINGS: No evidence of acute intracranial hemorrhage. No extra-axial fluid collections are seen. No abnormal mass effect or midline shift is seen. Redemonstrated is hypoattenuation in the left temporal lobe with loss of armas-white matter differentiation. There is also hypoattenuation in the right frontal lobe, with loss of armas-white matter differentiation. These appear unchanged as compared to the prior study of 10/26/2021, and from 05/16/2021. No new areas of armas-white matter loss or acute edematous territorial infarction is otherwise seen. There is mild generalized cerebral volume loss. No acute calvarial fracture. Paranasal sinuses and mastoid air cells are well-aerated. CT/CT head for stroke IMPRESSION: 1. No acute intracranial intracranial hemorrhage is seen. No extra axial fluid collection. 2. No evidence of new acute edematous territorial infarction. 3. Hypoattenuation in the left temporal lobe and the right frontal lobe, with loss of armas-white matter differentiation, unchanged from the prior study from 05/16/2021. Consider further evaluation with CTA head or MRI. This critical result was discussed with Dr. Mathews at 1:29 PM on 11/12/2021. It was ascertained that the content and urgency of the report was understood at the time of direct communication.
--- NOTE | ~2021-11-12 | CT_ITS ---
EXAMINATION: CT ANGIOGRAM HEAD CT ANGIOGRAM NECK CLINICAL INFORMATION: Left-sided facial droop. COMPARISON: CT head from 11/12/2021 and 05/16/2021. TECHNIQUE: Initial noncontrast archaeology professor imaging of the head and neck was performed. Comparison is made with noncontrast head CT from earlier today. Test bolus sequences followed by intravenous administration 70 mL of Omnipaque 350. Helical imaging was performed in the axial plane from the aortic arch to the skull vertex. Delayed postcontrast imaging of the head was also performed. The data was processed at the neurodiagnostic technologist's workstation for generation of MIP sequences. Angled MIPs and volume rendered reformatted images were also generated at an offline 3D workstation. Stenoses are assessed in accordance with NASCET criteria unless otherwise indicated. This CT examination was performed using dose optimization techniques as appropriate, variously including the following: *Automated exposure control. *Adjustment of mA and/or kV according to patient size (this includes techniques or standardized protocols for targeted exams where dose is matched to indication/reason for exam; i.e. extremities or head). *Use of iterative reconstruction technique. DLP: 1770 mGy-cm FINDINGS: CT Head: There is no evidence of acute intracranial hemorrhage or edematous territorial infarction. Chronic region of expansile hypoattenuation involving the posterolateral aspect of the left temporal lobe. No overtly demonstrated abnormal enhancement in this region. Scattered hypoattenuation in the periventricular and deep white matter are consistent with moderate microangiopathy. Blackwood-white matter differentiation is preserved. Proportional prominence of the ventricles and sulcal spaces. No evidence for obstructive hydrocephalus. No additional abnormal mass effect. No midline shift. No extra-axial fluid collections. No pathologic intra-axial enhancement. No acute soft tissue or osseous abnormalities. Mild mucosal thickening of the paranasal sinuses. The mastoid air cells and middle ear cavities are clear. The patient is edentulous. CT Neck: The thyroid gland and remaining cervical soft tissues are within normal limits. Moderate degenerative retrolisthesis of C3 on C4. Advanced degenerative disc disease at C3-C4 and from C5-T1 with disc-osteophyte complex formation. Facet and uncovertebral joint arthropathy leads to osseous encroachment on the neural foramina from C2-T1. CT Upper Chest: Moderate centrilobular emphysema. Calcific atherosclerotic disease of the coronary arteries. The visualized lung apices and upper mediastinum are within normal limits. Neck CTA: Moderately motion degraded exam. Aortic Arch: Normal contour and caliber with moderate calcific atherosclerotic disease. Two vessel branching pattern of the arch with left common carotid artery arising from the brachiocephalic trunk. Great Vessel Origins: No significant stenosis of the branch origins. Right Common Carotid Artery: No focal stenosis or occlusion. Cervical Right Internal Carotid Artery: Irregular mixed lipid rich and calcific atherosclerotic disease of the carotid bulb and proximal internal carotid artery causing less than 50% stenosis. Left Common Carotid Artery: No focal stenosis or occlusion. Cervical Left Internal Carotid Artery: Irregular mixed lipid rich and calcific atherosclerotic disease of the carotid bulb and proximal internal carotid artery causing less than 50% stenosis. Cervical Right Vertebral Artery: Co-dominant. No focal stenosis or occlusion. Cervical Left Vertebral Artery: Co-dominant. Mild irregular atherosclerotic narrowing of the origin. No additional focal stenosis or occlusion. Brain CTA: Intracranial Internal Carotid Arteries: Calcific atherosclerotic disease of the intracranial internal carotid arteries without occlusion or flow-limiting stenosis. Right Anterior Cerebral Artery: Normal A1 segment. Normal opacification of the distal CRISTAL segments. Left Anterior Cerebral Artery: Normal A1 segment. Normal opacification of the distal CRISTAL segments. Anterior Communicating Artery: Normal. Right Middle Cerebral Artery: Normal M1 segment of the MCA without focal stenosis or occlusion. Normal arborization of the distal segments. Left Middle Cerebral Artery: Normal M1 segment of the MCA without focal stenosis or occlusion. Normal arborization of the distal segments. Right Vertebral Artery: Normal V4 segment. Normal opacification of the proximal segments of the posterior inferior cerebellar artery. Left Vertebral Artery: Normal V4 segment. Normal opacification of the proximal segments of the posterior inferior cerebellar artery. Basilar Artery: Normal without focal stenosis or occlusion. Normal appearance of the proximal superior cerebellar arteries. Right Posterior Cerebral Artery: Normal P1 segment. Normal opacification of the distal GEODETIC SURVEY DIRECTOR segments. Left Posterior Cerebral Artery: Normal P1 segment. Normal opacification of the distal GEODETIC SURVEY DIRECTOR segments. Normal opacification of the superior sagittal, straight, transverse, and sigmoid sinuses. CT/CT angio head neck stroke IMPRESSION: 1. No evidence of acute intracranial hemorrhage or edematous territorial infarction. Moderate underlying microangiopathy and generalized cerebral volume loss. 2. Chronic region of atypical expansile parenchymal hypoattenuation within the posterolateral left temporal lobe. While this may represent atypical sequela of encephalomalacia an indolent underlying lesion is not excluded. If clinically indicated, this could be further assessed with MRI. 3. CTA of the head and neck without proximal occlusion or flow-limiting stenosis. 4. Moderate multilevel degenerative spondyloarthropathy of the cervical spine. 5. Emphysema. This critical result was discussed with Dr. Mathews at 16:31 on 11/12/2021 and it was ascertained that the content and urgency of the report was understood at the time of direct communication.
--- NOTE | 2021-11-12 13:01 | ED.WEAKNESS ---
HPI - Weakness General Chief complaint: Stroke Stated complaint: ? CVA,L FACE DROOP 9AM,NONVERB BASELINE,THINN UNK Time Seen by Provider: 11/12/21 13:01 Source: EMS Mode of arrival: EMS History of Present Illness HPI Narrative: left facial droop since after 9am. patient non verbal, not able to give a history MD Complaint: focal weakness Onset (ago): hour(s) Duration: constant Location: face Severity: moderate Related Data Home Medications Medication Instructions Recorded Confirmed aspirin 81 mg tablet,delayed 81 mg PO DAILY 02/09/21 10/16/21 release atorvastatin 20 mg tablet 20 mg PO BEDTIME 02/09/21 10/16/21 divalproex 250 mg tablet,extended 250 mg PO DAILY 02/09/21 10/16/21 release 24 hr galantamine 8 mg tablet 8 mg PO BID 02/09/21 10/16/21 memantine 10 mg tablet 10 mg PO BID 02/09/21 10/16/21 quetiapine 50 mg tablet 50 mg PO BID 02/09/21 10/16/21 mirtazapine 15 mg tablet 1 tab PO BEDTIME 10/16/21 10/16/21 silver sulfadiazine 1 % topical 1 appl TOPICAL DAILY 10/16/21 10/16/21 cream Previous Rx's Medication Instructions Recorded cefuroxime axetil 250 mg tablet 250 mg PO BID 10 Days #20 tab 10/27/21 Allergies Allergy/AdvReac Type Severity Reaction Status Date / Time No Known Allergies Allergy Unknown Verified 09/20/21 17:41 Review of Systems Review of Systems: Yes Unobtainable due to mental status and Other (patient non verbal) [facility] Past Medical History Medical History Cataract Dementia Kidney failure Family History Family History Father Throat cancer Mother Hypertension Social History Social History Household Members: Family Housing: Unknown / Unable to assess Unable to assess alcohol history related to: Unknown Alcohol intake: never Patient Tobacco Use Status: Former Tobacco user Advance Directives: Yes Advance Directives Information Provided: Yes Advance Directives on File: No service: No Current occupational status: retired Current occupation: right handed Physical Exam Vital Signs: Vital Signs: Last Vital Signs Temp 99.8 F 11/12/21 13:26 Pulse 78 11/12/21 13:26 Resp 18 11/12/21 13:26 BP 118/50 L 11/12/21 13:26 Pulse Ox 98 11/12/21 13:26 BMI result Body Mass Index 24.0 Const: Other: elderly, emaciated , chronically ill appearing Nutritional Appearance: thin Limitations: other limitations (nonverbal) HENMT: Head: Yes normal to inspection Ears: external ears normal General nose exam: Normal external nose present Mouth: Normal oral and palatal mucosa present and oropharynx normal Throat: Yes posterior oropharynx normal Eyes: General: appearance normal, both eyes and all related structures Neck: Other: supple Neck: Yes normal visual inspection Chest: Chest palpation & inspection: normal inspection of the chest Resp: Auscultation: clear to auscultation bilaterally Cardio: Jugular venous distension: no JVD Rate: regular rate Rhythm: regular rhythm Heart sounds: S1 normal heart sound present and S2 normal heart sound present GI: Inspection: Yes normal to inspection Palpation (GI): Soft to palpation, nontender and No hepatosplenomegaly present Auscultation: normal bowel sounds : General: Yes no CVA tenderness Back/Spine/Pelvis: Back: no CVA tenderness Skin: General skin exam: no rashes or lesions noted Neuro: Other: left facial droop, mostly lower lip, moves both arms Extrem: General: Yes normal to inspection Psych: Appearance: grossly normal Course Course Course Narrative: NIH stroke scale is a 1 based on facial droop, but patient does not follow commands Reevaluation(s) Reevaluation #1: Daughter states that he at baseline has had this droop, no new findings, will dc home. Dicussed with daughter Time: 16:38 MDM - Weakness Lab Data Result diagrams: 11/12/21 13:48 11/12/21 13:48 Labs: Lab Results 11/12/21 11/12/21 Range/Units 13:48 13:48 WBC 8.9 (4.8-10.8) X10*3/uL RBC 3.88 L (4.60-5.80) X10*6/uL Hgb 10.2 L (14.0-18.0) g/dl Hct 34.5 L (42.0-52.0) % MCV 88.9 (80.0-98.0) fL MCH 26.3 L (27.0-33.0) pg MCHC 29.6 L (31.0-36.0) g/dl RDW 13.4 (11.0-16.0) % Plt Count 332 (160-400) X10*3/uL MPV 11.2 (9.4-12.4) fL Immature Gran % (Auto) 0.8 H (0.0-0.4) % Neut % (Auto) 61.8 (45-73) % Lymph % (Auto) 25.8 (20-40) % [place] % (Auto) 10.4 (2-11) % Eos % (Auto) 0.8 (0-4) % Baso % (Auto) 0.4 (0-2) % Lymph # (Auto) 2.3 (1.2-4.9) X10*3/uL [place] # (Auto) 0.9 (0.1-1.2) X10*3/uL Eos # (Auto) 0.1 (0.0-0.4) X10*3/uL Baso # (Auto) 0.0 (0.0-0.2) X10*3/uL Abs Immat Gran (auto) 0.07 H (0.00-0.03) X10*3/uL Absolute Neuts (auto) 5.5 (2.0-8.3) x10*3/uL Absolute Nucleated RBC 0.000 (0.0-0.012) X10*3/uL Nucleated RBC % (auto) 0.0 (0.0-0.2) /100WBC Sodium 146 H (135-145) mmol/L Potassium 4.8 (3.3-5.1) mmol/L Chloride 109 H (96-108) mmol/L Carbon Dioxide 27 (22-29) mmol/L Anion Gap 15 (12-20) BUN 37 H (9-16) mg/dL Creatinine 1.31 (0.5-1.4) mg/dL Estim Creat Clear Calc 42.0 Estimated GFR 53 Random Glucose 121 H (60-115) mg/dL Calcium 10.2 D (8.4-10.2) mg/dL Imaging Data CT scan - head: Radiologist's impression: left temperal and right frontal hypoattenuation that is not new. There is not acute bleed. CT angio of head and neck: Radiologist's impression: no proximal occlusion, no CVA Procedures Procedure Narrative Procedure Narrative: under ultrasound patient had 18 gauge catheter placed Discharge Plan Discharge Clinical Impression: Dementia Patient Disposition: Xfer SNF Prescriptions: No Action cefuroxime axetil 250 mg tablet 250 mg PO BID 10 Days Qty: 20 0RF silver sulfadiazine 1 % cream 1 appl topical DAILY 0RF mirtazapine 15 mg tablet 1 tab PO BEDTIME 0RF divalproex 250 mg tablet extended release 24 hr 250 mg PO DAILY 0RF atorvastatin 20 mg tablet 20 mg PO BEDTIME 0RF memantine 10 mg tablet 10 mg PO BID 0RF galantamine 8 mg tablet 8 mg PO BID 0RF quetiapine 50 mg tablet 50 mg PO BID 0RF aspirin 81 mg tablet,delayed release (DR/EC) 81 mg PO DAILY 0RF Referrals: Pam Plummer MD [Primary Care Provider] - 5 days
--- NOTE | 2021-11-12 13:06 | ECG_ITS ---
Test Reason : cva Blood Pressure : / mmHG Vent. Rate : 077 BPM Atrial Rate : 077 BPM P-R Int : 134 ms QRS Dur : 074 ms QT Int : 360 ms P-R-T Axes : 062 012 032 degrees QTc Int : 407 ms Normal sinus rhythm Normal ECG When compared with ECG of 26-OCT-2021 15:09, No significant change was found Referred By: Bhavesh Mathews Electronically Signed By:Gerard Reynolds
[2021-11-12 13:26] VITALS: BP 118/50; BP 135/68; PULSE 70; PULSE 78; RESP 18; TEMP 37.7; O2SAT 98; BMI 24.0
[2021-11-12 13:53] LABS: MANUAL DIFF FLAG NO
[2021-11-12 13:54] LABS: Basophils Percent Auto 0.4 % (0-2); Eosinophils Absolute Auto 0.1 X10*3/uL (0.0-0.4); Eosinophils Percent Auto 0.8 % (0-4); Hematocrit 34.5 % (42.0-52.0); Hemoglobin 10.2 g/dl (14.0-18.0); Imm Gran Abs Auto 0.07 X10*3/uL (0.00-0.03); Imm Gran Pct Auto 0.8 % (0.0-0.4); Lymphocytes Absolute Auto 2.3 X10*3/uL (1.2-4.9); Lymphocytes Percent Auto 25.8 % (20-40); Mean Corpuscular HGB Conc 29.6 g/dl (31.0-36.0); Mean Corpuscular Hemoglobin 26.3 pg (27.0-33.0); Mean Corpuscular Volume 88.9 fL (80.0-98.0); Mean Platelet Volume 11.2 fL (9.4-12.4); Monocytes Absolute Auto 0.9 X10*3/uL (0.1-1.2); Monocytes Percent Auto 10.4 % (2-11); Neutrophils Absolute Auto 5.5 x10*3/uL (2.0-8.3); Neutrophils Percent Auto 61.8 % (45-73); Platelet Count 332 X10*3/uL (160-400); Red Blood Count 3.88 X10*6/uL (4.60-5.80); Red Cell Distribution Width 13.4 % (11.0-16.0); White Blood Count 8.9 X10*3/uL (4.8-10.8)
[2021-11-12 14:08] LABS: Anion Gap 15 (12-20); Blood Urea Nitrogen 37 mg/dL (9-16); Calcium 10.2 mg/dL (8.4-10.2); Carbon Dioxide 27 mmol/L (22-29); Chloride 109 mmol/L (96-108); Estimated Glomerular Filt Rate 53; Glucose Random 121 mg/dL (60-115); Potassium 4.8 mmol/L (3.3-5.1); Sodium 146 mmol/L (135-145)
[2021-11-12] MEDS: iohexoL 350 MG/ML 100 ML INFUS..BTL IV (16:16)
[2021-11-12 17:23] VITALS: BP 119/61; PULSE 75; RESP 18; TEMP 37.1; O2SAT 98
== END 2021-11-12 19:48 | disposition skilled nursing facility (03) ==
PROVIDERS: Emergency Provider Emergency Medicine; PCP Internal Medicine
DX: F03.90 Unspecified dementia, unspecified severity, without behavioral disturbance, psychotic disturbance, mood disturbance, and anxiety (principal); R29.810 Facial weakness; Z79.82 Long term (current) use of aspirin; Z79.02 Long term (current) use of antithrombotics/antiplatelets
CPT/HCPCS: 36415; 70450; 70496; 70498; 80048; 85025; 93005; 99284; Q9967

== ENCOUNTER 2021-11-21 16:09 | Inpatient (IN) | payer OTHER, SELFPAY ==
[2021-11-21] VITALS (11 sets, daily range): BP systolic 93–115; BP diastolic 40–72; PULSE 64–91; RESP 14–22; TEMP 36.7–38.6; O2SAT 96–100; BMI 21.9
--- NOTE | ~2021-11-21 | XR_ITS ---
EXAMINATION: XR CHEST CLINICAL INFORMATION: Fever, hypoxia, cough COMPARISON: CT chest 10/27/2021, chest radiograph 10/26/2021 TECHNIQUE: Frontal view of the chest was obtained. FINDINGS: No significant abnormality is noted involving the heart, lungs, mediastinum, bony thorax or soft tissues. XR/XR chest 1V IMPRESSION: Unremarkable examination.
--- NOTE | 2021-11-21 16:24 | ED_ITS ---
HPI - SOB/Dyspnea General Chief Complaint: General Medical Stated Complaint: SOB/AMS Time Seen by Provider: 11/21/21 16:19 Source: EMS Mode of arrival: EMS Limitations: altered mental status History of Present Illness HPI Narrative: 81-year-old the emergency department EMS from his nursing facility [facility] for evaluation possible aspiration pneumonia. Paramedics report that the patient's O2 saturation at the nursing facility was 79% on room air and on 4 L his O2 saturation improved 94%. Paramedics place the patient 100% non- rebreather for transport and her O2 saturation was 94%. EMS vital signs: BP 101/77, respiratory 16, pulse 90, temperature 100.2 degrees F, point of care glucose 207. The patient does have a history of dementia but the paramedics states that the patient is altered from his baseline dementia. Patient is Chadian-speaking only. I did obtain more information from the patient's daughter . The patient was living with his daughter until September of 2021 when the patient wandered outside and got frostbite on his feet patient was hospitalized in sent to group home facility. The patient then had another hospitalization for fever secondary to prostatitis. He was also seen here in the emergency department again for possible stroke. The daughter states that the patient is supposed to be on a pureed diet but she does feed him food in the morning. She states that he swallows the food without choking. Related Data Home Medications Medication Instructions Recorded Confirmed aspirin 81 mg tablet,delayed 81 mg PO DAILY 02/09/21 10/16/21 release atorvastatin 20 mg tablet 20 mg PO BEDTIME 02/09/21 10/16/21 divalproex 250 mg tablet,extended 250 mg PO DAILY 02/09/21 10/16/21 release 24 hr galantamine 8 mg tablet 8 mg PO BID 02/09/21 10/16/21 memantine 10 mg tablet 10 mg PO BID 02/09/21 10/16/21 quetiapine 50 mg tablet 50 mg PO BID 02/09/21 10/16/21 mirtazapine 15 mg tablet 1 tab PO BEDTIME 10/16/21 10/16/21 silver sulfadiazine 1 % topical 1 appl TOPICAL DAILY 10/16/21 10/16/21 cream Previous Rx's Medication Instructions Recorded cefuroxime axetil 250 mg tablet 250 mg PO BID 10 Days #20 tab 10/27/21 Allergies Allergy/AdvReac Type Severity Reaction Status Date / Time No Known Allergies Allergy Unknown Verified 09/20/21 17:41 Review of Systems Review of Systems: Yes all other systems are reviewed and are negative [facility] Past Medical History Medical History Cataract Dementia Kidney failure Family History Family History Father Throat cancer Mother Hypertension Social History Social History Household Members: Family Housing: Unknown / Unable to assess Unable to assess alcohol history related to: Unknown Alcohol intake: never Patient Tobacco Use Status: Former Tobacco user Advance Directives: No Advance Directives Information Provided: No service: No Current occupational status: retired Current occupation: right handed Physical Exam Vital Signs: Vital Signs: Last Vital Signs Temp 99.9 F 11/21/21 20:46 Pulse 79 11/21/21 20:46 Resp 18 11/21/21 20:46 BP 114/48 L 11/21/21 20:46 Pulse Ox 100 11/21/21 20:46 Oxygen Flow Rate 5 11/21/21 16:29 BMI result Body Mass Index 21.9 Const: Other: Elderly male patient, he is awake, he is mumbling, he does not respond to verbal commands in Chadian, he could not tell us his name. He does not appear to be in distress. HENMT: Head: Yes normal to inspection, Yes normocephalic and Yes atraumatic Ears: external ears normal General nose exam: Normal external nose present Face and sinus: Yes normal facial exam Mouth: other (Dry mucous membrane) Throat: Yes posterior oropharynx normal Eyes: General: appearance normal, both eyes and all related structures Pupils: Equal, round and reactive pupils present Neck: Neck: Yes normal visual inspection, Yes no lymphadenopathy, Yes trachea midline and Yes supple Chest: Chest palpation & inspection: normal inspection of the chest and normal palpation of entire chest wall Resp: Effort & Inspection: normal respiratory effort Auscultation: rales (Bases bilaterally), rhonchi (Diffuse) and no wheezes Cardio: Rate: regular rate Rhythm: regular rhythm Heart sounds: S1 normal heart sound present, S2 normal heart sound present and no murmurs GI: Inspection: Yes normal to inspection Palpation (GI): Soft to palpation, nontender and no guarding Auscultation: normal bowel sounds : General: Yes no CVA tenderness Back/Spine/Pelvis: Back: no CVA tenderness Skin: General skin exam: no rashes or lesions noted Neuro: Other: Patient is able to move his upper extremities, his lower extremities appear to be atrophied, he does not withdraws lower extremities from pain Cranial nerves: Yes Equal, round and reactive pupils present Motor exam (neuro): strength not 5/5 throughout Extrem: Other: The atrophy of his lower extremities, he can move his upper extremities and hold them up against gravity Psych: Other: Patient is mumbling words, he does not respond to verbal stimuli in Chadian he does withdraw his upper extremities to painful stimuli Course Course Course Narrative: 81-year-old male with a history of dementia, encephalopathy and rhabdomyolysis who presents emergency department for altered mental status, hypoxia, cough and fever. The nursing facility is concerned the patient may have an aspiration pneumonia. Thermostat Maker vital signs did relieve reveal a fever of 100.2 degrees F and hypoxia with a low O2 saturation on room air, otherwise were unremarkable. Initial vital signs revealed a blood pressure 115/42, pulse 91, respiratory rate elevated at 22 and a temperature of a 101.3 degrees. Laboratory evaluation including CBC, CMP, PT/INR, lipase, blood cultures x2, lactate, COVID-19. One- view chest x-ray will also be obtained. Patient was ordered to get a 30 cc/kilogram normal saline bolus and Zosyn 4.5 g IV. His fever was treated with rectal Tylenol 650 mg. 2135: Laboratory evaluation: H&H was low at 7.1 and 23.8. INR was elevated 1.3. COVID-19 was negative. Lactate was normal. Chest x-ray revealed disease speech The patient's H&H today was decreased compared to an H&H on 11/06/2021 of 10.2 and 34. I did do a rectal exam in the patient's stool was loose, brown and strongly Hemoccult positive. The patient's shortness of breath and hypoxia may be secondary to acute blood loss. Patient's presentation was discussed with the covering hospitalist, Dr. Dutta and the patient was accepted to the hospitalist service. After this discussion, type and screen was ordered the patient will be transfused 1 unit of packed red blood cells. MDM - SOB/Dyspnea Lab Data Result diagrams: 11/21/21 19:21 11/21/21 19:21 Labs: Lab Results 11/21/21 11/21/21 11/21/21 Range/Units 19:21 19:21 19:21 WBC 10.0 (4.8-10.8) X10*3/uL RBC 2.70 L D (4.60-5.80) X10*6/uL Hgb 7.1 L D (14.0-18.0) g/dl Hct 23.8 L D (42.0-52.0) % MCV 88.1 (80.0-98.0) fL MCH 26.3 L (27.0-33.0) pg MCHC 29.8 L (31.0-36.0) g/dl RDW 13.7 (11.0-16.0) % Plt Count 209 D (160-400) X10*3/uL MPV 11.1 (9.4-12.4) fL Immature Gran % (Auto) 0.5 H (0.0-0.4) % Neut % (Auto) 71.7 (45-73) % Lymph % (Auto) 14.9 L (20-40) % [place] % (Auto) 12.5 H (2-11) % Eos % (Auto) 0.2 (0-4) % Baso % (Auto) 0.2 (0-2) % Lymph # (Auto) 1.5 (1.2-4.9) X10*3/uL [place] # (Auto) 1.3 H (0.1-1.2) X10*3/uL Eos # (Auto) 0.0 (0.0-0.4) X10*3/uL Baso # (Auto) 0.0 (0.0-0.2) X10*3/uL Abs Immat Gran (auto) 0.05 H (0.00-0.03) X10*3/uL Absolute Neuts (auto) 7.1 (2.0-8.3) x10*3/uL Absolute Nucleated RBC 0.000 (0.0-0.012) X10*3/uL Nucleated RBC % (auto) 0.0 (0.0-0.2) /100WBC Sodium 145 (135-145) mmol/L Potassium 3.6 D (3.3-5.1) mmol/L Chloride 115 H (96-108) mmol/L Carbon Dioxide 24 (22-29) mmol/L Anion Gap 10 L (12-20) BUN 17 H D (9-16) mg/dL Creatinine 0.80 (0.5-1.4) mg/dL Estim Creat Clear Calc 68.2 Estimated GFR > 60 Random Glucose 120 H (60-115) mg/dL Lactic Acid 0.8 (0.5-2.0) mmol/L Calcium 7.3 L D (8.4-10.2) mg/dL Total Bilirubin 0.3 (0.0-1.0) mg/dL AST 17 D (5-37) U/L ALT 18 (0-40) U/L Alkaline Phosphatase 78 (39-117) U/L Troponin I High Sens (<3.5-35.0) ng/L B-Natriuretic Peptide (<100) pg/mL Total Protein 4.8 L D (6.5-8.0) g/dL Albumin 2.2 L D (3.5-5.0) g/dL Lipase 83 H (8-78) U/L Urine Color Urine Appearance Urine pH (5.0-8.0) Ur Specific [place] (1.005-1.025) Urine Protein (NEG-TRACE) MG/DL Urine Glucose (UA) (NEG) MG/DL Urine Ketones (NEG) MG/DL Urine Blood (NEG) Urine Nitrite (NEG) Ur Leukocyte Esterase (NEG) Urine RBC (0) /HPF Urine WBC (0-4) /HPF Ur Squamous Epith Cells /LPF Urine Bacteria /LPF COVID-19 (NELIDA) (Negative) COVID-19 Clin Com 11/21/21 11/21/21 11/21/21 Range/Units 19:21 19:21 19:21 WBC (4.8-10.8) X10*3/uL RBC (4.60-5.80) X10*6/uL Hgb (14.0-18.0) g/dl Hct (42.0-52.0) % MCV (80.0-98.0) fL MCH (27.0-33.0) pg MCHC (31.0-36.0) g/dl RDW (11.0-16.0) % Plt Count (160-400) X10*3/uL MPV (9.4-12.4) fL Immature Gran % (Auto) (0.0-0.4) % Neut % (Auto) (45-73) % Lymph % (Auto) (20-40) % [place] % (Auto) (2-11) % Eos % (Auto) (0-4) % Baso % (Auto) (0-2) % Lymph # (Auto) (1.2-4.9) X10*3/uL [place] # (Auto) (0.1-1.2) X10*3/uL Eos # (Auto) (0.0-0.4) X10*3/uL Baso # (Auto) (0.0-0.2) X10*3/uL Abs Immat Gran (auto) (0.00-0.03) X10*3/uL Absolute Neuts (auto) (2.0-8.3) x10*3/uL Absolute Nucleated RBC (0.0-0.012) X10*3/uL Nucleated RBC % (auto) (0.0-0.2) /100WBC Sodium (135-145) mmol/L Potassium (3.3-5.1) mmol/L Chloride (96-108) mmol/L Carbon Dioxide (22-29) mmol/L Anion Gap (12-20) BUN (9-16) mg/dL Creatinine (0.5-1.4) mg/dL Estim Creat Clear Calc Estimated GFR Random Glucose (60-115) mg/dL Lactic Acid (0.5-2.0) mmol/L Calcium (8.4-10.2) mg/dL Total Bilirubin (0.0-1.0) mg/dL AST (5-37) U/L ALT (0-40) U/L Alkaline Phosphatase (39-117) U/L Troponin I High Sens 13.3 (<3.5-35.0) ng/L B-Natriuretic Peptide 75 (<100) pg/mL Total Protein (6.5-8.0) g/dL Albumin (3.5-5.0) g/dL Lipase (8-78) U/L Urine Color YELLOW Urine Appearance CLEAR Urine pH 6.0 (5.0-8.0) Ur Specific [place] 1.020 (1.005-1.025) Urine Protein TRACE (NEG-TRACE) MG/DL Urine Glucose (UA) NEG (NEG) MG/DL Urine Ketones NEG (NEG) MG/DL Urine Blood 2+ H (NEG) Urine Nitrite NEG (NEG) Ur Leukocyte Esterase NEG (NEG) Urine RBC 30-49 H (0) /HPF Urine WBC 0-2 (0-4) /HPF Ur Squamous Epith Cells NONE /LPF Urine Bacteria NONE /LPF COVID-19 (NELIDA) Negative (Negative) COVID-19 Clin Com See Note Discharge Plan Discharge Prescriptions: No Action cefuroxime axetil 250 mg tablet 250 mg PO BID 10 Days Qty: 20 0RF silver sulfadiazine 1 % cream 1 appl topical DAILY 0RF mirtazapine 15 mg tablet 1 tab PO BEDTIME 0RF divalproex 250 mg tablet extended release 24 hr 250 mg PO DAILY 0RF atorvastatin 20 mg tablet 20 mg PO BEDTIME 0RF memantine 10 mg tablet 10 mg PO BID 0RF galantamine 8 mg tablet 8 mg PO BID 0RF quetiapine 50 mg tablet 50 mg PO BID 0RF aspirin 81 mg tablet,delayed release (DR/EC) 81 mg PO DAILY 0RF
--- NOTE | 2021-11-21 18:18 | PC.NURSE ---
PT DIFFICULT TO OBTAIN ACCESS, LABS ARE ATTEMPTED TO BE DRAWN
[2021-11-21] MEDS: Acetaminophen Supp 650 MG SUPP.RECT PR (18:47)
[2021-11-21 19:30] LABS: MANUAL DIFF FLAG NO
[2021-11-21 19:32] LABS: Appearance Urine CLEAR; Basophils Percent Auto 0.2 % (0-2); Color Urine YELLOW; Eosinophils Percent Auto 0.2 % (0-4); Glucose Urine UA NEG (NEG); Hematocrit 23.8 % (42.0-52.0); Hemoglobin 7.1 g/dl (14.0-18.0); Imm Gran Abs Auto 0.05 X10*3/uL (0.00-0.03); Imm Gran Pct Auto 0.5 % (0.0-0.4); Leukocyte Esterase Urine NEG (NEG); Lymphocytes Absolute Auto 1.5 X10*3/uL (1.2-4.9); Lymphocytes Percent Auto 14.9 % (20-40); Mean Corpuscular HGB Conc 29.8 g/dl (31.0-36.0); Mean Corpuscular Hemoglobin 26.3 pg (27.0-33.0); Mean Corpuscular Volume 88.1 fL (80.0-98.0); Mean Platelet Volume 11.1 fL (9.4-12.4); Monocytes Absolute Auto 1.3 X10*3/uL (0.1-1.2); Monocytes Percent Auto 12.5 % (2-11); Neutrophils Absolute Auto 7.1 x10*3/uL (2.0-8.3); Neutrophils Percent Auto 71.7 % (45-73); Nitrite Urine NEG (NEG); Platelet Count 209 X10*3/uL (160-400); Red Cell Distribution Width 13.7 % (11.0-16.0); UACC Culture Trigger NO; Urine Blood 2+ (NEG); Urine Ketones NEG (NEG); Urine Protein TRACE MG/DL (NEG-TRACE)
[2021-11-21] MEDS: Piperacillin Sodium/Tazobactam 4.5 GM in 0.9 % Sodium Chloride 100 ML IV (19:39)
[2021-11-21 19:42] LABS: Lactic Acid 0.8 mmol/L (0.5-2.0)
[2021-11-21 19:47] LABS: COVID-19 Test Negative (Negative); RBC Urine 30-49 /HPF (0); WBC Urine 0-2 /HPF (0-4)
[2021-11-21 19:48] LABS: Alanine Aminotransferase 18 U/L (0-40); Albumin Level 2.2 g/dL (3.5-5.0); Alkaline Phosphatase 78 U/L (39-117); Anion Gap 10 (12-20); Aspartate Amino Transferase 17 U/L (5-37); Bilirubin Total 0.3 mg/dL (0.0-1.0); Blood Urea Nitrogen 17 mg/dL (9-16); Calcium 7.3 mg/dL (8.4-10.2); Carbon Dioxide 24 mmol/L (22-29); Chloride 115 mmol/L (96-108); Creatinine Clr Calc Pharmacy 68.2; Estimated Glomerular Filt Rate > 60; Glucose Random 120 mg/dL (60-115); Lipase 83 U/L (8-78); Potassium 3.6 mmol/L (3.3-5.1); Sodium 145 mmol/L (135-145); Total Protein 4.8 g/dL (6.5-8.0)
[2021-11-21 19:53] LABS: B Type Natriuretic Peptide 75 pg/mL (<100); Troponin-I High Sensitivity 13.3 ng/L (<3.5-35.0)
--- NOTE | 2021-11-21 20:21 | PC.NURSE ---
PT is resting quietly in bed. NS fluid is still infusing. PT received first dose of IV antibiotics. O2 titrated down to 3 L/min via NC and satting at 100%. PT continues to attempt to remove NC from nares but O2 sat still remains >95% without supplemental O2.
--- NOTE | 2021-11-21 21:07 | PC.NURSE ---
PT is resting in bed comfortably. Fluids are finished infusing. PT continues to remove NC, but O2 sat remains at 100% on RA. No need for supplemental oxygen at this time. Provider aware.
--- NOTE | 2021-11-21 21:27 | PC.NURSE ---
[facility] called for PT update. This RN informed staff that PT would likely be admitted to the hospital for low H&H with suspected GI bleed.
--- NOTE | 2021-11-21 22:34 | P.HPHOSP_ITS ---
History of Present Illness Date of Service: 11/21/21 Chief Complaint: hypoxic this is an 81-year-old male with significant past medical history for advanced dementia, history of fried supply of both lower extremities, who is brought into the hospital from senior living with chief complaint of hypoxia and possible aspiration pneumonia. Daughter at bedside give me most of the history. Patient himself has severe advanced dementia and is unable to give much history. According to the daughter she system daily, he is supposed to be on pureed diet but she has been cooking and taking food for him daily. Apparently today patient was found to be hypoxic satting in the 70s on room air. The nursing staff told her that he most likely aspirated as she was given him home cooked food. Daughter mentions no other medical changes, no reported melena, hematochezia, hemoptysis or hematemesis. daughter does not report witness aspiration I am unable to give review I am unable to get review of system given patient's mental status on arrival to the ED patient found to have a temperature of 101.3 degrees, heart rate of 83, respiratory rate of 22, satting 97% on room air labs are significant for WBC count of 10, hemoglobin of 7.1 which dropped from 10.2 on 11/12, hematocrit 20.8, chloride of 115, BUN of 17, albumin of 2.2, UA negative, occult stool positivechest x-ray shows unremarkable findings. Patient will be admitted for further evaluation of possible GI bleed Review of Systems Review of Systems: Yes Unobtainable due to mental condition and Unobtainable due to mental status [facility] Medical History (Updated 11/22/21 @ 06:44 by Clare Armstrong MD) Cataract Dementia Fracture of radial head, left, closed Frostbite of both lower extremities Kidney failure Primary localized osteoarthritis of knees, bilateral Primary osteoarthritis of left knee Toxic metabolic encephalopathy Wound of foot Family History Father Throat cancer Mother Hypertension Social History Household Members: None Housing: Skilled Nursing Unable to assess alcohol history related to: Unknown Alcohol intake: never Patient Tobacco Use Status: Former Tobacco user Have you been hit, kicked, punched, or otherwise hurt by someone within the past year? If so, by whom?: No Do you feel safe in your current relationship?: No Current Relationship Is there a partner from a previous relationship who is making you feel unsafe now?: No Are you made to feel afraid or neglected: No Advance Directives: No Advance Directives Information Provided: No Do you have thoughts of harming others: None Do you have a plan to hurt others: No Plan service: No Current occupational status: retired Current occupation: right handed Meds Allergies Allergy/AdvReac Type Severity Reaction Status Date / Time No Known Allergies Allergy Unknown Verified 09/20/21 17:41 Home Medications Medication Instructions Recorded Confirmed Last Taken Type aspirin 81 mg tablet,delayed 81 mg PO DAILY 02/09/21 11/21/21 10/11/21 History release atorvastatin 20 mg tablet 20 mg PO BEDTIME 02/09/21 11/21/21 10/11/21 History divalproex 250 mg tablet,extended 250 mg PO DAILY 02/09/21 11/21/21 10/11/21 Hi story release 24 hr galantamine 8 mg tablet 8 mg PO BID 02/09/21 11/21/21 10/11/21 History memantine 10 mg tablet 10 mg PO BID 02/09/21 11/21/21 10/11/21 History quetiapine 50 mg tablet 50 mg PO BID 02/09/21 11/21/21 10/11/21 History mirtazapine 15 mg tablet 1 tab PO BEDTIME 10/16/21 11/21/21 10/11/21 History lisinopril 20 mg tablet 1 tab PO DAILY 11/21/21 11/21/21 Unknown History Physical Exam Vital Signs and Narrative: Vital Signs: Last Vital Signs Temp 99.3 F 11/21/21 21:11 Pulse 77 11/21/21 21:35 Resp 16 11/21/21 21:35 BP 115/56 L 11/21/21 21:35 Pulse Ox 100 11/21/21 21:35 Oxygen Flow Rate 5 11/21/21 16:29 BMI result Body Mass Index 21.9 Const: Other: patient with advanced dementia, daughter reports that patient does not recognize most people, and does not communicate verbally eyes are closed, but opens them to will stimuli does not answer questions General: no acute distress Eyes: General: appearance normal, both eyes and all related structures Pupils: Equal, round and reactive pupils present Resp: Effort & Inspection: normal respiratory effort Auscultation: clear to auscultation bilaterally Cardio: Rate: regular rate Rhythm: regular rhythm GI: Palpation (GI): Soft to palpation Auscultation: normal bowel sounds Skin: General skin exam: no rashes or lesions noted Neuro: Cranial nerves: Yes Equal, round and reactive pupils present Extrem: General: Yes normal to inspection and Yes no pedal edema Results Labs CBC and Chem 7: 11/22/21 01:55 11/21/21 19:21 Labs: Laboratory Results - last 24 hr 11/21/21 11/21/21 11/21/21 19:21 19:21 19:21 MCV 88.1 MCH 26.3 L MCHC 29.8 L RDW 13.7 Plt Count 209 D MPV 11.1 Immature Gran % (Auto) 0.5 H Neut % (Auto) 71.7 Lymph % (Auto) 14.9 L Porter % (Auto) 12.5 H Eos % (Auto) 0.2 Baso % (Auto) 0.2 Lymph # (Auto) 1.5 Porter # (Auto) 1.3 H Eos # (Auto) 0.0 Baso # (Auto) 0.0 Abs Immat Gran (auto) 0.05 H Absolute Neuts (auto) 7.1 Absolute Nucleated RBC 0.000 Nucleated RBC % (auto) 0.0 Anion Gap 10 L Estim Creat Clear Calc 68.2 Estimated GFR > 60 Random Glucose 120 H Lactic Acid 0.8 Calcium 7.3 L D Total Bilirubin 0.3 AST 17 D ALT 18 Alkaline Phosphatase 78 B-Natriuretic Peptide Total Protein 4.8 L D Albumin 2.2 L D Lipase 83 H Urine Color Urine Appearance Urine pH Ur Specific [place] Urine Protein Urine Glucose (UA) Urine Ketones Urine Blood Urine Nitrite Ur Leukocyte Esterase Urine RBC Urine WBC Ur Squamous Epith Cells Urine Bacteria COVID-19 (NELIDA) COVID-19 Clin Com Blood Type Antibody Screen Crossmatch 11/21/21 11/21/21 11/21/21 19:21 19:21 19:21 MCV MCH MCHC RDW Plt Count MPV Immature Gran % (Auto) Neut % (Auto) Lymph % (Auto) Porter % (Auto) Eos % (Auto) Baso % (Auto) Lymph # (Auto) Porter # (Auto) Eos # (Auto) Baso # (Auto) Abs Immat Gran (auto) Absolute Neuts (auto) Absolute Nucleated RBC Nucleated RBC % (auto) Anion Gap Estim Creat Clear Calc Estimated GFR Random Glucose Lactic Acid Calcium Total Bilirubin AST ALT Alkaline Phosphatase B-Natriuretic Peptide 75 Total Protein Albumin Lipase Urine Color YELLOW Urine Appearance CLEAR Urine pH 6.0 Ur Specific [place] 1.020 Urine Protein TRACE Urine Glucose (UA) NEG Urine Ketones NEG Urine Blood 2+ H Urine Nitrite NEG Ur Leukocyte Esterase NEG Urine RBC 30-49 H Urine WBC 0-2 Ur Squamous Epith Cells NONE Urine Bacteria NONE COVID-19 (NELIDA) Negative COVID-19 Clin Com See Note Blood Type Antibody Screen Crossmatch 11/21/21 21:39 MCV MCH MCHC RDW Plt Count MPV Immature Gran % (Auto) Neut % (Auto) Lymph % (Auto) Porter % (Auto) Eos % (Auto) Baso % (Auto) Lymph # (Auto) Porter # (Auto) Eos # (Auto) Baso # (Auto) Abs Immat Gran (auto) Absolute Neuts (auto) Absolute Nucleated RBC Nucleated RBC % (auto) Anion Gap Estim Creat Clear Calc Estimated GFR Random Glucose Lactic Acid Calcium Total Bilirubin AST ALT Alkaline Phosphatase B-Natriuretic Peptide Total Protein Albumin Lipase Urine Color Urine Appearance Urine pH Ur Specific [place] Urine Protein Urine Glucose (UA) Urine Ketones Urine Blood Urine Nitrite Ur Leukocyte Esterase Urine RBC Urine WBC Ur Squamous Epith Cells Urine Bacteria COVID-19 (NELIDA) COVID-19 Clin Com Blood Type O Negative Antibody Screen NEGATIVE Crossmatch See Detail Imaging Radiologist's Impressions: Impressions Chest X-Ray 11/21/21 18:40 IMPRESSION: Unremarkable examination. Assessment and Plan (1) Acute GI bleeding: Status: Acute (2) Hypoxic: Status: Acute (3) Normocytic anemia: Status: Acute Plan this is an 81-year-old male who presents to the hospital with a hypoxic event found to be anemic # acute normocytic anemia - likely secondary to acute GI bleed - has occult stool positive - no active bleed - hemodynamically stable - hemoglobin dropped from 10.2-7.1 today - given hypoxia, received 1 unit of prbc in ED - will admit, start PPI, will consult GI # hypoxic respiratory failure - transient event - patient has been on room air satting 96-100% - chest x-ray negative - given possible aspiration, with fever, and tachypnea, will treat with Unasyn - follow cultures # advanced dementia - continue home medication # hypertension - stable - continue lisinopril DVT prophylaxis: Lovenox Quality Stroke Does the patient have a stroke diagnosis?: No VTE Prior VTE?: No VTE Risk Level:: Medical - moderate - high VTE Device Contraindication: N/A - Device Ordered VTE Drug Contraindication: Treatment Not Indicated
[2021-11-22] VITALS (8 sets, daily range): BP systolic 102–133; BP diastolic 43–81; PULSE 60–82; RESP 16–18; TEMP 36.5–37.7; O2SAT 96–100
[2021-11-22] MEDS: Pantoprazole Sodium 40 MG/10 ML VIAL IVPUSH ×3 (00:09→16:02)
[2021-11-22] MEDS: Lactated Ringers 1,000 ML 999 ML IV (00:10)
[2021-11-22] MEDS: Lactated Ringers 1,000 ML 100 ML IVCONT ×2 (01:35→12:31)
[2021-11-22] MEDS: 0.9 % Sodium Chloride Flush 3 ML SYRINGE IVFLUSH (01:35)
[2021-11-22 02:01] LABS: Hemoglobin 9.1 g/dl (14.0-18.0)
[2021-11-22 07:30] LABS: MANUAL DIFF FLAG NO
[2021-11-22 07:35] LABS: Basophils Percent Auto 0.4 % (0-2); Eosinophils Absolute Auto 0.1 X10*3/uL (0.0-0.4); Eosinophils Percent Auto 0.8 % (0-4); Hematocrit 27.3 % (42.0-52.0); Hemoglobin 8.3 g/dl (14.0-18.0); Imm Gran Abs Auto 0.08 X10*3/uL (0.00-0.03); Imm Gran Pct Auto 0.8 % (0.0-0.4); Lymphocytes Absolute Auto 1.8 X10*3/uL (1.2-4.9); Lymphocytes Percent Auto 17.6 % (20-40); Mean Corpuscular HGB Conc 30.4 g/dl (31.0-36.0); Mean Corpuscular Hemoglobin 26.7 pg (27.0-33.0); Mean Corpuscular Volume 87.8 fL (80.0-98.0); Mean Platelet Volume 11.6 fL (9.4-12.4); Monocytes Absolute Auto 1.2 X10*3/uL (0.1-1.2); Neutrophils Absolute Auto 6.9 x10*3/uL (2.0-8.3); Neutrophils Percent Auto 68.4 % (45-73); Platelet Count 219 X10*3/uL (160-400); Red Blood Count 3.11 X10*6/uL (4.60-5.80); Red Cell Distribution Width 13.8 % (11.0-16.0)
[2021-11-22] MEDS: Ampicillin Sodium/Sulbactam Na 3 GM in 0.9 % Sodium Chloride 100 ML IV ×3 (07:40→18:15)
[2021-11-22 07:52] LABS: Anion Gap 9 (12-20); Blood Urea Nitrogen 21 mg/dL (9-16); Calcium 8.6 mg/dL (8.4-10.2); Carbon Dioxide 28 mmol/L (22-29); Chloride 109 mmol/L (96-108); Creatinine Clr Calc Pharmacy 62.7; Estimated Glomerular Filt Rate > 60; Glucose Random 123 mg/dL (60-115); Potassium 4.1 mmol/L (3.3-5.1); Sodium 142 mmol/L (135-145)
[2021-11-22] MEDS: Memantine HCl 10 MG TABLET PO ×2 (09:59→21:42)
[2021-11-22] MEDS: QUEtiapine Fumarate 50 MG TABLET PO ×2 (09:59→21:42)
[2021-11-22] MEDS: Divalproex Sodium Sprinkles 125 MG CAP.DR.SPR PO ×2 (09:59→21:42)
--- NOTE | 2021-11-22 10:02 | PM.GICN ---
History of Present Illness Data of Consult Service Date: 11/22/21 Requesting physician: Todd Humphrey Primary Care Provider: Pam Plummer MD [facility] Reason for consult: Anemia/GI bleeding 81 YM admitted to [facility] [place] on 11/21/21 with hypoxic 81-year-old male with significant past medical history for? advanced dementia, history of fried supply of both lower extremities,? who is [facility] the [facility] from [facility] with chief complaint of hypoxia and possible aspiration pneumonia.? Daughter at bedside give me most of the history.? Patient himself has severe advanced dementia and is unable to give much history.? According to the daughter she system daily, he is supposed to be on pureed diet but she has been cooking and taking? food for him daily.? Apparently today patient was found to be hypoxic satting in the 70s on room air.? The nursing staff told her that he most likely aspirated as she was given him home cooked food. ? Daughter mentions no other medical changes, no reported melena, hematochezia, hemoptysis or hematemesis.? daughter does not report witness aspiration I am unable to give review I am unable to get review of system given patient's mental status On arrival to the ED patient found to have a temperature of 101.3 degrees, heart rate of 83, respiratory rate of 22, satting 97% on room air ?labs are significant for WBC count of 10, hemoglobin of 7.1 which dropped from 10.2 on 11/12, hematocrit 20.8, chloride of 115, BUN of 17, albumin of 2.2, UA negative,? occult stool positive chest x-ray shows unremarkable findings.? Patient was admitted? for further evaluation of possible GI bleed Unable to obtain a meaningful hx from the patient due to dementia PAST EGD/COLONOSCOPY: 2013 patient had a colonoscopy by Dr. Patel which was negative. Review of Systems Review of Systems: Yes Unobtainable due to mental condition (due to dementia) PMFSH Past Medical History Medical History Cataract Decubitus ulcer Dementia Fracture of radial head, left, closed Frostbite of both lower extremities Gastric mass Gastric ulcer Kidney failure Primary localized osteoarthritis of knees, bilateral Primary osteoarthritis of left knee Sacral decubitus ulcer, stage II Stercoral colitis Toxic metabolic encephalopathy Wound of foot Family History Family History Father Throat cancer Mother Hypertension Social History Social History Household Members: Other Housing: Intermediate Unable to assess alcohol history related to: Unable to respond Alcohol intake: never Patient Tobacco Use Status: Former Tobacco user Use of substances other than those prescribed or required for medical reasons: Unable to respond Currently Displaying Signs/Symptoms of Drug Intoxication Withdrawal: No Advance Directives: No Do you have thoughts of harming others: None service: No Current occupational status: retired Current occupation: right handed Meds Allergies Allergy/AdvReac Type Severity Reaction Status Date / Time No Known Allergies Allergy Unknown Verified 09/20/21 17:41 Active Medications: Current Medications Acetaminophen (Acetaminophen 325 Mg Tablet) 650 mg PO Q6H PRN PRN Reason: Pain, Mild (Pain Scale 1-3) Atorvastatin Calcium (Atorvastatin Calcium 20 Mg Tablet) 20 mg PO BEDTIME JUAN M Divalproex Sodium (Divalproex Sodium Sprinkles 125 Mg ) 125 mg PO BID REPLACED BY [facility] Last Admin: 11/22/21 09:59 Dose: 125 mg Documented by: Docusate Sodium (Docusate Sodium 100 Mg Capsule) 100 mg PO DAILY PRN PRN Reason: Constipation Galantamine Hydrobromide (Galantamine Hbr 4 Mg Tablet) 8 mg PO BID REPLACED BY [facility] Last Admin: 11/22/21 09:59 Dose: Not Given Documented by: Lactated Ringer's (Lr) 1,000 mls @ 100 mls/hr IVCONT .Q10H REPLACED BY [facility] Last Admin: 11/22/21 07:22 Dose: Not Given Documented by: Ampicillin Sodium/Sulbactam (Sodium 3 gm/ Sodium Chloride) 100 mls @ 200 mls/hr IV Q6H REPLACED BY [facility] Last Infusion: 11/22/21 08:19 Dose: Infused Documented by: Memantine (Memantine Hcl 10 Mg Tablet) 10 mg PO BID REPLACED BY [facility] Last Admin: 11/22/21 09:59 Dose: 10 mg Documented by: Mirtazapine (Mirtazapine 15 Mg Tablet) 15 mg PO BEDTIME REPLACED BY [facility] Ondansetron HCl (Ondansetron Hcl 4 Mg/2 Ml Vial) 4 mg IVPUSH Q8H PRN PRN Reason: Nausea and Vomiting Pantoprazole Sodium (Pantoprazole Sodium 40 Mg/10 Ml Vial) 40 mg IVPUSH BID@0630,1630 REPLACED BY [facility] Last Admin: 11/22/21 05:04 Dose: 40 mg Documented by: Quetiapine Fumarate (Quetiapine Fumarate 50 Mg Tablet) 50 mg PO BID REPLACED BY [facility] Last Admin: 11/22/21 09:59 Dose: 50 mg Documented by: Sodium Chloride (0.9 % Sodium Chloride Flush 3 Ml Syringe) 3 ml IVFLUSH QSHIFT REPLACED BY [facility] Last Admin: 11/22/21 07:22 Dose: Not Given Documented by: Home Medications Medication Instructions Recorded Confirmed Last Taken Type atorvastatin 20 mg tablet 20 mg PO BEDTIME 02/09/21 12/15/21 10/11/21 History galantamine 8 mg tablet 8 mg PO BID 02/09/21 12/15/21 10/11/21 History memantine 10 mg tablet 10 mg PO BID 02/09/21 12/15/21 10/11/21 History quetiapine 50 mg tablet 50 mg PO BID 02/09/21 12/15/21 10/11/21 History mirtazapine 15 mg tablet 1 tab PO BEDTIME 10/16/21 12/15/21 10/11/21 History divalproex 250 mg tablet,delayed 250 mg PO DAILY 12/10/21 12/15/21 Unknown History release (Depakote) multivitamin with minerals 1 tab PO DAILY 12/10/21 12/15/21 Unknown History Physical Exam Vital Signs: Vital Signs: Last Vital Signs Temp 99.8 F 11/22/21 07:49 Pulse 70 11/22/21 07:49 Resp 17 11/22/21 07:49 BP 133/61 11/22/21 07:49 Pulse Ox 100 11/22/21 07:49 Oxygen Flow Rate 5 11/21/21 16:29 BMI result Body Mass Index 21.9 Const: General: no acute distress and ill appearing Nutritional Appearance: average body habitus Orientation/consciousness: patient oriented x3 Limitations: no limitations HENMT: Head: Yes normal to inspection Ears: hearing grossly normal bilaterally Mouth: Normal oral and palatal mucosa present Eyes: Sclerae: sclerae normal Pupils: Equal, round and reactive pupils present Neck: Neck: Yes normal visual inspection Chest: Chest palpation & inspection: normal inspection of the chest Resp: Effort & Inspection: normal respiratory effort Auscultation: clear to auscultation bilaterally Cardio: Palpation: normal PMI Rate: regular rate Rhythm: regular rhythm Heart sounds: S1 normal heart sound present, S2 normal heart sound present and no murmurs GI: Palpation (GI): Soft to palpation, nontender and No hepatosplenomegaly present Auscultation: normal bowel sounds Rectal Exam - Male: Yes deferred Skin: General skin exam: no rashes or lesions noted Neuro: General: patient oriented x3, gait normal and moves all extremities Cranial nerves: Yes Equal, round and reactive pupils present Psych: Appearance: grossly normal Mental Status: mental status grossly normal Results Labs CBC & Chem 7: 11/24/21 06:05 11/23/21 05:35 Labs: Short CBC 11/21/21 11/22/21 11/22/21 Range/Units 19:21 01:55 07:15 WBC 10.0 10.0 (4.8-10.8) X10*3/uL Hgb 7.1 L D 9.1 L D 8.3 L (14.0-18.0) g/dl Hct 23.8 L D 31.0 L D 27.3 L (42.0-52.0) % Plt Count 209 D 219 (160-400) X10*3/uL BMP 11/21/21 11/22/21 19:21 07:15 Sodium 145 142 Potassium 3.6 D 4.1 Chloride 115 H 109 H Carbon Dioxide 24 28 BUN 17 H D 21 H Creatinine 0.80 0.87 Calcium 7.3 L D 8.6 D Liver Function 11/21/21 Range/Units 19:21 Total Bilirubin 0.3 (0.0-1.0) mg/dL AST 17 D (5-37) U/L ALT 18 (0-40) U/L Alkaline Phosphatase 78 (39-117) U/L Albumin 2.2 L D (3.5-5.0) g/dL Urine 11/21/21 Range/Units 19:21 Urine Color YELLOW Urine Appearance CLEAR Urine pH 6.0 (5.0-8.0) Ur Specific [place] 1.020 (1.005-1.025) Urine Protein TRACE (NEG-TRACE) MG/DL Urine Glucose (UA) NEG (NEG) MG/DL Assessment and Plan (1) Acute on chronic blood loss anemia: Status: Resolved Plan 81 YM with dementia admitted with chief complaint of hypoxia due to suspected aspiration pneumonia.? Patient has severe advanced dementia and is unable to give much history.? Patient was found to be hypoxic with O2 saturations in the 70s on room air.? The nursing staff suspected aspiration as daughter was giving him home cooked food. ? Pt noted wo have acute on chronic anemia and heme positive stools RECOMMENDATIONS: 1. Continue IV PPI and antibiotics. 2. Proceed with Upper Endoscopy in the am - discussed with patient's daughter over the phone Procedures Date of Service Date of Service: 11/22/21
--- NOTE | 2021-11-22 12:11 | P.PNIM_ITS ---
Subjective Subjective Date of Service: 11/22/21 Interval History: The patient was seen and evaluated this morning Laying in bed, difficult to arouse and barely answering questions No reported other overnight events. Systemic review: not verbal to communicate Physical Exam Vital Signs: Vital Signs: Last Vital Signs Temp 97.7 F 11/22/21 11:50 Pulse 77 11/22/21 11:50 Resp 18 11/22/21 11:50 BP 128/58 L 11/22/21 11:50 Pulse Ox 99 11/22/21 11:50 Oxygen Flow Rate 5 11/21/21 16:29 BMI result Body Mass Index 21.9 Const: Other: Constitutional : Alert with stimulation, does not look in distress Neck : Normal inspection, Supple Cardiovascular : RRR, S1 S2, no lower extremity edema Respiratory : Fares bilateral air entry, basal fine crackles, wheezes or rhonchi Gastrointestinal: soft, lax, Normal bowel sounds, Non tender Skin : Warm, Dry Neurological : less responsive but alert with stimulation, nonverbal, moving his extremities with no focal deficit appreciated Objective Data Active Medications Acetaminophen (Acetaminophen 325 Mg Tablet) 650 mg PO Q6H PRN PRN Reason: Pain, Mild (Pain Scale 1-3) Atorvastatin Calcium (Atorvastatin Calcium 20 Mg Tablet) 20 mg PO BEDTIME [facility] Divalproex Sodium (Divalproex Sodium Sprinkles 125 Mg ) 125 mg PO BID [facility] Last Admin: 11/22/21 09:59 Dose: 125 mg Documented by: KATIA Docusate Sodium (Docusate Sodium 100 Mg Capsule) 100 mg PO DAILY PRN PRN Reason: Constipation Galantamine Hydrobromide (Galantamine Hbr 4 Mg Tablet) 8 mg PO BID [facility] Last Admin: 11/22/21 09:59 Dose: Not Given Documented by: COTEMA Non-Admin Reason: Med Not Available Lactated Ringer's (Lr) 1,000 mls @ 100 mls/hr IVCONT .Q10H [facility] Last Admin: 11/22/21 07:22 Dose: Not Given Documented by: COTADRI Non-Admin Reason: IV Running Ampicillin Sodium/Sulbactam (Sodium 3 gm/ Sodium Chloride) 100 mls @ 200 mls/hr IV Q6H [facility] Last Infusion: 11/22/21 08:19 Dose: 0 mls/hr Documented by: KATIA Memantine (Memantine Hcl 10 Mg Tablet) 10 mg PO BID [facility] Last Admin: 11/22/21 09:59 Dose: 10 mg Documented by: KATIA Mirtazapine (Mirtazapine 15 Mg Tablet) 15 mg PO BEDTIME [facility] Ondansetron HCl (Ondansetron Hcl 4 Mg/2 Ml Vial) 4 mg IVPUSH Q8H PRN PRN Reason: Nausea and Vomiting Pantoprazole Sodium (Pantoprazole Sodium 40 Mg/10 Ml Vial) 40 mg IVPUSH BID@0630,1630 [facility] Last Admin: 11/22/21 05:04 Dose: 40 mg Documented by: MYRON Quetiapine Fumarate (Quetiapine Fumarate 50 Mg Tablet) 50 mg PO BID [facility] Last Admin: 11/22/21 09:59 Dose: 50 mg Documented by: KATIA Sodium Chloride (0.9 % Sodium Chloride Flush 3 Ml Syringe) 3 ml IVFLUSH QSHIFT [facility] Last Admin: 11/22/21 07:22 Dose: Not Given Documented by: KATIA Non-Admin Reason: IV Running Labs CBC & Chem 7: 11/22/21 07:15 11/22/21 07:15 Labs: Laboratory Results - last 24 hr 11/21/21 11/21/21 11/21/21 19:21 19:21 19:21 MCV 88.1 MCH 26.3 L MCHC 29.8 L RDW 13.7 Plt Count 209 D MPV 11.1 Immature Gran % (Auto) 0.5 H Neut % (Auto) 71.7 Lymph % (Auto) 14.9 L [place] % (Auto) 12.5 H Eos % (Auto) 0.2 Baso % (Auto) 0.2 Lymph # (Auto) 1.5 [place] # (Auto) 1.3 H Eos # (Auto) 0.0 Baso # (Auto) 0.0 Abs Immat Gran (auto) 0.05 H Absolute Neuts (auto) 7.1 Absolute Nucleated RBC 0.000 Nucleated RBC % (auto) 0.0 Anion Gap 10 L Estim Creat Clear Calc 68.2 Estimated GFR > 60 Random Glucose 120 H Lactic Acid 0.8 Calcium 7.3 L D Total Bilirubin 0.3 AST 17 D ALT 18 Alkaline Phosphatase 78 B-Natriuretic Peptide Total Protein 4.8 L D Albumin 2.2 L D Lipase 83 H Urine Color Urine Appearance Urine pH Ur Specific [place] Urine Protein Urine Glucose (UA) Urine Ketones Urine Blood Urine Nitrite Ur Leukocyte Esterase Urine RBC Urine WBC Ur Squamous Epith Cells Urine Bacteria COVID-19 (NELIDA) COVID-19 Clin Com Blood Type Antibody Screen Crossmatch 11/21/21 11/21/21 11/21/21 19:21 19:21 19:21 MCV MCH MCHC RDW Plt Count MPV Immature Gran % (Auto) Neut % (Auto) Lymph % (Auto) Cat[place] % (Auto) Eos % (Auto) Baso % (Auto) Lymph # (Auto) [place] # (Auto) Eos # (Auto) Baso # (Auto) Abs Immat Gran (auto) Absolute Neuts (auto) Absolute Nucleated RBC Nucleated RBC % (auto) Anion Gap Estim Creat Clear Calc Estimated GFR Random Glucose Lactic Acid Calcium Total Bilirubin AST ALT Alkaline Phosphatase B-Natriuretic Peptide 75 Total Protein Albumin Lipase Urine Color YELLOW Urine Appearance CLEAR Urine pH 6.0 Ur Specific [place] 1.020 Urine Protein TRACE Urine Glucose (UA) NEG Urine Ketones NEG Urine Blood 2+ H Urine Nitrite NEG Ur Leukocyte Esterase NEG Urine RBC 30-49 H Urine WBC 0-2 Ur Squamous Epith Cells NONE Urine Bacteria NONE COVID-19 (NELIDA) Negative COVID-19 Clin Com See Note Blood Type Antibody Screen Crossmatch 11/21/21 11/22/21 11/22/21 21:39 07:15 07:15 MCV 87.8 MCH 26.7 L MCHC 30.4 L RDW 13.8 Plt Count 219 MPV 11.6 Immature Gran % (Auto) 0.8 H Neut % (Auto) 68.4 Lymph % (Auto) 17.6 L [place] % (Auto) 12.0 H Eos % (Auto) 0.8 Baso % (Auto) 0.4 Lymph # (Auto) 1.8 [place] # (Auto) 1.2 Eos # (Auto) 0.1 Baso # (Auto) 0.0 Abs Immat Gran (auto) 0.08 H Absolute Neuts (auto) 6.9 Absolute Nucleated RBC 0.000 Nucleated RBC % (auto) 0.0 Anion Gap 9 L Estim Creat Clear Calc 62.7 Estimated GFR > 60 Random Glucose 123 H Lactic Acid Calcium 8.6 D Total Bilirubin AST ALT Alkaline Phosphatase B-Natriuretic Peptide Total Protein Albumin Lipase Urine Color Urine Appearance Urine pH Ur Specific [place] Urine Protein Urine Glucose (UA) Urine Ketones Urine Blood Urine Nitrite Ur Leukocyte Esterase Urine RBC Urine WBC Ur Squamous Epith Cells Urine Bacteria COVID-19 (NELIDA) COVID-19 Clin Com Blood Type O Negative Antibody Screen NEGATIVE Crossmatch See Detail Assessment and Plan (1) Acute GI bleeding: Status: Acute (2) Acute on chronic blood loss anemia: Status: Acute (3) Aspiration pneumonia: Status: Acute Plan this is an 81-year-old male who presents to the hospital with a hypoxic event found to be anemic # acute on chronic blood loss anemia secondary to acute GI bleed occult stool positive hemoglobin improved to 8.3 after 1 unit transfusion continue IV ppi Pending GI evaluation Pureed diet for now # aspiration pneumonia On room air presented with fever, and tachypnea Continue Unasyn pending cultures # advanced dementia continue home medication # hypertension continue lisinopril DVT prophylaxis: Lovenox Quality Stroke Does the patient have a stroke diagnosis?: No VTE Prior VTE?: No VTE Risk Level:: Medical - moderate - high VTE Device Contraindication: N/A - Device Ordered VTE Drug Contraindication: Treatment Not Indicated
--- NOTE | 2021-11-22 15:46 | MHC.CM.PN ---
PATIENT IS IN FROM [facility]. HCP FOUND IN PREVIOUS ADMISSION OF [employer], PRINTED OUT, AND PLACED IN CHART. PLAN IS FOR PATIENT TO RETURN. CASE MANAGEMENT TO ADDRESS IMM WITH HCP/DAUGHTER WHEN SHE VISITS TOMORROW
[2021-11-22] MEDS: GALANTAMINE HBR 4 MG 8 MG PO (21:42)
[2021-11-22] MEDS: Atorvastatin Calcium 20 MG TABLET PO (21:42)
[2021-11-22] MEDS: Mirtazapine 15 MG TABLET PO (21:42)
[2021-11-23] VITALS (11 sets, daily range): BP systolic 91–146; BP diastolic 42–87; PULSE 73–83; RESP 14–28; TEMP 36.4–37.2; O2SAT 95–99; BMI 21.9
[2021-11-23] MEDS: Ampicillin Sodium/Sulbactam Na 3 GM in 0.9 % Sodium Chloride 100 ML IV ×4 (01:02→20:42)
[2021-11-23] MEDS: 0.9 % Sodium Chloride Flush 3 ML SYRINGE IVFLUSH ×4 (01:03→20:43)
[2021-11-23] MEDS: Lactated Ringers 1,000 ML 100 ML IVCONT (01:39)
[2021-11-23] MEDS: Pantoprazole Sodium 40 MG/10 ML VIAL IVPUSH ×2 (06:22→15:50)
[2021-11-23 06:35] LABS: Hemoglobin 8.4 g/dl (14.0-18.0); Mean Corpuscular Hemoglobin 26.3 pg (27.0-33.0); Mean Corpuscular Volume 87.8 fL (80.0-98.0); Mean Platelet Volume 11.6 fL (9.4-12.4); Platelet Count 215 X10*3/uL (160-400); Red Blood Count 3.19 X10*6/uL (4.60-5.80); Red Cell Distribution Width 13.6 % (11.0-16.0)
[2021-11-23 06:58] LABS: Anion Gap 8 (12-20); Blood Urea Nitrogen 17 mg/dL (9-16); Carbon Dioxide 32 mmol/L (22-29); Chloride 107 mmol/L (96-108); Creatinine Clr Calc Pharmacy 62.7; Estimated Glomerular Filt Rate > 60; Glucose Random 133 mg/dL (60-115); Potassium 4.1 mmol/L (3.3-5.1); Sodium 143 mmol/L (135-145)
--- NOTE | 2021-11-23 11:37 | P.PNIM_ITS ---
Subjective Subjective Date of Service: 11/23/21 Interval History: The patient was seen and evaluated this morning Laying in bed, Woke up easily but cannot answer questions Baseline confused No reported other overnight events. Systemic review: not verbal to communicate Physical Exam Vital Signs: Vital Signs: Last Vital Signs Temp 97.5 F 11/23/21 07:56 Pulse 74 11/23/21 07:56 Resp 16 11/23/21 07:56 BP 139/66 11/23/21 07:56 Pulse Ox 95 11/23/21 07:56 Oxygen Flow Rate 5 11/21/21 16:29 BMI result Body Mass Index 21.9 Const: Other: Constitutional : Alert with stimulation, does not look in distress Neck : Normal inspection, Supple Cardiovascular : RRR, S1 S2, no lower extremity edema Respiratory : Fares bilateral air entry, basal fine crackles, wheezes or rhonchi Gastrointestinal: soft, lax, Normal bowel sounds, Non tender Skin : Warm, Dry Neurological : alert and interactive, nonverbal, moving his extremities with no focal deficit appreciated Objective Data Active Medications Acetaminophen (Acetaminophen 325 Mg Tablet) 650 mg PO Q6H PRN PRN Reason: Pain, Mild (Pain Scale 1-3) Atorvastatin Calcium (Atorvastatin Calcium 20 Mg Tablet) 20 mg PO BEDTIME [facility] Last Admin: 11/22/21 21:42 Dose: 20 mg Documented by: DEEDEE Divalproex Sodium (Divalproex Sodium Sprinkles 125 Mg ) 125 mg PO BID [facility] Last Admin: 11/23/21 09:44 Dose: Not Given Documented by: JEROD Non-Admin Reason: NPO Docusate Sodium (Docusate Sodium 100 Mg Capsule) 100 mg PO DAILY PRN PRN Reason: Constipation Galantamine Hydrobromide (Galantamine Hbr 4 Mg Tablet) 8 mg PO BID [facility] Last Admin: 11/23/21 09:44 Dose: Not Given Documented by: JEROD Non-Admin Reason: NPO Ampicillin Sodium/Sulbactam (Sodium 3 gm/ Sodium Chloride) 100 mls @ 200 mls/hr IV Q6H [facility] Last Infusion: 11/23/21 06:52 Dose: 0 mls/hr Documented by: YASH Memantine (Memantine Hcl 10 Mg Tablet) 10 mg PO BID [facility] Last Admin: 11/23/21 09:44 Dose: Not Given Documented by: JEROD Non-Admin Reason: NPO Mirtazapine (Mirtazapine 15 Mg Tablet) 15 mg PO BEDTIME [facility] Last Admin: 11/22/21 21:42 Dose: 15 mg Documented by: DEEDEE Ondansetron HCl (Ondansetron Hcl 4 Mg/2 Ml Vial) 4 mg IVPUSH Q8H PRN PRN Reason: Nausea and Vomiting Pantoprazole Sodium (Pantoprazole Sodium 40 Mg/10 Ml Vial) 40 mg IVPUSH BID@0630,1630 [facility] Last Admin: 11/23/21 06:22 Dose: 40 mg Documented by: YASH Quetiapine Fumarate (Quetiapine Fumarate 50 Mg Tablet) 50 mg PO BID [facility] Last Admin: 11/23/21 09:44 Dose: Not Given Documented by: JEROD Non-Admin Reason: NPO Sodium Chloride (0.9 % Sodium Chloride Flush 3 Ml Syringe) 3 ml IVFLUSH QSHIFT [facility] Last Admin: 11/23/21 08:56 Dose: 3 ml Documented by: JEROD Labs CBC & Chem 7: 11/23/21 05:35 11/23/21 05:35 Labs: Laboratory Results - last 24 hr 11/23/21 11/23/21 05:35 05:35 MCV 87.8 MCH 26.3 L MCHC 30.0 L RDW 13.6 Plt Count 215 MPV 11.6 Absolute Nucleated RBC 0.000 Nucleated RBC % (auto) 0.0 Anion Gap 8 L Estim Creat Clear Calc 62.7 Estimated GFR > 60 Random Glucose 133 H Calcium 9.0 Microbiology Microbiology Results: Microbiology 11/21/21 19:23 Blood Culture - Preliminary Blood - Venous No growth after 24 hours. 11/21/21 19:21 Blood Culture - Preliminary Blood - Venous No growth after 24 hours. Assessment and Plan (1) Aspiration pneumonia: Status: Acute (2) Acute on chronic blood loss anemia: Status: Acute Plan this is an 81-year-old male who presents to the hospital with a hypoxic event f ound to be anemic # acute on chronic blood loss anemia secondary to acute GI bleed occult stool positive hemoglobin improved to 8.3 after 1 unit transfusion continue IV ppi Pending endoscopy by GI today Pureed diet for now # aspiration pneumonia On room air presented with fever, and tachypnea Continue Unasyn pending cultures # advanced dementia continue home medication # hypertension continue lisinopril DVT prophylaxis: Lovenox need for hospital stay; pending EGD results and final blood cultures will continue to need IV antibiotics and order to prevent further decompensation Quality Stroke Does the patient have a stroke diagnosis?: No VTE Prior VTE?: No VTE Risk Level:: Medical - moderate - high VTE Device Contraindication: N/A - Device Ordered VTE Drug Contraindication: Treatment Not Indicated
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
--- NOTE | 2021-11-23 12:32 | P.BOP_ITS ---
Brief Operative Note Date of Service: 11/23/21 Pre-op diagnosis: Acute on chronic anemia, heme-positive stool Post-op diagnosis: other (Gastric mass40 cms) Procedure: FLEXIBLE TRANSORAL UPPER GASTROINTESTINAL ENDOSCOPY WITH BIOPSIES Consent: Indications for the procedure and potential complications of bleeding, perforation, reaction to medications and missed diagnosis were discussed with the patient and informed consent was obtained. Instrument: Olympus GIF H 190 mid size upper endoscope Monitoring: Vital signs and clinical assessment, continuous EKG monitoring, Pulse oximetry, Carbon Dioxide monitoring and blood pressure monitoring were done throughout the procedure. Procedure: The patient was placed in the left lateral decubitis position and pre-procedure medications were administered and a bite block was placed. The endoscope was inserted into the mouth and advanced under direct vision to the third part of duodenum. A careful inspection was made as the upper endoscope was withdrawn including a retroflexed examination of the proximal stomach; Findings and interventions are described below. Findings: Larynx: Normal Esophagus: GE junction at 40 cms. No esophagitis or Mueller's. Stomach: A 6 x 7 cms ulcerated mass in the gastric antrum/prepyloric area covering 75% of the pyloric circumference - multiple biopsies were obtained. No high risk stigmata for bleeding in the ulcer base. Biopsies were obtained from the antrum to check for H Pylori. Grade 2 flap valve and decreased fundal folds on retroflexed examination of the cardia. Duodenum: Normal bulb and descending duodenum Intervention: Biopsies as noted above Impression and Post Procedure Diagnosis: Endoscopy Findings: STOMACH: A 6 x 7 cms ulcerated mass in the gastric antrum/prepyloric area covering 60 to 65% of the pyloric circumference - multiple biopsies were obtained. No high risk stigmata for bleeding in the ulcer base. Biopsies were obtained from the antrum to check for H Pylori. 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
--- NOTE | 2021-11-23 12:57 | P.OP_ITS ---
Operative Note Operative Note Date of Service: 11/23/21 Narrative: Pre-op diagnosis: Acute on chronic anemia, heme-positive stool Post-op diagnosis:?other (Gastric mass40 cms) Procedure: FLEXIBLE TRANSORAL UPPER GASTROINTESTINAL ENDOSCOPY WITH BIOPSIES Consent:?Indications for the procedure and potential complications of bleeding, perforation, reaction to medications and missed diagnosis were discussed with the patient and informed consent was obtained. Instrument:?Olympus GIF H 190 mid size upper endoscope Monitoring: Vital signs and clinical assessment, continuous EKG monitoring, Pulse oximetry, Carbon Dioxide monitoring and blood pressure monitoring were done throughout the procedure. Procedure:?The patient was placed in the left lateral decubitis position and pre-procedure medications were administered and a bite block was placed. The endoscope was inserted into the mouth and advanced under direct vision to the third part of duodenum. A careful inspection was made as the upper endoscope was withdrawn including a retroflexed examination of the proximal stomach; Findings and interventions are described below. Findings: Larynx:? Normal Esophagus: GE junction at 40 cms. No esophagitis or Mueller's. Stomach: A 6 x 7 cms ulcerated mass in the gastric antrum/prepyloric area covering 75% of the pyloric circumference - multiple biopsies were obtained.? No high risk stigmata for bleeding in the ulcer base. Biopsies were obtained from the antrum to check for H Pylori. Grade 2 flap valve and decreased fundal folds on retroflexed examination of the cardia. Duodenum: Normal bulb and descending duodenum Intervention: Biopsies as noted above Impression and Post Procedure Diagnosis: Endoscopy Findings: STOMACH: A 6 x 7 cms ulcerated mass in the gastric antrum/prepyloric area covering 60 to 65% of the pyloric circumference ?- multiple biopsies were obtained.? No high risk stigmata for bleeding in the ulcer base. Biopsies were obtained from the antrum to check for H Pylori. 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 Gastric mass, biopsy: -High grade dysplasia, at least (see comment). -Background of reactive gastropathy with no active inflammation; negative for H. pylori. -Low grade dysplasia also noted. B.? Gastric biopsy:? -Gastric antral/body mucosa with no active inflammation and no specific change; no evidence of malignancy; negative for H. pylori. Comment: (A):? The specimen may not be primary care sales representative of the entire lesion and an invasive adenocarcinoma cannot be excluded. Patient's daughter called and biopsy results were reviewed with her. Advised repeat EGD for FU of gastric ulcer and repeat biopsies in 6 weeks. I will ask GI staff to schedule Surgeon: Vladimir Stephen MD Anesthesia:?MAC (Sumi Willis CRNA) Was an Exterminator Termite used for this Procedure?:?Yes Exterminator Termite:?Yanna Melendrez Estimated blood loss (mL):?0 Pathology:?other ( A- GASTRIC MASS? B- GASTRIC ANTRUM) Condition:?stable Disposition:?PACU
[2021-11-23] MEDS: GALANTAMINE HBR 4 MG 8 MG PO (20:43)
[2021-11-23] MEDS: QUEtiapine Fumarate 25 MG TABLET PO (20:43)
[2021-11-23] MEDS: Divalproex Sodium Sprinkles 125 MG CAP.DR.SPR PO (20:43)
[2021-11-23] MEDS: Atorvastatin Calcium 20 MG TABLET PO (20:43)
[2021-11-23] MEDS: Mirtazapine 15 MG TABLET PO (20:44)
[2021-11-23] MEDS: Memantine HCl 10 MG TABLET PO (20:44)
[2021-11-24] MEDS: Ampicillin Sodium/Sulbactam Na 3 GM in 0.9 % Sodium Chloride 100 ML IV ×3 (01:51→12:05)
[2021-11-24 04:00] VITALS: BP 137/62; PULSE 77; RESP 14; TEMP 36.7; O2SAT 96
[2021-11-24] MEDS: Pantoprazole Sodium 40 MG/10 ML VIAL IVPUSH (05:45)
[2021-11-24 06:23] LABS: Hematocrit 28.5 % (42.0-52.0); Hemoglobin 8.9 g/dl (14.0-18.0); Mean Corpuscular HGB Conc 31.2 g/dl (31.0-36.0); Mean Corpuscular Hemoglobin 26.3 pg (27.0-33.0); Mean Corpuscular Volume 84.3 fL (80.0-98.0); Mean Platelet Volume 11.4 fL (9.4-12.4); Platelet Count 211 X10*3/uL (160-400); Red Blood Count 3.38 X10*6/uL (4.60-5.80); Red Cell Distribution Width 13.6 % (11.0-16.0); White Blood Count 7.9 X10*3/uL (4.8-10.8)
[2021-11-24 07:00] VITALS: BP 114/65; PULSE 75; RESP 18; TEMP 36.6; O2SAT 96
[2021-11-24] MEDS: Divalproex Sodium Sprinkles 125 MG CAP.DR.SPR PO (09:08)
[2021-11-24] MEDS: QUEtiapine Fumarate 25 MG TABLET PO (09:08)
[2021-11-24] MEDS: GALANTAMINE HBR 4 MG 8 MG PO (09:08)
[2021-11-24] MEDS: 0.9 % Sodium Chloride Flush 3 ML SYRINGE IVFLUSH (09:08)
[2021-11-24] MEDS: Memantine HCl 10 MG TABLET PO (09:08)
--- NOTE | 2021-11-24 09:21 | MHC.CM.PN ---
Addendum entered by Elizabeth Han RN 11/24/21 10:37: CLARIFICATION CM CONTACTED PT'S DTR BAKARI [phone] TO REVIEW IMM, IMM WILL BE EMAILED TO BAKARI AT [email or web address], BAKARI AGREEABLE TO PLAN TO SEND PT BACK TO [facility] TO COMPLETE STR AND POSSIBLE TRANSITION TO LTC IF PT DOES NOT IMPROVE, PER BAKARI PT HAS BEEN MORE CDIFFICULT TO CARE FOR AT HOME D/T WORSENING DEMENTIA. Original Note: PER HOSPITALIST PT MEDICALLY CLEARED FOR D/C BACK TO [facility], THIS CM CONTACTED DTR/HCP ALICE AND SHE IS ON HER WAY IN TO VISIT, CM WILL REVIEW D/C IMM AT BEDSIDE WHEN SHE ARRIVES. ANTIC PT WILL D/C TO [facility] AT 1PM [facility]
--- NOTE | 2021-11-24 10:43 | P.DS_ITS ---
DS: Providers Provider Date of Service: 11/24/21 Date of admission: 11/21/21 22:32 Primary care physician: Pam Plummer MD Consults: 11/21/21 22:31 Consult to Gastroenterology Routine Consulting Provider: Codey Parker Reason for consultation: GI bleed anemia Has provider been notified: No DS: Diagnosis Discharge Diagnosis (1) Acute on chronic blood loss anemia: Status: Acute (2) Aspiration pneumonia: Status: Acute (3) Acute GI bleeding: Status: Acute (4) Gastric mass: Status: Acute (5) Gastric ulcer: Status: Acute DS: Summary Hospital Course Hospital Course: admission note HPI ?this is an 81-year-old male with significant past medical history for? advanced dementia, history of fried supply of both lower extremities,? who [facility] with chief complaint of hypoxia and possible aspiration pneumonia.? Daughter at bedside give me most of the history.? Patient himself has severe advanced dementia and is unable to give much history.? According to the daughter she system daily, he is supposed to be on pureed diet but she has been cooking and taking? food for him daily.? Apparently today patient was found to be hypoxic satting in the 70s on room air.? The nursing staff told her that he most likely aspirated as she was given him home cooked food. ? Daughter mentions no other medical changes, no reported melena, hematochezia, hemoptysis or hematemesis.? daughter does not report witness aspiration I am unable to give review I am unable to get review of system given patient's mental status on arrival to the ED patient found to have a temperature of 101.3 degrees, heart rate of 83, respiratory rate of 22, satting 97% on room air ?labs are significant for WBC count of 10, hemoglobin of 7.1 which dropped from 10.2 on 11/12, hematocrit 20.8, chloride of 115, BUN of 17, albumin of 2.2, UA negative,? occult stool positivechest x-ray shows unremarkable findings.? Hospital course The patient was admitted to the hospital for evaluation of acute gastrointestinal bleeding with associated acute on chronic blood-loss anemia. He received a unit of blood in the emergency with improvement of hemoglobin from 7.1-8.3 at the day of discharge. Occult stool was positive and the patient was evaluated by Gastroenterology team who did an EGD finding a 6 x 7 cm all sedated mass in the gastric antrum covering 75% of pyloric circumference increasing the risk of possible gastric outlet obstruction down the road. Biopsies were taken and still pending. GI recommended consideration of comfort measures as the patient general condition is frail pending the final result of the mass biopsy. Treated with IV ppi. Will be discharged on oral omeprazole twice daily. Continue his current pureed diet. At time of presentation he had an episode of hypoxia associated with fever of 101. Chest x-ray was within normal but concern was arise for possible aspiration. Blood cultures were checked and came back negative and he was treated with Unasyn for possible aspiration pneumonia as he was weaned off oxygen. omeprazole twice daily Augmentin for 4 more days to follow-up with gastroenterology for biopsy result Consider comfort measures if gastric CA. Time Spent with Patient Time attestation: Total time spent providing and/or coordinating discharge services: Discharge coordination time: Greater than 30 minutes Quality: Stroke Does the patient have a stroke diagnosis?: No Physical Exam Vital Signs: Vital Signs: Last Vital Signs Temp 97.8 F 11/24/21 07:00 Pulse 75 11/24/21 07:00 Resp 18 11/24/21 07:00 BP 114/65 11/24/21 07:00 Pulse Ox 96 11/24/21 07:00 Oxygen Flow Rate 5 11/21/21 16:29 BMI result Body Mass Index 21.9 Const: Other: Constitutional : Alert with stimulation, does not look in distress Neck : Normal inspection, Supple Cardiovascular : RRR, S1 S2, no lower extremity edema Respiratory : Fares bilateral air entry, basal fine crackles, wheezes or rhonchi Gastrointestinal: soft, lax, Normal bowel sounds, Non tender Skin : Warm, Dry Neurological : alert and interactive, answering questions with 1 or 2 words, moving his extremities with no focal deficit appreciated DS: Data Data Completed and Pending Pending studies at discharge: Pending at discharge 11/23/21 13:28 Surgical [PTH] Routine Labs on day of discharge: Laboratory Results - last 24 hr 11/24/21 06:05 WBC 7.9 RBC 3.38 L Hgb 8.9 L Hct 28.5 L MCV 84.3 MCH 26.3 L MCHC 31.2 RDW 13.6 Plt Count 211 MPV 11.4 Absolute Nucleated RBC 0.000 Nucleated RBC % (auto) 0.0 Preliminary micro results at discharge 11/21/21 19:23 Blood Culture - Preliminary Blood - Venous No growth after 48 hours. 11/21/21 19:21 Blood Culture - Preliminary Blood - Venous No growth after [address] scan - chest: Radiologist's impression: ITS Impressions Chest X-Ray 11/21/21 18:40 IMPRESSION: Unremarkable examination. Discharge Plan Discharge Patient Disposition: [facility] Discharge Diagnosis: gastrointestinal bleeding, stomach ulcerated mass Aspiration pneumonia Referrals: [facility] [Outside] - 1 Day (RESUMPTION OF CARE) Pam Plummer MD [Primary Care Provider] - 1 Week Discharge Medications: New omeprazole 40 mg capsule,delayed release(DR/EC) 40 mg PO BID Qty: 60 0RF amoxicillin-pot clavulanate 400-57 mg/5 mL suspension for reconstitution 10 ml PO BID 4 Days Qty: 80 0RF Continued mirtazapine 15 mg tablet 1 tab PO BEDTIME 0RF divalproex 250 mg tablet extended release 24 hr 250 mg PO DAILY 0RF atorvastatin 20 mg tablet 20 mg PO BEDTIME 0RF memantine 10 mg tablet 10 mg PO BID 0RF galantamine 8 mg tablet 8 mg PO BID 0RF quetiapine 50 mg tablet 50 mg PO BID 0RF aspirin 81 mg tablet,delayed release (DR/EC) 81 mg PO DAILY 0RF Held lisinopril 20 mg tablet 1 tab PO DAILY 0RF Hold Instructions: monitor blood pressure and restart if needed. Discharge Orders: Discharge Order (Routine); Ordered 11/24/21 Ordered By: Mayra Rosario Diet: advance to usual diet Activity on Discharge: As tolerated Stand Alone Forms: Patient Portal Discharge page Care Plan Goals: Read below Health Concerns: Read below Plan of Treatment: Read below Assessment: you were admitted to the hospital for evaluation of bleeding. Had an upper endoscopy by business operations coordinator who found an ulcerated mass with biopsies Results taking few more days to come back. you were treated with IV PPI eyes with good response and no further bleeding noticed as he received blood and your hemoglobin level stabilized. You were noticed to have a lung infection treated with IV antibiotics with resolution of the symptoms . Continue Augmentin for 4 more days to finish total of 1 week of antibiotics Hold lisinopril and monitor blood pressure to decide if needed to be restarted Start omeprazole 40 mg twice Daily To follow up on biopsy result with Dr. Stephen from Gastroenterology. Discharge Date/Time: 11/24/21 14:05
[2021-11-24 10:56] LABS: COVID-19 Test Negative (Negative); IDNOW Serial# 16C4AD1C
[2021-11-24 10:59] VITALS: BP 122/68; PULSE 82; RESP 19; TEMP 36; O2SAT 96
--- NOTE | 2021-11-24 16:16 | HO.POSTANES ---
Post Anesthesia Evaluation Post Anesthesia Evaluation Vital Signs: Vital Signs Temp Pulse Resp BP Pulse Ox 11/24/21 10:59 96.8 F 82 19 122/68 96 11/24/21 07:00 97.8 F 75 18 114/65 96 Anesthesia: Monitored Mental Status: Awake Pain Control: Satisfactory Nausea/Vomiting: None Hydration: Adequate Anesthesia-Related Issues: No Anes. Related Issues
== END 2021-11-24 14:05 | disposition skilled nursing facility (03) | DRG 177 ==
LOC: HO.ED 21:38 → HO.EDOVER 22:41 → HO.S3 11-22 02:46
PROVIDERS: Internal Medicine Gastroenterology; Admitting Provider Internal Medicine; Emergency Provider Emergency Medicine Emergency Medical Services; PCP Internal Medicine; Visit Provider Student in an Organized Health Care Education/Training Program
PROC: 0DJ08ZZ Inspection of Upper Intestinal Tract, Via Natural or Artificial Opening Endoscopic (ICD-10-PCS; CPT 43235; principal; 2021-11-23 12:30)
DX: J69.0 Pneumonitis due to inhalation of food and vomit (principal); K29.41 Chronic atrophic gastritis with bleeding; J96.91 Respiratory failure, unspecified with hypoxia; D62 Acute posthemorrhagic anemia; K31.9 Disease of stomach and duodenum, unspecified; F03.90 Unspecified dementia, unspecified severity, without behavioral disturbance, psychotic disturbance, mood disturbance, and anxiety; I10 Essential (primary) hypertension; Z20.822 Contact with and (suspected) exposure to COVID-19; Z87.891 Personal history of nicotine dependence; Z79.82 Long term (current) use of aspirin; Z79.899 Other long term (current) drug therapy
CPT/HCPCS: 36415; 36430; 71045; 80048; 80053; 81001; 83605; 83690; 83880; 84484; 85014; 85018; 85025; 85027; 86850; 86900; 86901; 86923; 87040; 87635; 88305; 88342; 88360; 96361; 96365; 99285; J0295; J2543; P9016

== ENCOUNTER 2021-11-30 23:16 | Inpatient (IN) | payer OTHER, SELFPAY ==
--- NOTE | ~2021-11-30 | CT_ITS ---
EXAMINATION: CT HEAD WITHOUT CONTRAST CLINICAL INFORMATION: Altered mental status. COMPARISON: Most recent CT head dated 11/12/2021. TECHNIQUE: Contiguous axial imaging was performed from the skull base to vertex without intravenous administration of contrast. This CT examination was performed using dose optimization techniques as appropriate, variously including the following: *Automated exposure control. *Adjustment of mA and/or kV according to patient size (this includes techniques or standardized protocols for targeted exams where dose is matched to indication/reason for exam; i.e. extremities or head). *Use of iterative reconstruction technique. DLP: 763 mGy-cm FINDINGS: There is no evidence of acute intracranial hemorrhage or territorial infarction. No abnormal mass effect or midline shift is seen. Hypoattenuation with loss of armas-white differentiation redemonstrated within the right frontal lobe and left temporal lobe, similar when compared to the prior CT. No new loss of armas-white differentiation. No extra-axial fluid collections are identified. The ventricles are normal in size. There is no abnormal attenuation within the brain parenchyma. The osseous structures and soft tissues are normal. The mastoid air cells and visualized portions of the paranasal sinuses are well aerated. CT/CT head/brain wo con IMPRESSION: 1. No acute intracranial hemorrhage or mass effect. 2. 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
--- NOTE | ~2021-11-30 | XR_ITS ---
EXAMINATION: XR CHEST CLINICAL INFORMATION: Fever COMPARISON: 11/21/2021 TECHNIQUE: Frontal view of the chest was obtained. FINDINGS: The lungs are well expanded. Increased opacity at the left base. Small left pleural effusion. No pneumothorax. The cardiomediastinal silhouette is within normal limits of size with a calcified aorta. XR/XR chest 1V IMPRESSION: Small left pleural effusion with increased left basilar opacity which could represent atelectasis or pneumonia.
--- NOTE | ~2021-11-30 | CT_ITS ---
EXAMINATION: CT ABDOMEN AND PELVIS WITHOUT CONTRAST CLINICAL INFORMATION: Sepsis. Decubitus ulcer COMPARISON: October 27, 2021 TECHNIQUE: Multidetector volumetric imaging was performed from the superior aspect of the liver through the pubic symphysis. Sagittal and coronal reformatted images were obtained on the technologist's workstation. This CT examination was performed using dose optimization techniques as appropriate, variously including the following: *Automated exposure control *Adjustment of mA and/or kV according to patient size (this includes techniques or standardized protocols for targeted exams where dose is matched to indication/reason for exam; i.e. extremities or head) *Use of iterative reconstruction technique DLP: 860 mGy-cm FINDINGS: LUNG BASES: There is some bibasilar dependent atelectasis present. There is a minimal left pleural effusion. Heart normal size. No pericardial effusion. Coronary artery calcification is seen. LIVER, GALLBLADDER, AND BILIARY TREE: The liver is normal in size, shape, and attenuation. No focal hepatic lesion or biliary ductal dilatation is present. The gallbladder is unremarkable with no evidence of radiopaque gallstones, gallbladder wall thickening, or obvious pericholecystic inflammatory changes. PANCREAS: There is a stable 1 cm fat density lesion within the tail of the pancreas which is unchanged compared to study of April 30, 2015. There is a region of some hazy density within the mesentery in the area of the head of the pancreas and between the origin of the celiac and superior mesenteric arteries. No pancreatic ductal dilatation is seen. This is nonspecific in nature. SPLEEN: Unremarkable. ADRENAL GLANDS: There is a 1.5 x 1.2 cm left adrenal gland nodule with Hounsfield unit measurements representing lipid rich adenoma.. This was present and stable compared to study of April 30, 2015. KIDNEYS AND URETERS: There are vascular calcifications present. There are multiple high and low density structures within the left renal cortex consistent with simple and complex cysts however solid mass cannot be excluded on this study.. Some of these lesions were present on previous CT scan of April 30, 2015 but I cannot be sure that all of them more. No hydronephrosis, hydroureter, or collecting system calculi seen. There is mild bilateral perinephric stranding. BLADDER: Thick walled. On bubble of gas seen nondependently which may be iatrogenic in nature. GASTROINTESTINAL TRACT: No dilated loops of large or small bowel are evident. No free air or free fluid is seen. There is a large stool burden present with distention of the rectum and with rectal wall thickening. Stercoral colitis can look this way.. No pericolonic inflammatory changes appreciated. The appendix is visualized and appears unremarkable. ABDOMINAL WALL: No significant hernia is appreciated. There is fluid collection the appearance of it being bursal about the left femoral greater trochanter. No gas within the soft tissues is identified. LYMPH NODES: No lymphadenopathy appreciated. VASCULAR: There is nonocclusive aortoiliac calcified plaque present. No abdominal aortic aneurysm. PELVIC VISCERA: Enlarged prostate gland. OSSEOUS STRUCTURES: No suspicious destructive bony lesion identified. Multilevel degenerative disc disease. CT/CT abdomen pelvis wo con IMPRESSION: Large colonic stool burden with thick-walled rectum which may be related to Stercoral colitis Minimal left pleural effusion. Left adrenal gland lipid rich adenoma. Multiple left renal cortical lesions likely representing cysts of different densities. Thick-walled urinary bladder. Left greater trochanter fluid-filled bursal sac. Fleischner guidelines were followed.
[2021-11-30 23:29] VITALS: BP 112/56; BP 122/43; PULSE 94; PULSE 96; RESP 28; TEMP 39.6; O2SAT 100; O2SAT 98; BMI 22.0
--- NOTE | 2021-11-30 23:44 | ED.FEVER ---
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 Detailed history not available as patient is oriented only x1 and nonverbal patient does have ED cube at the sacral area no cough noticed Related Data Home Medications Medication Instructions Recorded Confirmed aspirin 81 mg tablet,delayed 81 mg PO DAILY 02/09/21 11/21/21 release atorvastatin 20 mg tablet 20 mg PO BEDTIME 02/09/21 11/21/21 divalproex 250 mg tablet,extended 250 mg PO DAILY 02/09/21 11/21/21 release 24 hr galantamine 8 mg tablet 8 mg PO BID 02/09/21 11/21/21 memantine 10 mg tablet 10 mg PO BID 02/09/21 11/21/21 quetiapine 50 mg tablet 50 mg PO BID 02/09/21 11/21/21 mirtazapine 15 mg tablet 1 tab PO BEDTIME 10/16/21 11/21/21 lisinopril 20 mg tablet 1 tab PO DAILY 11/21/21 11/21/21 Previous Rx's Medication Instructions Recorded amoxicillin 400 mg-potassium 10 ml PO BID 4 Days #80 ml 11/24/21 clavulanate 57 mg/5 mL oral suspension omeprazole 40 mg capsule,delayed 40 mg PO BID #60 cap 11/24/21 release Allergies Allergy/AdvReac Type Severity Reaction Status Date / Time No Known Allergies Allergy Unknown Verified 09/20/21 17:41 Review of Systems Review of Systems: Yes Unobtainable due to mental status PMFSH Past Medical History Medical History Cataract Dementia Fracture of radial head, left, closed Frostbite of both lower extremities Kidney failure Primary localized osteoarthritis of knees, bilateral Primary osteoarthritis of left knee Toxic metabolic encephalopathy Wound of foot Family History Family History Father Throat cancer Mother Hypertension Social History Social History Household Members: None Housing: [facility] Unable to assess alcohol history related to: Unknown Alcohol intake: unknown Patient Tobacco Use Status: Former Tobacco user Use of substances other than those prescribed or required for medical reasons: Unknown Advance Directives: No Advance Directives Information Provided: No service: No Current occupational status: retired Current occupation: right handed Physical Exam Vital Signs: Vital Signs: Last Vital Signs Temp 98.9 F 12/01/21 03:59 Pulse 90 12/01/21 03:59 Resp 20 12/01/21 03:59 BP 117/43 L 12/01/21 03:59 Pulse Ox 99 12/01/21 03:59 BMI result Body Mass Index 22.0 Appearance: lethargic poor response to verbal stimuli ENT: Pharynx normal. Oral Mucosa moist Neck: Normal inspection. Neck supple. CVS: Normal heart rate and rhythm. Pulses normal. Respiratory: No respiratory distress. Equal air entry bilateral, bilateral conducted sounds few crackles at bases Abdomen: Soft and nontender. Bowel sounds are present, no mass palpable, no CVA tenderness Skin: Skin warm and dry. Normal skin color. Normal skin turgor. stage II decubitus exam Extremities: No lower extremity edema. No calf tenderness Neuro: awake lethargic limited leg movements MDM - Fever MDM Narrative Medical decision making narrative: patient with fever etiology not clear level cuff showed slightly elevated WBC count of 11.1 normal lactic acid level meets the criteria for SIRS chest x-ray showed small left pleural effusion with possible infiltrate at the base possible likely the cause of fever also patient decubital ulcer but her stage II no significant pus discharge or erythema patient received IV fluid and IV antibiotic admit patient to medical floor Medical Records Attestation: I reviewed the patient's medical records. Lab Data Attestation: I reviewed the patient's lab results. Result diagrams: 12/01/21 00:42 12/01/21 01:34 Labs: Lab Results 12/01/21 12/01/21 12/01/21 Range/Units 00:42 00:42 00:42 WBC 11.1 H (4.8-10.8) X10*3/uL RBC 3.20 L (4.60-5.80) X10*6/uL Hgb 8.2 L (14.0-18.0) g/dl Hct 27.5 L (42.0-52.0) % MCV 85.9 (80.0-98.0) fL MCH 25.6 L (27.0-33.0) pg MCHC 29.8 L (31.0-36.0) g/dl RDW 13.7 (11.0-16.0) % Plt Count 320 D (160-400) X10*3/uL MPV 10.0 (9.4-12.4) fL Immature Gran % (Auto) 0.5 H (0.0-0.4) % Neut % (Auto) 72.6 (45-73) % Lymph % (Auto) 16.2 L (20-40) % Dickinson % (Auto) 9.7 (2-11) % Eos % (Auto) 0.5 (0-4) % Baso % (Auto) 0.5 (0-2) % Lymph # (Auto) 1.8 (1.2-4.9) X10*3/uL Dickinson # (Auto) 1.1 (0.1-1.2) X10*3/uL Eos # (Auto) 0.1 (0.0-0.4) X10*3/uL Baso # (Auto) 0.1 (0.0-0.2) X10*3/uL Abs Immat Gran (auto) 0.06 H (0.00-0.03) X10*3/uL Absolute Neuts (auto) 8.1 (2.0-8.3) x10*3/uL Absolute Nucleated RBC 0.000 (0.0-0.012) X10*3/uL Nucleated RBC % (auto) 0.0 (0.0-0.2) /100WBC Sodium (135-145) mmol/L Potassium (3.3-5.1) mmol/L Chloride (96-108) mmol/L Carbon Dioxide (22-29) mmol/L Anion Gap (12-20) BUN (9-16) mg/dL Creatinine (0.5-1.4) mg/dL Estim Creat Clear Calc Estimated GFR Random Glucose (60-115) mg/dL Lactic Acid 1.3 (0.5-2.0) mmol/L Calcium (8.4-10.2) mg/dL Total Bilirubin (0.0-1.0) mg/dL AST (5-37) U/L ALT (0-40) U/L Alkaline Phosphatase (39-117) U/L Total Protein (6.5-8.0) g/dL Albumin (3.5-5.0) g/dL Urine Color Urine Appearance Urine pH (5.0-8.0) Ur Specific [place] (1.005-1.025) Urine Protein (NEG-TRACE) MG/DL Urine Glucose (UA) (NEG) MG/DL Urine Ketones (NEG) MG/DL Urine Blood (NEG) Urine Nitrite (NEG) Ur Leukocyte Esterase (NEG) COVID-19 (NELIDA) Negative (Negative) COVID-19 Clin Com See Note 12/01/21 12/01/21 Range/Units 01:34 01:53 WBC (4.8-10.8) X10*3/uL RBC (4.60-5.80) X10*6/uL Hgb (14.0-18.0) g/dl Hct (42.0-52.0) % MCV (80.0-98.0) fL MCH (27.0-33.0) pg MCHC (31.0-36.0) g/dl RDW (11.0-16.0) % Plt Count (160-400) X10*3/uL MPV (9.4-12.4) fL Immature Gran % (Auto) (0.0-0.4) % Neut % (Auto) (45-73) % Lymph % (Auto) (20-40) % Dickinson % (Auto) (2-11) % Eos % (Auto) (0-4) % Baso % (Auto) (0-2) % Lymph # (Auto) (1.2-4.9) X10*3/uL Dickinson # (Auto) (0.1-1.2) X10*3/uL Eos # (Auto) (0.0-0.4) X10*3/uL Baso # (Auto) (0.0-0.2) X10*3/uL Abs Immat Gran (auto) (0.00-0.03) X10*3/uL Absolute Neuts (auto) (2.0-8.3) x10*3/uL Absolute Nucleated RBC (0.0-0.012) X10*3/uL Nucleated RBC % (auto) (0.0-0.2) /100WBC Sodium 138 (135-145) mmol/L Potassium 4.0 (3.3-5.1) mmol/L Chloride 104 (96-108) mmol/L Carbon Dioxide 28 (22-29) mmol/L Anion Gap 10 L (12-20) BUN 15 (9-16) mg/dL Creatinine 0.93 (0.5-1.4) mg/dL Estim Creat Clear Calc 62.3 Estimated GFR > 60 Random Glucose 176 H (60-115) mg/dL Lactic Acid (0.5-2.0) mmol/L Calcium 8.6 (8.4-10.2) mg/dL Total Bilirubin 0.5 (0.0-1.0) mg/dL AST 42 H D (5-37) U/L ALT 44 H (0-40) U/L Alkaline Phosphatase 143 H D (39-117) U/L Total Protein 5.6 L (6.5-8.0) g/dL Albumin 2.3 L (3.5-5.0) g/dL Urine Color YELLOW Urine Appearance CLEAR Urine pH 5.5 (5.0-8.0) Ur Specific [place] 1.020 (1.005-1.025) Urine Protein TRACE (NEG-TRACE) MG/DL Urine Glucose (UA) NEG (NEG) MG/DL Urine Ketones NEG (NEG) MG/DL Urine Blood NEG (NEG) Urine Nitrite NEG (NEG) Ur Leukocyte Esterase NEG (NEG) COVID-19 (NELIDA) (Negative) COVID-19 Clin Com Discharge Plan Discharge Clinical Impression: Fever, Left lower lobe pneumonia, Decubitus ulcer Patient Disposition: Admitted As Inpatient
[2021-12-01] MEDS: Acetaminophen Supp 650 MG SUPP.RECT PR (00:48)
[2021-12-01] MEDS: Piperacillin Sodium/Tazobactam 3.375 GM in 0.9 % Sodium Chloride 50 ML IV ×5 (00:48→21:48)
[2021-12-01 00:50] LABS: MANUAL DIFF FLAG NO
[2021-12-01] MEDS: 0.9 % Sodium Chloride 1,000 ML 999 ML IV (00:50)
[2021-12-01 00:51] LABS: Basophils Absolute Auto 0.1 X10*3/uL (0.0-0.2); Basophils Percent Auto 0.5 % (0-2); Eosinophils Absolute Auto 0.1 X10*3/uL (0.0-0.4); Eosinophils Percent Auto 0.5 % (0-4); Hematocrit 27.5 % (42.0-52.0); Hemoglobin 8.2 g/dl (14.0-18.0); Imm Gran Abs Auto 0.06 X10*3/uL (0.00-0.03); Imm Gran Pct Auto 0.5 % (0.0-0.4); Lymphocytes Absolute Auto 1.8 X10*3/uL (1.2-4.9); Lymphocytes Percent Auto 16.2 % (20-40); Mean Corpuscular HGB Conc 29.8 g/dl (31.0-36.0); Mean Corpuscular Hemoglobin 25.6 pg (27.0-33.0); Mean Corpuscular Volume 85.9 fL (80.0-98.0); Monocytes Absolute Auto 1.1 X10*3/uL (0.1-1.2); Monocytes Percent Auto 9.7 % (2-11); Neutrophils Absolute Auto 8.1 x10*3/uL (2.0-8.3); Neutrophils Percent Auto 72.6 % (45-73); Platelet Count 320 X10*3/uL (160-400); Red Cell Distribution Width 13.7 % (11.0-16.0); White Blood Count 11.1 X10*3/uL (4.8-10.8)
[2021-12-01 01:05] LABS: Lactic Acid 1.3 mmol/L (0.5-2.0)
[2021-12-01 01:51] LABS: COVID-19 Test Negative (Negative)
[2021-12-01 02:01] LABS: Appearance Urine CLEAR; Color Urine YELLOW; Glucose Urine UA NEG (NEG); Leukocyte Esterase Urine NEG (NEG); Nitrite Urine NEG (NEG); PH 5.5 (5.0-8.0); Urine Blood NEG (NEG); Urine Ketones NEG (NEG); Urine Protein TRACE MG/DL (NEG-TRACE)
[2021-12-01 02:02] LABS: Alanine Aminotransferase 44 U/L (0-40); Albumin Level 2.3 g/dL (3.5-5.0); Alkaline Phosphatase 143 U/L (39-117); Anion Gap 10 (12-20); Aspartate Amino Transferase 42 U/L (5-37); Bilirubin Total 0.5 mg/dL (0.0-1.0); Blood Urea Nitrogen 15 mg/dL (9-16); Calcium 8.6 mg/dL (8.4-10.2); Carbon Dioxide 28 mmol/L (22-29); Chloride 104 mmol/L (96-108); Creatinine Clr Calc Pharmacy 62.3; Estimated Glomerular Filt Rate > 60; Glucose Random 176 mg/dL (60-115); Sodium 138 mmol/L (135-145); Total Protein 5.6 g/dL (6.5-8.0)
[2021-12-01 03:59] VITALS: BP 117/43; PULSE 90; RESP 20; TEMP 37.2; O2SAT 99
[2021-12-01] MEDS: vancomycin HCL 1,000 MG in 0.9 % Sodium Chloride 250 ML 270 MG IV (04:21)
--- NOTE | 2021-12-01 04:47 | PC.NURSE ---
I assumed nursing care of Curtis upon his arrival to bed 6 via EMS from [facility]. Curtis was sent for evaluation of fever. Since he arrived Curtis has been mostly asleep, wakes to physical stimuli, occasionally is awake and tracking staff within his room. Per his daughter, who arrived with him, he is non-verbal and can't really understand anything you're saying. Curtis arrived hot to touch with a rectal temp of 103. Upon turning for rectal temp and large decubitus ulcer noted directly on his coccyx. Hospitalist aware and he also took photographs of the wound for the patients' chart. Respirations have been non-labored and his sats have remained WNL on 2L nasal cannula. Curtis has not indicated that he is in pain - no grimacing, no moaning, no agitation. IV access and labs were obtained on Curtis. A UA was obtained via straight cath without difficulty - small amount of urine - 125cc's - drained. Curtis has had one small, soft, brown bowel movement since he arrived: skin cleansed, dry linens provided. Curtis is TBADM and his daughter verbalized an understanding of this prior to leaving the ED. We will continue to monitor Curtis.
--- NOTE | 2021-12-01 04:49 | P.HPHOSP_ITS ---
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 Patient has severe dementia, sleeping, follows simple commands; most of the history obtained from the patient's daughter I also called the [facility] where the patient came from, nobody answered the phone. Patient daughter also mentioned that she saw him in the [facility], sat him up, fed him; later after she left the detention she got a call mention that patient was febrile and has low blood pressure; subsequently sent to the hospital for further evaluation. Patient daughter denies patient having cough, sputum production. Reports he has frostbite in the foot and has pain in the foot. Denies any falls or trauma Mostly bed bound, eating with assistance, on pureed diet. Denies patient having any diarrhea. Review of all other systems is negative except mentioned above ER course: Per ER team, EMS noted that patient oxygenation was 79% on room air; placed on supplemental oxygen; blood pressure was noted to be 101/77; respirations 16; pulse 90; temperature of 100.2 degrees F; [facility] Medical History (Updated 12/11/21 @ 15:09 by Romeo Patel MD) Cataract Dementia Fracture of radial head, left, closed Frostbite of both lower extremities Kidney failure Primary localized osteoarthritis of knees, bilateral Primary osteoarthritis of left knee Sacral decubitus ulcer, stage II Stercoral colitis Toxic metabolic encephalopathy Wound of foot Family History Father Throat cancer Mother Hypertension Social History Household Members: Unknown / Unable to assess Housing: Unknown / Unable to assess Do you presently have visiting nurse or other home services: No Unable to assess alcohol history related to: Unknown Alcohol intake: never Patient Tobacco Use Status: Former Tobacco user service: No Current occupational status: retired Current occupation: right handed Meds Allergies Allergy/AdvReac Type Severity Reaction Status Date / Time No Known Allergies Allergy Unknown Verified 09/20/21 17:41 Active Medications: Current Medications Acetaminophen (Acetaminophen 325 Mg Tablet) 650 mg PO Q6H PRN PRN Reason: Pain, Mild (Pain Scale 1-3) Enoxaparin Sodium (Enoxaparin Sodium 40 Mg/0.4 Ml Syringe) 40 mg SUBCUT Q24H [facility] Vancomycin HCl 1,000 mg/ (Sodium Chloride) 270 mls @ 270 mls/hr IV Q12H [facility] Piperacillin Sod/Tazobactam (Sod 3.375 gm/ Sodium Chloride) 50 mls @ 100 mls/hr IV Q6H [facility] Sodium Chloride (Ns) 1,000 mls @ 80 mls/hr IVCONT .[id number] [facility] Melatonin (Melatonin 3 Mg Tablet) 6 mg PO BEDTIME PRN PRN Reason: Insomnia Pharmacy Consult (Consult Rx Vancomycin Dosing) 1 each MISCELLANE DAILY PRN PRN Reason: Consult order Pharmacy Consult (Consult Rx Vancomycin Dosing) 1 each MISCELLANE DAILY PRN PRN Reason: Consult order Senna (Sennosides 8.6 Mg Tablet) 17.2 mg PO BEDTIME PRN PRN Reason: Constipation Sodium Chloride (0.9 % Sodium Chloride Flush 3 Ml Syringe) 3 ml IVFLUSH QSHIFT [facility] Home Medications Medication Instructions Recorded Confirmed Last Taken Type atorvastatin 20 mg tablet 20 mg PO BEDTIME 02/09/21 12/10/21 10/11/21 History galantamine 8 mg tablet 8 mg PO BID 02/09/21 12/10/21 10/11/21 History memantine 10 mg tablet 10 mg PO BID 02/09/21 12/10/21 10/11/21 History quetiapine 50 mg tablet 50 mg PO BID 02/09/21 12/10/21 10/11/21 History mirtazapine 15 mg tablet 1 tab PO BEDTIME 10/16/21 12/10/21 10/11/21 History divalproex 250 mg tablet,delayed 250 mg PO DAILY 12/10/21 12/10/21 Unknown History release (Depakote) multivitamin with minerals 1 tab PO DAILY 12/10/21 12/10/21 Unknown History Physical Exam Vital Signs and Narrative: Vital Signs: Last Vital Signs Temp 98.9 F 12/01/21 03:59 Pulse 90 12/01/21 03:59 Resp 20 12/01/21 03:59 BP 117/43 L 12/01/21 03:59 Pulse Ox 99 12/01/21 03:59 BMI result Body Mass Index 22.0 Gen: Appears be in no acute distress HEENT: NCAT, Moist mucosa. Pulmonary: coarse breath sounds, fair air entry CVS: Normal S1-S2 Abdomen: BS+, Soft, Nontender Extremities: Warm well perfused; range of motion at the shoulder, elbow, wrist of the right upper extremity maintained; left upper extremity has full range of motion; right foot mildly tender -secondary to history of frostbite. No erythema or signs of cellulitis noted. Neuro: Alert and awake. decubitus ulcer: No discharge noted; no crepitus appreciated; central granulation tissue noted as shown in the picture below Results Labs CBC and Chem 7: 12/01/21 06:33 12/05/21 05:58 Labs: Laboratory Results - last 24 hr 12/01/21 12/01/21 12/01/21 00:42 00:42 00:42 MCV 85.9 MCH 25.6 L MCHC 29.8 L RDW 13.7 Plt Count 320 D MPV 10.0 Immature Gran % (Auto) 0.5 H Neut % (Auto) 72.6 Lymph % (Auto) 16.2 L [place] % (Auto) 9.7 Eos % (Auto) 0.5 Baso % (Auto) 0.5 Lymph # (Auto) 1.8 [place] # (Auto) 1.1 Eos # (Auto) 0.1 Baso # (Auto) 0.1 Abs Immat Gran (auto) 0.06 H Absolute Neuts (auto) 8.1 Absolute Nucleated RBC 0.000 Nucleated RBC % (auto) 0.0 Anion Gap Estim Creat Clear Calc Estimated GFR Random Glucose Lactic Acid 1.3 Calcium Total Bilirubin AST ALT Alkaline Phosphatase Total Protein Albumin Urine Color Urine Appearance Urine pH Ur Specific Hardy Urine Protein Urine Glucose (UA) Urine Ketones Urine Blood Urine Nitrite Ur Leukocyte Esterase COVID-19 (NELIDA) Negative COVID-19 Clin Com See Note 12/01/21 12/01/21 01:34 01:53 MCV MCH MCHC RDW Plt Count MPV Immature Gran % (Auto) Neut % (Auto) Lymph % (Auto) [place] % (Auto) Eos % (Auto) Baso % (Auto) Lymph # (Auto) [place] # (Auto) Eos # (Auto) Baso # (Auto) Abs Immat Gran (auto) Absolute Neuts (auto) Absolute Nucleated RBC Nucleated RBC % (auto) Anion Gap 10 L Estim Creat Clear Calc 62.3 Estimated GFR > 60 Random Glucose 176 H Lactic Acid Calcium 8.6 Total Bilirubin 0.5 AST 42 H D ALT 44 H Alkaline Phosphatase 143 H D Total Protein 5.6 L Albumin 2.3 L Urine Color YELLOW Urine Appearance CLEAR Urine pH 5.5 Ur Specific Hardy 1.020 Urine Protein TRACE Urine Glucose (UA) NEG Urine Ketones NEG Urine Blood NEG Urine Nitrite NEG Ur Leukocyte Esterase NEG COVID-19 (NELIDA) COVID-19 Clin Com Imaging Radiologist's Impressions: Impressions Chest X-Ray 12/01/21 01:25 IMPRESSION: Small left pleural effusion with increased left basilar opacity which could represent atelectasis or pneumonia. 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 Sepsis: chest x-ray showed left basilar pneumonia. Patient also has decubitus ulcer-> no crepitus or discharge noted. has healing granulation tissue. No surrounding erythema noted. will obtain CT abdomen pelvis pressure ulcer care for RN PNA: HCAP/Aspiration PNA. patient was recently discharged from the hospital on 11/24/2021 with antibiotics to be finished total of 4 more days post discharge for aspiration pneumonia. c/w IV Vanc and zosyn. NPO Speech and swallow eval aspiration precautions Id consult Gastric antral Mass: Covering 75% of the antral circumference increasing the risk of gastric outlet obstruction. could also be increasing risk of aspiration s/p EGD on 11/23/21 and biopsies taken-> resulted as High-grade dysplasia; negative H pylori; reactive gastropathy; no evidence of malignancy hx GI bleed/PUD: currently H&H stable. IV PPI Severe dementia: continue home memantine, gelantamine, mirtazapine , Depakote Hypertension: Patient's Lisinopril on HOLD since last admission DVT prophylaxis: Lovenox Code status: Full code, confirmed with the patient's daughter at bedside. Quality Stroke Does the patient have a stroke diagnosis?: No VTE Prior VTE?: No VTE Risk Level:: Medical - moderate - high VTE Device Contraindication: Treatment Not Indicated VTE Drug Contraindication: N/A - Med Ordered
[2021-12-01 06:00] VITALS: BP 139/50; PULSE 81; RESP 20; TEMP 37.4; O2SAT 100
[2021-12-01] MEDS: 0.9 % Sodium Chloride 1,000 ML 80 ML IVCONT ×2 (06:04→17:44)
[2021-12-01 06:38] LABS: MANUAL DIFF FLAG NO
[2021-12-01 06:49] LABS: Basophils Absolute Auto 0.1 X10*3/uL (0.0-0.2); Basophils Percent Auto 0.4 % (0-2); Eosinophils Percent Auto 0.3 % (0-4); Hematocrit 25.7 % (42.0-52.0); Hemoglobin 7.7 g/dl (14.0-18.0); Imm Gran Abs Auto 0.06 X10*3/uL (0.00-0.03); Imm Gran Pct Auto 0.5 % (0.0-0.4); Lymphocytes Absolute Auto 2.1 X10*3/uL (1.2-4.9); Lymphocytes Percent Auto 18.5 % (20-40); Mean Corpuscular Volume 86.8 fL (80.0-98.0); Mean Platelet Volume 10.4 fL (9.4-12.4); Monocytes Absolute Auto 1.2 X10*3/uL (0.1-1.2); Monocytes Percent Auto 10.1 % (2-11); Neutrophils Absolute Auto 8.1 x10*3/uL (2.0-8.3); Neutrophils Percent Auto 70.2 % (45-73); Platelet Count 302 X10*3/uL (160-400); Red Blood Count 2.96 X10*6/uL (4.60-5.80); Red Cell Distribution Width 13.8 % (11.0-16.0); White Blood Count 11.6 X10*3/uL (4.8-10.8)
[2021-12-01 06:54] LABS: Anion Gap 12 (12-20); Blood Urea Nitrogen 15 mg/dL (9-16); Calcium 8.5 mg/dL (8.4-10.2); Carbon Dioxide 24 mmol/L (22-29); Chloride 107 mmol/L (96-108); Creatinine Clr Calc Pharmacy 66.6; Estimated Glomerular Filt Rate > 60; Glucose Random 166 mg/dL (60-115); Sodium 139 mmol/L (135-145)
[2021-12-01] MEDS: 0.9 % Sodium Chloride Flush 3 ML SYRINGE IVFLUSH ×2 (07:34→17:44)
[2021-12-01] MEDS: Pantoprazole Sodium 40 MG/10 ML VIAL IVPUSH (07:34)
[2021-12-01 07:35] VITALS: BP 122/45; PULSE 78; RESP 13; O2SAT 96
--- NOTE | 2021-12-01 07:55 | PHA.MEDREC ---
Pharmacy Consult ? Medication Reconciliation Pharmacy has completed the medication reconciliation. Patient came from [facility] with a medication list. Mary Kay Huang, JoanaD
--- NOTE | 2021-12-01 08:51 | PHA.PROG ---
Admission Date/Time: December 01, 2021 04:38 Indication: SEPSIS.PNA Weight in k.6 kg Adjusted body weight in K.6 KG [employer] body weight in K KG Obesity Dosing Indication % IBW: Serum Creatinine - Last 168 Hours 12/01/21 12/01/21 01:34 06:33 Creatinine 0.93 0.87 Estimated CrCl and GFR - Last 168 Hours 12/01/21 12/01/21 01:34 06:33 Estim Creat Clear Calc 62.3 66.6 Estimated GFR > 60 > 60 Vancomycin Loading Dose: 1500 MG ( 1000 MG GIVEN AT 0400 AND ADDITIONAL DOSE ORDERED FOR 0900) Current Vancomycin Dosing Regimen: 1250 MG Q24H Vancomycin Monitoring using AUC goal of 400 - 600 range with trough as surrogate marker: PREDICTED AUC 489 Date and Time for next Vancomycin Level to be drawn: 12/03/21 @0600 Pharmacist Comments on Vancomycin Plan: Vancomycin dosing will take advantage of [employer] as a clinical decision support tool that uses Bayesian modeling to calculate individual patient's pharmacokinetic parameters and forecast the patient's drug concentration time course with the target goal AUC 24 range of 400 - 600 mg/L/hr.
[2021-12-01] MEDS: vancomycin HCL 500 MG in 0.9 % Sodium Chloride 100 ML 110 MG IV (09:28)
[2021-12-01] MEDS: Enoxaparin Sodium 40 MG/0.4 ML SYRINGE SUBCUT (09:29)
[2021-12-01] MEDS: Memantine HCl 10 MG TABLET PO ×2 (09:34→21:48)
[2021-12-01] MEDS: Divalproex Sodium ER 250 MG TAB.ER.24H PO (09:34)
[2021-12-01] MEDS: GALANTAMINE HBR 4 MG 8 MG PO ×2 (09:34→21:48)
[2021-12-01] MEDS: QUEtiapine Fumarate 50 MG TABLET PO ×2 (09:34→21:48)
--- NOTE | 2021-12-01 10:45 | MHC.CM.PN ---
pt from [facility] ,where he will return when dcd pts hcp is yeimy lozoya [phone] pt will need bls transport
[2021-12-01 11:00] VITALS: BP 119/47; PULSE 81; RESP 16; O2SAT 96
--- NOTE | 2021-12-01 11:07 | PC.NURSE ---
Report given to Meli RODRIGUES, care transferred to overflow bed 7 at this time
--- NOTE | 2021-12-01 12:17 | HE.PHANOTE ---
Zosyn <48h of therapy, continue zosyn for now
[2021-12-01 13:01] VITALS: BP 124/44; PULSE 86; RESP 24; TEMP 37.1; O2SAT 100
[2021-12-01 14:25] VITALS: BP 107/42; PULSE 79; RESP 16; TEMP 36.6; O2SAT 98
--- NOTE | 2021-12-01 14:31 | W.PM.IDCN ---
History of Present Illness Data of Consult Service Date: 12/01/21 Requesting physician: Malik Gracia Primary Care Provider: Unknown Physician HPI Reason for consult: fever of unknown origin He presents to hospital brought in by family for lethargy. He has fever of 103.1 He had been hospitalized 11/21-11/24 with GI bleed and biopsy showed high grade dysplasia antrum. He received Unasyn for concern over aspiration pneumonia and discharged with po Augmentin for four days. His urine is unremarkable and CXR some left base opacity and some pleural effusion. He is getting evaluated swallow/aspiration. Review of Systems Review of Systems: Yes Unobtainable due to mental condition [facility] Past Medical History Medical History Cataract Dementia Fracture of radial head, left, closed Frostbite of both lower extremities Kidney failure Primary localized osteoarthritis of knees, bilateral Primary osteoarthritis of left knee Toxic metabolic encephalopathy Wound of foot Family History Family History Father Throat cancer Mother Hypertension Family history: reviewed and not pertinent Social History Social History Household Members: None Housing: Intermediate Unable to assess alcohol history related to: Unknown Alcohol intake: unknown Patient Tobacco Use Status: Former Tobacco user Use of substances other than those prescribed or required for medical reasons: Unknown Advance Directives: No Advance Directives Information Provided: No service: No Current occupational status: retired Current occupation: right handed Meds Allergies Allergy/AdvReac Type Severity Reaction Status Date / Time No Known Allergies Allergy Unknown Verified 09/20/21 17:41 Active Medications: Current Medications Acetaminophen (Acetaminophen 325 Mg Tablet) 650 mg PO Q6H PRN PRN Reason: Pain, Mild (Pain Scale 1-3) Atorvastatin Calcium (Atorvastatin Calcium 20 Mg Tablet) 20 mg PO BEDTIME [facility] Divalproex Sodium (Divalproex Sodium Er 250 Mg Tab.Er.24h) 250 mg PO DAILY [facility] Last Admin: 12/01/21 09:34 Dose: 250 mg Documented by: Enoxaparin Sodium (Enoxaparin Sodium 40 Mg/0.4 Ml Syringe) 40 mg SUBCUT Q24H [facility] Last Admin: 12/01/21 09:29 Dose: 40 mg Documented by: Galantamine Hydrobromide (Galantamine Hbr 4 Mg Tablet) 8 mg PO BID [facility] Last Admin: 12/01/21 09:34 Dose: 8 mg Documented by: Piperacillin Sod/Tazobactam (Sod 3.375 gm/ Sodium Chloride) 50 mls @ 100 mls/hr IV Q6H [facility] Last Infusion: 12/01/21 13:00 Dose: Infused Documented by: Sodium Chloride (Ns) 1,000 mls @ 80 mls/hr IVCONT .[id number] [facility] Last Admin: 12/01/21 06:04 Dose: 80 mls/hr Documented by: Vancomycin HCl 1,250 mg/ (Sodium Chloride) 250 mls @ 166.667 mls/hr IV Q24H [facility] Melatonin (Melatonin 3 Mg Tablet) 6 mg PO BEDTIME PRN PRN Reason: Insomnia Memantine (Memantine Hcl 10 Mg Tablet) 10 mg PO BID [facility] Last Admin: 12/01/21 09:34 Dose: 10 mg Documented by: Mirtazapine (Mirtazapine 15 Mg Tablet) 15 mg PO BEDTIME JUAN M Pantoprazole Sodium (Pantoprazole Sodium 40 Mg/10 Ml Vial) 40 mg IVPUSH DAILY@0630 [facility] Last Admin: 12/01/21 07:34 Dose: 40 mg Documented by: Pharmacy Consult (Consult Rx Vancomycin Dosing) 1 each MISCELLANE DAILY PRN PRN Reason: Consult order Pharmacy Consult (Consult Rx Vancomycin Dosing) 1 each MISCELLANE DAILY PRN PRN Reason: Consult order Quetiapine Fumarate (Quetiapine Fumarate 50 Mg Tablet) 50 mg PO BID [facility] Last Admin: 12/01/21 09:34 Dose: 50 mg Documented by: Senna (Sennosides 8.6 Mg Tablet) 17.2 mg PO BEDTIME PRN PRN Reason: Constipation Sodium Chloride (0.9 % Sodium Chloride Flush 3 Ml Syringe) 3 ml IVFLUSH QSHIFT [facility] Last Admin: 12/01/21 07:34 Dose: 3 ml Documented by: Home Medications Medication Instructions Recorded Confirmed Last Taken Type atorvastatin 20 mg tablet 20 mg PO BEDTIME 02/09/21 12/01/21 10/11/21 History divalproex 250 mg tablet,extended 250 mg PO DAILY 02/09/21 12/01/21 10/11/21 History release 24 hr galantamine 8 mg tablet 8 mg PO BID 02/09/21 12/01/21 10/11/21 History memantine 10 mg tablet 10 mg PO BID 02/09/21 12/01/21 10/11/21 History quetiapine 50 mg tablet 50 mg PO BID 02/09/21 12/01/21 10/11/21 History mirtazapine 15 mg tablet 1 tab PO BEDTIME 10/16/21 12/01/21 10/11/21 History multivitamin 1 tab PO DAILY 12/01/21 12/01/21 Unknown History sulfamethoxazole 200 20 ml PO BID 12/01/21 12/01/21 Unknown History mg-trimethoprim 40 mg/5 mL oral suspension Physical Exam Vital Signs: Vital Signs: Last Vital Signs Temp 98.8 F 12/01/21 13:01 Pulse 86 12/01/21 13:01 Resp 24 H 12/01/21 13:01 BP 124/44 L 12/01/21 13:01 Pulse Ox 100 12/01/21 13:01 BMI result Body Mass Index 22.0 Const: General: cooperative HENMT: Head: Yes normal to inspection Mouth: Normal oral and palatal mucosa present Resp: Effort & Inspection: normal respiratory effort Cardio: Rate: regular rate Rhythm: regular rhythm GI: Palpation (GI): Soft to palpation and nontender Skin: General skin exam: no rashes or lesions noted Extrem: General: Yes normal to inspection Psych: Other: confused Results Labs CBC & Chem 7: 12/01/21 06:33 12/01/21 06:33 Labs: Short CBC 12/01/21 12/01/21 Range/Units 00:42 06:33 WBC 11.1 H 11.6 H (4.8-10.8) X10*3/uL Hgb 8.2 L 7.7 L (14.0-18.0) g/dl Hct 27.5 L 25.7 L (42.0-52.0) % Plt Count 320 D 302 (160-400) X10*3/uL BMP 12/01/21 12/01/21 01:34 06:33 Sodium 138 139 Potassium 4.0 4.0 Chloride 104 107 Carbon Dioxide 28 24 BUN 15 15 Creatinine 0.93 0.87 Calcium 8.6 8.5 Liver Function 12/01/21 Range/Units 01:34 Total Bilirubin 0.5 (0.0-1.0) mg/dL AST 42 H D (5-37) U/L ALT 44 H (0-40) U/L Alkaline Phosphatase 143 H D (39-117) U/L Albumin 2.3 L (3.5-5.0) g/dL Urine 12/01/21 Range/Units 01:53 Urine Color YELLOW Urine Appearance CLEAR Urine pH 5.5 (5.0-8.0) Ur Specific [place] 1.020 (1.005-1.025) Urine Protein TRACE (NEG-TRACE) MG/DL Urine Glucose (UA) NEG (NEG) MG/DL Assessment and Plan (1) Fever: Status: Acute (2) Left lower lobe pneumonia: Status: Acute He has aspiration concern. He has possible gram negative or gram positive organisms lung and developing effusion concerning He has had recent antibiotics so concern over resistant organisms (3) Decubitus ulcer: Status: Acute he has open area no osteomyelitis reported Plan Would continue Vancomycin and Zosyn for now,possible 5-7 d,check swallow. Would consider tap pleural effusion if large enough Check echo if no other causes seen. Check nares MRSA Check urine Legionella
--- NOTE | 2021-12-01 14:40 | PC.NURSE ---
bm x 2 (large) pt refused to eat lunch wven with science interpreter at bedside.
--- NOTE | 2021-12-01 15:00 | PC.NURSE ---
pt's coccyx wound cleansed and allevyn appiied. pt reposisitoned on l side which is slighly sushila.
[2021-12-01] MEDS: Atorvastatin Calcium 20 MG TABLET PO (21:48)
[2021-12-01] MEDS: Mirtazapine 15 MG TABLET PO (21:48)
--- NOTE | 2021-12-01 23:01 | PC.NURSE ---
Addendum entered by Nando Mai RN 12/01/21 23:19: no need for legionella urine per md Original Note: Assumed care from LILIA Garrison, at 15:00. Assessed and communicated with patient in Martiniquais. Patient was lethargic, arousable to sternal rub, but would fall back asleep each time. Was unable to follow commands, not able to follow finger or pencil with eyes for EOM, not able to aed trainer hands or pedal feet to command. Speech garbled/stuttering/minimal single word answers. Pupils equal, round, and sluggishly reactive to light. Was otherwise with clear lung sounds diminished bases to auscultation, +BS x4 quadrants, skin with unstageable ulcer to coccyx, foam changed, stage 2 to heel, foam changed. Patient's daughter, Amanda, and discussed patient's baseline level of mentation just prior to arrival at hospital. She said he has been very lethargic on and off (night and day are backwards for him ). She says he often has garbled speech and every now and then he says something clearly. He is tangential when he does speak clearly. She says that he will not follow commands due to his dementia. Still, he was very lethargic. MAP was 62 about 17:00. Dr. Martinez notified, in to see patient, CT head w/o contrast ordered, and patient got CT and was negative. By 22:00, patient slightly more alert, had 1 entire pudding and night time meds. [place] catheter was applied with good effect, and 700 ccs of concentrated day colored urine. Also had a hard formed brown colored stool. Coccygeal ulcer appears unstageable with slough and eschar
[2021-12-02] VITALS: BP 109/46; PULSE 75; RESP 18; TEMP 37.1; O2SAT 95
[2021-12-02 04:00] VITALS: BP 94/68; PULSE 76; RESP 18; TEMP 36.8; O2SAT 93
[2021-12-02] MEDS: Piperacillin Sodium/Tazobactam 3.375 GM in 0.9 % Sodium Chloride 50 ML IV ×4 (04:33→20:52)
--- NOTE | 2021-12-02 05:00 | PC.NURSE ---
REPOSITIONED FREQ FOR COMF.FOAM DRESSING INTACT TO COCCYX WOUND,LEFT HEEL AND LEFT HIP REDNESS.LUNGS WITH RHONCHI RIGHT,DIM LEFT,OCC NON PROD COUGH,SATS 93-95% ON ROOM AIR.IV FLUIDS INFUSING.
[2021-12-02] MEDS: Pantoprazole Sodium 40 MG/10 ML VIAL IVPUSH (05:51)
[2021-12-02] MEDS: 0.9 % Sodium Chloride 1,000 ML 80 ML IVCONT ×2 (06:24→20:54)
[2021-12-02 07:15] LABS: Creatinine Clr Calc Pharmacy 72.5; Estimated Glomerular Filt Rate > 60
[2021-12-02 08:00] VITALS: BP 110/31; PULSE 72; RESP 18; O2SAT 100
[2021-12-02] MEDS: vancomycin HCL 1,250 MG in 0.9 % Sodium Chloride 250 ML 166.67 MG IV (09:09)
[2021-12-02] MEDS: GALANTAMINE HBR 4 MG 8 MG PO (09:18)
[2021-12-02] MEDS: Enoxaparin Sodium 40 MG/0.4 ML SYRINGE SUBCUT (09:18)
[2021-12-02] MEDS: Memantine HCl 10 MG TABLET PO ×2 (09:18→20:52)
[2021-12-02] MEDS: QUEtiapine Fumarate 50 MG TABLET PO ×2 (09:18→20:56)
[2021-12-02] MEDS: Divalproex Sodium ER 250 MG TAB.ER.24H PO (09:19)
--- NOTE | 2021-12-02 09:37 | HE.PHANOTE ---
Vancomycin Dosing Addendum Continue with current regimen...next level 12/03/21 @0600
--- NOTE | 2021-12-02 09:56 | HO.PM.IMPN ---
Subjective Subjective Date of Service: 12/02/21 Interval History: CC:f/u on sepsis, HCAP interval history: more alert, awake today, but not saying anything, respiraty status is good, 100% ON ROOM AIR Review of Systems Review of Systems: Yes Unobtainable due to mental status Physical Exam Vital Signs: Vital Signs: Last Vital Signs Temp 98.2 F 12/02/21 04:00 Pulse 72 12/02/21 08:00 Resp 18 12/02/21 08:00 BP 110/31 L 12/02/21 08:00 Pulse Ox 100 12/02/21 08:00 BMI result Body Mass Index 22.0 Const: Other: General: Alert, no saying anything Resp: CTA bilateral CVS: S1,S2,RRR GI: +BS, NT, no distention Skin: dECUB ULCER DECUMENTED ELSWEHERE SEE ADMISSION h AND p,PRESENT ON ADMISSION Neuro: motor grossly intact Psych: flat Objective Data Active Medications Acetaminophen (Acetaminophen 325 Mg Tablet) 650 mg PO Q6H PRN PRN Reason: Pain, Mild (Pain Scale 1-3) Atorvastatin Calcium (Atorvastatin Calcium 20 Mg Tablet) 20 mg PO BEDTIME [facility] Last Admin: 12/01/21 21:48 Dose: 20 mg Documented by: JENNIFER Divalproex Sodium (Divalproex Sodium Er 250 Mg Tab.Er.24h) 250 mg PO DAILY [facility] Last Admin: 12/02/21 09:19 Dose: 250 mg Documented by: NESHA Enoxaparin Sodium (Enoxaparin Sodium 40 Mg/0.4 Ml Syringe) 40 mg SUBCUT Q24H [facility] Last Admin: 12/02/21 09:18 Dose: 40 mg Documented by: NESHA Galantamine Hydrobromide (Galantamine Hbr 4 Mg Tablet) 8 mg PO BID [facility] Last Admin: 12/02/21 09:18 Dose: 8 mg Documented by: NESHA Piperacillin Sod/Tazobactam (Sod 3.375 gm/ Sodium Chloride) 50 mls @ 100 mls/hr IV Q6H [facility] Last Infusion: 12/02/21 05:25 Dose: 0 mls/hr Documented by: MINERVA Sodium Chloride (Ns) 1,000 mls @ 80 mls/hr IVCONT .[id number] [facility] Last Admin: 12/02/21 06:24 Dose: 80 mls/hr Documented by: MINERVA Vancomycin HCl 1,250 mg/ (Sodium Chloride) 250 mls @ 166.667 mls/hr IV Q24H [facility] Last Admin: 12/02/21 09:09 Dose: 166.67 mls/hr Documented by: NESHA Melatonin (Melatonin 3 Mg Tablet) 6 mg PO BEDTIME PRN PRN Reason: Insomnia Memantine (Memantine Hcl 10 Mg Tablet) 10 mg PO BID [facility] Last Admin: 12/02/21 09:18 Dose: 10 mg Documented by: NESHA Mirtazapine (Mirtazapine 15 Mg Tablet) 15 mg PO BEDTIME [facility] Last Admin: 12/01/21 21:48 Dose: 15 mg Documented by: JENNIFER Pantoprazole Sodium (Pantoprazole Sodium 40 Mg/10 Ml Vial) 40 mg IVPUSH DAILY@0630 [facility] Last Admin: 12/02/21 05:51 Dose: 40 mg Documented by: MINERVA Pharmacy Consult (Consult Rx Vancomycin Dosing) 1 each MISCELLANE DAILY PRN PRN Reason: Consult order Pharmacy Consult (Consult Rx Vancomycin Dosing) 1 each MISCELLANE DAILY PRN PRN Reason: Consult order Quetiapine Fumarate (Quetiapine Fumarate 50 Mg Tablet) 50 mg PO BID [facility] Last Admin: 12/02/21 09:18 Dose: 50 mg Documented by: NESHA Senna (Sennosides 8.6 Mg Tablet) 17.2 mg PO BEDTIME PRN PRN Reason: Constipation Sodium Chloride (0.9 % Sodium Chloride Flush 3 Ml Syringe) 3 ml IVFLUSH QSHIFT [facility] Last Admin: 12/02/21 09:10 Dose: Not Given Documented by: NESHA Non-Admin Reason: IV Running Labs CBC & Chem 7: 12/01/21 06:33 12/02/21 06:20 Labs: Laboratory Results - last 24 hr 12/02/21 06:20 Estim Creat Clear Calc 72.5 Estimated GFR > 60 Microbiology Microbiology Results: Microbiology 12/01/21 00:42 Blood Culture - Preliminary Blood - Venous No growth after 24 hours. 12/01/21 00:42 Blood Culture - Preliminary Blood - Venous No growth after 24 hours. Assessment and Plan (1) Fever: Status: Acute (2) Left lower lobe pneumonia: Status: Acute (3) Decubitus ulcer: Status: Acute (4) Gastric ulcer: Status: Acute (5) Gastric mass: Status: Acute Plan ? 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 Sepsis due to HCAP--seems improving ID: Would continue Vancomycin and Zosyn for now,possible 5-7 d,check swallow. Would consider tap pleural effusion if large enough Check echo if no other causes seen. Check nares MRSA Check urine Legionella Toxic metabolic encephalopathy--from acute illness on top dementia--monitor Gastric antral Mass: ? Covering 75% of the antral circumference increasing the risk of gastric outlet obstruction.? could also be increasing risk of aspiration s/p EGD? 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 IV PPI Severe dementia:??continue home memantine, gelantamine, mirtazapine , Depakote ? Hypertension:? Patient's Lisinopril on HOLD since last admission Decub ulcer--present on admssion, frequent turning and other decub ulcer measure Mild protein calory malnutrition--nutrition consult tomorrow Will discuss goals of care with daughter Need for inpatient; Need for IV antibiotics for HCAP in high risk pt with highr risk for , ID suggest IV antibiotic for now Quality Stroke Does the patient have a stroke diagnosis?: No VTE Prior VTE?: No VTE Risk Level:: Medical - moderate - high VTE Device Contraindication: Treatment Not Indicated VTE Drug Contraindication: N/A - Med Ordered
[2021-12-02 10:01] LABS: MRSA Nasal PCR NEGATIVE (Negative); SA Nasal PCR NEGATIVE (Negative)
--- NOTE | 2021-12-02 11:29 | PC.NURSE ---
pt was fed this AM by his daughter who was at the bedside. Pt tolerated feeds well. no aspiration noted. Pt resting in hospital bed. Bed @ 90 degrees. Heels elevated on the bed. pt is alert, mostly nonverbal, but communicating with daughter a little today. pts legs with +2 edema. lungs sound diminished. pt with no cough. callbell and belongins within reach.
--- NOTE | 2021-12-02 13:13 | HE.PHANOTE ---
Zosyn <48H of therapy, followed by ID who recommended to continue vancomycin and zosyn for possibly 5-7 days
[2021-12-02 16:39] VITALS: BP 119/49; PULSE 83; RESP 20; TEMP 37.2; O2SAT 100
--- NOTE | 2021-12-02 18:18 | PC.NURSE ---
pt incontinent of stool. repositioned in the bed, side lying right. Heels elevated off of the bed. New foam applied to his bottom. Foam also applied to the left heel. upper extremities elevated on pillows.
[2021-12-02] MEDS: Atorvastatin Calcium 20 MG TABLET PO (20:56)
[2021-12-02] MEDS: Mirtazapine 15 MG TABLET PO (20:56)
[2021-12-02 20:57] VITALS: BP 130/54; PULSE 86; RESP 18; TEMP 38.2; O2SAT 96
[2021-12-02 23:52] VITALS: BP 120/41; PULSE 81; RESP 21; TEMP 36.6; O2SAT 99
[2021-12-03 04:38] VITALS: BP 133/49; PULSE 77; RESP 20; TEMP 36.8; O2SAT 98
[2021-12-03] MEDS: Piperacillin Sodium/Tazobactam 3.375 GM in 0.9 % Sodium Chloride 50 ML IV ×4 (04:43→22:37)
[2021-12-03 06:10] LABS: Creatinine Clr Calc Pharmacy 75.3; Estimated Glomerular Filt Rate > 60
[2021-12-03 06:18] LABS: Vancomycin Random 11.8 mcg/mL (15-20)
[2021-12-03] MEDS: Pantoprazole Sodium 40 MG/10 ML VIAL IVPUSH (06:27)
[2021-12-03] MEDS: Enoxaparin Sodium 40 MG/0.4 ML SYRINGE SUBCUT (09:15)
[2021-12-03] MEDS: QUEtiapine Fumarate 50 MG TABLET PO ×2 (09:15→22:39)
[2021-12-03] MEDS: GALANTAMINE HBR 4 MG 8 MG PO ×2 (09:15→22:29)
[2021-12-03] MEDS: Divalproex Sodium ER 250 MG TAB.ER.24H PO (09:15)
[2021-12-03] MEDS: Memantine HCl 10 MG TABLET PO ×2 (09:15→22:39)
[2021-12-03] MEDS: vancomycin HCL 1,250 MG in 0.9 % Sodium Chloride 250 ML 166.67 MG IV (09:43)
--- NOTE | 2021-12-03 10:57 | PC.NURSE ---
Pt resting quietly in bed at this time. VSS. Morning meds admin whole in pudding. Pt uvaldo well. Vanco hung and running per NOV. NAD.
--- NOTE | 2021-12-03 11:41 | HE.PHANOTE ---
Patients trough was 11.8 today, a slight decrease in scr. precited AUC is 490, continue same dose, next trough 12/05@0600
--- NOTE | 2021-12-03 12:51 | HO.PM.IMPN ---
Subjective Subjective Date of Service: 12/04/21 Interval History: CC:f/u on sepsis, HCAP interval history: more alert, awake today, but not saying anything, respiraty status is good, 100% ON ROOM AIR Physical Exam Vital Signs: Vital Signs: Last Vital Signs Temp 98.2 F 12/03/21 04:38 Pulse 77 12/03/21 04:38 Resp 20 12/03/21 04:38 BP 133/49 L 12/03/21 04:38 Pulse Ox 98 12/03/21 04:38 BMI result Body Mass Index 22.0 Const: Other: General: Alert, no saying anything Resp: CTA bilateral CVS: S1,S2,RRR GI: +BS, NT, no distention Skin: dECUB ULCER DECUMENTED ELSWEHERE SEE ADMISSION h AND p,PRESENT ON ADMISSION Neuro: motor grossly intact Psych: flat Objective Data Active Medications Acetaminophen (Acetaminophen 325 Mg Tablet) 650 mg PO Q6H PRN PRN Reason: Pain, Mild (Pain Scale 1-3) Atorvastatin Calcium (Atorvastatin Calcium 20 Mg Tablet) 20 mg PO BEDTIME [facility] Last Admin: 12/02/21 20:56 Dose: 20 mg Documented by: NANY Divalproex Sodium (Divalproex Sodium Er 250 Mg Tab.Er.24h) 250 mg PO DAILY [facility] Last Admin: 12/03/21 09:15 Dose: 250 mg Documented by: MODESTA Enoxaparin Sodium (Enoxaparin Sodium 40 Mg/0.4 Ml Syringe) 40 mg SUBCUT Q24H [facility] Last Admin: 12/03/21 09:15 Dose: 40 mg Documented by: MODESTA Galantamine Hydrobromide (Galantamine Hbr 4 Mg Tablet) 8 mg PO BID [facility] Last Admin: 12/03/21 09:15 Dose: 8 mg Documented by: MODESTA Piperacillin Sod/Tazobactam (Sod 3.375 gm/ Sodium Chloride) 50 mls @ 100 mls/hr IV Q6H [facility] Last Admin: 12/03/21 11:36 Dose: 100 mls/hr Documented by: MODESTA Sodium Chloride (Ns) 1,000 mls @ 80 mls/hr IVCONT .[id number] [facility] Last Admin: 12/02/21 20:54 Dose: 80 mls/hr Documented by: NANY Vancomycin HCl 1,250 mg/ (Sodium Chloride) 250 mls @ 166.667 mls/hr IV Q24H [facility] Last Admin: 12/03/21 09:43 Dose: 166.67 mls/hr Documented by: MODESTA Melatonin (Melatonin 3 Mg Tablet) 6 mg PO BEDTIME PRN PRN Reason: Insomnia Memantine (Memantine Hcl 10 Mg Tablet) 10 mg PO BID [facility] Last Admin: 12/03/21 09:15 Dose: 10 mg Documented by: MODESTA Mirtazapine (Mirtazapine 15 Mg Tablet) 15 mg PO BEDTIME [facility] Last Admin: 12/02/21 20:56 Dose: 15 mg Documented by: NANY Pantoprazole Sodium (Pantoprazole Sodium 40 Mg/10 Ml Vial) 40 mg IVPUSH DAILY@0630 [facility] Last Admin: 12/03/21 06:27 Dose: 40 mg Documented by: NANY Pharmacy Consult (Consult Rx Vancomycin Dosing) 1 each MISCELLANE DAILY PRN PRN Reason: Consult order Quetiapine Fumarate (Quetiapine Fumarate 50 Mg Tablet) 50 mg PO BID [facility] Last Admin: 12/03/21 09:15 Dose: 50 mg Documented by: MODESTA Senna (Sennosides 8.6 Mg Tablet) 17.2 mg PO BEDTIME PRN PRN Reason: Constipation Sodium Chloride (0.9 % Sodium Chloride Flush 3 Ml Syringe) 3 ml IVFLUSH QSHIFT [facility] Last Admin: 12/03/21 09:15 Dose: Not Given Documented by: MODESTA Non-Admin Reason: IV Running Labs CBC & Chem 7: 12/01/21 06:33 12/04/21 06:57 Labs: Laboratory Results - last 24 hr 12/03/21 12/03/21 05:42 05:42 Estim Creat Clear Calc 75.3 Estimated GFR > 60 Random Vancomycin 11.8 L Microbiology Microbiology Results: Microbiology 12/01/21 00:42 Blood Culture - Preliminary Blood - Venous No growth after 48 hours. 12/01/21 00:42 Blood Culture - Preliminary Blood - Venous No growth after 48 hours. Assessment and Plan (1) Fever: Status: Acute (2) Left lower lobe pneumonia: Status: Acute (3) Decubitus ulcer: Status: Acute (4) Gastric ulcer: Status: Acute (5) Gastric mass: Status: Acute Plan ? 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 Sepsis due to HCAP--sepsis resolved. DC Vanco and continue Zosyn for now with plan to change to Augmentin tomorrow Toxic metabolic encephalopathy--from acute illness on top dementia--monitor Gastric antral Mass: ? Covering 75% of the antral circumference increasing the risk of gastric outlet obstruction.? could also be increasing risk of aspiration s/p EGD? 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 IV PPI Severe dementia:??continue home memantine, gelantamine, mirtazapine , Depakote ? Hypertension:? 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--His nutrition is poor, daughter thinks he doesn't like hospital food and therefore has been bringing food from and reportedly eating the whole thing Discussed with asif Price and they wish to continue [facility] hospital care to keep him alive H Need for inpatient; Need for IV antibiotics for HCAP in high risk pt with highr risk for , continue IV Abx and transition to PO by tomorrow Quality Stroke Does the patient have a stroke diagnosis?: No VTE Prior VTE?: No VTE Risk Level:: Medical - moderate - high VTE Device Contraindication: Treatment Not Indicated VTE Drug Contraindication: N/A - Med Ordered
[2021-12-03] MEDS: 0.9 % Sodium Chloride 1,000 ML 80 ML IVCONT (13:02)
--- NOTE | 2021-12-03 13:22 | MHC.SLORD ---
Speech Language Pathology Order Status: GROCERY SHOPPER attempted to see patient for PO trials. Patient momentarily awoke to sternal rub and said Steven, but did not remain awake for more than a few seconds. Patient is not appropriate for bedside swallow eval at this time. Will re-attempt later today.
--- NOTE | 2021-12-03 13:55 | PC.NURSE ---
Skin/wound assessment completed today. Patient has an unstageable pressure injury to coccyx, stage 2 pressure injuries to right heel, right great toe and left hip. A stage 1 to left heel. All present on admission. Santyl ordered for the coccyx wound. And Woundres gel applied to all other pressure wounds coverd with foam dressing. Pateint has very dry skin and redness on lower extremities. Sween 24 lotion applied to both lower extremities.
[2021-12-03 14:13] VITALS: BMI 22.0
--- NOTE | 2021-12-03 14:17 | MHC.CLN ---
RE: CONSULT PT WITH INCREASED NUTRITION RISK R.T PRESSURE INJURIES PO 50% X 1 MEAL DIET RX: CARDIAC PUREED-PT MAY BENEFIT FROM LIBERALIZED REGULAR PUREED RECOMMEND ADDING ENSURE TID TO INCREASE KCALS AND PROMOTE WOUND HEALING SUPP TO PROVIDE 1050KCALS, 60G PROTEIN MONITOR PO INTAKE CLOSELY SEE FULL CLINICAL NUTRITION ASSESSMENT
--- NOTE | 2021-12-03 14:27 | HE.PHANOTE ---
PEr note, pt has high likelihood of having a resistant organism due to recent abx. cont zosyn
--- NOTE | 2021-12-03 14:38 | PC.NURSE ---
Patient repositioned for comfort , incontinent of a large amount of urine , [place] catheter off of patient found in bed. male incontinent wrap placed. bed linens changed
--- NOTE | 2021-12-03 14:57 | MHC.SLORD ---
Speech Language Pathology Order Status: Second attempt this afternoon to see patient for dysphagia evaluation. No change in status. Patient not appropriate for PO trials d/t lethargic state. Spoke with nursing on unit. Nursing reports patient tolerated pills with pudding. Patient reportedly has not been eating much today and has been sleeping. Plan for evaluation tomorrow morning.
[2021-12-03] MEDS: 0.9 % Sodium Chloride Flush 3 ML SYRINGE IVFLUSH (19:02)
[2021-12-03] MEDS: Mirtazapine 15 MG TABLET PO (22:28)
[2021-12-03] MEDS: Acetaminophen 325 MG TABLET 650 MG PO (22:34)
[2021-12-03] MEDS: Atorvastatin Calcium 20 MG TABLET PO (22:40)
[2021-12-03 23:37] VITALS: BP 108/48; PULSE 81; RESP 21; TEMP 37.6; O2SAT 97
[2021-12-04] MEDS: 0.9 % Sodium Chloride Flush 3 ML SYRINGE IVFLUSH (00:31)
--- NOTE | 2021-12-04 00:31 | PC.NURSE ---
more alert than two days ago. Still not following commands. Mostly garbled speech. Communicated with in Pashto. Patient's daughter and son in. 100% of dinner. Meds pureed in pudding without issue. Patient continues on zosyn. incontinent of urine x2, [place] cath applied. Patient daughter says family wanted to discuss goals of care with MD, passing along to day shift.
[2021-12-04] MEDS: 0.9 % Sodium Chloride 1,000 ML 80 ML IVCONT (00:32)
[2021-12-04 04:15] VITALS: BP 131/48; PULSE 69; RESP 22; TEMP 36.8; O2SAT 97
[2021-12-04] MEDS: Piperacillin Sodium/Tazobactam 3.375 GM in 0.9 % Sodium Chloride 50 ML IV ×2 (04:29→13:09)
[2021-12-04] MEDS: Pantoprazole Sodium 40 MG/10 ML VIAL IVPUSH (06:03)
[2021-12-04 07:35] LABS: Creatinine Clr Calc Pharmacy 79.4; Estimated Glomerular Filt Rate > 60
[2021-12-04 08:48] VITALS: BP 95/42; PULSE 56; RESP 17; TEMP 36.7; O2SAT 97
[2021-12-04] MEDS: vancomycin HCL 1,250 MG in 0.9 % Sodium Chloride 250 ML 166.67 MG IV (09:13)
[2021-12-04] MEDS: Enoxaparin Sodium 40 MG/0.4 ML SYRINGE SUBCUT (09:15)
--- NOTE | 2021-12-04 09:41 | PHA.PROG ---
Admission Date/Time: December 01, 2021 04:38 Indication: SEPSIS.PNA Weight in k.6 kg Adjusted body weight in K.6 KG [place] body weight in K KG Obesity Dosing Indication % IBW:: Serum Creatinine - Last 168 Hours 12/01/21 12/01/21 12/02/21 01:34 06:33 06:20 Creatinine 0.93 0.87 0.80 12/03/21 12/04/21 05:42 06:57 Creatinine 0.77 0.73 Estimated CrCl and GFR - Last 168 Hours 12/01/21 12/01/21 12/02/21 01:34 06:33 06:20 Estim Creat Clear Calc 62.3 66.6 72.5 Estimated GFR > 60 > 60 > 60 12/03/21 12/04/21 05:42 06:57 Estim Creat Clear Calc 75.3 79.4 Estimated GFR > 60 > 60 Vancomycin Loading Dose: n/a Current Vancomycin Dosing Regimen: 1250 mg Q12H Date and Time for next Vancomycin Level to be drawn: 12/05 @ 0600 Pharmacist Comments on Vancomycin Plan: Renal function is stable. Continue current regimen Pharmacy will continue to monitor Mary Kay Huang PharmD Vancomycin dosing will take advantage of [employer] as a clinical decision support tool that uses Bayesian modeling to calculate individual patient's pharmacokinetic parameters and forecast the patient's drug concentration time course with the target goal AUC 24 range of 400 - 600 mg/L/hr.
[2021-12-04] MEDS: Collagenase Clostridium Hist. 30 GM TUBE 1 APPL TOPICAL (13:17)
--- NOTE | 2021-12-04 15:24 | MHC.SL.SWA ---
Speech Pathologist Impression: Risk of Aspiration Due to: Lethargy Medically Fragile History of Pneumonia Poor PO Intake Reduced Cognition Dysphasia Diet Status: Recommend UPGRADE to GROUND/MECH ALTERED (NDD2) solids and maintain THIN liquids, pills CRUSHED in PUREE. Food to be served with sauce/gravy. Avoid sticky foods and mixed consistencies. Follow each bite of food with sip of liquid to promote oral clearance, check oral cavity as needed. Continue aspiration precautions. Pt will continue to need 1:1 assistance during meals, w/ encouragement to eat, and close monitor for signs of aspiration. DRY CLEANER [facility] Will continue to follow. Liquid Consistency and Strategies for Safe Swallow: Liquid Intake Recommendation: Thin Liquid Intake Strategies: Solid Food Consistency: Dietary Recommendations: Pureed (NDD1) Additional Modifications to Solid Foods: Avoid very sticky consistencies Oral Medication Intake: Crushed with Puree Please contact the pharmacy regarding appropriate crushable or liquid drug formulations that are available whenever modified delivery is recommended. Compensatory Strategies and Precautions to be Taken for Safe Swallow: Sitting Upright (90 deg) No Straw Liquids from Spoon Small Bites and Sips Alternate Liquids/Solids Rate of Ingestion Change Supervision While Eating and Drinking for Safe Swallow: Total Supervision (1:1) Foods to Avoid: sticky foods, mixed consistencies Swallowing Recommended Treatments: Compens. Strategy Educat. Recommendation for Speech: Inpatient Speech Therapy Comment: Pt presents w/ oralpharyngeal dysphagia, w/risk of aspiration secondary to chronic lethargy, and lack of level of alertness/engagement in eating, drinking, and advanced dementia. Recommend start diet of PUREE (NDD1) w/ THIN liquids, Pills crushed in Puree. DO NOT attempt to give Pt food, liquid PO if lethargic, not engaged or ready to eat. Pt will need full assist/supervision of all meals w/ close monitor for clinical signs of aspiration. Diet recommendation sent via secure text to MD, Surgery Teacher. Frequency/Duration: Date Range for Service Req: Timeline to reassess: Certified Professional Controller Clinican/Clinical Fellow: No Supervisory Statement: I have reviewed and agree with the student/clinical fellow's documentation: N/A Speech Language Pathologist: Elizabeth Chaidez M.A., CCC-DRY CLEANER
[2021-12-04 16:00] VITALS: BP 124/64; PULSE 71; RESP 18; TEMP 36.9; O2SAT 96
[2021-12-04 19:00] VITALS: BP 158/60; PULSE 79; RESP 20; TEMP 37.1; O2SAT 99
[2021-12-04 20:00] VITALS: BP 153/50; PULSE 82; RESP 22; TEMP 37.1; O2SAT 97
[2021-12-04] MEDS: QUEtiapine Fumarate 50 MG TABLET PO (21:54)
[2021-12-04] MEDS: Atorvastatin Calcium 20 MG TABLET PO (21:54)
[2021-12-04] MEDS: Memantine HCl 10 MG TABLET PO (21:54)
[2021-12-04] MEDS: GALANTAMINE HBR 4 MG 8 MG PO (21:54)
[2021-12-04] MEDS: Mirtazapine 15 MG TABLET PO (21:54)
[2021-12-04 23:45] VITALS: BP 125/76; PULSE 78; RESP 15; TEMP 36.3; O2SAT 94
[2021-12-05 03:27] VITALS: BP 116/61; PULSE 74; RESP 15; TEMP 36.3; O2SAT 96
[2021-12-05 06:45] LABS: Creatinine Clr Calc Pharmacy 73.4; Estimated Glomerular Filt Rate > 60
[2021-12-05 07:21] VITALS: BP 117/57; PULSE 70; RESP 18; TEMP 36.3; O2SAT 96
[2021-12-05 07:23] LABS: Vancomycin Trough 15.3 mcg/mL (10.0-20.0)
[2021-12-05] MEDS: GALANTAMINE HBR 4 MG 8 MG PO (09:18)
[2021-12-05] MEDS: Divalproex Sodium ER 250 MG TAB.ER.24H PO (09:18)
[2021-12-05] MEDS: Memantine HCl 10 MG TABLET PO (09:18)
[2021-12-05] MEDS: QUEtiapine Fumarate 50 MG TABLET PO (09:18)
[2021-12-05] MEDS: Acetaminophen 325 MG TABLET 650 MG PO (09:19)
[2021-12-05] MEDS: Enoxaparin Sodium 40 MG/0.4 ML SYRINGE SUBCUT (09:19)
[2021-12-05] MEDS: Collagenase Clostridium Hist. 30 GM TUBE 1 APPL TOPICAL (09:29)
[2021-12-05] MEDS: Piperacillin Sodium/Tazobactam 3.375 GM in 0.9 % Sodium Chloride 50 ML IV (10:19)
[2021-12-05] MEDS: 0.9 % Sodium Chloride Flush 3 ML SYRINGE IVFLUSH (10:19)
[2021-12-05 11:28] VITALS: BP 127/52; PULSE 80; RESP 18; TEMP 36.6; O2SAT 99
--- NOTE | 2021-12-05 12:43 | MHC.SL.SWA ---
Speech Pathologist Impression: Oropharyngeal dysphagia Risk of Aspiration Due to: Lethargy Medically Fragile History of Pneumonia Poor PO Intake Reduced Cognition Dysphasia Diet Status: No overt s/s of aspiration with PO trials. There is potential for upgrade, but patient did not accept trials for sufficient assessment of tolerance. Recommend CONTINUE PUREED solids (NDD1) and THIN liquids, pills CRUSHED in PUREE, 1:1 feed, aspiration precautions. CHILD CARE TEAM LEAD to re-assess tomorrow for potential upgrade. Liquid Consistency and Strategies for Safe Swallow: Liquid Intake Recommendation: Thin Liquid Intake Strategies: Small Sips Solid Food Consistency: Dietary Recommendations: Pureed (NDD1) Additional Modifications to Solid Foods: Avoid very sticky consistencies Oral Medication Intake: Crushed with Puree Please contact the pharmacy regarding appropriate crushable or liquid drug formulations that are available whenever modified delivery is recommended. Compensatory Strategies and Precautions to be Taken for Safe Swallow: Sitting Upright (90 deg) Small Bites and Sips Alternate Liquids/Solids Rate of Ingestion Change Oral Check Supervision While Eating and Drinking for Safe Swallow: Total Assistance (1:1) Swallowing Recommended Treatments: Compens. Strategy Educat. Recommendation for Speech: Inpatient Speech Therapy Glass Beveler Clinican/Clinical Fellow: No Supervisory Statement: I have reviewed and agree with the student/clinical fellow's documentation: N/A Speech Language Pathologist: Deborah Lopez M.A., [facility]-CHILD CARE TEAM LEAD
--- NOTE | 2021-12-05 13:12 | P.DS_ITS ---
DS: Providers Provider Date of Service: 12/05/21 Date of admission: 12/01/21 04:38 Primary care physician: Unknown Physician Consults: 12/01/21 05:43 Consult to Infectious Diseases Routine Consulting Provider: Stacey Moreno Reason for consultation: HCAP; asp pna DS: Diagnosis Discharge Diagnosis (1) Fever: Status: Resolved (2) Left lower lobe pneumonia: Status: Acute (3) Decubitus ulcer: (4) Gastric ulcer: (5) Gastric mass: DS: Summary Hospital Course Hospital Course: Chief Complaint: ? 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 Patient has severe dementia, sleeping, follows simple commands; most of the history obtained from the patient's daughter I also called the [facility] where the patient came from, nobody answered the phone. Patient daughter also mentioned that she saw him in the [facility], sat him up, fed him; later after she left the half-way she got a call mention that patient was febrile and has low blood pressure; ?subsequently sent to the hospital for further evaluation.? Patient daughter denies patient? having cough, sputum production.? Reports he has frostbite in the foot and has pain in the foot. Denies any falls or trauma Mostly bed bound, eating with assistance, on pureed diet.? Denies patient having any diarrhea.? Review of all other systems is negative except mentioned above ER course: Per ER team, EMS noted that patient oxygenation was 79% on room air; placed on supplemental oxygen; blood pressure was noted to be 101/77; respirations 16; pulse 90; temperature of 100.2 degrees F; Hospital course: Sepsis due to HCA likely aspiration type of pneuonia--treated with vancomycin and Zosy for 3 days, cultures have been negative, vitals within normal. Will changed to Augmentin for discharge. Toxic metabolic encephalopathy--from acute illness on top dementia, this has resolved and he is at his baseline Gastric antral Mass: ? Covering 75% of the antral circumference increasing the risk of gastric outlet obstruction.? could also be increasing risk of aspiration s/p EGD? 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 Severe dementia:??continue home memantine, gelantamine, mirtazapine , Depakote ? Hypertension:? 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--His doesn't like hospital food and does well with food brought by family Dispo: to return to SNF Disposition disucssed with daughter Amanda and she felt comfortable with patient returning to SNF Time Spent with Patient Time attestation: Total time spent providing and/or coordinating discharge services: Discharge coordination time: Greater than 30 minutes Quality: Stroke Does the patient have a stroke diagnosis?: No Physical Exam Vital Signs: Vital Signs: Last Vital Signs Temp 97.8 F 12/05/21 11:28 Pulse 80 12/05/21 11:28 Resp 18 12/05/21 11:28 BP 127/52 L 12/05/21 11:28 Pulse Ox 99 12/05/21 11:28 BMI result Body Mass Index 22.0 Const: Other: General: Alert, no saying anything Resp:? CTA bilateral CVS: S1,S2,RRR GI: +BS, NT, no distention Skin: dECUB ULCER DECUMENTED ELSWEHERE SEE ADMISSION h AND p,PRESENT ON ADMISSION Neuro:? motor grossly intact Psych: flat DS: Data Data Completed and Pending Completed studies during hospitalization [Text1]: Procedures Excision of Stomach, Pylorus, Via Natural or Artificial Opening Endoscopic, Diagnostic (11/21/21) Transfusion of Nonautologous Red Blood Cells into Peripheral Vein, Percutaneous Approach (11/21/21) Labs on day of discharge: Laboratory Results - last 24 hr 12/05/21 12/05/21 05:58 05:58 Creatinine 0.79 Estim Creat Clear Calc 73.4 Estimated GFR > 60 Vancomycin Trough 15.3 Preliminary micro results at discharge 12/01/21 00:42 Blood Culture - Preliminary Blood - Venous No growth after 48 hours. 12/01/21 00:42 Blood Culture - Preliminary Blood - Venous No growth after 48 hours. Discharge Plan Discharge Anticipated Discharge Date/Time: 12/05/21 13:18 Patient Disposition: Xfer SNF Discharge Diagnosis: Sepsis, pneumonia Referrals: Amparo Cocoa Racheal Harris [Outside] - 1 Week Physician,Unknown J [Primary Care Provider] - 1 Week Discharge Medications: Continued omeprazole 40 mg capsule,delayed release(DR/EC) 40 mg PO BID Qty: 60 0RF mirtazapine 15 mg tablet 1 tab PO BEDTIME 0RF atorvastatin 20 mg tablet 20 mg PO BEDTIME 0RF memantine 10 mg tablet 10 mg PO BID 0RF galantamine 8 mg tablet 8 mg PO BID 0RF quetiapine 50 mg tablet 50 mg PO BID 0RF Discontinued sulfamethoxazole-trimethoprim 200-40 mg/5 mL Suspension 20 ml PO BID 0RF Rx Instructions: 12/01/2021 - 12/08/2021 No Action multivitamin with minerals Tablet 1 tab PO DAILY 0RF divalproex [Depakote] 250 mg Tablet,Delayed Release (Dr/Ec) 250 mg PO DAILY 0RF doxycycline hyclate 100 mg Tablet 100 mg PO Q12H Qty: 10 0RF Rx Instructions: ORDERED FOR 7 DAYS FROM 12/14/ TO 12/21 amoxicillin-pot clavulanate 875-125 mg Tablet 875 mg PO Q12H Qty: 10 0RF Rx Instructions: ORDERED FOR 7 DAYS FROM 12/14 TO 12/21 Discharge Orders: Discharge Order (Routine); Ordered 12/05/21 Ordered By: Malik Martinez Diet: advance to usual diet Activity on Discharge: As tolerated Stand Alone Forms: Patient Portal Discharge page Care Plan Goals: Sepsis, pneumonia Health Concerns: pneumonia, sepsis Plan of Treatment: Take Augmentin as prescribed and follow up with PCP in a week Assessment: as above Discharge Date/Time: 12/05/21 20:19
--- NOTE | 2021-12-05 13:33 | MHC.CLN ---
F/U PT WITH INCREASED NUTRITION RISK R/T PRESSURE INJURIES PO 100% X 1 MEAL DIET RX: PUREED-APPROPRIATE PT RECEIVING ENSURE TID TO INCREASE KCALS AND PROMOTE WOUND HEALING SUPP TO PROVIDE 1050KCALS, 60G PROTEIN MONITOR PO INTAKE CLOSELY
[2021-12-05 14:49] LABS: COVID-19 Test Negative (Negative); IDNOW Serial# 55D5AD1C
[2021-12-05 20:08] VITALS: TEMP 36.2
[2021-12-05 20:14] VITALS: BP 151/73; PULSE 83; RESP 18; TEMP 36.2; O2SAT 95
== END 2021-12-05 20:19 | disposition skilled nursing facility (03) | DRG 871 ==
LOC: HO.ED 23:47 → HO.EDOVER 12-01 04:51 → HO.IMC 12-04 12:51
PROVIDERS: Internal Medicine; Admitting Provider Hospitalist; Emergency Provider Internal Medicine; Visit Provider Internal Medicine
DX: A41.9 Sepsis, unspecified organism (principal); J69.0 Pneumonitis due to inhalation of food and vomit; J15.9 Unspecified bacterial pneumonia; G92.8 Other toxic encephalopathy; E44.0 Moderate protein-calorie malnutrition; L89.152 Pressure ulcer of sacral region, stage 2; K31.9 Disease of stomach and duodenum, unspecified; K25.9 Gastric ulcer, unspecified as acute or chronic, without hemorrhage or perforation; I10 Essential (primary) hypertension; Z68.22 Body mass index [BMI] 22.0-22.9, adult; F03.90 Unspecified dementia, unspecified severity, without behavioral disturbance, psychotic disturbance, mood disturbance, and anxiety; Z20.822 Contact with and (suspected) exposure to COVID-19; Z23 Encounter for immunization; Z87.891 Personal history of nicotine dependence; Z79.899 Other long term (current) drug therapy
CPT/HCPCS: 36415; 70450; 71045; 74176; 80048; 80053; 80202; 81003; 82565; 83605; 85025; 87040; 87635; 87640; 87641; 90686; 92526; 92610; 96361; 96365; 96375; 97162; 99285; J1650; J2543; J3370

== ENCOUNTER 2021-12-10 15:30 | Inpatient (IN) | payer OTHER, SELFPAY ==
--- NOTE | ~2021-12-10 | XR_ITS ---
EXAMINATION: XR CHEST CLINICAL INFORMATION: Fever. COMPARISON: Chest 01/31/2022 TECHNIQUE: Frontal view of the chest was obtained. FINDINGS: No significant abnormality is noted involving the heart, lungs, mediastinum, bony thorax or soft tissues. XR/XR chest 1V IMPRESSION: Unremarkable chest examination.. No change from 01/31/2022
--- NOTE | ~2021-12-10 | CT_ITS ---
EXAMINATION: CT ABDOMEN AND PELVIS WITH CONTRAST CLINICAL INFORMATION: Sacral ulcer. COMPARISON: CT abdomen/pelvis dated from 12/01/2021. TECHNIQUE: Multidetector volumetric images were obtained from the superior aspect of the liver through the pubic symphysis following administration 85 mL of Omnipaque 350 intravenous contrast. Sagittal and coronal reformatted images were obtained on the technologist's workstation. Oral Contrast: No. This CT examination was performed using dose optimization techniques as appropriate, variously including the following: *Automated exposure control. *Adjustment of mA and/or kV according to patient size (this includes techniques or standardized protocols for targeted exams where dose is matched to indication/reason for exam; i.e. extremities or head). *Use of iterative reconstruction technique. DLP: 800 mGy-cm FINDINGS: LUNG BASES: Evaluation of pulmonary nodules is limited due to respiratory motion. Trace amount of left-sided pleural fluid with subsegmental atelectasis. LIVER, GALLBLADDER, AND BILIARY TREE: The liver is normal in size, shape, and attenuation. No focal hepatic lesion or biliary ductal dilatation is present. The gallbladder is unremarkable with no evidence of radiopaque gallstones, gallbladder wall thickening, or obvious pericholecystic inflammatory changes. PANCREAS: An approximately 1 cm fat density lesion in the tail of the pancreas (3:18) is unchanged since 2015. The main pancreatic duct is nondilated. There is no significant peripancreatic free fluid or fat stranding. SPLEEN: Unremarkable. ADRENAL GLANDS: A 1.5 cm nodule in the left adrenal gland (3:25) is unchanged since 2015 favoring to represent a benign adenoma. Normal right adrenal gland. KIDNEYS AND URETERS: Evaluation is degraded by motion. However, accounting for limitations, there is redemonstration of a 2.1 cm water density cyst in the lower pole of the left kidney and of several other subcentimeter hypodensities that are too small to characterize although statistically are also likely to represent simple cysts. Scattered vascular calcifications. No hydronephrosis. No significant perinephric fat stranding. BLADDER: Increased thickening of the urinary bladder. A small focus of air in the anterior lumen (3:74) is nonspecific. GASTROINTESTINAL TRACT: The upper abdomen is degraded due to motion. The stomach and the small bowel are nondilated. Normal appendix. No bowel obstruction. Redemonstration of moderate colonic stool burden, and large stool ball in the rectum. There is similar fat stranding and free fluid in the presacral region with some questionable circumferential wall thickening of the rectum. ABDOMINAL WALL: There is a decubitus ulcer at the level of the lower sacrum/coccyx (3:81 and 82) with surrounding fat stranding and skin thickening but no drainable collection or abscess. The coccyx is in close proximity with surrounding free fluid and stranding (3:82) but no discrete erosions or cortical disruption to suspect osteomyelitis. LYMPH NODES: There is no lymphadenopathy by size criteria. VASCULAR: Scattered atherosclerotic disease. PELVIC VISCERA: Enlarged prostate. OSSEOUS STRUCTURES: No acute or aggressive-appearing osseous abnormalities. Redemonstration of multilevel thoracolumbar spondylosis. Again noted water density fluid in the left greater trochanter bursa. CT/CT abdomen pelvis w con IMPRESSION: 1. There is a decubitus ulcer with surrounding skin thickening and fat stranding in close proximity to the lower sacrum/coccyx. Although on this examination there is no discrete cortical disruption to suspect osteomyelitis, if there is high clinical suspicious for extension into the bone, correlation with an MR is recommended. 2. Redemonstration of significant amount of rectal stool content with presacral fat stranding and free fluid and some degree of circumferential rectal wall thickening raising the possibility of stercoral colitis. 3. Increased urinary bladder wall thickening. Correlate with urinalysis and clinically for signs of infection. 4. Prostatomegaly.
--- NOTE | 2021-12-10 15:46 | ECG_ITS ---
Test Reason : GENERAL MEDICAL Blood Pressure : / mmHG Vent. Rate : 099 BPM Atrial Rate : 099 BPM P-R Int : 130 ms QRS Dur : 068 ms QT Int : 338 ms P-R-T Axes : 047 017 056 degrees QTc Int : 433 ms Artifact in tracing Normal sinus rhythm Cannot rule out Anterior infarct , age undetermined Abnormal ECG When compared with ECG of 12-NOV-2021 13:26, due to quality, cannot compare Referred By: Adelina Harris Electronically Signed By:SALMA JOHNSON
--- NOTE | 2021-12-10 15:55 | ED.GENADULT ---
HPI - General Adult General Chief complaint: Altered Mental Status Stated complaint: AMS,UNABLE TO FOLLOW COMMANDS FROM EMS PER EMS Time Seen by Provider: 12/10/21 15:38 Source: patient and EMS Mode of arrival: EMS Limitations: altered mental status History of Present Illness HPI narrative: Patient comes to the emergency room from the [facility]. The EMS was informed by the [facility] staff that the patient is altered more than usual. Usually, patient is able to speak to his family on the phone without making sense that to history of dementia. However, today he has been very somnolent. Related Data Home Medications Medication Instructions Recorded Confirmed atorvastatin 20 mg tablet 20 mg PO BEDTIME 02/09/21 12/01/21 divalproex 250 mg tablet,extended 250 mg PO DAILY 02/09/21 12/01/21 release 24 hr galantamine 8 mg tablet 8 mg PO BID 02/09/21 12/01/21 memantine 10 mg tablet 10 mg PO BID 02/09/21 12/01/21 quetiapine 50 mg tablet 50 mg PO BID 02/09/21 12/01/21 mirtazapine 15 mg tablet 1 tab PO BEDTIME 10/16/21 12/01/21 multivitamin 1 tab PO DAILY 12/01/21 12/01/21 Previous Rx's Medication Instructions Recorded omeprazole 40 mg capsule,delayed 40 mg PO BID #60 cap 11/24/21 release amoxicillin 875 mg-potassium 1 tab PO BID #10 tab 12/05/21 clavulanate 125 mg tablet Allergies Allergy/AdvReac Type Severity Reaction Status Date / Time No Known Allergies Allergy Unknown Verified 09/20/21 17:41 Review of Systems Review of Systems: Yes Unobtainable due to mental condition PMFSH Past Medical History Medical History Cataract Dementia Fracture of radial head, left, closed Frostbite of both lower extremities Kidney failure Primary localized osteoarthritis of knees, bilateral Primary osteoarthritis of left knee Toxic metabolic encephalopathy Wound of foot Family History Family History Father Throat cancer Mother Hypertension Social History Social History Household Members: Children Housing: Apartment Do you presently have visiting nurse or other home services: No Unable to assess alcohol history related to: Unknown Alcohol intake: unknown Patient Tobacco Use Status: Former Tobacco user Advance Directives: No Advance Directives Information Provided: No service: No Current occupational status: retired Current occupation: right handed Physical Exam ED Vital Signs: Vital Signs - 24 hr 12/10/21 15:58 12/10/21 16:03 Temperature 102.7 F H Pulse Rate 104 H Respiratory Rate 18 Blood Pressure 106/51 L BMI result Body Mass Index 22.1 Const Other: Appearance: Somnolent, wakes up to name. Mumbles, cachectic Eyes: Pupils equal, round and reactive to light. ENT: Pharynx normal. Neck: Normal inspection. Neck supple. No lymph nodes noted. No crepitus CVS: Normal heart rate and rhythm. Pulses normal. Normal S1 and S2 Respiratory: No respiratory distress. Breath sounds normal. No Wheezing. No rales Abdomen: Soft and nontender. No rigidity. No distention. Skin: Skin warm and dry. Patient has decubitus ulcers Extremities: No lower extremity edema. Neuro: Unable to assess cranial nerves, cannot follow commands. Psych: calm Course Course Course Narrative: Patient feels warmer than the reported temperature. Rectal temperature shows a fever of 102.8. Patient is nonverbal at this time. Of note, patient was discharged 5 days ago for a gastric ulcer, left lower lobe pneumonia. Patient is empirically being treated with Zosyn and 2 L of fluid are being started. Patient's urinalysis negative, chest x-ray unchanged. Patient is source of infection likely the decubitus ulcer. I discussed the patient with Dr. Diego and Dr. Humphrey, patient being admitted Medical Decision Making Lab Data Result diagrams: 12/10/21 17:07 12/10/21 17:07 Labs: Lab Results 12/10/21 12/10/21 12/10/21 Range/Units 16:01 17:07 17:07 WBC 10.9 H (4.8-10.8) X10*3/uL RBC 3.30 L (4.60-5.80) X10*6/uL Hgb 8.3 L (14.0-18.0) g/dl Hct 28.1 L (42.0-52.0) % MCV 85.2 (80.0-98.0) fL MCH 25.2 L (27.0-33.0) pg MCHC 29.5 L (31.0-36.0) g/dl RDW 14.7 (11.0-16.0) % Plt Count 396 D (160-400) X10*3/uL MPV 10.4 (9.4-12.4) fL Immature Gran % (Auto) 0.7 H (0.0-0.4) % Neut % (Auto) 79.0 H (45-73) % Lymph % (Auto) 10.0 L (20-40) % Gladwin % (Auto) 10.0 (2-11) % Eos % (Auto) 0.1 (0-4) % Baso % (Auto) 0.2 (0-2) % Lymph # (Auto) 1.1 L (1.2-4.9) X10*3/uL Gladwin # (Auto) 1.1 (0.1-1.2) X10*3/uL Eos # (Auto) 0.0 (0.0-0.4) X10*3/uL Baso # (Auto) 0.0 (0.0-0.2) X10*3/uL Abs Immat Gran (auto) 0.08 H (0.00-0.03) X10*3/uL Absolute Neuts (auto) 8.6 H (2.0-8.3) x10*3/uL Absolute Nucleated RBC 0.000 (0.0-0.012) X10*3/uL Nucleated RBC % (auto) 0.0 (0.0-0.2) /100WBC PT (9.9-13.0) SEC INR (0.9-1.1) Sodium 141 (135-145) mmol/L Potassium 4.7 (3.3-5.1) mmol/L Chloride 103 (96-108) mmol/L Carbon Dioxide 29 (22-29) mmol/L Anion Gap 14 (12-20) BUN 19 H (9-16) mg/dL Creatinine 0.93 (0.5-1.4) mg/dL Estim Creat Clear Calc 59.1 Estimated GFR > 60 POC Glucose 128 H (60-115) mg/dL Random Glucose 160 H (60-115) mg/dL Lactic Acid (0.5-2.0) mmol/L Calcium 9.4 D (8.4-10.2) mg/dL Magnesium 2.1 (1.6-2.6) mg/dL Total Bilirubin 0.4 (0.0-1.0) mg/dL Direct Bilirubin 0.2 (0.0-0.5) mg/dL AST 60 H (5-37) U/L ALT 47 H (0-40) U/L Alkaline Phosphatase 173 H D (39-117) U/L Troponin I High Sens (<3.5-35.0) ng/L Total Protein 6.3 L (6.5-8.0) g/dL Albumin 2.6 L (3.5-5.0) g/dL Lipase 28 (8-78) U/L Urine Color Urine Appearance Urine pH (5.0-8.0) Ur Specific Clover (1.005-1.025) Urine Protein (NEG-TRACE) MG/DL Urine Glucose (UA) (NEG) MG/DL Urine Ketones (NEG) MG/DL Urine Blood (NEG) Urine Nitrite (NEG) Ur Leukocyte Esterase (NEG) Urine RBC (0) /HPF Urine WBC (0-4) /HPF Ur Squamous Epith Cells /LPF Urine Bacteria /LPF Hyaline Casts /LPF COVID-19 (NELIDA) (Negative) COVID-19 Clin Com 12/10/21 12/10/21 12/10/21 Range/Units 17:07 17:07 17:07 WBC (4.8-10.8) X10*3/uL RBC (4.60-5.80) X10*6/uL Hgb (14.0-18.0) g/dl Hct (42.0-52.0) % MCV (80.0-98.0) fL MCH (27.0-33.0) pg MCHC (31.0-36.0) g/dl RDW (11.0-16.0) % Plt Count (160-400) X10*3/uL MPV (9.4-12.4) fL Immature Gran % (Auto) (0.0-0.4) % Neut % (Auto) (45-73) % Lymph % (Auto) (20-40) % Gladwin % (Auto) (2-11) % Eos % (Auto) (0-4) % Baso % (Auto) (0-2) % Lymph # (Auto) (1.2-4.9) X10*3/uL Gladwin # (Auto) (0.1-1.2) X10*3/uL Eos # (Auto) (0.0-0.4) X10*3/uL Baso # (Auto) (0.0-0.2) X10*3/uL Abs Immat Gran (auto) (0.00-0.03) X10*3/uL Absolute Neuts (auto) (2.0-8.3) x10*3/uL Absolute Nucleated RBC (0.0-0.012) X10*3/uL Nucleated RBC % (auto) (0.0-0.2) /100WBC PT 16.1 H (9.9-13.0) SEC INR 1.4 H (0.9-1.1) Sodium (135-145) mmol/L Potassium (3.3-5.1) mmol/L Chloride (96-108) mmol/L Carbon Dioxide (22-29) mmol/L Anion Gap (12-20) BUN (9-16) mg/dL Creatinine (0.5-1.4) mg/dL Estim Creat Clear Calc Estimated GFR POC Glucose (60-115) mg/dL Random Glucose (60-115) mg/dL Lactic Acid 1.5 (0.5-2.0) mmol/L Calcium (8.4-10.2) mg/dL Magnesium (1.6-2.6) mg/dL Total Bilirubin (0.0-1.0) mg/dL Direct Bilirubin (0.0-0.5) mg/dL AST (5-37) U/L ALT (0-40) U/L Alkaline Phosphatase (39-117) U/L Troponin I High Sens 20.0 D (<3.5-35.0) ng/L Total Protein (6.5-8.0) g/dL Albumin (3.5-5.0) g/dL Lipase (8-78) U/L Urine Color Urine Appearance Urine pH (5.0-8.0) Ur Specific Clover (1.005-1.025) Urine Protein (NEG-TRACE) MG/DL Urine Glucose (UA) (NEG) MG/DL Urine Ketones (NEG) MG/DL Urine Blood (NEG) Urine Nitrite (NEG) Ur Leukocyte Esterase (NEG) Urine RBC (0) /HPF Urine WBC (0-4) /HPF Ur Squamous Epith Cells /LPF Urine Bacteria /LPF Hyaline Casts /LPF COVID-19 (NELIDA) (Negative) COVID-19 Clin Com 12/10/21 12/10/21 Range/Units 17:07 17:45 WBC (4.8-10.8) X10*3/uL RBC (4.60-5.80) X10*6/uL Hgb (14.0-18.0) g/dl Hct (42.0-52.0) % MCV (80.0-98.0) fL MCH (27.0-33.0) pg MCHC (31.0-36.0) g/dl RDW (11.0-16.0) % Plt Count (160-400) X10*3/uL MPV (9.4-12.4) fL Immature Gran % (Auto) (0.0-0.4) % Neut % (Auto) (45-73) % Lymph % (Auto) (20-40) % Gladwin % (Auto) (2-11) % Eos % (Auto) (0-4) % Baso % (Auto) (0-2) % Lymph # (Auto) (1.2-4.9) X10*3/uL Gladwin # (Auto) (0.1-1.2) X10*3/uL Eos # (Auto) (0.0-0.4) X10*3/uL Baso # (Auto) (0.0-0.2) X10*3/uL Abs Immat Gran (auto) (0.00-0.03) X10*3/uL Absolute Neuts (auto) (2.0-8.3) x10*3/uL Absolute Nucleated RBC (0.0-0.012) X10*3/uL Nucleated RBC % (auto) (0.0-0.2) /100WBC PT (9.9-13.0) SEC INR (0.9-1.1) Sodium (135-145) mmol/L Potassium (3.3-5.1) mmol/L Chloride (96-108) mmol/L Carbon Dioxide (22-29) mmol/L Anion Gap (12-20) BUN (9-16) mg/dL Creatinine (0.5-1.4) mg/dL Estim Creat Clear Calc Estimated GFR POC Glucose (60-115) mg/dL Random Glucose (60-115) mg/dL Lactic Acid (0.5-2.0) mmol/L Calcium (8.4-10.2) mg/dL Magnesium (1.6-2.6) mg/dL Total Bilirubin (0.0-1.0) mg/dL Direct Bilirubin (0.0-0.5) mg/dL AST (5-37) U/L ALT (0-40) U/L Alkaline Phosphatase (39-117) U/L Troponin I High Sens (<3.5-35.0) ng/L Total Protein (6.5-8.0) g/dL Albumin (3.5-5.0) g/dL Lipase (8-78) U/L Urine Color YELLOW Urine Appearance CLEAR Urine pH 5.5 (5.0-8.0) Ur Specific Clover >= 1.030 H (1.005-1.025) Urine Protein 1+ H (NEG-TRACE) MG/DL Urine Glucose (UA) NEG (NEG) MG/DL Urine Ketones NEG (NEG) MG/DL Urine Blood NEG (NEG) Urine Nitrite NEG (NEG) Ur Leukocyte Esterase NEG (NEG) Urine RBC 0 (0) /HPF Urine WBC 0-2 (0-4) /HPF Ur Squamous Epith Cells 1+ /LPF Urine Bacteria TRACE /LPF Hyaline Casts 1-4 /LPF COVID-19 (NELIDA) Negative (Negative) COVID-19 Clin Com See Note Imaging Data Chest x-ray: Radiologist's impression: FINDINGS: No significant abnormality is noted involving the heart, lungs, mediastinum, bony thorax or soft tissues. XR/XR chest 1V IMPRESSION: Unremarkable chest examination.. No change from 01/31/2022 Discharge Plan Discharge Clinical Impression: Decubitus ulcer, Fever Patient Disposition: Admitted As Inpatient
[2021-12-10 15:58] VITALS: PULSE 104; RESP 18; TEMP 39.3; O2SAT 95; BMI 22.1
[2021-12-10 16:03] VITALS: BP 106/51
[2021-12-10 16:15] LABS: Glucose, Whole Blood 128 mg/dL (60-115)
--- NOTE | 2021-12-10 16:48 | PC.NURSE ---
IV infiltrated - no other access visible. notified Dr.. Harris who plans to place a IV in the neck
[2021-12-10 17:14] LABS: MANUAL DIFF FLAG NO
[2021-12-10 17:19] LABS: Basophils Percent Auto 0.2 % (0-2); Eosinophils Percent Auto 0.1 % (0-4); Hematocrit 28.1 % (42.0-52.0); Hemoglobin 8.3 g/dl (14.0-18.0); Imm Gran Abs Auto 0.08 X10*3/uL (0.00-0.03); Imm Gran Pct Auto 0.7 % (0.0-0.4); Lymphocytes Absolute Auto 1.1 X10*3/uL (1.2-4.9); Mean Corpuscular HGB Conc 29.5 g/dl (31.0-36.0); Mean Corpuscular Hemoglobin 25.2 pg (27.0-33.0); Mean Corpuscular Volume 85.2 fL (80.0-98.0); Mean Platelet Volume 10.4 fL (9.4-12.4); Monocytes Absolute Auto 1.1 X10*3/uL (0.1-1.2); Neutrophils Absolute Auto 8.6 x10*3/uL (2.0-8.3); Platelet Count 396 X10*3/uL (160-400); Red Cell Distribution Width 14.7 % (11.0-16.0); White Blood Count 10.9 X10*3/uL (4.8-10.8)
[2021-12-10 17:29] LABS: Lactic Acid 1.5 mmol/L (0.5-2.0)
--- NOTE | 2021-12-10 17:35 | PC.NURSE ---
pt a difficult stick. multiple attempts to obtain blood. IV ABX late due to difficult stick. phlebotomy called, informed staff that another tech needs to atempt blood before they come up
[2021-12-10 17:36] LABS: INTERNATIONAL NORM RATIO 1.4 (0.9-1.1); Prothrombin Time 16.1 SEC (9.9-13.0)
[2021-12-10 17:40] LABS: Alanine Aminotransferase 47 U/L (0-40); Albumin Level 2.6 g/dL (3.5-5.0); Alkaline Phosphatase 173 U/L (39-117); Anion Gap 14 (12-20); Aspartate Amino Transferase 60 U/L (5-37); Bilirubin Direct 0.2 mg/dL (0.0-0.5); Bilirubin Total 0.4 mg/dL (0.0-1.0); Blood Urea Nitrogen 19 mg/dL (9-16); Calcium 9.4 mg/dL (8.4-10.2); Carbon Dioxide 29 mmol/L (22-29); Chloride 103 mmol/L (96-108); Creatinine Clr Calc Pharmacy 59.1; Estimated Glomerular Filt Rate > 60; Glucose Random 160 mg/dL (60-115); Lipase 28 U/L (8-78); Magnesium 2.1 mg/dL (1.6-2.6); Potassium 4.7 mmol/L (3.3-5.1); Sodium 141 mmol/L (135-145); Total Protein 6.3 g/dL (6.5-8.0)
[2021-12-10] MEDS: 0.9 % Sodium Chloride 1,000 ML 999 ML IVCONT ×2 (17:42)
[2021-12-10 17:43] LABS: COVID-19 Test Negative (Negative); IDNOW Serial# 16C4AD1C
[2021-12-10 18:02] LABS: Appearance Urine CLEAR; Color Urine YELLOW; Glucose Urine UA NEG (NEG); Leukocyte Esterase Urine NEG (NEG); Nitrite Urine NEG (NEG); PH 5.5 (5.0-8.0); Specific Gravity - Urine >= 1.030 (1.005-1.025); UACC Culture Trigger NO; Urine Blood NEG (NEG); Urine Ketones NEG (NEG); Urine Protein 1+ MG/DL (NEG-TRACE)
[2021-12-10 18:15] LABS: RBC Urine 0 /HPF (0); WBC Urine 0-2 /HPF (0-4)
[2021-12-10 18:16] LABS: Bacteria Urine TRACE /LPF; Squamous Epithelial Cell Urine 1+ /LPF
--- NOTE | 2021-12-10 18:22 | PC.NURSE ---
phlebotomy at bedside [id number] to attempt second blood culture obtainment, phlebotomy Kym unable to obtain blood as well. informed PCT that another tech will be able to try around 1899 - informed dr kim about this and she encouraged t/w to start abx at this time given pt condition.
--- NOTE | 2021-12-10 18:30 | PC.NURSE ---
IV infiltrated - no other access visible. notified Dr.. Harris who plans to place a IV in the neck
[2021-12-10] MEDS: Lidocaine HCl 2 % MPF 5 ML VIAL 10 ML INFILTRATI (19:44)
[2021-12-10] MEDS: Piperacillin Sodium/Tazobactam 3.375 GM in 0.9 % Sodium Chloride 50 ML IV (19:44)
--- NOTE | 2021-12-10 19:44 | PC.NURSE ---
Dr kim placed a 18G EJ in the R side, continued with order to start IV ANX given time and that phlebotomy did not have staff available to draw second culture set. 20G in R AC not working, plan to remove
[2021-12-10] MEDS: iohexoL 350 MG/ML 100 ML INFUS..BTL IV (19:59)
[2021-12-10 20:00] VITALS: BP 135/35; PULSE 96; RESP 18; TEMP 37.6
--- NOTE | 2021-12-10 21:01 | PHA.MEDREC ---
MED REC COMPLETE, PT WAS JUST ON AUGMENTIN 875/125 MG BID FOR 5 DAYS, SHOULD BE COMPLETE BASED ON DATES Pharmacy Consult ? Medication Reconciliation Pharmacy has completed the medication reconciliation.
[2021-12-10] MEDS: vancomycin HCL 750 MG in 0.9 % Sodium Chloride 250 ML 265 MG IV (21:17)
[2021-12-10 21:34] VITALS: BP 95/42; PULSE 84; RESP 20
--- NOTE | 2021-12-10 21:44 | P.HPHOSP_ITS ---
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 patient has recurrent admissions because of the fever. Patient is high risk for aspiration. Per patient's daughter at bedside patient was doing okay until yesterday and today pain she got a call mentioned that patient is more lethargic; denies patient having any cough or sputum production. Noted to have fever. Subsequently sent to the hospital for further evaluation. Reports that he has this decubitus ulcer which has been taken care of the senior living. But not healing. Denies patient complaining of any chest pain or palpitations. Reports patient is nonverbal, nonambulatory, mentions heel ulcers are improving. Review of all other systems is negative except mentioned above ER course: Per ER team patient noted to febrile; labs essentially benign at baseline; urinalysis negative ; CT abdomen showed decubitus ulcer with no further extension or bone involvement. Also noted to have stercoral colitis. Chest x- ray unchanged from prior. Given broad-spectrum antibiotics. Admitted for further management. [facility] Medical History Cataract Dementia Fracture of radial head, left, closed Frostbite of both lower extremities Kidney failure Primary localized osteoarthritis of knees, bilateral Primary osteoarthritis of left knee Toxic metabolic encephalopathy Wound of foot Family History Father Throat cancer Mother Hypertension Social History Household Members: Children Housing: Apartment Do you presently have visiting nurse or other home services: No Unable to assess alcohol history related to: Unknown Alcohol intake: never Patient Tobacco Use Status: Former Tobacco user Smoked in Last 30 Days: No Use of substances other than those prescribed or required for medical reasons: No Advance Directives: No Advance Directives Information Provided: No service: No Current occupational status: retired Current occupation: right handed Meds Allergies Allergy/AdvReac Type Severity Reaction Status Date / Time No Known Allergies Allergy Unknown Verified 09/20/21 17:41 Active Medications: Current Medications Atorvastatin Calcium (Atorvastatin Calcium 20 Mg Tablet) 20 mg PO BEDTIME [facility] Divalproex Sodium (Divalproex Sodium 250 Mg Tablet.) 250 mg PO DAILY [facility] Piperacillin Sod/Tazobactam (Sod 3.375 gm/ Sodium Chloride) 50 mls @ 100 mls/hr IV Q6H [facility] Vancomycin HCl 1,000 mg/ (Sodium Chloride) 270 mls @ 270 mls/hr IV Q12H [facility] Memantine (Memantine Hcl 10 Mg Tablet) 10 mg PO BID [facility] Mirtazapine (Mirtazapine 15 Mg Tablet) 15 mg PO BEDTIME [facility] Multivitamins/Vitamin C (Multivitamin Tablet) 1 tab PO DAILY [facility] Non-Formulary Medication (Galantamine) 8 mg PO BID [facility] Omeprazole (Omeprazole 40 Mg Capsule.) 40 mg PO BID [facility] Pharmacy Consult (Consult Rx Perform Med Rec) 1 each MISCELLANE ONCE PRN PRN Reason: Consult order Pharmacy Consult (Consult Rx Vancomycin Dosing) 1 each MISCELLANE DAILY PRN PRN Reason: Consult order Quetiapine Fumarate (Quetiapine Fumarate 50 Mg Tablet) 50 mg PO BID [facility] Home Medications Medication Instructions Recorded Confirmed Last Taken Type atorvastatin 20 mg tablet 20 mg PO BEDTIME 02/09/21 12/10/21 10/11/21 History galantamine 8 mg tablet 8 mg PO BID 02/09/21 12/10/21 10/11/21 History memantine 10 mg tablet 10 mg PO BID 02/09/21 12/10/21 10/11/21 History quetiapine 50 mg tablet 50 mg PO BID 02/09/21 12/10/21 10/11/21 History mirtazapine 15 mg tablet 1 tab PO BEDTIME 10/16/21 12/10/21 10/11/21 History divalproex 250 mg tablet,delayed 250 mg PO DAILY 12/10/21 12/10/21 Unknown History release (Depakote) multivitamin with minerals 1 tab PO DAILY 12/10/21 12/10/21 Unknown History Physical Exam Vital Signs and Narrative: Vital Signs: Last Vital Signs Temp 99.7 F 12/10/21 20:00 Pulse 84 12/10/21 21:34 Resp 20 12/10/21 21:34 BP 95/42 L 12/10/21 21:34 BMI result Body Mass Index 22.1 Gen: Appears be in no acute distress. Nonverbal. HEENT: NCAT, Moist mucosa. Pulmonary: Vesicular breath sounds, fair air entry CVS: Normal S1-S2 Abdomen: BS+, Soft, Nontender. Has decubitus ulcer with Lilliana's to dark granulation tissue, mild surrounding erythema, about 5 x5 cm in size; Extremities: Warm well perfused; right heel ulcer appears healing. Dressing in place. No discharge.; Chronic skin changes on the bilateral foot Neuro: Alert and awake. able to wiggle the toes; moves all the upper extremi ties equally; rest of the exam limited as patient has dementia. Results Labs CBC and Chem 7: 12/10/21 17:07 12/10/21 17:07 Labs: Laboratory Results - last 24 hr 12/10/21 12/10/21 12/10/21 16:01 17:07 17:07 MCV 85.2 MCH 25.2 L MCHC 29.5 L RDW 14.7 Plt Count 396 D MPV 10.4 Immature Gran % (Auto) 0.7 H Neut % (Auto) 79.0 H Lymph % (Auto) 10.0 L Love % (Auto) 10.0 Eos % (Auto) 0.1 Baso % (Auto) 0.2 Lymph # (Auto) 1.1 L Love # (Auto) 1.1 Eos # (Auto) 0.0 Baso # (Auto) 0.0 Abs Immat Gran (auto) 0.08 H Absolute Neuts (auto) 8.6 H Absolute Nucleated RBC 0.000 Nucleated RBC % (auto) 0.0 PT INR Anion Gap 14 Estim Creat Clear Calc 59.1 Estimated GFR > 60 POC Glucose 128 H Random Glucose 160 H Lactic Acid Calcium 9.4 D Magnesium 2.1 Total Bilirubin 0.4 Direct Bilirubin 0.2 AST 60 H ALT 47 H Alkaline Phosphatase 173 H D Total Protein 6.3 L Albumin 2.6 L Lipase 28 Urine Color Urine Appearance Urine pH Ur Specific Morrison Urine Protein Urine Glucose (UA) Urine Ketones Urine Blood Urine Nitrite Ur Leukocyte Esterase Urine RBC Urine WBC Ur Squamous Epith Cells Urine Bacteria Hyaline Casts COVID-19 ([facility]) COVID-19 Clin Com 12/10/21 12/10/21 12/10/21 17:07 17:07 17:07 MCV MCH MCHC RDW Plt Count MPV Immature Gran % (Auto) Neut % (Auto) Lymph % (Auto) Love % (Auto) Eos % (Auto) Baso % (Auto) Lymph # (Auto) Love # (Auto) Eos # (Auto) Baso # (Auto) Abs Immat Gran (auto) Absolute Neuts (auto) Absolute Nucleated RBC Nucleated RBC % (auto) PT 16.1 H INR 1.4 H Anion Gap Estim Creat Clear Calc Estimated GFR POC Glucose Random Glucose Lactic Acid 1.5 Calcium Magnesium Total Bilirubin Direct Bilirubin AST ALT Alkaline Phosphatase Total Protein Albumin Lipase Urine Color Urine Appearance Urine pH Ur Specific Morrison Urine Protein Urine Glucose (UA) Urine Ketones Urine Blood Urine Nitrite Ur Leukocyte Esterase Urine RBC Urine WBC Ur Squamous Epith Cells Urine Bacteria Hyaline Casts COVID-19 ([facility]) Negative COVID-19 Clin Com See Note 12/10/21 17:45 MCV MCH MCHC RDW Plt Count MPV Immature Gran % (Auto) Neut % (Auto) Lymph % (Auto) Love % (Auto) Eos % (Auto) Baso % (Auto) Lymph # (Auto) Love # (Auto) Eos # (Auto) Baso # (Auto) Abs Immat Gran (auto) Absolute Neuts (auto) Absolute Nucleated RBC Nucleated RBC % (auto) PT INR Anion Gap Estim Creat Clear Calc Estimated GFR POC Glucose Random Glucose Lactic Acid Calcium Magnesium Total Bilirubin Direct Bilirubin AST ALT Alkaline Phosphatase Total Protein Albumin Lipase Urine Color YELLOW Urine Appearance CLEAR Urine pH 5.5 Ur Specific Morrison >= 1.030 H Urine Protein 1+ H Urine Glucose (UA) NEG Urine Ketones NEG Urine Blood NEG Urine Nitrite NEG Ur Leukocyte Esterase NEG Urine RBC 0 Urine WBC 0-2 Ur Squamous Epith Cells 1+ Urine Bacteria TRACE Hyaline Casts 1-4 COVID-19 ([facility]) COVID-19 Clin Com Imaging Radiologist's Impressions: Impressions Chest X-Ray 12/10/21 16:20 IMPRESSION: Unremarkable chest examination.. No change from 01/31/2022 Abdomen/Pelvis CT 12/10/21 20:08 IMPRESSION: 1. There is a decubitus ulcer with surrounding skin thickening and fat stranding in close proximity to the lower sacrum/coccyx. Although on this examination there is no discrete cortical disruption to suspect osteomyelitis, if there is high clinical suspicious for extension into the bone, correlation with an MR is recommended. 2. Redemonstration of significant amount of rectal stool content with presacral fat stranding and free fluid and some degree of circumferential rectal wall thickening raising the possibility of stercoral colitis. 3. Increased urinary bladder wall thickening. Correlate with urinalysis and clinically for signs of infection. 4. Prostatomegaly. 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 Fever: Patient has recurrent admissions for aspiration pneumonia. Patient has high risk for aspiration. aspiration precautions. recent history of pneumonia: Patient currently denies any respiratory symptoms. Per patient's daughter patient able to swallow okay. Chest x-ray showed no significant change in pneumonia. decubitus ulcer: Noted and yellow to dark granulation tissue. No crepitus on exam. CT scan pending. patient on IV Vancomycin and Zosyn. Id consult. Wound consult and General surgery consult. Pressure ulcer care per RN. stercoral colitis: Patient on antibiotics. Bowel regimen. General surgery consult. history of bilateral foot frostbite: Patient had heel ulcer on the right foot. Appears healing. Chronic skin changes on the bilateral foot noted. history of dementia: Continue home memantine, gelantamine, mirtazapine, Depakote. history of dysphagia: Patient on pureed diet. Nursing swallow screen.Speech and swallow eval again. DVT prophylaxis: Subcu heparin Code status: Full code. Confirmed with the patient's daughter Quality Stroke Does the patient have a stroke diagnosis?: No VTE Prior VTE?: No VTE Risk Level:: Medical - moderate - high VTE Device Contraindication: Treatment Not Indicated VTE Drug Contraindication: N/A - Med Ordered
[2021-12-10 21:53] VITALS: BP 101/40; PULSE 83; RESP 17
--- NOTE | 2021-12-10 22:04 | PHA.PROG ---
Admission Date/Time: December 10, 2021 21:42 Indication: Weight in k kg Adjusted body weight in K.4 [place] body weight in K.4 Obesity Dosing Indication % IBW: Serum Creatinine - Last 168 Hours 12/10/21 17:07 Creatinine 0.93 Estimated CrCl and GFR - Last 168 Hours 12/10/21 17:07 Estim Creat Clear Calc 59.1 Estimated GFR > 60 Vancomycin Loading Dose: 750 MG + 500 MG Current Vancomycin Dosing Regimen: 1000 MG Q24H Vancomycin Monitoring using AUC goal of 400 - 600 range with trough as surrogate marker: PREDICTED AUC 417 Date and Time for next Vancomycin Level to be drawn: 12/12/21 @1800 Pharmacist Comments on Vancomycin Plan: Vancomycin dosing will take advantage of [employer] as a clinical decision support tool that uses Bayesian modeling to calculate individual patient's pharmacokinetic parameters and forecast the patient's drug concentration time course with the target goal AUC 24 range of 400 - 600 mg/L/hr.
[2021-12-10] MEDS: 0.9 % Sodium Chloride 500 ML IV (23:00)
[2021-12-10] MEDS: Heparin Sodium,Porcine 5,000 UNIT/ML VIAL 5000 UNIT SUBCUT (23:03)
[2021-12-10 23:05] VITALS: BP 119/58; PULSE 90; RESP 16; O2SAT 98
[2021-12-11] VITALS (9 sets, daily range): BP systolic 99–133; BP diastolic 33–57; PULSE 66–84; RESP 16–20; TEMP 36.5–37.4; O2SAT 100
--- NOTE | 2021-12-11 00:12 | PC.NURSE ---
pt repositioned q2 hours for skin breakdown to the coccxy and ankle.
[2021-12-11] MEDS: 0.9 % Sodium Chloride 1,000 ML 75 ML IVCONT ×2 (00:15→17:25)
[2021-12-11] MEDS: Piperacillin Sodium/Tazobactam 3.375 GM in 0.9 % Sodium Chloride 50 ML IV ×4 (01:41→20:46)
--- NOTE | 2021-12-11 04:52 | PC.NURSE ---
pic taken of wounds to coccyx, ankle, by prev rn and sent to the doctor. no ink for printer.
[2021-12-11] MEDS: Heparin Sodium,Porcine 5,000 UNIT/ML VIAL 5000 UNIT SUBCUT ×3 (05:48→20:47)
--- NOTE | 2021-12-11 05:55 | PC.NURSE ---
pt still sleeping and not awake enough to give po medication at this time. will give omeprizol when more awake.
--- NOTE | 2021-12-11 07:11 | PC.NURSE ---
care assumed for pt at this time, pt resting in bed comfortably with eyes open. resp even and unlabored. plan for admission at this time.
[2021-12-11 07:26] LABS: MANUAL DIFF FLAG NO
[2021-12-11 07:31] LABS: Basophils Absolute Auto 0.1 X10*3/uL (0.0-0.2); Basophils Percent Auto 0.5 % (0-2); Eosinophils Percent Auto 0.4 % (0-4); Hematocrit 29.2 % (42.0-52.0); Hemoglobin 8.2 g/dl (14.0-18.0); Imm Gran Abs Auto 0.07 X10*3/uL (0.00-0.03); Imm Gran Pct Auto 0.6 % (0.0-0.4); Lymphocytes Absolute Auto 1.9 X10*3/uL (1.2-4.9); Lymphocytes Percent Auto 17.1 % (20-40); Mean Corpuscular HGB Conc 28.1 g/dl (31.0-36.0); Mean Corpuscular Hemoglobin 24.8 pg (27.0-33.0); Mean Corpuscular Volume 88.5 fL (80.0-98.0); Mean Platelet Volume 10.5 fL (9.4-12.4); Monocytes Absolute Auto 1.4 X10*3/uL (0.1-1.2); Monocytes Percent Auto 12.1 % (2-11); Neutrophils Absolute Auto 7.8 x10*3/uL (2.0-8.3); Neutrophils Percent Auto 69.3 % (45-73); Platelet Count 379 X10*3/uL (160-400); Red Cell Distribution Width 14.7 % (11.0-16.0); White Blood Count 11.3 X10*3/uL (4.8-10.8)
[2021-12-11 07:42] LABS: Anion Gap 14 (12-20); Blood Urea Nitrogen 17 mg/dL (9-16); Carbon Dioxide 23 mmol/L (22-29); Chloride 107 mmol/L (96-108); Creatinine Clr Calc Pharmacy 74.3; Estimated Glomerular Filt Rate > 60; Glucose Random 113 mg/dL (60-115); Potassium 4.2 mmol/L (3.3-5.1); Sodium 140 mmol/L (135-145)
[2021-12-11] MEDS: QUEtiapine Fumarate 50 MG TABLET PO (08:41)
--- NOTE | 2021-12-11 09:12 | PC.NURSE ---
multiple attempts to give am meds. attempted to crush and give in pudding. pt refusing to open mouth. contacting speech at this time time.
--- NOTE | 2021-12-11 09:28 | P.PNIM_ITS ---
Subjective Subjective Date of Service: 12/11/21 Interval History: F/u fever ? PNA Interval history: patient all in all looks better than recent admission, there is no more fever, no sob, no hypoxia Review of Systems Review of Systems: Yes Unobtainable due to mental status Physical Exam Vital Signs: Vital Signs: Last Vital Signs Temp 99.7 F 12/10/21 20:00 Pulse 83 12/11/21 07:22 Resp 19 12/11/21 07:22 BP 124/57 L 12/11/21 07:22 Pulse Ox 100 12/11/21 04:41 BMI result Body Mass Index 22.1 Const: Other: General: confused, baseline Resp: CTA bilateral CVS: S1,S2,RRR GI: +BS, NT, no distention Skin: decub ulcer present on admission Neuro: motor grossly intact Psych: appropriate affect Objective Data Active Medications Acetaminophen (Acetaminophen 325 Mg Tablet) 650 mg PO Q6H PRN PRN Reason: Pain, Mild (Pain Scale 1-3) Atorvastatin Calcium (Atorvastatin Calcium 20 Mg Tablet) 20 mg PO BEDTIME [facility] Divalproex Sodium (Divalproex Sodium 250 Mg Tablet.Dr) 250 mg PO DAILY [facility] Last Admin: 12/11/21 09:13 Dose: Not Given Documented by: NENO Non-Admin Reason: Patient Refused Galantamine Hydrobromide (Galantamine Hbr 4 Mg Tablet) 8 mg PO BID [facility] Last Admin: 12/11/21 09:14 Dose: Not Given Documented by: NENO Non-Admin Reason: Patient Refused Heparin Sodium (Porcine) (Heparin Sodium,Porcine 5,000 Unit/Ml Vial) 5,000 unit SUBCUT Q8H [facility] Last Admin: 12/11/21 05:48 Dose: 5,000 unit Documented by: EUGENIO Piperacillin Sod/Tazobactam (Sod 3.375 gm/ Sodium Chloride) 50 mls @ 100 mls/hr IV Q6H [facility] Last Admin: 12/11/21 06:00 Dose: 100 mls/hr Documented by: EUGENIO Vancomycin HCl 1,000 mg/ (Sodium Chloride) 270 mls @ 270 mls/hr IV Q24H [facility] Sodium Chloride (Ns) 1,000 mls @ 75 mls/hr IVCONT .[id number] [facility] Last Admin: 12/11/21 00:15 Dose: 75 mls/hr Documented by: EUGENIO Melatonin (Melatonin 3 Mg Tablet) 6 mg PO BEDTIME PRN PRN Reason: Insomnia Memantine (Memantine Hcl 10 Mg Tablet) 10 mg PO BID [facility] Last Admin: 12/11/21 09:14 Dose: Not Given Documented by: NENO Non-Admin Reason: Patient Refused Mirtazapine (Mirtazapine 15 Mg Tablet) 15 mg PO BEDTIME [facility] Multivitamins/Vitamin C (Multivitamin Tablet) 1 tab PO DAILY [facility] Last Admin: 12/11/21 09:13 Dose: Not Given Documented by: NENO Non-Admin Reason: Patient Refused Omeprazole (Omeprazole 40 Mg Capsule.) 40 mg PO BID@0630,1630 [facility] Last Admin: 12/11/21 09:14 Dose: Not Given Documented by: NENO Non-Admin Reason: Patient Refused Pharmacy Consult (Consult Rx Perform Med Rec) 1 each MISCELLANE ONCE PRN PRN Reason: Consult order Pharmacy Consult (Consult Rx Vancomycin Dosing) 1 each MISCELLANE DAILY PRN PRN Reason: Consult order Quetiapine Fumarate (Quetiapine Fumarate 50 Mg Tablet) 50 mg PO BID [facility] Last Admin: 12/11/21 08:41 Dose: 50 mg Documented by: NENO Senna (Sennosides 8.6 Mg Tablet) 17.2 mg PO BEDTIME PRN PRN Reason: Constipation Senna (Senna Early Extract Oral Syrup 15 Ml Syrup) 7.5 ml PO BEDTIME [facility] Sodium Chloride (0.9 % Sodium Chloride Flush 3 Ml Syringe) 3 ml IVFLUSH QSHIFT [facility] Last Admin: 12/11/21 08:41 Dose: Not Given Documented by: NENO Non-Admin Reason: IV Running Labs CBC & Chem 7: 12/11/21 06:38 12/11/21 07:02 Labs: Laboratory Results - last 24 hr 12/10/21 12/10/21 12/10/21 16:01 17:07 17:07 MCV 85.2 MCH 25.2 L MCHC 29.5 L RDW 14.7 Plt Count 396 D MPV 10.4 Immature Gran % (Auto) 0.7 H Neut % (Auto) 79.0 H Lymph % (Auto) 10.0 L [place] % (Auto) 10.0 Eos % (Auto) 0.1 Baso % (Auto) 0.2 Lymph # (Auto) 1.1 L [place] # (Auto) 1.1 Eos # (Auto) 0.0 Baso # (Auto) 0.0 Abs Immat Gran (auto) 0.08 H Absolute Neuts (auto) 8.6 H Absolute Nucleated RBC 0.000 Nucleated RBC % (auto) 0.0 PT INR Anion Gap 14 Estim Creat Clear Calc 59.1 Estimated GFR > 60 POC Glucose 128 H Random Glucose 160 H Lactic Acid Calcium 9.4 D Magnesium 2.1 Total Bilirubin 0.4 Direct Bilirubin 0.2 AST 60 H ALT 47 H Alkaline Phosphatase 173 H D Troponin I High Sens Total Protein 6.3 L Albumin 2.6 L Lipase 28 Urine Color Urine Appearance Urine pH Ur Specific [place] Urine Protein Urine Glucose (UA) Urine Ketones Urine Blood Urine Nitrite Ur Leukocyte Esterase Urine RBC Urine WBC Ur Squamous Epith Cells Urine Bacteria Hyaline Casts COVID-19 (NELIDA) COVID-19 [place] 12/10/21 12/10/21 12/10/21 17:07 17:07 17:07 MCV MCH MCHC RDW Plt Count MPV Immature Gran % (Auto) Neut % (Auto) Lymph % (Auto) [place] % (Auto) Eos % (Auto) Baso % (Auto) Lymph # (Auto) [place] # (Auto) Eos # (Auto) Baso # (Auto) Abs Immat Gran (auto) Absolute Neuts (auto) Absolute Nucleated RBC Nucleated RBC % (auto) PT 16.1 H INR 1.4 H Anion Gap Estim Creat Clear Calc Estimated GFR POC Glucose Random Glucose Lactic Acid 1.5 Calcium Magnesium Total Bilirubin Direct Bilirubin AST ALT Alkaline Phosphatase Troponin I High Sens 20.0 D Total Protein Albumin Lipase Urine Color Urine Appearance Urine pH Ur Specific [place] Urine Protein Urine Glucose (UA) Urine Ketones Urine Blood Urine Nitrite Ur Leukocyte Esterase Urine RBC Urine WBC Ur Squamous Epith Cells Urine Bacteria Hyaline Casts COVID-19 (NELIDA) COVID-19 [place]rong 12/10/21 12/10/21 12/11/21 17:07 17:45 06:38 MCV 88.5 MCH 24.8 L MCHC 28.1 L RDW 14.7 Plt Count 379 MPV 10.5 Immature Gran % (Auto) 0.6 H Neut % (Auto) 69.3 Lymph % (Auto) 17.1 L [place] % (Auto) 12.1 H Eos % (Auto) 0.4 Baso % (Auto) 0.5 Lymph # (Auto) 1.9 [place] # (Auto) 1.4 H Eos # (Auto) 0.0 Baso # (Auto) 0.1 Abs Immat Gran (auto) 0.07 H Absolute Neuts (auto) 7.8 Absolute Nucleated RBC 0.000 Nucleated RBC % (auto) 0.0 PT INR Anion Gap Estim Creat Clear Calc Estimated GFR POC Glucose Random Glucose Lactic Acid Calcium Magnesium Total Bilirubin Direct Bilirubin AST ALT Alkaline Phosphatase Troponin I High Sens Total Protein Albumin Lipase Urine Color YELLOW Urine Appearance CLEAR Urine pH 5.5 Ur Specific [place] >= 1.030 H Urine Protein 1+ H Urine Glucose (UA) NEG Urine Ketones NEG Urine Blood NEG Urine Nitrite NEG Ur Leukocyte Esterase NEG Urine RBC 0 Urine WBC 0-2 Ur Squamous Epith Cells 1+ Urine Bacteria TRACE Hyaline Casts 1-4 COVID-19 (NELIDA) Negative COVID-19 Clin Com See Note 12/11/21 07:02 MCV MCH MCHC RDW Plt Count MPV Immature Gran % (Auto) Neut % (Auto) Lymph % (Auto) [place] % (Auto) Eos % (Auto) Baso % (Auto) Lymph # (Auto) [place] # (Auto) Eos # (Auto) Baso # (Auto) Abs Immat Gran (auto) Absolute Neuts (auto) Absolute Nucleated RBC Nucleated RBC % (auto) PT INR Anion Gap 14 Estim Creat Clear Calc 74.3 Estimated GFR > 60 POC Glucose Random Glucose 113 Lactic Acid Calcium 9.0 Magnesium Total Bilirubin Direct Bilirubin AST ALT Alkaline Phosphatase Troponin I High Sens Total Protein Albumin Lipase Urine Color Urine Appearance Urine pH Ur Specific [place] Urine Protein Urine Glucose (UA) Urine Ketones Urine Blood Urine Nitrite Ur Leukocyte Esterase Urine RBC Urine WBC Ur Squamous Epith Cells Urine Bacteria Hyaline Casts COVID-19 (NELIDA) COVID-19 Clin Com Assessment and Plan (1) Fever: Status: Acute (2) Aspiration pneumonia: Status: Acute Plan 81-year-old male with a past medical history of advanced dementia, hypertension, history of frostbite in September of 2021; for anemia secondary to GI bleed - discontinued aspirin; gastric ulcer; 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 decubitus ulcer ; ? Recent admission to the hospital for sepsis/ aspiration pneumonia presented to the hospital today with a chief complaint of fever. Fever likely from recurrent aspiration pneumonia continue Zostn and Vanco for now. Awaiting ID consult Chronic decub ulcer, no change, don't believe it is the source of infection, surgery consult ?stercoral colitis:? Patient on antibiotics.? Bowel regimen.? General surgery consult. ?history of bilateral foot frostbite: Patient had heel ulcer on the right foot.? Appears healing.? Chronic skin changes on the bilateral foot noted.? ?history of dementia: Continue home memantine, gelantamine, mirtazapine, Depakote. ?history of dysphagia:? Patient on pureed diet.? Nursing swallow screen.Speech and swallow eval again. ?DVT prophylaxis:? Subcu heparin Code status:? Full code.? Confirmed with the patient's daughter Quality Stroke Does the patient have a stroke diagnosis?: No VTE Prior VTE?: No VTE Risk Level:: Medical - moderate - high VTE Device Contraindication: Treatment Not Indicated VTE Drug Contraindication: N/A - Med Ordered
--- NOTE | 2021-12-11 12:13 | MHC.SL.SWA ---
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 Liquid Consistency and Strategies for Safe Swallow: Liquid Intake Recommendation: [place] Thick Liquid Intake Strategies: Small Sips No Straws Solid Food Consistency: Dietary Recommendations: Pureed (NDD1) Additional Modifications to Solid Foods: Pt must be alert and engaged in the meal. Pt requires strict 1-1 supervision during all meals. Oral Medication Intake: Crushed with Puree Please contact the pharmacy regarding appropriate crushable or liquid drug formulations that are available whenever modified delivery is recommended. Compensatory Strategies and Precautions to be Taken for Safe Swallow: Sitting Upright (90 deg) Liquids from Cup Small Bites and Sips Alternate Liquids/Solids Oral Check Supervision While Eating and Drinking for Safe Swallow: Total Supervision (1:1) Foods to Avoid: Avoid overly sticky textures Swallowing Recommended Treatments: Compens. Strategy Educat. 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 Baseline diet is PUREE (NDD1) w/ THIN liquids. Today on BSE, Pt noted to have more difficulty managing THIN liquids, producing multiple swallows on small amount of liquid, reduced laryngeal transit on swallow, and wet voice after presentations. Pt tolerated NECTAR thick liquids, w/improved oral management, mildly reduced laryngeal elevation on swallow, no clinical s/s aspiration. On Puree, Pt had mild delay initiating swallow, mildly reduced elevation of larynx on swallow, not clinical s/s of aspiration. Recommend diet consistencies of PUREE (NDD1), w/ NECTAR THICK liquids, PILLS CRUSHED in PUREE. Pt will require strict, 1-1 supervision during all meals, w/close monitor for aspiration. Do not attempt if Pt is fatigued/not engaged in meal. Frequency/Duration: Date Range for Service Req: Timeline to reassess: Equipment Man Clinican/Clinical Fellow: No Supervisory Statement: I have reviewed and agree with the student/clinical fellow's documentation: N/A Speech Language Pathologist: Elizabeth Chaidez M.A., CCC-LOGGING [employer]TER [employer]ORER
--- NOTE | 2021-12-11 12:27 | PC.NURSE ---
patient resting quietly, patient in no obvious distress. patient difficult to assess for needs due to language barrier and mental status. 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 will continue to monitor
--- NOTE | 2021-12-11 12:42 | PC.NURSE ---
attempted to speak with patient utilizing wellness director. wellness director reports patient is making no sense when talking, and takes a long time to respond. patient in no obvious distress, will continue to monitor
--- NOTE | 2021-12-11 13:53 | PC.NURSE ---
attempted to feed patient at this time. patient refuses to open mouth. patient attempted with net fisher as well. still unsuccessful
--- NOTE | 2021-12-11 14:21 | W.PM.IDCN ---
History of Present Illness Data of Consult Service Date: 12/11/21 Requesting physician: Malik Martinez Primary Care Provider: MD SHANTA Littlejohn Reason for consult: fever of unknown origin He presents from [facility] today lethargy and unable to talk with family. He has no fever or chills. He has been discharged hospital 5 days ago for aspiration pneumonia concerns and is still on Augmentin. Urinalysis negative and CXR some atelectasis and decubitus buttock same. Review of Systems Review of Systems: Yes Unobtainable due to mental condition [facility] Past Medical History Medical History Cataract Dementia Fracture of radial head, left, closed Frostbite of both lower extremities Kidney failure Primary localized osteoarthritis of knees, bilateral Primary osteoarthritis of left knee Toxic metabolic encephalopathy Wound of foot Family History Family History Father Throat cancer Mother Hypertension Family history: reviewed and not pertinent Social History Social History Household Members: Children Housing: Apartment Do you presently have visiting nurse or other home services: No Unable to assess alcohol history related to: Unknown Alcohol intake: never Patient Tobacco Use Status: Former Tobacco user Smoked in Last 30 Days: No Use of substances other than those prescribed or required for medical reasons: No Advance Directives: No Advance Directives Information Provided: No service: No Current occupational status: retired Current occupation: right handed Meds Allergies Allergy/AdvReac Type Severity Reaction Status Date / Time No Known Allergies Allergy Unknown Verified 09/20/21 17:41 Active Medications: Current Medications Acetaminophen (Acetaminophen 325 Mg Tablet) 650 mg PO Q6H PRN PRN Reason: Pain, Mild (Pain Scale 1-3) Atorvastatin Calcium (Atorvastatin Calcium 20 Mg Tablet) 20 mg PO BEDTIME PENDING SALE TO [facility] Divalproex Sodium (Divalproex Sodium 250 Mg Tablet.Dr) 250 mg PO DAILY [facility] Last Admin: 12/11/21 09:13 Dose: Not Given Documented by: Galantamine Hydrobromide (Galantamine Hbr 4 Mg Tablet) 8 mg PO BID [facility] Last Admin: 12/11/21 09:14 Dose: Not Given Documented by: Heparin Sodium (Porcine) (Heparin Sodium,Porcine 5,000 Unit/Ml Vial) 5,000 unit SUBCUT Q8H [facility] Last Admin: 12/11/21 05:48 Dose: 5,000 unit Documented by: Piperacillin Sod/Tazobactam (Sod 3.375 gm/ Sodium Chloride) 50 mls @ 100 mls/hr IV Q6H [facility] Last Infusion: 12/11/21 12:19 Dose: Infused Documented by: Vancomycin HCl 1,000 mg/ (Sodium Chloride) 270 mls @ 270 mls/hr IV Q24H [facility]END[facility] Sodium Chloride (Ns) 1,000 mls @ 75 mls/hr IVCONT .[id number] [facility] Last Admin: 12/11/21 00:15 Dose: 75 mls/hr Documented by: Melatonin (Melatonin 3 Mg Tablet) 6 mg PO BEDTIME PRN PRN Reason: Insomnia Memantine (Memantine Hcl 10 Mg Tablet) 10 mg PO BID [facility] Last Admin: 12/11/21 09:14 Dose: Not Given Documented by: Mirtazapine (Mirtazapine 15 Mg Tablet) 15 mg PO BEDTIME [facility]END[facility] Multivitamins/Vitamin C (Multivitamin Tablet) 1 tab PO DAILY [facility] Last Admin: 12/11/21 09:13 Dose: Not Given Documented by: Omeprazole (Omeprazole 40 Mg Capsule.Dr) 40 mg PO BID@0630,1630 [facility] Last Admin: 12/11/21 09:14 Dose: Not Given Documented by: Pharmacy Consult (Consult Rx Perform Med Rec) 1 each MISCELLANE ONCE PRN PRN Reason: Consult order Pharmacy Consult (Consult Rx Vancomycin Dosing) 1 each MISCELLANE DAILY PRN PRN Reason: Consult order Quetiapine Fumarate (Quetiapine Fumarate 50 Mg Tablet) 50 mg PO BID [facility] Last Admin: 12/11/21 08:41 Dose: 50 mg Documented by: Senna (Sennosides 8.6 Mg Tablet) 17.2 mg PO BEDTIME PRN PRN Reason: Constipation Senna (Senna [place] Extract Oral Syrup 15 Ml Syrup) 7.5 ml PO BEDTIME [facility]END[facility] Sodium Chloride (0.9 % Sodium Chloride Flush 3 Ml Syringe) 3 ml IVFLUSH QSHIFT [facility]END[facility] TO [facility] Last Admin: 12/11/21 08:41 Dose: Not Given Documented by: Home Medications Medication Instructions Recorded Confirmed Last Taken Type atorvastatin 20 mg tablet 20 mg PO BEDTIME 02/09/21 12/10/21 10/11/21 History galantamine 8 mg tablet 8 mg PO BID 02/09/21 12/10/21 10/11/21 History memantine 10 mg tablet 10 mg PO BID 02/09/21 12/10/21 10/11/21 History quetiapine 50 mg tablet 50 mg PO BID 02/09/21 12/10/21 10/11/21 History mirtazapine 15 mg tablet 1 tab PO BEDTIME 10/16/21 12/10/21 10/11/21 History divalproex 250 mg tablet,delayed 250 mg PO DAILY 12/10/21 12/10/21 Unknown History release (Depakote) multivitamin with minerals 1 tab PO DAILY 12/10/21 12/10/21 Unknown History Physical Exam Vital Signs: Vital Signs: Last Vital Signs Temp 99.7 F 12/10/21 20:00 Pulse 82 12/11/21 11:41 Resp 19 12/11/21 11:41 BP 133/49 L 12/11/21 11:41 Pulse Ox 100 12/11/21 04:41 BMI result Body Mass Index 22.1 Const: General: cooperative HEENT: Head: Yes normal to inspection Mouth: Normal oral and palatal mucosa present Throat: Yes tonsils normal Resp: Effort & Inspection: normal respiratory effort Cardio: Rate: regular rate Rhythm: regular rhythm GI: Palpation (GI): Soft to palpation and nontender Skin: General skin exam: no rashes or lesions noted Extrem: General: Yes normal to inspection Results Labs CBC & Chem 7: 12/11/21 06:38 12/11/21 07:02 Labs: Short CBC 12/10/21 12/11/21 Range/Units 17:07 06:38 WBC 10.9 H 11.3 H (4.8-10.8) X10*3/uL Hgb 8.3 L 8.2 L (14.0-18.0) g/dl Hct 28.1 L 29.2 L (42.0-52.0) % Plt Count 396 D 379 (160-400) X10*3/uL BMP 12/10/21 12/11/21 17:07 07:02 Sodium 141 140 Potassium 4.7 4.2 Chloride 103 107 Carbon Dioxide 29 23 BUN 19 H 17 H Creatinine 0.93 0.74 Calcium 9.4 D 9.0 Liver Function 12/10/21 Range/Units 17:07 Total Bilirubin 0.4 (0.0-1.0) mg/dL Direct Bilirubin 0.2 (0.0-0.5) mg/dL AST 60 H (5-37) U/L ALT 47 H (0-40) U/L Alkaline Phosphatase 173 H D (39-117) U/L Albumin 2.6 L (3.5-5.0) g/dL Urine 12/10/21 Range/Units 17:45 Urine Color YELLOW Urine Appearance CLEAR Urine pH 5.5 (5.0-8.0) Ur Specific [place] >= 1.030 H (1.005-1.025) Urine Protein 1+ H (NEG-TRACE) MG/DL Urine Glucose (UA) NEG (NEG) MG/DL Assessment and Plan (1) Aspiration pneumonia: Status: Acute (2) Fever: Status: Acute Fever likely due to aspiration pneumonia,patient still finishing course of antibiotics Urinalysis is unremarkable and decubitus ulcer looks same He probably has fever from recurrent chemical aspiration and possible organisms (3) Decubitus ulcer: Status: Acute Plan Await blood cultures. May continue piperacillin/tazobactam alone for 2-5 d. Swallow reeval ?feeding tube?level of aggression as will continue to aspirate likely. Local wound care to decubitus.
--- NOTE | 2021-12-11 14:37 | PC.NURSE ---
patient rotated onto right side at this time to alleviate pressure on left hip. will continue to monitor
--- NOTE | 2021-12-11 15:01 | P.CONGS_ITS ---
History of Present Illness Consult details Consult date: 12/11/21 Narrative: 81-year-old male multiple medical problems including dementia, recent pneumonia, admitted last night because of altered mental status. He apparently was noticed to be more lethargic than usual at home. He was referred to me because of a sacral decubitus ulcer. He is bound and is not communicative. He also had a CAT scan showing stercoral colitis. 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 Review of Systems Review of Systems: Review of systems unavailable because of the patient's mental status. However, as per chart, there was no note of any fever or chills at home PMFSH Past Medical History Medical History (Updated 12/11/21 @ 15:09 by Romeo Patel MD) Cataract Dementia Fracture of radial head, left, closed Frostbite of both lower extremities Kidney failure Primary localized osteoarthritis of knees, bilateral Primary osteoarthritis of left knee Sacral decubitus ulcer, stage II Stercoral colitis Toxic metabolic encephalopathy Wound of foot Family History Family History Father Throat cancer Mother Hypertension Family history: reviewed and not pertinent Social History Social History Household Members: Children Housing: Apartment Do you presently have visiting nurse or other home services: No Unable to assess alcohol history related to: Unknown Alcohol intake: never Patient Tobacco Use Status: Former Tobacco user Smoked in Last 30 Days: No Use of substances other than those prescribed or required for medical reasons: No Advance Directives: No Advance Directives Information Provided: No service: No Current occupational status: retired Current occupation: right handed Meds Allergies Allergy/AdvReac Type Severity Reaction Status Date / Time No Known Allergies Allergy Unknown Verified 09/20/21 17:41 Active Medications: Current Medications Acetaminophen (Acetaminophen 325 Mg Tablet) 650 mg PO Q6H PRN PRN Reason: Pain, Mild (Pain Scale 1-3) Atorvastatin Calcium (Atorvastatin Calcium 20 Mg Tablet) 20 mg PO BEDTIME [facility] Divalproex Sodium (Divalproex Sodium 250 Mg Tablet.) 250 mg PO DAILY [facility] Last Admin: 12/11/21 09:13 Dose: Not Given Documented by: Galantamine Hydrobromide (Galantamine Hbr 4 Mg Tablet) 8 mg PO BID [facility] Last Admin: 12/11/21 09:14 Dose: Not Given Documented by: Heparin Sodium (Porcine) (Heparin Sodium,Porcine 5,000 Unit/Ml Vial) 5,000 unit SUBCUT Q8H [facility] Last Admin: 12/11/21 05:48 Dose: 5,000 unit Documented by: Piperacillin Sod/Tazobactam (Sod 3.375 gm/ Sodium Chloride) 50 mls @ 100 mls/hr IV Q6H [facility] Last Infusion: 12/11/21 12:19 Dose: Infused Documented by: Vancomycin HCl 1,000 mg/ (Sodium Chloride) 270 mls @ 270 mls/hr IV Q24H [facility] Sodium Chloride (Ns) 1,000 mls @ 75 mls/hr IVCONT .[id number] [facility] Last Admin: 12/11/21 00:15 Dose: 75 mls/hr Documented by: Melatonin (Melatonin 3 Mg Tablet) 6 mg PO BEDTIME PRN PRN Reason: Insomnia Memantine (Memantine Hcl 10 Mg Tablet) 10 mg PO BID [facility] Last Admin: 12/11/21 09:14 Dose: Not Given Documented by: Mirtazapine (Mirtazapine 15 Mg Tablet) 15 mg PO BEDTIME [facility] Multivitamins/Vitamin C (Multivitamin Tablet) 1 tab PO DAILY [facility] Last Admin: 12/11/21 09:13 Dose: Not Given Documented by: Omeprazole (Omeprazole 40 Mg Capsule.Dr) 40 mg PO BID@0630,1630 [facility] Last Admin: 12/11/21 09:14 Dose: Not Given Documented by: Pharmacy Consult (Consult Rx Perform Med Rec) 1 each MISCELLANE ONCE PRN PRN Reason: Consult order Pharmacy Consult (Consult Rx Vancomycin Dosing) 1 each MISCELLANE DAILY PRN PRN Reason: Consult order Quetiapine Fumarate (Quetiapine Fumarate 50 Mg Tablet) 50 mg PO BID [facility] Last Admin: 12/11/21 08:41 Dose: 50 mg Documented by: Senna (Sennosides 8.6 Mg Tablet) 17.2 mg PO BEDTIME PRN PRN Reason: Constipation Senna (Senna [place] Extract Oral Syrup 15 Ml Syrup) 7.5 ml PO BEDTIME [facility] Sodium Chloride (0.9 % Sodium Chloride Flush 3 Ml Syringe) 3 ml IVFLUSH QSHIFT [facility] Last Admin: 12/11/21 08:41 Dose: Not Given Documented by: Home Medications Medication Instructions Recorded Confirmed Last Taken Type atorvastatin 20 mg tablet 20 mg PO BEDTIME 02/09/21 12/10/21 10/11/21 History galantamine 8 mg tablet 8 mg PO BID 02/09/21 12/10/21 10/11/21 History memantine 10 mg tablet 10 mg PO BID 02/09/21 12/10/21 10/11/21 History quetiapine 50 mg tablet 50 mg PO BID 02/09/21 12/10/21 10/11/21 History mirtazapine 15 mg tablet 1 tab PO BEDTIME 10/16/21 12/10/21 10/11/21 History divalproex 250 mg tablet,delayed 250 mg PO DAILY 12/10/21 12/10/21 Unknown History release (Depakote) multivitamin with minerals 1 tab PO DAILY 12/10/21 12/10/21 Unknown History Physical Exam Vital Signs: Vital Signs: Last Vital Signs Temp 99.7 F 12/10/21 20:00 Pulse 82 12/11/21 11:41 Resp 19 12/11/21 11:41 BP 133/49 L 12/11/21 11:41 Pulse Ox 100 12/11/21 04:41 BMI result Body Mass Index 22.1 Const: Other: In bed, communicative, has some unintelligible verbal output Resp: Effort & Inspection: normal respiratory effort Cardio: Rate: regular rate GI: Other: Soft, not distended, no obvious tenderness, no guarding rebound Back/Spine/Pelvis: Other: Decubitus ulcer, on the sacrum,at least a stage II, no pus, some fibrinous eschar, no cellulitis Decubitus ulcer, on the left trochanteric area, stage I Results Labs Result diagrams: 12/11/21 06:38 12/11/21 07:02 Labs: Abnormal lab results 12/10/21 12/10/21 12/10/21 Range/Units 16:01 17:07 17:07 WBC 10.9 H (4.8-10.8) X10*3/uL RBC 3.30 L (4.60-5.80) X10*6/uL Hgb 8.3 L (14.0-18.0) g/dl Hct 28.1 L (42.0-52.0) % MCH 25.2 L (27.0-33.0) pg MCHC 29.5 L (31.0-36.0) g/dl Immature Gran % (Auto) 0.7 H (0.0-0.4) % Neut % (Auto) 79.0 H (45-73) % Lymph % (Auto) 10.0 L (20-40) % [place] % (Auto) (2-11) % Lymph # (Auto) 1.1 L (1.2-4.9) X10*3/uL [place] # (Auto) (0.1-1.2) X10*3/uL Abs Immat Gran (auto) 0.08 H (0.00-0.03) X10*3/uL Absolute Neuts (auto) 8.6 H (2.0-8.3) x10*3/uL PT (9.9-13.0) SEC INR (0.9-1.1) BUN 19 H (9-16) mg/dL POC Glucose 128 H (60-115) mg/dL Random Glucose 160 H (60-115) mg/dL AST 60 H (5-37) U/L ALT 47 H (0-40) U/L Alkaline Phosphatase 173 H D (39-117) U/L Total Protein 6.3 L (6.5-8.0) g/dL Albumin 2.6 L (3.5-5.0) g/dL Ur Specific [place] (1.005-1.025) Urine Protein (NEG-TRACE) MG/DL 12/10/21 12/10/21 12/11/21 Range/Units 17:07 17:45 06:38 WBC 11.3 H (4.8-10.8) X10*3/uL RBC 3.30 L (4.60-5.80) X10*6/uL Hgb 8.2 L (14.0-18.0) g/dl Hct 29.2 L (42.0-52.0) % MCH 24.8 L (27.0-33.0) pg MCHC 28.1 L (31.0-36.0) g/dl Immature Gran % (Auto) 0.6 H (0.0-0.4) % Neut % (Auto) (45-73) % Lymph % (Auto) 17.1 L (20-40) % [place] % (Auto) 12.1 H (2-11) % Lymph # (Auto) (1.2-4.9) X10*3/uL [place] # (Auto) 1.4 H (0.1-1.2) X10*3/uL Abs Immat Gran (auto) 0.07 H (0.00-0.03) X10*3/uL Absolute Neuts (auto) (2.0-8.3) x10*3/uL PT 16.1 H (9.9-13.0) SEC INR 1.4 H (0.9-1.1) BUN (9-16) mg/dL POC Glucose (60-115) mg/dL Random Glucose (60-115) mg/dL AST (5-37) U/L ALT (0-40) U/L Alkaline Phosphatase (39-117) U/L Total Protein (6.5-8.0) g/dL Albumin (3.5-5.0) g/dL Ur Specific [place] >= 1.030 H (1.005-1.025) Urine Protein 1+ H (NEG-TRACE) MG/DL 12/11/21 Range/Units 07:02 WBC (4.8-10.8) X10*3/uL RBC (4.60-5.80) X10*6/uL Hgb (14.0-18.0) g/dl Hct (42.0-52.0) % MCH (27.0-33.0) pg MCHC (31.0-36.0) g/dl Immature Gran % (Auto) (0.0-0.4) % Neut % (Auto) (45-73) % Lymph % (Auto) (20-40) % [place] % (Auto) (2-11) % Lymph # (Auto) (1.2-4.9) X10*3/uL [place] # (Auto) (0.1-1.2) X10*3/uL Abs Immat Gran (auto) (0.00-0.03) X10*3/uL Absolute Neuts (auto) (2.0-8.3) x10*3/uL PT (9.9-13.0) SEC INR (0.9-1.1) BUN 17 H (9-16) mg/dL POC Glucose (60-115) mg/dL Random Glucose (60-115) mg/dL AST (5-37) U/L ALT (0-40) U/L Alkaline Phosphatase (39-117) U/L Total Protein (6.5-8.0) g/dL Albumin (3.5-5.0) g/dL Ur Specific [place] (1.005-1.025) Urine Protein (NEG-TRACE) MG/DL Short CBC 12/10/21 12/11/21 Range/Units 17:07 06:38 WBC 10.9 H 11.3 H (4.8-10.8) X10*3/uL Hgb 8.3 L 8.2 L (14.0-18.0) g/dl Hct 28.1 L 29.2 L (42.0-52.0) % Plt Count 396 D 379 (160-400) X10*3/uL BMP 12/10/21 12/11/21 17:07 07:02 Sodium 141 140 Potassium 4.7 4.2 Chloride 103 107 Carbon Dioxide 29 23 BUN 19 H 17 H Creatinine 0.93 0.74 Calcium 9.4 D 9.0 Liver Function 12/10/21 Range/Units 17:07 Total Bilirubin 0.4 (0.0-1.0) mg/dL Direct Bilirubin 0.2 (0.0-0.5) mg/dL AST 60 H (5-37) U/L ALT 47 H (0-40) U/L Alkaline Phosphatase 173 H D (39-117) U/L Albumin 2.6 L (3.5-5.0) g/dL Urine 12/10/21 Range/Units 17:45 Urine Color YELLOW Urine Appearance CLEAR Urine pH 5.5 (5.0-8.0) Ur Specific [place] >= 1.030 H (1.005-1.025) Urine Protein 1+ H (NEG-TRACE) MG/DL Urine Glucose (UA) NEG (NEG) MG/DL All other labs normal. Imaging Abdomen CT scan report/results: report reviewed and image reviewed CT scan - pelvis: report reviewed Assessment and Plan (1) Sacral decubitus ulcer, stage II: Status: Acute He has obvious ulcers on the sacrum as well as on the left greater trochanteric area as described above. I would recommend changing his positions every 2 hours as he is likely mobile and completely bedbound. I will follow him for his sacral ulcer and will likely debride this bedside. (2) Stercoral colitis: Status: Acute He is likely chronically constipated. He has otherwise a very benign exam and is nondistended. I would recommend starting him on a bowel regimen he may benefit from Fleet enemas initially. I will follow along while he is in the hospital. Procedures Date of Service Date of Service: 12/11/21
--- NOTE | 2021-12-11 16:10 | PC.NURSE ---
Skin/Wound assessment completed today. Patient has a Stage 3 to coccyx with fibrotic tissue and slough, slight odor. Triad applied this time with Santyl on order to start tomorrow 12/12. Surgical consult pending. Also, has a stage 2 to right lateral lower leg-Triad applied this time with Santyl to be applied tomorrow cover with foam dressing. Patient has healed pressure injury to right heal with thick dry peeling skin-covered with Tegaderm for protection. Also has a small red healed spot on left hip-covered with Tegaderm for protection. Patient has thick peeling skin to left heel. Very dry skin on bilateral arms. Sween 24 moisturizer cream applied to feet, legs and arms.
[2021-12-11] MEDS: Atorvastatin Calcium 20 MG TABLET PO (20:47)
[2021-12-11] MEDS: vancomycin HCL 1,000 MG in 0.9 % Sodium Chloride 250 ML 270 MG IV (21:35)
[2021-12-12] VITALS: BP 133/54; PULSE 86; RESP 16; TEMP 36.8; O2SAT 97
[2021-12-12] MEDS: Piperacillin Sodium/Tazobactam 3.375 GM in 0.9 % Sodium Chloride 50 ML IV ×4 (00:28→19:09)
[2021-12-12] MEDS: 0.9 % Sodium Chloride 1,000 ML 75 ML IVCONT ×2 (00:31→13:14)
[2021-12-12 03:53] VITALS: BP 135/46; PULSE 81; RESP 16; TEMP 37.1; O2SAT 100
[2021-12-12] MEDS: Heparin Sodium,Porcine 5,000 UNIT/ML VIAL 5000 UNIT SUBCUT ×3 (05:48→22:19)
[2021-12-12 07:50] VITALS: BP 131/56; PULSE 82; RESP 20; TEMP 37.3; O2SAT 96
[2021-12-12 09:26] LABS: Creatinine Clr Calc Pharmacy 76.3; Estimated Glomerular Filt Rate > 60
--- NOTE | 2021-12-12 09:27 | MHC.CM.PN ---
Addendum entered by Deedee Torres 12/12/21 15:30: Clinical information has been sent to [facility]. Patient is a bed hold. Original Note: 12/12/20 IMM Left at bedside at dtrs request. She verbalized understanding of the IMM. Male 81 From [facility]. DX Sepsis He previously resided with his dtr. He is @ [facility] for STR. DP return to [facility] via BLS. The patient had a surgical consult for Sacral wound. He also has wounds L greater trochantor per surgical consult. Information for this assessment was gathered from EMR and Patients DTR/HCP Amanda.
[2021-12-12] MEDS: GALANTAMINE HBR 4 MG 8 MG PO ×2 (11:01→20:16)
[2021-12-12] MEDS: Divalproex Sodium 250 MG TABLET.DR PO (11:01)
[2021-12-12] MEDS: Collagenase Clostridium Hist. 30 GM TUBE 1 APPL TOPICAL (11:05)
[2021-12-12 11:44] VITALS: BP 132/60; PULSE 79; RESP 20; TEMP 37.1; O2SAT 97
--- NOTE | 2021-12-12 13:36 | MHC.SLORD ---
Speech Language Pathology Order Status: Patient refused to open his mouth for PO trials this morning. He is on PUREED (NDD1) solids and NECTAR THICK liquids, pills CRUSHED in PUREE. [employer] will re-attempt tomorrow.
[2021-12-12 13:49] VITALS: BMI 22.1
--- NOTE | 2021-12-12 13:53 | MHC.CLN ---
RE: CONSULT PT WITH INCREASED NUTRITION RISK R/T PRESSURE INJURIES PO 25% X 1 MEAL DIET RX: 2GM NA PUREED WITH NT LIQ-PT MAY BENEFIT FROM LIBERALIZED REGULAR PUREED RECOMMEND ADDING ENSURE TID TO INCREASE KCALS AND PROMOTE WOUND HEALING SUPP TO PROVIDE 1050KCALS, 60G PROTEIN MONITOR PO INTAKE CLOSELY SEE ALSO FULL CLINICAL NUTRITION ASSESSMENT
--- NOTE | 2021-12-12 13:56 | P.PNGS_ITS ---
Subjective Subjective Date of Service: 12/12/21 Interval history: No reported changes Remains not communicative Appears comfortable Physical Exam Vital Signs: Vital Signs: Last Vital Signs Temp 98.7 F 12/12/21 11:44 Pulse 79 12/12/21 11:44 Resp 20 12/12/21 11:44 BP 132/60 12/12/21 11:44 Pulse Ox 97 12/12/21 11:44 BMI result Body Mass Index 22.1 Const: Other: Not communicative General: no acute distress Resp: Effort & Inspection: normal respiratory effort GI: Inspection: No distended Palpation (GI): Soft to palpation, not firm and no guarding Back/Spine/Pelvis: Other: decubitus ulcer in the sacrum, stage 2-3, about 4.5 cm in widest dimension, no necrotic tissue, no gangrene, no pus Objective Data Active Medications Acetaminophen (Acetaminophen 325 Mg Tablet) 650 mg PO Q6H PRN PRN Reason: Pain, Mild (Pain Scale 1-3) Atorvastatin Calcium (Atorvastatin Calcium 20 Mg Tablet) 20 mg PO BEDTIME [facility] Last Admin: 12/11/21 20:47 Dose: 20 mg Documented by: JUSTIN Collagenase (Collagenase Clostridium Hist. 30 Gm Tube) 1 appl TOPICAL DAILY [facility]; Protocol Last Admin: 12/12/21 11:05 Dose: 1 appl Documented by: PEPPER Divalproex Sodium (Divalproex Sodium 250 Mg Tablet.) 250 mg PO DAILY [facility] Last Admin: 12/12/21 11:01 Dose: 250 mg Documented by: PEPPER Galantamine Hydrobromide (Galantamine Hbr 4 Mg Tablet) 8 mg PO BID [facility] Last Admin: 12/12/21 11:01 Dose: 8 mg Documented by: PEPPER Heparin Sodium (Porcine) (Heparin Sodium,Porcine 5,000 Unit/Ml Vial) 5,000 unit SUBCUT Q8H [facility] Last Admin: 12/12/21 13:14 Dose: 5,000 unit Documented by: PEPPER Piperacillin Sod/Tazobactam (Sod 3.375 gm/ Sodium Chloride) 50 mls @ 100 mls/hr IV Q6H [facility] Last Admin: 12/12/21 13:13 Dose: 100 mls/hr Documented by: [email or web address] Vancomycin HCl 1,000 mg/ (Sodium Chloride) 270 mls @ 270 mls/hr IV Q24H [facility] Last Infusion: 12/11/21 23:17 Dose: 0 mls/hr Documented by: JUSTIN Sodium Chloride (Ns) 1,000 mls @ 75 mls/hr IVCONT .[id number] [facility] Last Admin: 12/12/21 13:14 Dose: 75 mls/hr Documented by: PEPPER Melatonin (Melatonin 3 Mg Tablet) 6 mg PO BEDTIME PRN PRN Reason: Insomnia Memantine (Memantine Hcl 10 Mg Tablet) 10 mg PO BID [facility] Last Admin: 12/12/21 11:02 Dose: Not Given Documented by: PEPPER Non-Admin Reason: Patient Refused Mirtazapine (Mirtazapine 15 Mg Tablet) 15 mg PO BEDTIME [facility] Last Admin: 12/11/21 21:03 Dose: Not Given Documented by: JUSTIN Non-Admin Reason: Patient Refused Multivitamins/Vitamin C (Multivitamin Tablet) 1 tab PO DAILY [facility] Last Admin: 12/12/21 11:02 Dose: Not Given Documented by: PEPPER Non-Admin Reason: Patient Refused Omeprazole (Omeprazole 40 Mg Capsule.) 40 mg PO BID@0630,1630 [facility] Last Admin: 12/12/21 05:48 Dose: Not Given Documented by: KIM Non-Admin Reason: Patient Refused Pharmacy Consult (Consult Rx Perform Med Rec) 1 each MISCELLANE ONCE PRN PRN Reason: Consult order Pharmacy Consult (Consult Rx Vancomycin Dosing) 1 each MISCELLANE DAILY PRN PRN Reason: Consult order Quetiapine Fumarate (Quetiapine Fumarate 50 Mg Tablet) 50 mg PO BID [facility] Last Admin: 12/11/21 08:41 Dose: 50 mg Documented by: NENO Senna (Sennosides 8.6 Mg Tablet) 17.2 mg PO BEDTIME PRN PRN Reason: Constipation Senna (Senna [place] Extract Oral Syrup 15 Ml Syrup) 7.5 ml PO BEDTIME [facility] Last Admin: 12/11/21 21:03 Dose: Not Given Documented by: JUSTIN Non-Admin Reason: Patient Refused Sodium Chloride (0.9 % Sodium Chloride Flush 3 Ml Syringe) 3 ml IVFLUSH QSHIFT [facility] Last Admin: 12/12/21 11:01 Dose: Not Given Documented by: PEPPER Non-Admin Reason: IV Running Labs CBC & Chem 7: 12/11/21 06:38 12/12/21 08:50 Labs: Laboratory Results - last 24 hr 12/12/21 08:50 Estim Creat Clear Calc 76.3 Estimated GFR > 60 Microbiology Microbiology Results: Microbiology 12/10/21 20:20 Blood Culture - Preliminary Blood - Venous No growth after 24 hours. 12/10/21 17:07 Blood Culture - Preliminary Blood - Venous No growth after 24 hours. Procedures Date of Service Date of Service: 12/12/21 Progress Note: A&P Assessment and plan (1) Sacral decubitus ulcer, stage II: Status: Acute Assessment and Plan: Dressings changed Needs good wound care Frequent position change from side to side No surgical debridement planned at this time Fall Risk Details Current Medications: Current Medications Acetaminophen (Acetaminophen 325 Mg Tablet) 650 mg PO Q6H PRN PRN Reason: Pain, Mild (Pain Scale 1-3) Atorvastatin Calcium (Atorvastatin Calcium 20 Mg Tablet) 20 mg PO BEDTIME [facility] Last Admin: 12/11/21 20:47 Dose: 20 mg Documented by: Collagenase (Collagenase Clostridium Hist. 30 Gm Tube) 1 appl TOPICAL DAILY [facility]; Protocol Last Admin: 12/12/21 11:05 Dose: 1 appl Documented by: Divalproex Sodium (Divalproex Sodium 250 Mg Tablet.) 250 mg PO DAILY [facility] Last Admin: 12/12/21 11:01 Dose: 250 mg Documented by: Galantamine Hydrobromide (Galantamine Hbr 4 Mg Tablet) 8 mg PO BID [facility] Last Admin: 12/12/21 11:01 Dose: 8 mg Documented by: Heparin Sodium (Porcine) (Heparin Sodium,Porcine 5,000 Unit/Ml Vial) 5,000 unit SUBCUT Q8H [facility] Last Admin: 12/12/21 13:14 Dose: 5,000 unit Documented by: Piperacillin Sod/Tazobactam (Sod 3.375 gm/ Sodium Chloride) 50 mls @ 100 mls/hr IV Q6H [facility] Last Admin: 12/12/21 13:13 Dose: 100 mls/hr Documented by: Vancomycin HCl 1,000 mg/ (Sodium Chloride) 270 mls @ 270 mls/hr IV Q24H [facility] Last Infusion: 12/11/21 23:17 Dose: Infused Documented by: Sodium Chloride (Ns) 1,000 mls @ 75 mls/hr IVCONT .[id number] [facility] Last Admin: 12/12/21 13:14 Dose: 75 mls/hr Documented by: Melatonin (Melatonin 3 Mg Tablet) 6 mg PO BEDTIME PRN PRN Reason: Insomnia Memantine (Memantine Hcl 10 Mg Tablet) 10 mg PO BID [facility] Last Admin: 12/12/21 11:02 Dose: Not Given Documented by: Mirtazapine (Mirtazapine 15 Mg Tablet) 15 mg PO BEDTIME [facility] Last Admin: 12/11/21 21:03 Dose: Not Given Documented by: Multivitamins/Vitamin C (Multivitamin Tablet) 1 tab PO DAILY [facility] Last Admin: 12/12/21 11:02 Dose: Not Given Documented by: Omeprazole (Omeprazole 40 Mg Capsule.Dr) 40 mg PO BID@0630,1630 [facility] Last Admin: 12/12/21 05:48 Dose: Not Given Documented by: Pharmacy Consult (Consult Rx Perform Med Rec) 1 each MISCELLANE ONCE PRN PRN Reason: Consult order Pharmacy Consult (Consult Rx Vancomycin Dosing) 1 each MISCELLANE DAILY PRN PRN Reason: Consult order Quetiapine Fumarate (Quetiapine Fumarate 50 Mg Tablet) 50 mg PO BID [facility] Last Admin: 12/11/21 08:41 Dose: 50 mg Documented by: Senna (Sennosides 8.6 Mg Tablet) 17.2 mg PO BEDTIME PRN PRN Reason: Constipation Senna (Senna [place] Extract Oral Syrup 15 Ml Syrup) 7.5 ml PO BEDTIME [facility] Last Admin: 12/11/21 21:03 Dose: Not Given Documented by: Sodium Chloride (0.9 % Sodium Chloride Flush 3 Ml Syringe) 3 ml IVFLUSH QSHIFT [facility] Last Admin: 12/12/21 11:01 Dose: Not Given Documented by: Time Spent With Patient Time: Total time spent is greater than 50% in coordination of care (as documented) at patient's floor/unit and/or counseling patient: Quality Stroke Does the patient have a stroke diagnosis?: No VTE Prior VTE?: No VTE Risk Level:: Medical - moderate - high VTE Device Contraindication: Treatment Not Indicated VTE Drug Contraindication: N/A - Med Ordered
--- NOTE | 2021-12-12 14:21 | HO.PM.IMPN ---
Subjective Subjective Date of Service: 12/12/21 Interval History: F/u fever ? PNA Interval history: no new issues, no fever Constitutional General: Alert, no acute distress Resp: CTA bilateral CVS: S1,S2,RRR GI: +BS, NT, no distention Skin: decub ulcers present on admission Neuro: motor grossly intact Psych: appropriate affect Physical Exam Vital Signs: Vital Signs: Last Vital Signs Temp 98.7 F 12/12/21 11:44 Pulse 79 12/12/21 11:44 Resp 20 12/12/21 11:44 BP 132/60 12/12/21 11:44 Pulse Ox 97 12/12/21 11:44 BMI result Body Mass Index 22.1 Objective Data Active Medications Acetaminophen (Acetaminophen 325 Mg Tablet) 650 mg PO Q6H PRN PRN Reason: Pain, Mild (Pain Scale 1-3) Atorvastatin Calcium (Atorvastatin Calcium 20 Mg Tablet) 20 mg PO BEDTIME [facility] Last Admin: 12/11/21 20:47 Dose: 20 mg Documented by: JUSTIN Collagenase (Collagenase Clostridium Hist. 30 Gm Tube) 1 appl TOPICAL DAILY [facility]; Protocol Last Admin: 12/12/21 11:05 Dose: 1 appl Documented by: PEPPER Divalproex Sodium (Divalproex Sodium 250 Mg Tablet.) 250 mg PO DAILY [facility] Last Admin: 12/12/21 11:01 Dose: 250 mg Documented by: PEPPER Galantamine Hydrobromide (Galantamine Hbr 4 Mg Tablet) 8 mg PO BID [facility] Last Admin: 12/12/21 11:01 Dose: 8 mg Documented by: PEPPER Heparin Sodium (Porcine) (Heparin Sodium,Porcine 5,000 Unit/Ml Vial) 5,000 unit SUBCUT Q8H [facility] Last Admin: 12/12/21 13:14 Dose: 5,000 unit Documented by: PEPPER Piperacillin Sod/Tazobactam (Sod 3.375 gm/ Sodium Chloride) 50 mls @ 100 mls/hr IV Q6H [facility] Last Admin: 12/12/21 13:13 Dose: 100 mls/hr Documented by: PEPPER Vancomycin HCl 1,000 mg/ (Sodium Chloride) 270 mls @ 270 mls/hr IV Q24H [facility] Last Infusion: 12/11/21 23:17 Dose: 0 mls/hr Documented by: JUSTIN Sodium Chloride (Ns) 1,000 mls @ 75 mls/hr IVCONT .[id number] [facility] Last Admin: 12/12/21 13:14 Dose: 75 mls/hr Documented by: PEPPER Melatonin (Melatonin 3 Mg Tablet) 6 mg PO BEDTIME PRN PRN Reason: Insomnia Memantine (Memantine Hcl 10 Mg Tablet) 10 mg PO BID [facility] Last Admin: 12/12/21 11:02 Dose: Not Given Documented by: PEPPER Non-Admin Reason: Patient Refused Mirtazapine (Mirtazapine 15 Mg Tablet) 15 mg PO BEDTIME [facility] Last Admin: 12/11/21 21:03 Dose: Not Given Documented by: JUSTIN Non-Admin Reason: Patient Refused Multivitamins/Vitamin C (Multivitamin Tablet) 1 tab PO DAILY [facility] Last Admin: 12/12/21 11:02 Dose: Not Given Documented by: PEPPER Non-Admin Reason: Patient Refused Omeprazole (Omeprazole 40 Mg Capsule.Dr) 40 mg PO BID@0630,1630 [facility] Last Admin: 12/12/21 05:48 Dose: Not Given Documented by: KIM Non-Admin Reason: Patient Refused Pharmacy Consult (Consult Rx Perform Med Rec) 1 each MISCELLANE ONCE PRN PRN Reason: Consult order Pharmacy Consult (Consult Rx Vancomycin Dosing) 1 each MISCELLANE DAILY PRN PRN Reason: Consult order Quetiapine Fumarate (Quetiapine Fumarate 50 Mg Tablet) 50 mg PO BID [facility] Last Admin: 12/11/21 08:41 Dose: 50 mg Documented by: NENO Senna (Sennosides 8.6 Mg Tablet) 17.2 mg PO BEDTIME PRN PRN Reason: Constipation Senna (Senna [place] Extract Oral Syrup 15 Ml Syrup) 7.5 ml PO BEDTIME [facility] Last Admin: 12/11/21 21:03 Dose: Not Given Documented by: JUSTIN Non-Admin Reason: Patient Refused Sodium Chloride (0.9 % Sodium Chloride Flush 3 Ml Syringe) 3 ml IVFLUSH QSHIFT [facility] Last Admin: 12/12/21 11:01 Dose: Not Given Documented by: PEPPER Non-Admin Reason: IV Running Labs CBC & Chem 7: 03/29/22 06:38 12/12/21 08:50 Labs: Laboratory Results - last 24 hr 12/12/21 08:50 Estim Creat Clear Calc 76.3 Estimated GFR > 60 Microbiology Microbiology Results: Microbiology 12/10/21 20:20 Blood Culture - Preliminary Blood - Venous No growth after 24 hours. 12/10/21 17:07 Blood Culture - Preliminary Blood - Venous No growth after 24 hours. 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 decubitus ulcer ; ? Recent admission to the hospital for sepsis/ aspiration pneumonia presented to the hospital today with a chief complaint of fever. Fever likely from recurrent aspiration pneumonia continue Zosyn and Vanco and change to PO when Ok with ID Awaiting ID consult Chronic decub ulcer: Surgery recommends - Dressings changed Needs good wound care Frequent position change from side to side No surgical debridement planned at this time ?stercoral colitis:? Patient on antibiotics.? Bowel regimen.? General surgery consult. ?history of bilateral foot frostbite: Patient had heel ulcer on the right foot.? Appears healing.? Chronic skin changes on the bilateral foot noted.? ?history of dementia: Continue home memantine, gelantamine, mirtazapine, Depakote. ?history of dysphagia:? Patient on pureed diet.? Nursing swallow screen.Speech and swallow eval again. ?DVT prophylaxis:? Subcu heparin Code status:? Full code.? Confirmed with the patient's daughter Quality Stroke Does the patient have a stroke diagnosis?: No VTE Prior VTE?: No VTE Risk Level:: Medical - moderate - high VTE Device Contraindication: Treatment Not Indicated VTE Drug Contraindication: N/A - Med Ordered
[2021-12-12 15:10] VITALS: BP 141/62; PULSE 76; RESP 20; TEMP 36.9; O2SAT 97
[2021-12-12] MEDS: 0.9 % Sodium Chloride Flush 3 ML SYRINGE IVFLUSH (16:11)
[2021-12-12] MEDS: Omeprazole 40 MG CAPSULE.DR PO (17:45)
[2021-12-12 18:48] LABS: Vancomycin Random 5.8 mcg/mL (15-20)
[2021-12-12 19:16] VITALS: BP 128/54; PULSE 85; RESP 20; TEMP 37.2; O2SAT 99
[2021-12-12] MEDS: vancomycin HCL 1,250 MG in 0.9 % Sodium Chloride 250 ML 166.67 MG IV (20:16)
[2021-12-12] MEDS: Memantine HCl 10 MG TABLET PO (20:16)
[2021-12-12] MEDS: Mirtazapine 15 MG TABLET PO (20:16)
[2021-12-12] MEDS: Atorvastatin Calcium 20 MG TABLET PO (20:16)
[2021-12-13] VITALS (7 sets, daily range): BP systolic 121–153; BP diastolic 54–83; PULSE 69–88; RESP 17–20; TEMP 36.6–37.4; O2SAT 93–97
[2021-12-13] MEDS: 0.9 % Sodium Chloride Flush 3 ML SYRINGE IVFLUSH ×3 (01:11→20:28)
[2021-12-13] MEDS: Piperacillin Sodium/Tazobactam 3.375 GM in 0.9 % Sodium Chloride 50 ML IV ×2 (01:18→06:08)
[2021-12-13] MEDS: 0.9 % Sodium Chloride 1,000 ML 75 ML IVCONT ×2 (05:58→15:43)
[2021-12-13] MEDS: Heparin Sodium,Porcine 5,000 UNIT/ML VIAL 5000 UNIT SUBCUT ×3 (06:07→21:22)
[2021-12-13 08:48] LABS: Creatinine Clr Calc Pharmacy 76.3; Estimated Glomerular Filt Rate > 60
[2021-12-13] MEDS: Collagenase Clostridium Hist. 30 GM TUBE 1 APPL TOPICAL (09:46)
--- NOTE | 2021-12-13 10:31 | P.PNIM_ITS ---
Subjective Subjective Date of Service: 12/14/21 Interval History: F/u fever ? PNA Interval history: no new issues, no fever Physical Exam Vital Signs: Vital Signs: Last Vital Signs Temp 99.1 F 12/13/21 08:00 Pulse 73 12/13/21 08:00 Resp 18 12/13/21 08:00 BP 129/58 L 12/13/21 08:00 Pulse Ox 97 12/13/21 08:00 BMI result Body Mass Index 22.1 Objective Data Active Medications Acetaminophen (Acetaminophen 325 Mg Tablet) 650 mg PO Q6H PRN PRN Reason: Pain, Mild (Pain Scale 1-3) Amoxicillin/Clavulanate Potassium (Amoxicillin/Potassium Clav 875 Mg Tablet) 875 mg PO Q12H [facility] Atorvastatin Calcium (Atorvastatin Calcium 20 Mg Tablet) 20 mg PO BEDTIME [facility] Last Admin: 12/12/21 20:16 Dose: 20 mg Documented by: JOSE Collagenase (Collagenase Clostridium Hist. 30 Gm Tube) 1 appl TOPICAL DAILY [facility]; Protocol Last Admin: 12/13/21 09:46 Dose: 1 appl Documented by: PEPPER Divalproex Sodium (Divalproex Sodium 250 Mg Tablet.Dr) 250 mg PO DAILY [facility] Last Admin: 12/12/21 11:01 Dose: 250 mg Documented by: Doxycycline Hyclate (Doxycycline Hyclate 100 Mg Tablet) 100 mg PO Q12H [facility] Galantamine Hydrobromide (Galantamine Hbr 4 Mg Tablet) 8 mg PO BID [facility] Last Admin: 12/12/21 20:16 Dose: 8 mg Documented by: Heparin Sodium (Porcine) (Heparin Sodium,Porcine 5,000 Unit/Ml Vial) 5,000 unit SUBCUT Q8H [facility] Last Admin: 12/13/21 06:07 Dose: 5,000 unit Documented by: MULUGETA Sodium Chloride (Ns) 1,000 mls @ 75 mls/hr IVCONT .[id number] [facility] Last Admin: 12/13/21 05:58 Dose: 75 mls/hr Documented by: MULUGETA Melatonin (Melatonin 3 Mg Tablet) 6 mg PO BEDTIME PRN PRN Reason: Insomnia Memantine (Memantine Hcl 10 Mg Tablet) 10 mg PO BID [facility] Last Admin: 12/12/21 20:16 Dose: 10 mg Documented by: Mirtazapine (Mirtazapine 15 Mg Tablet) 15 mg PO BEDTIME [facility] Last Admin: 12/12/21 20:16 Dose: 15 mg Documented by: JOSE Multivitamins/Vitamin C (Multivitamin Tablet) 1 tab PO DAILY [facility] Last Admin: 12/12/21 11:02 Dose: Not Given Documented by: Omeprazole (Omeprazole 40 Mg Capsule.) 40 mg PO BID@0630,1630 [facility] Last Admin: 12/13/21 06:37 Dose: Not Given Documented by: MULUGETA Non-Admin Reason: Patient Refused Pharmacy Consult (Consult Rx Perform Med Rec) 1 each MISCELLANE ONCE PRN PRN Reason: Consult order Pharmacy Consult (Consult Rx Vancomycin Dosing) 1 each MISCELLANE DAILY PRN PRN Reason: Consult order Quetiapine Fumarate (Quetiapine Fumarate 50 Mg Tablet) 50 mg PO BID [facility] Last Admin: 12/11/21 08:41 Dose: 50 mg Documented by: NENO Senna (Sennosides 8.6 Mg Tablet) 17.2 mg PO BEDTIME PRN PRN Reason: Constipation Senna (Senna [place] Extract Oral Syrup 15 Ml Syrup) 7.5 ml PO BEDTIME [facility] Last Admin: 12/12/21 20:16 Dose: 7.5 ml Documented by: JOSE Sodium Chloride (0.9 % Sodium Chloride Flush 3 Ml Syringe) 3 ml IVFLUSH QSHIFT [facility] Last Admin: 12/13/21 09:45 Dose: Not Given Documented by: PEPPER Non-Admin Reason: IV Running Labs CBC & Chem 7: 12/11/21 06:38 12/14/21 05:45 Labs: Laboratory Results - last 24 hr 12/12/21 12/13/21 18:17 08:21 Estim Creat Clear Calc 76.3 Estimated GFR > 60 Random Vancomycin 5.8 L Microbiology Microbiology Results: Microbiology 12/10/21 20:20 Blood Culture - Preliminary Blood - Venous No growth after 48 hours. 12/10/21 17:07 Blood Culture - Preliminary Blood - Venous No growth after 48 hours. 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 decubitus ulcer ; ? Recent admission to the hospital for sepsis/ aspiration pneumonia presented to the hospital today with a chief complaint of fever. Fever likely from recurrent aspiration pneumonia Change to PO Augmentin and Doxy Chronic decub ulcer: Surgery recommends conseervative mangement as below Dressings changed Needs good wound care Frequent position change from side to side No surgical debridement planned at this time ?stercoral colitis:? Patient on antibiotics.? Bowel regimen.? General surgery consult. ?history of bilateral foot frostbite: Patient had heel ulcer on the right foot.? Appears healing.? Chronic skin changes on the bilateral foot noted.? ?history of dementia: Continue home memantine, gelantamine, mirtazapine, Depakote. ?history of dysphagia:? Patient on pureed diet.? Nursing swallow screen.Speech and swallow eval again. ?DVT prophylaxis:? Subcu heparin Inaptient d/t aspiration PNA and is on IV Abx, might make changes today Quality Stroke Does the patient have a stroke diagnosis?: No VTE Prior VTE?: No VTE Risk Level:: Medical - moderate - high VTE Device Contraindication: Treatment Not Indicated VTE Drug Contraindication: N/A - Med Ordered
--- NOTE | 2021-12-13 16:38 | MHC.SL.SWA ---
Speech Pathologist Impression: Risk of Aspiration Due to: Medically Fragile History of Pneumonia Poor PO Intake Reduced Cognition Dysphasia Diet Status: SMOKE CHASER to follow M-F, reassess swallow, Upgrade diet as warranted. Liquid Consistency and Strategies for Safe Swallow: Liquid Intake Recommendation: [place] Thick Liquid Intake Strategies: Small Sips No Straws Solid Food Consistency: Dietary Recommendations: Pureed (NDD1) Additional Modifications to Solid Foods: Pt must be alert and engaged in the meal. Pt requires strict 1-1 supervision during all meals. Oral Medication Intake: Crushed with Puree Please contact the pharmacy regarding appropriate crushable or liquid drug formulations that are available whenever modified delivery is recommended. Compensatory Strategies and Precautions to be Taken for Safe Swallow: Sitting Upright (90 deg) No Straw Liquids from Cup Alternate Liquids/Solids Rate of Ingestion Change Supervision While Eating and Drinking for Safe Swallow: Total Supervision (1:1) Foods to Avoid: Avoid overly sticky textures Swallowing Recommended Treatments: Compens. Strategy Educat. Recommendation for Speech: Inpatient Speech Therapy Comment: Pt was alert and more communicative today (in Greek), however most contingent responses to questions/conversation continue to be non-contextual. When presented w/ tsp of nectar thick liquid, Pt requested cup instead, then took sips from cup independently. No clinical s/s of aspiration on repeated cup sips. After several independent sips, pt spilled liquid on self which was cleaned up, then asked again for cup, took one sip then appeared to neglect cup/at risk for spilling again. Pt tolerate a couple of bites of pudding, w/ no clinical s/s aspiration, then requested No mas. Recommend continue with PUREE (NDD1) w/ NECTAR THICK liquids, Pills Crushed in Puree. Pt will require strict, 1-1 supervision during all meals, w/close monitor for aspiration. Do not attempt if Pt is fatigued/not engaged in meal. Frequency/Duration: Date Range for Service Req: Timeline to reassess: Photographic Laboratory Technician Clinican/Clinical Fellow: No Supervisory Statement: I have reviewed and agree with the student/clinical fellow's documentation: N/A Speech Language Pathologist: Elizabeth Chaidez M.A., CCC-SMOKE CHASER
[2021-12-13 18:16] LABS: Vancomycin Trough 12.2 mcg/mL (10.0-20.0)
--- NOTE | 2021-12-13 19:26 | PC.NURSE ---
Pt refused all PO meds today. MD Martinez made aware
[2021-12-13] MEDS: Atorvastatin Calcium 20 MG TABLET PO (20:18)
[2021-12-13] MEDS: Mirtazapine 15 MG TABLET PO (20:18)
[2021-12-13] MEDS: GALANTAMINE HBR 4 MG 8 MG PO (20:18)
[2021-12-13] MEDS: Amoxicillin/Potassium Clav 875 MG TABLET PO (20:18)
[2021-12-13] MEDS: Memantine HCl 10 MG TABLET PO (20:19)
[2021-12-14 03:57] VITALS: BP 124/52; PULSE 80; RESP 14; TEMP 36.7; O2SAT 96
[2021-12-14] MEDS: Heparin Sodium,Porcine 5,000 UNIT/ML VIAL 5000 UNIT SUBCUT (05:30)
[2021-12-14 06:29] LABS: Creatinine Clr Calc Pharmacy 84.6; Estimated Glomerular Filt Rate > 60
[2021-12-14 07:35] VITALS: BP 139/78; PULSE 70; RESP 20; TEMP 36.9; O2SAT 97
--- NOTE | 2021-12-14 08:41 | P.DS_ITS ---
DS: Providers Provider Date of Service: 12/14/21 Date of admission: 12/10/21 21:42 Primary care physician: Pam Plummer MD Consults: 12/10/21 21:40 Consult to General Surgery Routine Consulting Provider: Romeo Patel Reason for consultation: Decub ulcer; Stercoral colitis Consult to Infectious Diseases Routine Consulting Provider: Stacey Moreno Reason for consultation: recent PNA p/w fever; hes decub ulcer DS: Diagnosis Discharge Diagnosis (1) Fever: Status: Resolved (2) Aspiration pneumonia: Status: Acute DS: Summary Hospital Course Hospital Course: Chief Complaint: Fever ?81-year-old male with a past medical history of advanced dementia, hypertension, history of frostbite in September of 2021; for anemia secondary to GI bleed -discontinued aspirin; gastric ulcer; 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 decubitus ulcer ; ? Recent admission to the hospital for sepsis/ aspiration pneumonia presented to the hospital today with a chief complaint of fever. ?patient has recurrent admissions because of the fever.? Patient is high risk for aspiration.? Per patient's daughter at bedside patient was doing okay until yesterday and today pain she got a call mentioned that patient is more lethargic; denies pat ient having any cough or sputum production.? Noted to have fever.? Subsequently sent to the hospital for further evaluation.? Reports that he has this decubitus ulcer? which has been taken care of the long-term.? But not healing.? Denies patient complaining of any chest pain or palpitations.? Reports patient is nonverbal, nonambulatory, mentions heel ulcers are improving. ? Review of all other systems is negative except mentioned above ER course: Per ER team patient noted to febrile; labs essentially benign at baseline; urinalysis negative ; CT abdomen showed decubitus ulcer with no further extension or bone involvement.? Also noted to have stercoral colitis.? Chest x- ray unchanged from prior.? Given broad-spectrum antibiotics.? Admitted for further management. Hospital course: Fever likely from recurrent aspiration pneumonia--Initially treated with IV Vancomycin and Zosyn and has reamined afebrile and therefore transitioning to oral Augmenin and Doxycyline for 7 days. Chronic decub ulcer present on admission: Surgery recommends conseervative mangement advised by Dr. Patel as below Dressings changed Needs good wound care Frequent position change from side to side No surgical debridement planned at this time ?stercoral colitis:? Patient on antibiotics.? Bowel regimen.? ?history of bilateral foot frostbite: Patient had heel ulcer on the right foot.? Appears healing.? Chronic skin changes on the bilateral foot noted.? ?history of dementia: Continue home memantine, gelantamine, mirtazapine, Depakote. ?history of dysphagia:? Patient on pureed diet.? Nursing swallow screen.Speech and swallow eval again. Overall his condition to worsen over time with frequent hospitalization, poor nutritional status and in a setting of advanced dementia, decub ulcers--It may m [place] more sense for family to consider hospice care Time Spent with Patient Time attestation: Total time spent providing and/or coordinating discharge services: Discharge coordination time: Greater than 30 minutes Quality: Stroke Does the patient have a stroke diagnosis?: No Quality: Safe Use of Opioids Does Pt have an Active Cancer Diagnosis on the Problem List?: No Physical Exam Vital Signs: Vital Signs: Last Vital Signs Temp 98.5 F 12/14/21 07:35 Pulse 70 12/14/21 07:35 Resp 20 12/14/21 07:35 BP 139/78 12/14/21 07:35 Pulse Ox 97 12/14/21 07:35 BMI result Body Mass Index 22.1 DS: Data Data Completed and Pending Completed studies during hospitalization [Text1]: Procedures Excision of Stomach, Pylorus, Via Natural or Artificial Opening Endoscopic, Diagnostic (11/21/21) Transfusion of Nonautologous Red Blood Cells into Peripheral Vein, Percutaneous Approach (11/21/21) Labs on day of discharge: Laboratory Results - last 24 hr 12/13/21 12/13/21 12/14/21 08:21 17:46 05:45 Creatinine 0.72 0.65 Estim Creat Clear Calc 76.3 84.6 Estimated GFR > 60 > 60 Vancomycin Trough 12.2 Preliminary micro results at discharge 12/10/21 20:20 Blood Culture - Preliminary Blood - Venous No growth after 48 hours. 12/10/21 17:07 Blood Culture - Preliminary Blood - Venous No growth after 48 hours. Discharge Plan Discharge Anticipated Discharge Date/Time: 12/14/21 10:48 Patient Disposition: Xfer SNF Discharge Diagnosis: Aspiration pneumonia Referrals: [facility] [Outside] - 1 Week Pam Plummer MD [Primary Care Provider] - 1 Week Discharge Medications: New doxycycline hyclate 100 mg Tablet 100 mg PO Q12H Qty: 10 0RF Rx Instructions: ORDERED FOR 7 DAYS FROM TO 12/21 amoxicillin-pot clavulanate 875-125 mg Tablet 875 mg PO Q12H Qty: 10 0RF Rx Instructions: ORDERED FOR 7 DAYS FROM 12/14 TO 12/21 Continued omeprazole 40 mg capsule,delayed release(DR/EC) 40 mg PO BID Qty: 60 0RF multivitamin with minerals Tablet 1 tab PO DAILY 0RF divalproex [Depakote] 250 mg Tablet,Delayed Release (Dr/Ec) 250 mg PO DAILY 0RF mirtazapine 15 mg tablet 1 tab PO BEDTIME 0RF atorvastatin 20 mg tablet 20 mg PO BEDTIME 0RF memantine 10 mg tablet 10 mg PO BID 0RF galantamine 8 mg tablet 8 mg PO BID 0RF quetiapine 50 mg tablet 50 mg PO BID 0RF Discharge Orders: Discharge Order (Routine); Ordered 12/14/21 Ordered By: Malik Martinez Diet: advance to usual diet Activity on Discharge: As tolerated Stand Alone Forms: Patient Portal Discharge page Care Plan Goals: To prevent rehospitalization, and chronic aspirations Health Concerns: Advanced dementia, recurent aspirations, chronc decub ulcers Plan of Treatment: Continue care at the nurse, take antibioitcs as redcommended, Needs good wound care Frequent position change from side to side No surgical debridement planned at this time Assessment: As above Discharge Date/Time: 12/14/21 12:45
--- NOTE | 2021-12-14 09:56 | MHC.CM.PN ---
Addendum entered by Deedee Torres 12/14/21 11:59: Patient is discharge today. Patient is returning to [facility] via BLS. Transport is scheduled for 12:30pm. DC info has been sent to the facility, including the covid test(NEG) Original Note: Male 81 DX Sepsis DP return to [facility] via BLS.
[2021-12-14] MEDS: 0.9 % Sodium Chloride Flush 3 ML SYRINGE IVFLUSH (10:20)
[2021-12-14] MEDS: Amoxicillin/Potassium Clav 875 MG TABLET PO (10:21)
[2021-12-14] MEDS: Divalproex Sodium 250 MG TABLET.DR PO (10:21)
[2021-12-14] MEDS: GALANTAMINE HBR 4 MG 8 MG PO (10:21)
[2021-12-14] MEDS: Multivitamin TABLET 1 TAB PO (10:21)
[2021-12-14] MEDS: Collagenase Clostridium Hist. 30 GM TUBE 1 APPL TOPICAL (10:22)
[2021-12-14] MEDS: Memantine HCl 10 MG TABLET PO (10:32)
[2021-12-14 10:59] LABS: COVID-19 Test Negative (Negative)
[2021-12-14 11:23] VITALS: BP 121/78; PULSE 70; RESP 19; TEMP 36.3; O2SAT 96
--- NOTE | 2021-12-14 11:35 | MHC.SLORD ---
Speech Language Pathology Order Status: Pt is mostly refusing all po even with family supporting him. He is planned to return to facility through DC today.
--- NOTE | 2021-12-14 12:43 | PC.NURSE ---
IV AND TELE REMOVED. WARM HANDOVER TO EMS GIVEN. PATIENTS DAUGHTER CALLED AND UPDATED ON RETURN STATUS TO FACILITY. AWAITING FROM RESPONSE FROM [facility] FOR REPORT.
== END 2021-12-14 12:45 | disposition skilled nursing facility (03) | DRG 391 ==
LOC: HO.ED 19:00 → HO.EDOVER 21:46 → HO.IMC 12-11 15:33
PROVIDERS: Admitting Provider Hospitalist; Emergency Provider Emergency Medicine; PCP Internal Medicine; Visit Provider Internal Medicine
DX: K52.89 Other specified noninfective gastroenteritis and colitis (principal); L89.153 Pressure ulcer of sacral region, stage 3; F03.90 Unspecified dementia, unspecified severity, without behavioral disturbance, psychotic disturbance, mood disturbance, and anxiety; R13.10 Dysphagia, unspecified; Z87.01 Personal history of pneumonia (recurrent); L89.221 Pressure ulcer of left hip, stage 1; Z74.01 Bed confinement status; Z20.822 Contact with and (suspected) exposure to COVID-19; Z87.891 Personal history of nicotine dependence; Z79.899 Other long term (current) drug therapy
CPT/HCPCS: 36415; 71045; 74177; 80048; 80076; 80202; 81001; 82565; 82947; 83605; 83690; 83735; 84484; 85025; 85610; 87040; 87635; 92526; 92610; 93005; 96361; 96365; 96375; 99285; J2543; J3370; Q9967

== ENCOUNTER 2021-12-14 23:56 | Inpatient (IN) | payer OTHER, SELFPAY ==
--- NOTE | ~2021-12-14 | CT_ITS ---
EXAMINATION: CT CHEST WITHOUT CONTRAST CLINICAL INFORMATION: Shortness of breath. History of aspiration pneumonia. COMPARISON: 10/27/2021 TECHNIQUE: Multidetector volumetric CT imaging of the chest was done. Axial MIP volume rendering provided. Sagittal and coronal reformatted images were obtained. This CT examination was performed using dose optimization techniques as appropriate, variously including the following: *Automated exposure control *Adjustment of mA and/or kV according to patient size (this includes techniques or standardized protocols for targeted exams where dose is matched to indication/reason for exam; i.e. extremities or head) *Use of iterative reconstruction technique DLP: 287c mGy-cm FINDINGS: LUNGS/PLEURA: Limited assessment of the lung parenchyma due to respiratory motion artifact. Right lower lobe parenchymal consolidation is present. Small bilateral pleural effusions with accompanying atelectasis. Stable chronic pleural parenchymal scarring within the right upper lobe. MEDIASTINUM/: Mild cardiomegaly. Coronary calcifications. No pericardial effusion. Great vessels normal caliber. CHEST WALL/AXILLA: No lymphadenopathy. UPPER ABDOMEN: Stable 1.3 cm left adrenal nodule measuring -2 Hounsfield units compatible with a lipid rich adenoma, benign. OSSEOUS STRUCTURES: No acute or suspicious osseous abnormalities. CT/CT chest wo con IMPRESSION: Right lower lobe consolidation, location suggestive of aspiration event. Small bilateral pleural effusions with accompanying atelectasis.
--- NOTE | 2021-12-14 23:58 | ECG_ITS ---
Test Reason : SOB Blood Pressure : / mmHG Vent. Rate : 087 BPM Atrial Rate : 087 BPM P-R Int : 134 ms QRS Dur : 076 ms QT Int : 378 ms P-R-T Axes : 042 007 -09 degrees QTc Int : 454 ms Normal sinus rhythm Nonspecific ST and T wave abnormality Abnormal ECG When compared with ECG of 10-DEC-2021 16:37, Due to quality of prior EKG, cannot compare. Referred By: Lindsay Sorensen Electronically Signed By:SALMA JOHNSON
[2021-12-14 23:59] VITALS: BP 133/60; BP 142/77; PULSE 105; PULSE 98; RESP 28; TEMP 37.1; O2SAT 92; O2SAT 99; BMI 25.0
[2021-12-15] VITALS (11 sets, daily range): BP systolic 103–146; BP diastolic 45–71; PULSE 54–151; RESP 12–24; TEMP 36–36.7; O2SAT 90–100
--- NOTE | 2021-12-15 00:24 | ED.SOB ---
HPI - SOB/Dyspnea General Chief Complaint: Dyspnea Stated Complaint: SOB Time Seen by Provider: 12/14/21 23:57 Source: family (Daughter) and EMS Mode of arrival: EMS History of Present Illness HPI Narrative: 81-year-old male brought in by EMS from [facility] after he was discharged this morning from the hospital for aspiration pneumonia, sacral decubitus ulcer stage II with reports that patient was 65% on 4 L nasal cannula at the [facility] while nursing staff was attempting to feed him. EMS administered 125 mg of Solu-Medrol as well as a DuoNeb EN route. Blood glucose is 202. Related Data Home Medications Medication Instructions Recorded Confirmed atorvastatin 20 mg tablet 20 mg PO BEDTIME 02/09/21 12/10/21 galantamine 8 mg tablet 8 mg PO BID 02/09/21 12/10/21 memantine 10 mg tablet 10 mg PO BID 02/09/21 12/10/21 quetiapine 50 mg tablet 50 mg PO BID 02/09/21 12/10/21 mirtazapine 15 mg tablet 1 tab PO BEDTIME 10/16/21 12/10/21 divalproex 250 mg tablet,delayed 250 mg PO DAILY 12/10/21 12/10/21 release (Depakote) multivitamin with minerals 1 tab PO DAILY 12/10/21 12/10/21 Previous Rx's Medication Instructions Recorded omeprazole 40 mg capsule,delayed 40 mg PO BID #60 cap 11/24/21 release amoxicillin 875 mg-potassium 875 mg PO Q12H #10 tab 12/14/21 clavulanate 125 mg tablet doxycycline hyclate 100 mg tablet 100 mg PO Q12H #10 tab 12/14/21 Allergies Allergy/AdvReac Type Severity Reaction Status Date / Time No Known Allergies Allergy Unknown Verified 09/20/21 17:41 Review of Systems Review of Systems: Pertinent positives and negatives as stated in the HPI. PMF Past Medical History Source: nursing notes reviewed Medical History Cataract Decubitus ulcer Dementia Fracture of radial head, left, closed Frostbite of both lower extremities Gastric mass Gastric ulcer Kidney failure Primary localized osteoarthritis of knees, bilateral Primary osteoarthritis of left knee Sacral decubitus ulcer, stage II Stercoral colitis Toxic metabolic encephalopathy Wound of foot Family History Family History Father Throat cancer Mother Hypertension Social History Social History Household Members: Unknown / Unable to assess Housing: Unknown / Unable to assess Do you presently have visiting nurse or other home services: No Unable to assess alcohol history related to: Unknown Alcohol intake: never Patient Tobacco Use Status: Former Tobacco user Advance Directives: No service: No Current occupational status: retired Current occupation: right handed Physical Exam Vital Signs: Vital Signs: Last Vital Signs Temp 98.8 F 12/14/21 23:59 Pulse 66 12/15/21 02:47 Resp 24 H 12/15/21 02:47 BP 106/47 L 12/15/21 02:47 Pulse Ox 92 12/15/21 02:47 Oxygen Flow Rate 15 12/14/21 23:59 BMI result Body Mass Index 25.0 VITAL SIGNS: Reviewed. GENERAL: Cachectic, chronically ill, in no acute distress. HEAD: Normocephalic/atraumatic EYES: PERRLA, EOMI EARS: Ext canals without abnormality OROPHARYNX: no oral lesions noted, posterior pharynx clear LUNGS: Decreased breath sounds bibasilar with coarse rhonchi throughout, tachypnea is present. SpO2<98> 4 L nasal cannula with 100% non-rebreather on top CARDIOVASCULAR: Regular rate and rhythm without noted murmurs, no JVD or 1+ pitting edema in right lower extremity as well as bilateral upper extremity ABDOMEN: Soft, non-tender, non-distended with bowel sounds. MUSCULOSKELETAL: No tenderness, deformities, or effusions noted on gross inspection. EXTREMITIES: No cyanosis, clubbing or edema. SKIN: Inspection of the skin reveals no rashes NEUROLOGIC: Drowsy and strength and sensation to light touch were grossly intact x 4. Course Course Course Narrative: 81-year-old male with history and clinical presentation consistent with acute respiratory failure secondary to underlying aspiration pneumonia with increased work of breathing while eating and unclear whether patient may have aspirated once again. Able to titrate off of 100% non-rebreather and will obtain a CT of the chest as well as repeating lab work. Inpatient hospitalist accepts admission. Patient noted to have elevated BNP and received 40 mg of Lasix. MDM - SOB/Dyspnea Lab Data Result diagrams: 12/15/21 00:09 04/02/22 00:38 Labs: Lab Results 12/15/21 12/15/21 12/15/21 Range/Units 00:09 00:09 00:09 WBC 9.8 (4.8-10.8) X10*3/uL RBC 3.32 L (4.60-5.80) X10*6/uL Hgb 8.2 L (14.0-18.0) g/dl Hct 27.6 L (42.0-52.0) % MCV 83.1 D (80.0-98.0) fL MCH 24.7 L (27.0-33.0) pg MCHC 29.7 L (31.0-36.0) g/dl RDW 14.6 (11.0-16.0) % Plt Count 523 H D (160-400) X10*3/uL MPV 10.1 (9.4-12.4) fL Immature Gran % (Auto) 0.3 (0.0-0.4) % Neut % (Auto) 65.7 (45-73) % Lymph % (Auto) 23.9 (20-40) % [place] % (Auto) 8.2 (2-11) % Eos % (Auto) 1.3 (0-4) % Baso % (Auto) 0.6 (0-2) % Lymph # (Auto) 2.3 (1.2-4.9) X10*3/uL [place] # (Auto) 0.8 (0.1-1.2) X10*3/uL Eos # (Auto) 0.1 (0.0-0.4) X10*3/uL Baso # (Auto) 0.1 (0.0-0.2) X10*3/uL Abs Immat Gran (auto) 0.03 (0.00-0.03) X10*3/uL Absolute Neuts (auto) 6.4 (2.0-8.3) x10*3/uL Absolute Nucleated RBC 0.000 (0.0-0.012) X10*3/uL Nucleated RBC % (auto) 0.0 (0.0-0.2) /100WBC VBG pH (7.32-7.43) VBG pCO2 mmHg VBG pO2 mmHg VBG HCO3 (22-26) mmol/L VBG O2 Saturation % VBG Base Excess mmol/L Sodium (135-145) mmol/L Potassium (3.3-5.1) mmol/L Chloride (96-108) mmol/L Carbon Dioxide (22-29) mmol/L Anion Gap (12-20) BUN (9-16) mg/dL Creatinine (0.5-1.4) mg/dL Estim Creat Clear Calc Estimated GFR Random Glucose (60-115) mg/dL Lactic Acid 0.9 (0.5-2.0) mmol/L Calcium (8.4-10.2) mg/dL Total Bilirubin (0.0-1.0) mg/dL AST (5-37) U/L ALT (0-40) U/L Alkaline Phosphatase (39-117) U/L B-Natriuretic Peptide 428 H (<100) pg/mL Total Protein (6.5-8.0) g/dL Albumin (3.5-5.0) g/dL COVID-19 (NELIDA) (Negative) COVID-19 Clin Com 12/15/21 12/15/21 12/15/21 Range/Units 00:38 00:39 00:42 WBC (4.8-10.8) X10*3/uL RBC (4.60-5.80) X10*6/uL Hgb (14.0-18.0) g/dl Hct (42.0-52.0) % MCV (80.0-98.0) fL MCH (27.0-33.0) pg MCHC (31.0-36.0) g/dl RDW (11.0-16.0) % Plt Count (160-400) X10*3/uL MPV (9.4-12.4) fL Immature Gran % (Auto) (0.0-0.4) % Neut % (Auto) (45-73) % Lymph % (Auto) (20-40) % [place] % (Auto) (2-11) % Eos % (Auto) (0-4) % Baso % (Auto) (0-2) % Lymph # (Auto) (1.2-4.9) X10*3/uL [place] # (Auto) (0.1-1.2) X10*3/uL Eos # (Auto) (0.0-0.4) X10*3/uL Baso # (Auto) (0.0-0.2) X10*3/uL Abs Immat Gran (auto) (0.00-0.03) X10*3/uL Absolute Neuts (auto) (2.0-8.3) x10*3/uL Absolute Nucleated RBC (0.0-0.012) X10*3/uL Nucleated RBC % (auto) (0.0-0.2) /100WBC VBG pH 7.39 (7.32-7.43) VBG pCO2 42 mmHg VBG pO2 48 mmHg VBG HCO3 26 (22-26) mmol/L VBG O2 Saturation 73.0 % VBG Base Excess 1.1 mmol/L Sodium 140 (135-145) mmol/L Potassium 3.4 (3.3-5.1) mmol/L Chloride 106 (96-108) mmol/L Carbon Dioxide 26 (22-29) mmol/L Anion Gap 11 L (12-20) BUN 7 L D (9-16) mg/dL Creatinine 0.69 (0.5-1.4) mg/dL Estim Creat Clear Calc 74.2 Estimated GFR > 60 Random Glucose 154 H D (60-115) mg/dL Lactic Acid (0.5-2.0) mmol/L Calcium 8.9 (8.4-10.2) mg/dL Total Bilirubin 0.3 (0.0-1.0) mg/dL AST 24 D (5-37) U/L ALT 21 (0-40) U/L Alkaline Phosphatase 130 H D (39-117) U/L B-Natriuretic Peptide (<100) pg/mL Total Protein 5.8 L (6.5-8.0) g/dL Albumin 2.4 L (3.5-5.0) g/dL COVID-19 (NELIDA) Negative (Negative) COVID-19 Clin Com See Note ECG Data Attestation: I personally reviewed and interpreted this ECG as follows: Prior ECG tracings: available for review Interpretation: NSR, HR-87, no STEMI, AL/QRS/QTC are within normal limits. Critical Care Time Critical Care Time Critical Care Time: Yes Total Critical Care Time: 30 Attestation: I personally attest to this time spent taking care of the patient. Discharge Plan Discharge Clinical Impression: Left lower lobe pneumonia, Aspiration pneumonia, Sacral decubitus ulcer, stage II, Stercoral colitis, Acute respiratory failure, CHF exacerbation Patient Disposition: Admitted As Inpatient
[2021-12-15 00:45] LABS: MANUAL DIFF FLAG NO
[2021-12-15 00:46] LABS: Basophils Absolute Auto 0.1 X10*3/uL (0.0-0.2); Basophils Percent Auto 0.6 % (0-2); Eosinophils Absolute Auto 0.1 X10*3/uL (0.0-0.4); Eosinophils Percent Auto 1.3 % (0-4); Hematocrit 27.6 % (42.0-52.0); Hemoglobin 8.2 g/dl (14.0-18.0); Imm Gran Abs Auto 0.03 X10*3/uL (0.00-0.03); Imm Gran Pct Auto 0.3 % (0.0-0.4); Lymphocytes Absolute Auto 2.3 X10*3/uL (1.2-4.9); Lymphocytes Percent Auto 23.9 % (20-40); Mean Corpuscular HGB Conc 29.7 g/dl (31.0-36.0); Mean Corpuscular Hemoglobin 24.7 pg (27.0-33.0); Mean Corpuscular Volume 83.1 fL (80.0-98.0); Mean Platelet Volume 10.1 fL (9.4-12.4); Monocytes Absolute Auto 0.8 X10*3/uL (0.1-1.2); Monocytes Percent Auto 8.2 % (2-11); Neutrophils Absolute Auto 6.4 x10*3/uL (2.0-8.3); Neutrophils Percent Auto 65.7 % (45-73); Platelet Count 523 X10*3/uL (160-400); Red Blood Count 3.32 X10*6/uL (4.60-5.80); Red Cell Distribution Width 14.6 % (11.0-16.0); White Blood Count 9.8 X10*3/uL (4.8-10.8)
[2021-12-15 00:50] LABS: Venous Blood Gas Refer to POC result
[2021-12-15 00:51] LABS: VBG Base Excess 1.1 mmol/L; VBG HCO3 26 mmol/L (22-26); VBG pCO2 42 mmHg; VBG pH 7.39 (7.32-7.43); VBG pO2 48 mmHg
[2021-12-15 01:02] LABS: COVID-19 Test Negative (Negative)
[2021-12-15 01:04] LABS: Alanine Aminotransferase 21 U/L (0-40); Albumin Level 2.4 g/dL (3.5-5.0); Alkaline Phosphatase 130 U/L (39-117); Anion Gap 11 (12-20); Aspartate Amino Transferase 24 U/L (5-37); Bilirubin Total 0.3 mg/dL (0.0-1.0); Blood Urea Nitrogen 7 mg/dL (9-16); Calcium 8.9 mg/dL (8.4-10.2); Carbon Dioxide 26 mmol/L (22-29); Chloride 106 mmol/L (96-108); Creatinine Clr Calc Pharmacy 74.2; Estimated Glomerular Filt Rate > 60; Glucose Random 154 mg/dL (60-115); Potassium 3.4 mmol/L (3.3-5.1); Sodium 140 mmol/L (135-145); Total Protein 5.8 g/dL (6.5-8.0)
[2021-12-15 01:58] LABS: B Type Natriuretic Peptide 428 pg/mL (<100)
[2021-12-15] MEDS: Furosemide 40 MG/4 ML VIAL IVPUSH (02:13)
[2021-12-15 02:18] LABS: Lactic Acid 0.9 mmol/L (0.5-2.0)
[2021-12-15 04:36] LABS: Appearance Urine CLEAR; Color Urine YELLOW; Glucose Urine UA NEG (NEG); Leukocyte Esterase Urine TRACE (NEG); Nitrite Urine NEG (NEG); Specific Gravity - Urine 1.015 (1.005-1.025); UACC Culture Trigger YES; Urine Blood NEG (NEG); Urine Ketones NEG (NEG); Urine Protein NEG (NEG-TRACE)
[2021-12-15 04:44] LABS: Bacteria Urine 1+ /LPF; Mucus Urine 1+ /LPF; Squamous Epithelial Cell Urine 1+ /LPF
--- NOTE | 2021-12-15 09:32 | PHA.MEDREC ---
MED REC COMPLETE, NO ISSUES Pharmacy Consult ? Medication Reconciliation Pharmacy has completed the medication reconciliation.
--- NOTE | 2021-12-15 10:04 | P.HPHOSP_ITS ---
History of Present Illness Date of Service: 12/15/21 Chief Complaint: aspiration, hypoxia ? 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 decubitus ulcer. Since October 16, has been admitted 4 times all related to aspiration and aspiration pneumonia related to chronic dysphagia from adnvanced dementia. He was discharged less than 24 hours ago for yet again an episode of aspiration pneumonia and at the time of discharge oxygen saturaton was in upper 90s on room air, upon return to the detention it was reported that he aspirated yet again while being fed resulting in oxygen saturation dropping to 65% and he was brought back to the hospital to be reassesd. A CT chest is showing right lower lobe consolidation consistent with aspiration, WBC is normal and there is no fever. At the moment oxygen saturation is 95% on 6 liters. Review of Systems Review of Systems: Yes Unobtainable due to mental status [facility] Medical History Cataract Decubitus ulcer Dementia Fracture of radial head, left, closed Frostbite of both lower extremities Gastric mass Gastric ulcer Kidney failure Primary localized osteoarthritis of knees, bilateral Primary osteoarthritis of left knee Sacral decubitus ulcer, stage II Stercoral colitis Toxic metabolic encephalopathy Wound of foot Family History Father Throat cancer Mother Hypertension Social History Household Members: Other Housing: Custodial Unable to assess alcohol history related to: Unable to respond Alcohol intake: never Patient Tobacco Use Status: Former Tobacco user Use of substances other than those prescribed or required for medical reasons: Unable to respond Currently Displaying Signs/Symptoms of Drug Intoxication Withdrawal: No Advance Directives: No Do you have thoughts of harming others: None service: No Current occupational status: retired Current occupation: right handed Meds Allergies Allergy/AdvReac Type Severity Reaction Status Date / Time No Known Allergies Allergy Unknown Verified 09/20/21 17:41 Active Medications: Current Medications Enoxaparin Sodium (Enoxaparin Sodium 40 Mg/0.4 Ml Syringe) 40 mg SUBCUT Q24H [facility] Dextrose/Sodium Chloride (D5ns) 1,000 mls @ 100 mls/hr IVCONT .Q10H [facility] Pharmacy Consult (Consult Rx Perform Med Rec) 1 each MISCELLANE ONCE PRN PRN Reason: Consult order Sodium Chloride (0.9 % Sodium Chloride Flush 3 Ml Syringe) 3 ml IVFLUSH QSHIFT [facility] Home Medications Medication Instructions Recorded Confirmed Last Taken Type atorvastatin 20 mg tablet 20 mg PO BEDTIME 02/09/21 12/15/21 10/11/21 History galantamine 8 mg tablet 8 mg PO BID 02/09/21 12/15/21 10/11/21 History memantine 10 mg tablet 10 mg PO BID 02/09/21 12/15/21 10/11/21 History quetiapine 50 mg tablet 50 mg PO BID 02/09/21 12/15/21 10/11/21 History mirtazapine 15 mg tablet 1 tab PO BEDTIME 10/16/21 12/15/21 10/11/21 History divalproex 250 mg tablet,delayed 250 mg PO DAILY 12/10/21 12/15/21 Unknown History release (Depakote) multivitamin with minerals 1 tab PO DAILY 12/10/21 12/15/21 Unknown History Physical Exam Vital Signs and Narrative: Vital Signs: Last Vital Signs Temp 98.8 F 12/14/21 23:59 Pulse 61 12/15/21 07:30 Resp 19 12/15/21 07:30 BP 112/52 L 12/15/21 07:30 Pulse Ox 95 12/15/21 07:48 Oxygen Flow Rate 15 12/14/21 23:59 BMI result Body Mass Index 25.0 Const: Other: Constitutional: Alert, in no distress, chronic confusion Mental Status: confused at baseline Eyes: Pupils are equal, round and reactive to light. Ear, Nose and Throat: Oropharynx clear, mucous membranes moist. Ears and nose without eformities. Trachea midline. Respiratory: rhonchi bilaterally, no respiratory distress, no accessory muscle use Cardiovascular: S1 S2 regular. No murmurs, rubs or gallops. Gastrointestinal: Abdomen soft, non-tender, non-distended. Normal bowel sounds.? Neurologic: Cranial nerves II-XII grossly intact. No focal neurological deficits. Moves all extremities spontaneously.? Skin: No rashes or lesions.? Musculoskeletal: No cyanosis or clubbing. Psychiatric: Normal mood and affect? Results Labs CBC and Chem 7: 12/15/21 00:09 12/15/21 00:38 Labs: Laboratory Results - last 24 hr 12/15/21 12/15/21 12/15/21 00:09 00:09 00:09 MCV 83.1 D MCH 24.7 L MCHC 29.7 L RDW 14.6 Plt Count 523 H D MPV 10.1 Immature Gran % (Auto) 0.3 Neut % (Auto) 65.7 Lymph % (Auto) 23.9 [place] % (Auto) 8.2 Eos % (Auto) 1.3 Baso % (Auto) 0.6 Lymph # (Auto) 2.3 [place] # (Auto) 0.8 Eos # (Auto) 0.1 Baso # (Auto) 0.1 Abs Immat Gran (auto) 0.03 Absolute Neuts (auto) 6.4 Absolute Nucleated RBC 0.000 Nucleated RBC % (auto) 0.0 VBG pH VBG pCO2 VBG pO2 VBG HCO3 VBG O2 Saturation VBG Base Excess Anion Gap Estim Creat Clear Calc Estimated GFR Random Glucose Lactic Acid 0.9 Calcium Total Bilirubin AST ALT Alkaline Phosphatase B-Natriuretic Peptide 428 H Total Protein Albumin Urine Color Urine Appearance Urine pH Ur Specific [place] Urine Protein Urine Glucose (UA) Urine Ketones Urine Blood Urine Nitrite Ur Leukocyte Esterase Urine RBC Urine WBC Ur Squamous Epith Cells Urine Bacteria Urine Mucus Urine Yeast COVID-19 (NELIDA) COVID-19 Clin Com 12/15/21 12/15/21 12/15/21 00:38 00:39 00:42 MCV MCH MCHC RDW Plt Count MPV Immature Gran % (Auto) Neut % (Auto) Lymph % (Auto) [place] % (Auto) Eos % (Auto) Baso % (Auto) Lymph # (Auto) [place] # (Auto) Eos # (Auto) Baso # (Auto) Abs Immat Gran (auto) Absolute Neuts (auto) Absolute Nucleated RBC Nucleated RBC % (auto) VBG pH 7.39 VBG pCO2 42 VBG pO2 48 VBG HCO3 26 VBG O2 Saturation 73.0 VBG Base Excess 1.1 Anion Gap 11 L Estim Creat Clear Calc 74.2 Estimated GFR > 60 Random Glucose 154 H D Lactic Acid Calcium 8.9 Total Bilirubin 0.3 AST 24 D ALT 21 Alkaline Phosphatase 130 H D B-Natriuretic Peptide Total Protein 5.8 L Albumin 2.4 L Urine Color Urine Appearance Urine pH Ur Specific [place] Urine Protein Urine Glucose (UA) Urine Ketones Urine Blood Urine Nitrite Ur Leukocyte Esterase Urine RBC Urine WBC Ur Squamous Epith Cells Urine Bacteria Urine Mucus Urine Yeast COVID-19 (NELIDA) Negative COVID-19 Clin Com See Note 12/15/21 04:28 MCV MCH MCHC RDW Plt Count MPV Immature Gran % (Auto) Neut % (Auto) Lymph % (Auto) [place] % (Auto) Eos % (Auto) Baso % (Auto) Lymph # (Auto) [place] # (Auto) Eos # (Auto) Baso # (Auto) Abs Immat Gran (auto) Absolute Neuts (auto) Absolute Nucleated RBC Nucleated RBC % (auto) VBG pH VBG pCO2 VBG pO2 VBG HCO3 VBG O2 Saturation VBG Base Excess Anion Gap Estim Creat Clear Calc Estimated GFR Random Glucose Lactic Acid Calcium Total Bilirubin AST ALT Alkaline Phosphatase B-Natriuretic Peptide Total Protein Albumin Urine Color YELLOW Urine Appearance CLEAR Urine pH 6.0 Ur Specific [place] 1.015 Urine Protein NEG Urine Glucose (UA) NEG Urine Ketones NEG Urine Blood NEG Urine Nitrite NEG Ur Leukocyte Esterase TRACE H Urine RBC 1-4 Urine WBC 1-4 Ur Squamous Epith Cells 1+ Urine Bacteria 1+ Urine Mucus 1+ Urine Yeast 3+ COVID-19 (NELIDA) COVID-19 Clin Com Imaging Radiologist's Impressions: Impressions Chest CT 12/15/21 02:39 IMPRESSION: Right lower lobe consolidation, location suggestive of aspiration event. Small bilateral pleural effusions with accompanying atelectasis. Assessment and Plan (1) Aspiration pneumonia: Status: Acute Plan 81-year-old male with a past medical history of advanced dementia with associated dysphagia, hypertension, history of frostbite in September of 2021; reccurent aspiration just discharged from the hospital and returning with yet another instance of aspiration associated with acute hypoxia Acute hypoxic respriatory failure due to aspiration pneumonitis or pneumonia -NPO--including meds for now -empiric Abx -O2 to maintain sat around 92 -Patient has demonstrated time again that he's not able to tolerate oral diet and therefore will keep NPO and talk to family about feeding tube if they so wish Decub ulcer present on admssion--was recently evaluated by surgery and recommended conservative mangement with frequent turning,dressing changes Severe dementia:??hold memantine, gelantamine, mirtazapine , Depakote (can change depakote to IV) ? Hypertension:? Patient's Lisinopril on HOLD, IV med if needed Mild to moderateprotein calory malnutrition--His nutrition is poor.. NPO for now Will discuss care with daughter re possible hospice and if they wish not them surgery consult for PEG Will need at least 2 midnight for management of aspiratioin pneumonia, Quality Stroke Does the patient have a stroke diagnosis?: No VTE Prior VTE?: No VTE Risk Level:: Medical - moderate - high VTE Device Contraindication: Treatment Not Tolerated VTE Drug Contraindication: N/A - Med Ordered
[2021-12-15] MEDS: Enoxaparin Sodium 40 MG/0.4 ML SYRINGE SUBCUT (10:43)
[2021-12-15] MEDS: Dextrose 5 % and 0.9 % NaCl 1,000 ML 100 ML IVCONT ×2 (10:43→21:41)
[2021-12-15 10:45] LABS: INTERNATIONAL NORM RATIO 1.3 (0.9-1.1); Prothrombin Time 14.7 SEC (9.9-13.0)
[2021-12-15] MEDS: cefTRIAXone sodium 1 GM in 0.9 % Sodium Chloride 50 ML IV (11:16)
--- NOTE | 2021-12-15 14:15 | MHC.CM.PN ---
PATIENT IS IN FROM [facility] PLACED FOR FACILITY TO FOLLOW FOR HIS RETURN. DAUGHTER, BAKARI ([phone]) IS ALSO HCP AGENT. SHE IS ON HER WAY IN THIS AFTERNOON AND WILL ASK FOR CASE MANAGEMENT IF NEEDED. CASE MANAGEMENT FOLLOWING FOR DISCHARGE PLANS. IMM 4 PLACED IN BIN FOR MEDICAL RECORDS
[2021-12-16] VITALS (7 sets, daily range): BP systolic 128–151; BP diastolic 55–89; PULSE 67–78; RESP 16–20; TEMP 36.6–37.3; O2SAT 95–100
[2021-12-16] MEDS: 0.9 % Sodium Chloride Flush 3 ML SYRINGE IVFLUSH ×2 (01:37→21:55)
--- NOTE | 2021-12-16 09:02 | P.PNIM_ITS ---
Subjective Subjective Date of Service: 12/16/21 Interval History: f/u on aspiration pneumonia interval history: hypoxia resolved, no fever Review of Systems Review of Systems: Yes Unobtainable due to mental status Physical Exam Vital Signs: Vital Signs: Last Vital Signs Temp 98.7 F 12/16/21 08:02 Pulse 68 12/16/21 07:42 Resp 20 12/16/21 07:42 BP 138/55 L 12/16/21 07:42 Pulse Ox 100 12/16/21 07:42 Oxygen Flow Rate 15 12/14/21 23:59 BMI result Body Mass Index 25.0 Const: Other: General: alert, no acute distress, baseline dementia Resp: CTA bilateral CVS: S1,S2,RRR GI: +BS, NT, no distention Skin: No rash Neuro: motor grossly intact Psych: flat affect Objective Data Active Medications Enoxaparin Sodium (Enoxaparin Sodium 40 Mg/0.4 Ml Syringe) 40 mg SUBCUT Q24H [facility] Last Admin: 12/15/21 10:43 Dose: 40 mg Documented by: REGINE Dextrose/Sodium Chloride (D5ns) 1,000 mls @ 100 mls/hr IVCONT .Q10H [facility] Last Admin: 12/15/21 21:41 Dose: 100 mls/hr Documented by: GOPI Ceftriaxone Sodium 1 gm/ (Sodium Chloride) 50 mls @ 100 mls/hr IV Q24H [facility] Last Infusion: 12/15/21 12:36 Dose: 0 mls/hr Documented by: REGINE Pharmacy Consult (Consult Rx Perform Med Rec) 1 each MISCELLANE ONCE PRN PRN Reason: Consult order Sodium Chloride (0.9 % Sodium Chloride Flush 3 Ml Syringe) 3 ml IVFLUSH QSHIFT [facility] Last Admin: 12/16/21 01:37 Dose: 3 ml Documented by: CARLOS Labs CBC & Chem 7: 12/15/21 00:09 12/15/21 00:38 Labs: Laboratory Results - last 24 hr 12/15/21 10:34 PT 14.7 H INR 1.3 H Microbiology Microbiology Results: Microbiology 12/15/21 00:09 Blood Culture - Preliminary Blood - Arterial No growth after 24 hours. 12/15/21 00:39 Blood Culture - Preliminary Blood - Arterial No growth after 24 hours. Assessment and Plan (1) Aspiration pneumonia: Status: Acute Plan 81-year-old male with a past medical history of advanced dementia with associated dysphagia, hypertension, history of frostbite in September of 2021; reccurent aspiration just discharged from the hospital and returning with yet another instance of aspiration associated with acute hypoxia Acute hypoxic respriatory failure due to aspiration pneumonitis or pneumonia, hypoxia resolved -NPO--i -empiric Abx (Ceftriaoxone d2) -off O2 -Patient has demonstrated time again that he's not able to tolerate oral diet and therefore will keep NPO and talk to family about feeding tube if they so wish -surgery consult for possible PEG Decub ulcer present on admssion--was recently evaluated by surgery and recommended conservative management with frequent turning,dressing changes Severe dementia:??hold memantine, gelantamine, mirtazapine , Depakote (can change depakote to IV) ? Hypertension:? Patient's Lisinopril on HOLD, IV med if needed Mild to moderate protein calory malnutrition--His nutrition is poor.. NPO for now Will discuss care with daughter re possible hospice and if they wish not them surgery consult for PEG Inpatient need for treatment of aspiration pneumoia with hypoxia, need iv abx Will discuss with family again Quality Stroke Does the patient have a stroke diagnosis?: No VTE Prior VTE?: No VTE Risk Level:: Medical - moderate - high VTE Device Contraindication: Treatment Not Tolerated VTE Drug Contraindication: N/A - Med Ordered
--- NOTE | 2021-12-16 10:34 | P.CONGS_ITS ---
History of Present Illness Consult details Consult date: 12/16/21 Narrative: 81M with multiple medical problems including CHF, dementia, with a hx of aspiration pneumonia, readmitted 2 days ago for another episode of aspiration. He is from a NH and was noted to have very low O2 sats after feeding, so he was sent back to the hospital.He was recently discharged from the hospital for a sim ilar episode. This is apparently his 4th admission since October 2021 for aspiration. He is chronically bed bound, and has decubitus ulcers as well. In view of his recurrent aspiration, he was referred to me for PEG placement. Review of Systems Review of Systems: not available at this time - pt is not communicative [facility] Past Medical History Medical History Cataract Decubitus ulcer Dementia Fracture of radial head, left, closed Frostbite of both lower extremities Gastric mass Gastric ulcer Kidney failure Primary localized osteoarthritis of knees, bilateral Primary osteoarthritis of left knee Sacral decubitus ulcer, stage II Stercoral colitis Toxic metabolic encephalopathy Wound of foot Family History Family History Father Throat cancer Mother Hypertension Social History Social History Household Members: Other Housing: Skilled Nursing Unable to assess alcohol history related to: Unable to respond Alcohol intake: never Patient Tobacco Use Status: Former Tobacco user Use of substances other than those prescribed or required for medical reasons: Unable to respond Currently Displaying Signs/Symptoms of Drug Intoxication Withdrawal: No Advance Directives: No Do you have thoughts of harming others: None service: No Current occupational status: retired Current occupation: right handed Meds Allergies Allergy/AdvReac Type Severity Reaction Status Date / Time No Known Allergies Allergy Unknown Verified 09/20/21 17:41 Active Medications: Current Medications Enoxaparin Sodium (Enoxaparin Sodium 40 Mg/0.4 Ml Syringe) 40 mg SUBCUT Q24H [facility] Last Admin: 12/15/21 10:43 Dose: 40 mg Documented by: Dextrose/Sodium Chloride (D5ns) 1,000 mls @ 100 mls/hr IVCONT .Q10H [facility] Last Admin: 12/15/21 21:41 Dose: 100 mls/hr Documented by: Ceftriaxone Sodium 1 gm/ (Sodium Chloride) 50 mls @ 100 mls/hr IV Q24H [facility] Last Infusion: 12/15/21 12:36 Dose: Infused Documented by: Pharmacy Consult (Consult Rx Perform Med Rec) 1 each MISCELLANE ONCE PRN PRN Reason: Consult order Sodium Chloride (0.9 % Sodium Chloride Flush 3 Ml Syringe) 3 ml IVFLUSH QSHIFT [facility] Last Admin: 12/16/21 09:29 Dose: Not Given Documented by: Home Medications Medication Instructions Recorded Confirmed Last Taken Type atorvastatin 20 mg tablet 20 mg PO BEDTIME 02/09/21 12/15/21 10/11/21 History galantamine 8 mg tablet 8 mg PO BID 02/09/21 12/15/21 10/11/21 History memantine 10 mg tablet 10 mg PO BID 02/09/21 12/15/21 10/11/21 History quetiapine 50 mg tablet 50 mg PO BID 02/09/21 12/15/21 10/11/21 History mirtazapine 15 mg tablet 1 tab PO BEDTIME 10/16/21 12/15/21 10/11/21 History divalproex 250 mg tablet,delayed 250 mg PO DAILY 12/10/21 12/15/21 Unknown History release (Depakote) multivitamin with minerals 1 tab PO DAILY 12/10/21 12/15/21 Unknown History Physical Exam Vital Signs: Vital Signs: Last Vital Signs Temp 98.7 F 12/16/21 08:02 Pulse 68 12/16/21 07:42 Resp 20 12/16/21 07:42 BP 138/55 L 12/16/21 07:42 Pulse Ox 100 12/16/21 07:42 Oxygen Flow Rate 15 12/14/21 23:59 BMI result Body Mass Index 25.0 Const: Other: awake, some verbal output, but not communicative Resp: Effort & Inspection: normal respiratory effort Cardio: Rate: regular rate GI: Other: no abdominal sc Palpation (GI): Soft to palpation, not firm, nontender and no guarding Results Labs Result diagrams: 12/15/21 00:09 12/15/21 00:38 Labs: Abnormal lab results 12/15/21 Range/Units 10:34 PT 14.7 H (9.9-13.0) SEC INR 1.3 H (0.9-1.1) Urine 12/15/21 Range/Units 04:28 Urine Color YELLOW Urine Appearance CLEAR Urine pH 6.0 (5.0-8.0) Ur Specific Royal 1.015 (1.005-1.025) Urine Protein NEG (NEG-TRACE) MG/DL Urine Glucose (UA) NEG (NEG) MG/DL All other labs normal. Assessment and Plan (1) Aspiration pneumonia: Status: Acute He has advance dementia,and is bedbound, with recurrent aspiration. I was requ ested to put a PEG tube. I explained to the daughter Amanda Patel the technique of PEG tube placement. I reviewed the risks including but not limited to bleeding, infections, injury to bowel, tube leak/dislodgement, inherent risks of anesthesia including loss of airway, as well as the benefits and alternatives. She will let me know once the family agrees to proceed. Procedures Date of Service Date of Service: 12/16/21
[2021-12-16] MEDS: Enoxaparin Sodium 40 MG/0.4 ML SYRINGE SUBCUT (11:19)
[2021-12-16] MEDS: cefTRIAXone sodium 1 GM in 0.9 % Sodium Chloride 50 ML IV (11:19)
[2021-12-16] MEDS: Dextrose 5 % and 0.9 % NaCl 1,000 ML 100 ML IVCONT ×2 (11:50→21:53)
[2021-12-17 04:00] VITALS: BP 117/57; PULSE 66; RESP 16; TEMP 36.4; O2SAT 100
[2021-12-17 07:49] VITALS: BP 122/57; PULSE 60; RESP 20; TEMP 37.4; O2SAT 96
[2021-12-17] MEDS: Dextrose 5 % and 0.9 % NaCl 1,000 ML 100 ML IVCONT ×2 (08:03→18:48)
--- NOTE | 2021-12-17 08:43 | P.CDIC_ITS ---
CDI Concurrent Query Documentation Clarification: PHYSICIAN'S DOCUMENTATION REQUEST Date of Query: 12/17/21 0844 Patient Name: Curtis Patel Admit Date: 12/15/21 Dear Doctor, A review of the medical record indicates additional documentation may be needed. Please review below and update the documentation accordingly. Clinical Indicators: Risk Factors/Clinical Indicators/Treatments BNP 428 CT Chest: bilateral pleural effusion Lasix given Per ED: CHF exacerbation Please provide further specificity regarding the most likely type and acuity of CHF you are evaluating, treating, or monitoring. Examples include: Type: * Systolic * Diastolic * Combined Systolic/Diastolic * Other ? please specify * Unable to determine Acuity: * Acute * Chronic * Acute on chronic * Unable to determine Use of terms such as suspected, likely, concern for, or probable (associated with a specific diagnosis that is being evaluated, monitored, or treated as if it exists) are acceptable and can be coded in the inpatient setting, when docume nted at the time of discharge. Thank you, Nevin Holman [insert CDI's credentials] Extension: [4-digit phone extension] Please use your independent medical judgment in providing your response. THIS QUERY IS PART OF THE PERMANENT MEDICAL RECORD Provider Response: Other Other Diagnosis: CHF NOS
--- NOTE | 2021-12-17 08:48 | P.PNIM_ITS ---
Subjective Subjective Date of Service: 12/17/21 Interval History: f/u on aspiration pneumonia interval history: No hypoxia, no fever, remains NPO Review of Systems not available at this time - pt is not communicative Physical Exam Vital Signs: Vital Signs: Last Vital Signs Temp 99.4 F 12/17/21 07:49 Pulse 60 12/17/21 07:49 Resp 20 12/17/21 07:49 BP 122/57 L 12/17/21 07:49 Pulse Ox 96 12/17/21 07:49 Oxygen Flow Rate 15 12/14/21 23:59 BMI result Body Mass Index 25.0 Const: Other: General: alert, confused Resp: rhonchi CVS: S1,S2,RRR GI: +BS, NT, no distention Skin: No rash Neuro: motor grossly intact Psych: appropriate affect Resp: Effort & Inspection: normal respiratory effort Objective Data Active Medications Enoxaparin Sodium (Enoxaparin Sodium 40 Mg/0.4 Ml Syringe) 40 mg SUBCUT Q24H [facility] Last Admin: 12/16/21 11:19 Dose: 40 mg Documented by: JEROD Dextrose/Sodium Chloride (D5ns) 1,000 mls @ 100 mls/hr IVCONT .Q10H [facility] Last Admin: 12/17/21 08:03 Dose: 100 mls/hr Documented by: TAI Ceftriaxone Sodium 1 gm/ (Sodium Chloride) 50 mls @ 100 mls/hr IV Q24H [facility] Last Infusion: 12/16/21 11:53 Dose: 0 mls/hr Documented by: JEROD Pharmacy Consult (Consult Rx Perform Med Rec) 1 each MISCELLANE ONCE PRN PRN Reason: Consult order Sodium Chloride (0.9 % Sodium Chloride Flush 3 Ml Syringe) 3 ml IVFLUSH QSHIFT [facility] Last Admin: 12/17/21 08:05 Dose: Not Given Documented by: TAI Non-Admin Reason: IV Running Labs CBC & Chem 7: 12/15/21 00:09 12/15/21 00:38 Microbiology Microbiology Results: Microbiology 12/15/21 00:09 Blood Culture - Preliminary Blood - Arterial No growth after 48 hours. 12/15/21 00:39 Blood Culture - Preliminary Blood - Arterial No growth after 48 hours. 12/15/21 Unknown Urine Culture - Preliminary Urine Catheterized - Straight Catheter Culture in progress. Assessment and Plan (1) Aspiration pneumonia: Status: Acute Plan 81-year-old male with a past medical history of advanced dementia with associated dysphagia, hypertension, history of frostbite in September of 2021; reccurent aspiration just discharged from the hospital and returning with yet another instance of aspiration associated with acute hypoxia Acute hypoxic respriatory failure due to aspiration pneumonitis or pneumonia -NPO--i -empiric Abx (Ceftriaoxone d2) -off O2 -Patient has demonstrated time again that he's not able to tolerate oral diet and therefore will keep NPO and talk to family about feeding tube if they so wish -surgery consult for possible PEG--Family is having a difficult time coming to a concensus about the PEG -Speech eval today Decub ulcer present on admssion--was recently evaluated by surgery and recommended conservative management with frequent turning,dressing changes Severe dementia:??hold memantine, gelantamine, mirtazapine , Depakote (can change depakote to IV) ? Hypertension:? Patient's Lisinopril on HOLD, IV med if needed Mild to moderate protein calory malnutrition--His nutrition is poor.. NPO for now Will discuss care with daughter re possible hospice and if they wish not them surgery consult for PEG CHF--NOS, no other detail available, Inpatient need for treatment of aspiration pneumoia with hypoxia, need iv abx Will discuss with family again Quality Stroke Does the patient have a stroke diagnosis?: No VTE Prior VTE?: No VTE Risk Level:: Medical - moderate - high VTE Device Contraindication: Treatment Not Tolerated VTE Drug Contraindication: N/A - Med Ordered
--- NOTE | 2021-12-17 10:21 | MHC.CM.PN ---
NURSE CASE MANAGEMENT NOTE PATIENT ADMITTE WITH ASPITRATION PNA PER DOCUMMENTATION ;(history of advanced dementia with associated dysphagia, reccurent aspiration again that he's not able to tolerate oral diet and therefore will keep NPO and MD talk to family about feeding tube if they so wish -surgery consult for possible PEG)--Family is having a difficult time coming to a concensus about the PEG - Decub ulcer present on admssion--was recently evaluated by surgery and recommended conservative management Mild to moderate protein calorie malnutrition--per dietitian, NPO for now MD Will discuss care with daughter re peg tube placement vs possible hospice DISCHARGE NOTE md to speak with hcp dtr about family decision for peg tube placement and [facility] family caseworker to continue harriett aleman
[2021-12-17 11:42] VITALS: BP 144/63; PULSE 72; RESP 20; TEMP 36.6; O2SAT 94
--- NOTE | 2021-12-17 11:48 | MHC.SLORD ---
Speech Language Pathology Order Status: Received order for bedside swallow evaluation. PYTHON DJANGO DEVELOPER attempted to see patient 2x this morning. Patient refused to accept any PO from PYTHON DJANGO DEVELOPER. MD, RN, RD notified. Will try again this afternoon.
[2021-12-17] MEDS: Enoxaparin Sodium 40 MG/0.4 ML SYRINGE SUBCUT (12:15)
[2021-12-17] MEDS: cefTRIAXone sodium 1 GM in 0.9 % Sodium Chloride 50 ML IV (12:15)
[2021-12-17 12:17] VITALS: BMI 25.0
[2021-12-17 15:25] VITALS: BP 149/74; PULSE 69; RESP 18; TEMP 36.7; O2SAT 95
--- NOTE | 2021-12-17 15:35 | MHC.SL.SWA ---
Speech Pathologist Impression: Oropharyngeal dysphagia Risk of Aspiration Due to: Neurological Condition History of Pneumonia Reduced Cognition Dysphasia Diet Status: NO CHANGE Liquid Consistency and Strategies for Safe Swallow: Liquid Intake Recommendation: NPO Solid Food Consistency: Dietary Recommendations: NPO Additional Modifications to Solid Foods: Recommend continue NPO status d/t overt s/s of aspiration with PO trials and hx recurrent aspiration pneumonia. Given today's observations- patient's refusal of PO, difficulty following commands, and overall mental status- not candidate at this time for MBSS. Notified MD, RN, RD via [employer] Message. ALL AROUND GEAR MACHINE OPERATOR to re-evaluate tomorrow morning. Oral Medication Intake: NPO Please contact the pharmacy regarding appropriate crushable or liquid drug formulations that are available whenever modified delivery is recommended. Supervision While Eating and Drinking for Safe Swallow: PO with ALL AROUND GEAR MACHINE OPERATOR Swallowing Recommended Treatments: Compens. Strategy Educat. Recommendation for Speech: Inpatient Speech Therapy Field Manager Clinican/Clinical Fellow: No Supervisory Statement: I have reviewed and agree with the student/clinical fellow's documentation: N/A Speech Language Pathologist: Deborah Lopez M.A., CCC-ALL AROUND GEAR MACHINE OPERATOR
[2021-12-17] MEDS: 0.9 % Sodium Chloride Flush 3 ML SYRINGE IVFLUSH (18:48)
[2021-12-17 20:00] VITALS: BP 148/60; PULSE 88; RESP 18; TEMP 36.7; O2SAT 100
[2021-12-18] VITALS: BP 140/65; PULSE 69; RESP 17; TEMP 36.6; O2SAT 98
[2021-12-18 04:00] VITALS: BP 153/60; PULSE 69; RESP 18; TEMP 36.3; O2SAT 100
[2021-12-18] MEDS: Dextrose 5 % and 0.9 % NaCl 1,000 ML 100 ML IVCONT ×2 (05:23→15:19)
[2021-12-18 08:00] VITALS: BP 112/67; PULSE 80; RESP 20; TEMP 36.3; O2SAT 98
--- NOTE | 2021-12-18 10:59 | HO.PM.IMPN ---
Subjective Subjective Date of Service: 12/18/21 Interval History: aspirational pneumonia Review of Systems no hypoxia,? no fever, started pureed diet as per swallow. Physical Exam Vital Signs: Vital Signs: Last Vital Signs Temp 97.4 F 12/18/21 08:00 Pulse 80 12/18/21 08:00 Resp 20 12/18/21 08:00 BP 112/67 12/18/21 08:00 Pulse Ox 98 12/18/21 08:00 Oxygen Flow Rate 15 12/14/21 23:59 BMI result Body Mass Index 25.0 General: alert, confused, pt is not communicative. Resp:? fair breath sounds , diminshed at bases , rhonchii CVS: S1,S2,RRR GI: +BS, NT, no distention Skin: No rash Neuro:? motor grossly intact Psych: appropriate affect Objective Data Active Medications Enoxaparin Sodium (Enoxaparin Sodium 40 Mg/0.4 Ml Syringe) 40 mg SUBCUT Q24H [facility] Last Admin: 12/17/21 12:15 Dose: 40 mg Documented by: TAI Dextrose/Sodium Chloride (D5ns) 1,000 mls @ 100 mls/hr IVCONT .Q10H [facility] Last Admin: 12/18/21 05:23 Dose: 100 mls/hr Documented by: LLOYD Ceftriaxone Sodium 1 gm/ (Sodium Chloride) 50 mls @ 100 mls/hr IV Q24H [facility] Last Infusion: 12/17/21 12:56 Dose: 100 mls/hr Documented by: TAI Pharmacy Consult (Consult Rx Perform Med Rec) 1 each MISCELLANE ONCE PRN PRN Reason: Consult order Sodium Chloride (0.9 % Sodium Chloride Flush 3 Ml Syringe) 3 ml IVFLUSH QSHIFT [facility] Last Admin: 12/18/21 00:37 Dose: Not Given Documented by: LLOYD Non-Admin Reason: IV Running Labs CBC & Chem 7: 12/15/21 00:09 12/15/21 00:38 Microbiology Microbiology Results: Microbiology 12/15/21 Unknown Urine Culture - Final Urine Catheterized - Straight Catheter Tran parapsilosis Assessment and Plan (1) Acute respiratory failure: Status: Acute (2) Aspiration pneumonia: Status: Acute Plan 81-year-old male with a past medical history of advanced dementia with associated dysphagia,? hypertension, history of frostbite in September of 2021; reccurent aspiration just discharged from the hospital and returning with yet another instance of aspiration associated with acute hypoxia 1.Acute hypoxic respriatory failure due to aspiration pneumonitis or pneumonia -empiric Abx (Ceftriaoxone d3) -off O2 Speech and Swallow recommended-pureed/honey thick diet. -surgery consult for possible PEG--Family is having a difficult time coming to a concensus about the PEG 2.Decub ulcer present on admssion--was recently evaluated by surgery and recommended conservative management with frequent turning,dressing changes 3.Severe dementia:??hold memantine, gelantamine, mirtazapine , Depakote (can change depakote to IV) ? 4.Hypertension:? Patient's Lisinopril on HOLD, IV med if needed. 5.Mild to moderate protein calorie malnutrition--His nutrition is poor. added diet as per swallow. Will discuss care with daughter re? possible hospice and if they wish not them surgery consult for PEG CHF--NOS, no other detail available. Inpatient need for treatment of aspiration pneumonia , need iv abx Will discuss with family again- updated in detail. Quality Stroke Does the patient have a stroke diagnosis?: No VTE Prior VTE?: No VTE Risk Level:: Medical - moderate - high VTE Device Contraindication: Treatment Not Tolerated VTE Drug Contraindication: N/A - Med Ordered
--- NOTE | 2021-12-18 11:32 | MHC.SL.SWA ---
Speech Pathologist Impression: Risk of Aspiration Due to: Neurological Condition History of Pneumonia Reduced Cognition Dysphasia Diet Status: PUREE (NDD1) w/HONEY THICK liquids, PILLS CRUSHED in PUREE. Pt will require strict 1-1 supervision during all meals w/close monitor for signs of aspiration, including monitor Pt's engagement/awareness of presentations of food or liquid (Pt at risk of neglecting bolus). DO NOT attempt meal, administration of medication if PT is LETHARGIC, not engaged or motivated to eat. NO STRAWS, Honey thick liquid and puree by tsp only. Liquid Consistency and Strategies for Safe Swallow: Liquid Intake Recommendation: Honey Thick Liquid Intake Strategies: No Straws Liquids by Teaspoon Only Solid Food Consistency: Dietary Recommendations: Pureed (NDD1) Additional Modifications to Solid Foods: DO NOT attempt meal, administration of medication if PT is LETHARGIC, not engaged or motivated to eat Oral Medication Intake: Crushed with Puree Please contact the pharmacy regarding appropriate crushable or liquid drug formulations that are available whenever modified delivery is recommended. Compensatory Strategies and Precautions to be Taken for Safe Swallow: Sitting Upright (90 deg) No Straw Liquids from Straw Small Bites and Sips Alternate Liquids/Solids Rate of Ingestion Change Oral Check Supervision While Eating and Drinking for Safe Swallow: Total Supervision (1:1) Foods to Avoid: Very sticky solids Swallowing Recommended Treatments: Compens. Strategy Educat. Recommendation for Speech: Inpatient Speech Therapy Comment: Pt presented w/clinical signs of aspiration on thin and nectar thick liquids. Pt has episodic delay of swallow, incomplete/mildly reduced laryngeal elevation on swallow. Recommend PUREE (NDD1) w/HONEY THICK liquids, PILLS CRUSHED in PUREE. Pt will require strict 1-1 supervision during all meals w/close monitor for signs of aspiration, including monitor Pt's engagement/awareness of presentations of food or liquid (Pt at risk of neglecting bolus). DO NOT attempt meal, administration of medication if PT is LETHARGIC, not engaged or motivated to eat. NO STRAWS, Honey thick liquid and puree by tsp only. Frequency/Duration: Date Range for Service Req: Timeline to reassess: Human Resources Training Manager Clinican/Clinical Fellow: No Supervisory Statement: I have reviewed and agree with the student/clinical fellow's documentation: N/A Speech Language Pathologist: Elizabeth Chaidez M.A., CCC-BRUSHER OPERATOR
[2021-12-18 11:36] VITALS: BP 127/57; PULSE 84; RESP 17; TEMP 36.6; O2SAT 97
[2021-12-18] MEDS: cefTRIAXone sodium 1 GM in 0.9 % Sodium Chloride 50 ML IV (11:56)
[2021-12-18] MEDS: Enoxaparin Sodium 40 MG/0.4 ML SYRINGE SUBCUT (11:57)
--- NOTE | 2021-12-18 13:32 | MHC.CM.PN ---
NURSE BIOINFORMATICS TECHNICIAN NOTE, EARLIER TODAY ASKED BY HOSPITALIST TO CALL THE HCP VICKI [phone] TO ASK IF SHE/FAMILY HAVE COME TO DECISION ON PEG TUBE PLACEMENT VS HOSPICE AT [facility] ;[place] OR [place] WITH HOSPICE SHE REP[ORTED TO ME THAT THE FAMILY MEMBERS ARE RESISTING THE PEG TUBE FEEDING BECAUSE OF THE POSSIBLE COMPLICATIONS THAT CAN ARISE WITH ANESTHESIA, SHE ALSO REPORTED TO ME THAT SHE UNDERSTAND THAT IF HE WAS TO COME HOME ON HOSPICE HE WOULD HAVE TO HAVE FULL 24HR/7 DAYS WEEK CARE VS RETURNING BACK TO [facility] WITH HOSPICE ) 1;30 HOSPITALIST REPORTED TO ME THAT SPEECH PATHOLOGIST SAW PATIENT AND IS NOW RECOMMENDING A TRIAL ; ASPIRATION PRECAUTIONS, PUREED, HONEY HONEY THICK (SEE SPEECH PATHOLOGIST ASSESSMENT 12/18/21) DISCHARGE PLAN 1. RETURN BACK TO [facility] WITH ASPIRATION PRECAUTIONS AND PUREED HONEY THISK DIET IF SUCCESSFUL VS HEALTH CARE PROXY TO DECIDE ON PEG PLACEMENT OR HOSPICE , BIOINFORMATICS TECHNICIAN TO CONTINUE TO FOOLOW
[2021-12-18 19:29] VITALS: BP 170/72; PULSE 79; RESP 20; TEMP 37.1; O2SAT 100
[2021-12-19] VITALS: BP 170/72; PULSE 77; RESP 18; TEMP 36.6; O2SAT 97
[2021-12-19] MEDS: Dextrose 5 % and 0.9 % NaCl 1,000 ML 100 ML IVCONT (02:24)
[2021-12-19 04:00] VITALS: BP 131/86; PULSE 73; RESP 18; TEMP 36.7; O2SAT 99
[2021-12-19 07:22] VITALS: BP 114/67; PULSE 98; RESP 16; TEMP 36.4; O2SAT 99
--- NOTE | 2021-12-19 10:14 | MHC.CM.PN ---
T/W spoke with daughter Amanda ([phone]) Amanda does not want hospice or a peg tube. for patient. She does want the patient to return to [facility] on the recommendations of the Speech/Swallow eval report. She also reports that no family members are able to provide care in the home. Hospitalist made aware of family's decision. [facility] updated.
--- NOTE | 2021-12-19 10:27 | MHC.CLN ---
F/U SEEN BY SUPERVISORY GEOGRAPHER WITH DIET CONSISTENCY RECOMMENDATION PUREE WITH HONEY THICK LIQUIDS (4/5). INTAKE PER DOCUMENTATION 4/5=2 MEALS X 75%. NO FAMILY CONSENSUS ABOUT PEG PLACEMENT. INCREASED NUTRITIONAL NEEDS DUE TO PRESSURE INJURY/IMPAIRED SKIN. TAKING LIQUIDS BY TSP ONLY SO ADDITIONAL NUTRITION VIA SUPPLEMENT IS NOT RECOMMENDED AT THIS TIME. CONTINUE TO FOLLOW INTAKE AND NUTRITIONAL STATUS.
[2021-12-19] MEDS: Enoxaparin Sodium 40 MG/0.4 ML SYRINGE SUBCUT (10:58)
[2021-12-19] MEDS: cefTRIAXone sodium 1 GM in 0.9 % Sodium Chloride 50 ML IV (10:59)
--- NOTE | 2021-12-19 11:11 | MHC.SL.SWA ---
Speech Pathologist Impression: Severe oropharyngeal dysphagia Risk of Aspiration Due to: Neurological Condition History of Pneumonia Reduced Cognition Dysphasia Diet Status: No Change- PUREE (NDD1) w/HONEY THICK liquids, PILLS CRUSHED in PUREE. Pt will require strict 1-1 supervision during all meals w/close monitor for signs of aspiration, including monitor Pt's engagement/awareness of presentations of food or liquid (Pt at risk of neglecting bolus). DO NOT attempt meal, administration of medication if PT is LETHARGIC, not engaged or motivated to eat. NO STRAWS, Honey thick liquid and puree by tsp only. Liquid Consistency and Strategies for Safe Swallow: Liquid Intake Recommendation: Honey Thick Liquid Intake Strategies: No Straws Liquids by Teaspoon Only Solid Food Consistency: Dietary Recommendations: Pureed (NDD1) Additional Modifications to Solid Foods: DO NOT attempt meal, administration of medication if PT is LETHARGIC, not engaged or motivated to eat Oral Medication Intake: Crushed with Puree Please contact the pharmacy regarding appropriate crushable or liquid drug formulations that are available whenever modified delivery is recommended. Compensatory Strategies and Precautions to be Taken for Safe Swallow: Sitting Upright (90 deg) No Straw Liquids from Straw Small Bites and Sips Alternate Liquids/Solids Rate of Ingestion Change Oral Check Supervision While Eating and Drinking for Safe Swallow: Total Assistance (1:1) Foods to Avoid: Very sticky solids Swallowing Recommended Treatments: Compens. Strategy Educat. Recommendation for Speech: Inpatient Speech Therapy Dietary Services Manager Clinican/Clinical Fellow: No Supervisory Statement: I have reviewed and agree with the student/clinical fellow's documentation: N/A Speech Language Pathologist: Deborah Lopez M.A., CCC-EDUCATION TRAINER
[2021-12-19 11:21] VITALS: BP 144/63; PULSE 82; RESP 14; TEMP 37.8; O2SAT 96
[2021-12-19 11:53] LABS: Hematocrit 24.4 % (42.0-52.0); Hemoglobin 7.3 g/dl (14.0-18.0); Mean Corpuscular HGB Conc 29.9 g/dl (31.0-36.0); Mean Corpuscular Hemoglobin 25.3 pg (27.0-33.0); Mean Corpuscular Volume 84.4 fL (80.0-98.0); Mean Platelet Volume 9.9 fL (9.4-12.4); Platelet Count 293 X10*3/uL (160-400); Red Blood Count 2.89 X10*6/uL (4.60-5.80); Red Cell Distribution Width 15.1 % (11.0-16.0)
[2021-12-19 12:10] LABS: Anion Gap 9 (12-20); Blood Urea Nitrogen 6 mg/dL (9-16); Calcium 8.3 mg/dL (8.4-10.2); Carbon Dioxide 27 mmol/L (22-29); Chloride 110 mmol/L (96-108); Creatinine Clr Calc Pharmacy 81.3; Estimated Glomerular Filt Rate > 60; Glucose Random 150 mg/dL (60-115); Sodium 143 mmol/L (135-145)
--- NOTE | 2021-12-19 12:36 | P.PNGS_ITS ---
Subjective Subjective Date of Service: 12/19/21 Interval history: no changes in status no decision yet from family re: PEG has decub ulcer on sacrum Physical Exam Vital Signs: Vital Signs: Last Vital Signs Temp 100.0 F 12/19/21 11:21 Pulse 82 12/19/21 11:21 Resp 14 12/19/21 11:21 BP 144/63 H 12/19/21 11:21 Pulse Ox 96 12/19/21 11:21 Oxygen Flow Rate 15 12/14/21 23:59 BMI result Body Mass Index 25.0 Const: Other: not communicative General: comfortable and no acute distress Resp: Effort & Inspection: normal respiratory effort Cardio: Rate: regular rate GI: Palpation (GI): Soft to palpation and not firm Back/Spine/Pelvis: Other: sacral decub ulcer , at least stage 2, no discharge, has thick fibrinous debris, no cellulitis Objective Data Active Medications Amoxicillin/Clavulanate Potassium (Amoxicillin/Potassium Clav 2,000 Mg/50 Ml Bottle) 875 mg PO BID@0830,2030 FOR[facility]LY [facility], [facility]–1983 Enoxaparin Sodium (Enoxaparin Sodium 40 Mg/0.4 Ml Syringe) 40 mg SUBCUT Q24H FOR[facility]LY [facility], [facility]–1983 Last Admin: 12/19/21 10:58 Dose: 40 mg Documented by: TAI Albumin Human (Kedbumin 25 %) 100 mls @ 100 mls/hr IV Q1H FOR[facility], [facility]1983 Stop: 12/19/21 14:59 Pharmacy Consult (Consult Rx Perform Med Rec) 1 each MISCELLANE ONCE PRN PRN Reason: Consult order Sodium Chloride (0.9 % Sodium Chloride Flush 3 Ml Syringe) 3 ml IVFLUSH QSHIFT FOR[facility]LY [facility], [facility]1983 Last Admin: 12/19/21 07:30 Dose: Not Given Documented by: LLOYD Non-Admin Reason: IV Running Labs CBC & Chem 7: 12/19/21 11:39 12/19/21 11:39 Labs: Laboratory Results - last 24 hr 12/19/21 12/19/21 11:39 11:39 MCV 84.4 MCH 25.3 L MCHC 29.9 L RDW 15.1 Plt Count 293 D MPV 9.9 Absolute Nucleated RBC 0.000 Nucleated RBC % (auto) 0.0 Anion Gap 9 L Estim Creat Clear Calc 81.3 Estimated GFR > 60 Random Glucose 150 H Calcium 8.3 L D Procedures Date of Service Date of Service: 12/19/21 Progress Note: A&P Assessment and plan (1) Sacral decubitus ulcer, stage II: Status: Acute Assessment and Plan: continue wound care change position side to side no debridement planned at this time will follow and reexamine decub ulcer Fall Risk Details Current Medications: Current Medications Amoxicillin/Clavulanate Potassium (Amoxicillin/Potassium Clav 2,000 Mg/50 Ml Bottle) 875 mg PO BID@0830,2030 FOR[facility], [facility] Enoxaparin Sodium (Enoxaparin Sodium 40 Mg/0.4 Ml Syringe) 40 mg SUBCUT Q24H FOR[facility], [facility] Last Admin: 12/19/21 10:58 Dose: 40 mg Documented by: Albumin Human (Kedbumin 25 %) 100 mls @ 100 mls/hr IV Q1H [facility] Stop: 12/19/21 14:59 Pharmacy Consult (Consult Rx Perform Med Rec) 1 each MISCELLANE ONCE PRN PRN Reason: Consult order Sodium Chloride (0.9 % Sodium Chloride Flush 3 Ml Syringe) 3 ml IVFLUSH QSHIFT [facility] Last Admin: 12/19/21 07:30 Dose: Not Given Documented by: Time Spent With Patient Time: Total time spent is greater than 50% in coordination of care (as documented) at patient's floor/unit and/or counseling patient: Quality Stroke Does the patient have a stroke diagnosis?: No VTE Prior VTE?: No VTE Risk Level:: Medical - moderate - high VTE Device Contraindication: Treatment Not Tolerated VTE Drug Contraindication: N/A - Med Ordered
[2021-12-19] MEDS: Albumin Human 25 % 100 ML IV (14:00)
--- NOTE | 2021-12-19 14:00 | MHC.CM.PN ---
Per MD, Patient has been medically cleared for dc to SNF today. Patient will return to [facility] today at 4PM, via [facility]. MD has informed Patient's Daughter/HCP/Amanda of the dc plan and IMM also addressed with Amanda by [facility](original to be mailed certified letter to her and a copy placed on the chart).
[2021-12-19] MEDS: Potassium Chloride Packet 20 MEQ PACKET 40 MEQ PO (14:14)
--- NOTE | 2021-12-19 14:18 | P.DS_ITS ---
DS: Providers Provider Date of Service: 12/19/21 Date of admission: 12/15/21 09:57 Primary care physician: Pam Plummer MD Consults: 12/16/21 07:32 Consult to General Surgery Routine Consulting Provider: Romeo Patel Reason for consultation: Need PEG for feed d/t chronic aspirations DS: Diagnosis Discharge Diagnosis (1) Sacral decubitus ulcer, stage II: Status: Acute (2) Hypokalemia: Status: Acute DS: Summary Hospital Course Hospital Course: 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 decubitus ulcer. Since October 16, has been admitted 4 times all related to aspiration and aspiration pneumonia related to chronic dysphagia from adnvanced dementia. He was discharged less than 24 hours ago for yet again an episode of aspiration pneumonia and at the time of discharge oxygen saturaton was in upper 90s on room air, upon return to the custodial it was reported that he aspirated yet again while being fed resulting in oxygen saturation dropping to 65% and he was brought back to the hospital to be reassesd. A CT chest is showing right lower lobe consolidation consistent with aspiration, WBC is normal and there is no fever. At the moment oxygen saturation is 95% on 6 liters. hospital course: Patient admitted with the acute hypoxemic respiratory failure secondary to aspiration pneumonitis-started on IV antibiotics seems to be improving off oxygen, in addition patient has poor oral intake and also seen by speech and Swallow for aspiration pneumonitis-initially patient could not tolerate the p.o. do diet and risk of aspiration-followed by speech and Swallow and recommended pureed/honey thick diet for now. please Complete course of antibiotics. Patient is eating better since yesterday. Encouraged for hydration in rehab. Also patient may benefit from additional nutritional supplement support in rehab . In addition use of PEG tube was discussed with the family in detail in case patient does not improve, but currently family is not decided for PEG and since the patient is eating better now-will plan discharge and further management outpatient . Decubitus ulcer in the sacral area: Seen by surgery-recommended -frequent turning, dressing [id number] out outpatient with wound care also. hypokalemia: Repleted, will add additional potassium supplement upon discharge, monitor BMP in rehab in few days. Encouraged for hydration. Mild lower ext swelling possible related to hypoalbuminemia: Does not have any shortness of breath, no respiratory symptoms currently Has hypoalbuminemia, albumin given. Monitor closely extremity swelling in rehab, if leg swelling did not improve consider further workup outpatient as per PCP. Above management discussed with patient daughter in detail length she understand and in agreement with the above plan. Time Spent with Patient Time attestation: Total time spent providing and/or coordinating discharge services: Discharge coordination time: Greater than 30 minutes Quality: Safe Use of Opioids Does Pt have an Active Cancer Diagnosis on the Problem List?: No Quality: Stroke Does the patient have a stroke diagnosis?: No Physical Exam Vital Signs: Vital Signs: Last Vital Signs Temp 100.0 F 12/19/21 11:21 Pulse 82 12/19/21 11:21 Resp 14 12/19/21 11:21 BP 144/63 H 12/19/21 11:21 Pulse Ox 96 12/19/21 11:21 Oxygen Flow Rate 15 12/14/21 23:59 BMI result Body Mass Index 25.0 General: alert, confused, pt is not communicative. Resp:? fair breath sounds ,no rales or rhonchii. CVS: s1s2 heard , rrr,no jvd GI: +BS, NT, no distention Skin: No rash, has mild swelling of lower ext. Neuro:? motor grossly intact Psych: appropriate affect DS: Data Data Completed and Pending Completed studies during hospitalization [Text1]: Procedures Excision of Stomach, Pylorus, Via Natural or Artificial Opening Endoscopic, Diagnostic (11/21/21) Transfusion of Nonautologous Red Blood Cells into Peripheral Vein, Percutaneous Approach (11/21/21) Labs on day of discharge: Laboratory Results - last 24 hr 12/19/21 12/19/21 11:39 11:39 WBC 8.0 RBC 2.89 L Hgb 7.3 L Hct 24.4 L MCV 84.4 MCH 25.3 L MCHC 29.9 L RDW 15.1 Plt Count 293 D MPV 9.9 Absolute Nucleated RBC 0.000 Nucleated RBC % (auto) 0.0 Sodium 143 Potassium 3.0 L Chloride 110 H Carbon Dioxide 27 Anion Gap 9 L BUN 6 L Creatinine 0.63 Estim Creat Clear Calc 81.3 Estimated GFR > 60 Random Glucose 150 H Calcium 8.3 L D Preliminary micro results at discharge 12/15/21 00:09 Blood Culture - Preliminary Blood - Arterial No growth after 48 hours. 12/15/21 00:39 Blood Culture - Preliminary Blood - Arterial No growth after 48 hours. Discharge Plan Discharge Patient Disposition: [facility] Discharge Diagnosis: Aspirational Pneumonia,Sacral ulcer Referrals: [facility] [Other] - 1 Week [facility] [Outside] - 1 Week Pam Plummer MD [Primary Care Provider] - 1 Week Discharge Medications: New potassium chloride 20 mEq packet 10 meq PO DAILY Qty: 5 0RF Continued omeprazole 40 mg capsule,delayed release(DR/EC) 40 mg PO BID Qty: 60 0RF multivitamin with minerals Tablet 1 tab PO DAILY 0RF divalproex [Depakote] 250 mg Tablet,Delayed Release (Dr/Ec) 250 mg PO DAILY 0RF doxycycline hyclate 100 mg Tablet 100 mg PO Q12H Qty: 10 0RF Rx Instructions: ORDERED FOR 7 DAYS FROM 12/14/ TO 12/21 amoxicillin-pot clavulanate 875-125 mg Tablet 875 mg PO Q12H Qty: 10 0RF Rx Instructions: ORDERED FOR 7 DAYS FROM 12/14 TO 12/21 mirtazapine 15 mg tablet 1 tab PO BEDTIME 0RF atorvastatin 20 mg tablet 20 mg PO BEDTIME 0RF memantine 10 mg tablet 10 mg PO BID 0RF galantamine 8 mg tablet 8 mg PO BID 0RF quetiapine 50 mg tablet 50 mg PO BID 0RF Discharge Orders: Discharge Order (Routine); Ordered 12/19/21 Ordered By: Tin Bender Diet: advance to usual diet Activity on Discharge: As tolerated Stand Alone Forms: Patient Portal Discharge page Other Ambulatory Orders: Basic Metabolic Panel (Routine) Timeframe: 1 Week Facility: [facility] - Location: Laboratory Ordered By: Tin Bender Activity Restrictions/Additional Instructions: Wound care instructions: Cleanse sacral pressure ulcer with wound cleanser, then apply silver alginate dsg to sacral wound cover with large foam dressing daily. Currently wound measures 5cm round. Yellow fibrotic tissue with drainage. Care Plan Goals: Patient admitted with the acute hypoxemic respiratory failure secondary to aspiration pneumonitis-started on IV antibiotics seems to be improving off oxygen, in addition patient has poor oral intake and also seen by speech and Swallow for aspiration pneumonitis-initially patient could not tolerate the p.o. do diet and risk of aspiration-followed by speech and Swallow and recommended pureed/honey thick diet for now. Patient is eating better since yesterday. Encouraged for hydration in rehab. Also patient may benefit from additional nutritional supplement support in rehab . In addition use of PEG tube was discussed with the family in detail in case patient does not improve, but currently family is not decided for PEG and since the patient is eating better now-will plan discharge and further management outpatient . Decubitus ulcer in the sacral area: Seen by surgery-recommended -frequent turning, dressing [id number] out outpatient with wound care also. hypokalemia: Repleted, will add additional potassium supplement upon discharge, monitor BMP in rehab in few days. Encouraged for hydration. Above management discussed with patient daughter in detail length she understand and in agreement with the above plan. Health Concerns: As above. Plan of Treatment: As above. Assessment: As above.
[2021-12-19 14:33] LABS: COVID-19 Test Negative (Negative); IDNOW Serial# 16C4AD1C
[2021-12-19 15:35] VITALS: BP 168/72; PULSE 89; RESP 18; TEMP 36.8; O2SAT 98
--- NOTE | 2021-12-20 12:03 | MHC.CM.PN ---
Per , he had done an addendum to the dc summary and requested CM to refax the dc summary to the SNF. DC summary has been uploaded in [employer] and sent to [facility].
== END 2021-12-19 17:07 | disposition skilled nursing facility (03) | DRG 177 ==
LOC: HO.ED 12-15 02:07 → HO.EDOVER 12-15 10:11 → HO.S3 12-15 13:09
PROVIDERS: Admitting Provider Internal Medicine; Emergency Provider Student in an Organized Health Care Education/Training Program; PCP Internal Medicine; Visit Provider Internal Medicine
DX: J69.0 Pneumonitis due to inhalation of food and vomit (principal); J96.01 Acute respiratory failure with hypoxia; E44.0 Moderate protein-calorie malnutrition; I50.9 Heart failure, unspecified; D64.9 Anemia, unspecified; K31.9 Disease of stomach and duodenum, unspecified; F03.90 Unspecified dementia, unspecified severity, without behavioral disturbance, psychotic disturbance, mood disturbance, and anxiety; I11.0 Hypertensive heart disease with heart failure; L89.152 Pressure ulcer of sacral region, stage 2; Z68.25 Body mass index [BMI] 25.0-25.9, adult; Z20.822 Contact with and (suspected) exposure to COVID-19; Z87.891 Personal history of nicotine dependence; Z79.899 Other long term (current) drug therapy
CPT/HCPCS: 36415; 71250; 80048; 80053; 81001; 82803; 83605; 83880; 85025; 85027; 85610; 87040; 87086; 87088; 87635; 92526; 92610; 93005; 96374; 99285; J0696; J1650; J1940; P9047